=== PATIENT | female | born 1940 | race Caucasian/White ===

== ENCOUNTER 2016-07-04 05:27 | Inpatient (IN) | payer MEDICARE, MEDICAID ==
[2016-07-04] MEDS ORDERED: Sodium Chloride 0.9% 1,000 ML IV ONE (05:50)
[2016-07-04] MEDS ORDERED: Sodium Chloride 0.9% 10 ML Syringe FLUSH PRN ×2 (05:50)
[2016-07-04] MEDS ORDERED: Sodium Chloride 0.9% 2.5 ML Syringe FLUSH PRN ×2 (05:50)
--- NOTE | 2016-07-04 06:03 | EDM.PDOC ---
ED HPI GENERAL MEDICAL PROBLEM - General Chief Complaint: General Stated Complaint: FEVER Time Seen by Provider: 07/04/16 05:49 Source of Information: Reports: Patient, EMS, Other (custodial staff nurse present in the ED) History Limitations: Reports: No limitations - History of Present Illness INITIAL COMMENTS - FREE TEXT/NARRATIVE: HISTORY AND PHYSICAL: History of present illness: 76 ear old female assisted patient who is nonambulatory and bedridden with a history of depression, generalized weakness, dementia, hypertension high cholesterol and hypothyroidism, now brought in by EMS after assisted staff appreciated patient to be febrile with a productive cough that was worsening. Since last night the patient has been developing hypoxia. She does not usually use home O2. She is at her baseline mental status of mild dementia per her nurse from the assisted, but she is alert and verbal communicative and cooperative. Patient denies headache or stiff neck. No chest pain. Review of systems: As per history of present illness and below otherwise all systems reviewed and negative. Past medical history: As per history of present illness and as reviewed below otherwise noncontributory. Surgical history: As per history of present illness and as reviewed below otherwise noncontributory. Social history: No reported history of drug or alcohol abuse. Family history: As per history of present illness and as reviewed below otherwise noncontributory. Physical exam: Elderly chronically weak appearing female in no acute distress mild hypoxia at 88-90% on 2 L nasal cannula. Alert, communicative, and cooperative. She is at her baseline mental status per assisted nurse present in ED HEENT: Atraumatic, normocephalic, pupils reactive, negative for conjunctival pallor or scleral icterus, mucous membranes moist, throat clear, neck supple, nontender, trachea midline. Lungs: Scattered rhonchi, breath sounds equal bilaterally, chest nontender. Heart: S1S2, regular, negative for clicks, rubs, or JVD. Abdomen: Soft, nondistended, nontender. Negative for masses or hepatosplenomegaly. Negative for costovertebral tenderness. Pelvis: Stable nontender. Genitourinary: Deferred. Rectal: Deferred. Extremities: Atraumatic, negative for cords or calf pain. Neurovascular unremarkable. Neuro: Awake, alert, oriented. Cranial nerves II through XII unremarkable. Cerebellum unremarkable. Motor and sensory unremarkable throughout except patient has generalized weakness. Exam nonfocal. Diagnostics: [] Therapeutics: [] Impression: [] Plan: [] Definitive disposition and diagnosis as appropriate pending reevaluation and review of above. no verbalized pain Pain Score (Numeric/FACES): 0 - Related Data Allergies Allergy/AdvReac Type Severity Reaction Status Date / Time No Known Allergies Allergy Verified 07/04/16 05:41 Home Meds: Home Meds Acetaminophen [Tylenol] 650 mg PO Q4H PRN #7 tablet 03/07/16 [Rx] Levothyroxine [Synthroid] 88 mcg PO ACBREAKFAST #7 tablet 03/07/16 [Rx] Metoprolol Tartrate 50 mg PO BID #7 tablet 03/07/16 [Rx] Simvastatin [Zocor] 20 mg PO BEDTIME #7 tablet 03/07/16 [Rx] amLODIPine [Norvasc] 5 mg PO DAILY #7 tablet 03/07/16 [Rx] buPROPion [Wellbutrin XL] 300 mg PO DAILY #30 tab.er 03/07/16 [Rx] traZODone 25 mg PO BEDTIME #30 tablet 03/07/16 [Rx] Acetaminophen [Pain & Fever] 500 mg PO TID 07/04/16 [History] Multivitamin [Multi-Vitamin Daily] 1 tab PO DAILY 07/04/16 [History] Past Medical History HEENT History: Reports: None Cardiovascular History: Reports: High cholesterol, Hypertension. Denies: Afib, Blood clots/VTE/DVT, CT Other Cardiovascular History: takes calcium Endocrine/Metabolic History: Reports: Obesity/BMI 30+. Denies: Diabetes, type II - Infectious Disease History Infectious Disease History: Reports: Chicken pox, Measles, Mumps - Past Surgical History Musculoskeletal Surgical History: Reports: Other (see below) Other Musculoskeletal Surgeries/Procedures:: hip surgery Social & Family History - Family History Family Medical History: Noncontributory - Tobacco Use Smoking Status *Q: Never Smoker Second Hand Smoke Exposure: No - Caffeine Use Caffeine Use: Reports: None - Recreational Drug Use Recreational Drug Use: No ED ROS GENERAL - Review of Systems Review Of Systems: See Below (Per history of present illness) ED EXAM, GENERAL - Physical Exam Exam: See Below (Per history of present illness) Course - Vital Signs Text/Narrative:: Signs and symptoms consistent with clinical diagnosis of pneumonia with hypoxia productive cough and fever 101 rectally. Patient's baseline is not hypoxia and she does not use home O2. She is at her baseline mental status supple neck no headache no evidence of MANAGER FLORAL infection the is nonfocal neurologically with severe generalized weakness however per assisted nurse this is her baseline. EKG normal sinus rhythm at [address] [facility]. Chest x-ray pending given clinical diagnosis of pneumonia blood cultures will be drawn an anabolic initiated for hCAP coverage. Chest x-ray result consistent with right middle lobe infiltrate interpreted by me. Anticipate inpatient admission to a telemetry bed for treatment of pneumonia supplemental oxygen for her hypoxia, fever control and hydration. Case discussed with Dr. Max Alexander hospitalist director of aviation who is aware history and findings and agrees with inpatient admission to a telemetry bed to his service. Dr. Alexander recent Levaquin and vancomycin as ordered and will address further antibiosis himself. Patient stable on reevaluation and appropriate for for a telemetry bed. Last Recorded V/S: Last Vital Signs Temp 38.6 C H 07/04/16 05:41 Pulse 86 07/04/16 06:26 Resp 19 07/04/16 06:26 BP 134/62 07/04/16 06:26 Pulse Ox 90 L 07/04/16 06:26 - Orders/Labs/Meds Orders: Active Orders 24 hr Category Date Time Status Admission Status [Patient Status] [ADT] Stat ADT 07/04/16 06:45 Active EKG Documentation Completion [RC] STAT Care 07/04/16 05:50 Active Peripheral IV Care [RC] . DIRECTED Care 07/04/16 05:50 Active Chest 1V Frontal [CR] Stat Exams 07/04/16 05:50 Taken CULTURE BLOOD [BC] Stat Lab 07/04/16 05:53 Received CULTURE BLOOD [BC] Stat Lab 07/04/16 06:31 Ordered LACTIC ACID,WHOLE BLOOD [BG] Stat Lab 07/04/16 06:31 Ordered Levofloxacin/Dextrose 5%-Water [Levaquin in D5W 500 MG/ Med 07/04/16 06:31 Active 100 ML] 500 mg Premix Bag 1 bag IV ONETIME Sodium Chloride 0.9% [Normal Saline] 1,000 ml Med 07/04/16 05:50 Active IV .Bolus Sodium Chloride 0.9% [Saline Flush] Med 07/04/16 05:50 Active 10 ml FLUSH ASDIRECTED PRN Sodium Chloride 0.9% [Saline Flush] Med 07/04/16 05:50 Active 10 ml FLUSH ASDIRECTED PRN Sodium Chloride 0.9% [Saline Flush] Med 07/04/16 05:50 Active 2.5 ml FLUSH ASDIRECTED PRN Sodium Chloride 0.9% [Saline Flush] Med 07/04/16 05:50 Active 2.5 ml FLUSH ASDIRECTED PRN Vancomycin [Vancocin] 1 gm Med 07/04/16 06:31 Active Sodium Chloride 0.9% [Normal Saline] 250 ml IV ONETIME Blood Culture x2 Reflex Set [OM.PC] Stat Oth 07/04/16 06:31 Ordered Peripheral IV Insertion Adult [OM.PC] Stat Oth 07/04/16 05:50 Ordered Medication Orders Sodium Chloride (Normal Saline) 1,000 mls @ 999 mls/hr IV .Bolus ONE Stop: 07/04/16 06:50 Last Admin: 07/04/16 06:21 Dose: 999 mls/hr Levofloxacin/Dextrose 500 mg/ (Premix) 100 mls @ 100 mls/hr IV ONETIME ONE Stop: 07/04/16 07:30 Vancomycin HCl 1 gm/ Sodium (Chloride) 250 mls @ 250 mls/hr IV ONETIME ONE Stop: 07/04/16 07:30 Last Admin: 07/04/16 06:45 Dose: 250 mls/hr Sodium Chloride (Saline Flush) 10 ml FLUSH ASDIRECTED PRN PRN Reason: Keep Vein Open Last Admin: 07/04/16 06:21 Dose: 10 ml Sodium Chloride (Saline Flush) 2.5 ml FLUSH ASDIRECTED PRN PRN Reason: Keep Vein Open Last Admin: 07/04/16 06:20 Dose: 2.5 ml Sodium Chloride (Saline Flush) 10 ml FLUSH ASDIRECTED PRN PRN Reason: Keep Vein Open Last Admin: 07/04/16 06:22 Dose: 10 ml Sodium Chloride (Saline Flush) 2.5 ml FLUSH ASDIRECTED PRN PRN Reason: Keep Vein Open Last Admin: 07/04/16 06:22 Dose: 2.5 ml Labs: Laboratory Tests 07/04/16 07/04/16 07/04/16 Range/Units 05:53 05:53 05:53 WBC 6.51 (4.0-11.0) K/uL RBC 4.05 L (4.30-5.90) M/uL Hgb 11.9 L (12.0-16.0) g/dL Hct 35.7 L (36.0-46.0) % MCV 88.1 (80.0-98.0) fL MCH 29.4 (27.0-32.0) pg MCHC 33.3 (31.0-37.0) g/dL RDW Std Deviation 51.2 (28.0-62.0) fl RDW Coeff of Cristiane 16 H (11.0-15.0) % Plt Count 157 (150-400) K/uL MPV 9.90 (7.40-12.00) fL Neut % (Auto) 28.3 L (48.0-80.0) % Lymph % (Auto) 64.1 H (16.0-40.0) % [place] % (Auto) 6.3 (0.0-15.0) % Eos % (Auto) 0.8 (0.0-7.0) % Baso % (Auto) 0.5 (0.0-1.5) % Neut # (Auto) 1.9 (1.4-5.7) K/uL Lymph # (Auto) 4.2 H (0.6-2.4) K/uL [place] # (Auto) 0.4 (0.0-0.8) K/uL Eos # (Auto) 0.1 (0.0-0.7) K/uL Baso # (Auto) 0.0 (0.0-0.1) K/uL Nucleated RBC % 0.0 /100WBC Nucleated RBCs # 0 K/uL Sodium 134 L (136-146) mmol/L Potassium 3.7 (3.5-5.1) mmol/L Chloride 100 (98-110) mmol/L Carbon Dioxide 22 (21-31) mmol/L BUN 24 H (6.0-23.0) mg/dL Creatinine 1.3 (0.6-1.5) mg/dL Est Cr Clr Drug Dosing 27.27 mL/min Estimated GFR (MDRD) 40.0 ml/min Glucose 82 (60-110) mg/dL Calcium 9.3 (8.8-10.8) mg/dL Total Bilirubin 0.5 (0.1-1.5) mg/dL AST 86 H (5-40) IU/L ALT 16 (8-54) IU/L Alkaline Phosphatase 334 H (40-150) Troponin I < 0.10 (0.0-0.29) NG/ML Total Protein 7.8 (6.0-8.0) g/dL Albumin 3.4 (3.4-4.8) g/dL Globulin 4.4 H (2.0-3.5) g/dL Albumin/Globulin Ratio 0.8 L (1.3-2.8) Urine Color Urine Appearance Urine pH (5.0-8.0) Ur Specific Roper (1.001-1.035) Urine Protein (NEGATIVE) mg/dL Urine Glucose (UA) (NEGATIVE) mg/dL Urine Ketones (NEGATIVE) mg/dL Urine Occult Blood (NEGATIVE) Urine Nitrite (NEGATIVE) Urine Bilirubin (NEGATIVE) Urine Urobilinogen (<2.0) EU/dL Ur Leukocyte Esterase (NEGATIVE) Urine RBC (0-2/HPF) Urine WBC (0-5/HPF) Ur Epithelial Cells (NONE-FEW) Urine Bacteria (NEGATIVE) Hyaline Casts (0-2/LPF) Fine Granular Casts (NEGATIVE) 07/04/16 Range/Units 06:08 WBC (4.0-11.0) K/uL RBC (4.30-5.90) M/uL Hgb (12.0-16.0) g/dL Hct (36.0-46.0) % MCV (80.0-98.0) fL MCH (27.0-32.0) pg MCHC (31.0-37.0) g/dL RDW Std Deviation (28.0-62.0) fl RDW Coeff of Cristiane (11.0-15.0) % Plt Count (150-400) K/uL MPV (7.40-12.00) fL Neut % (Auto) (48.0-80.0) % Lymph % (Auto) (16.0-40.0) % [place] % (Auto) (0.0-15.0) % Eos % (Auto) (0.0-7.0) % Baso % (Auto) (0.0-1.5) % Neut # (Auto) (1.4-5.7) K/uL Lymph # (Auto) (0.6-2.4) K/uL [place] # (Auto) (0.0-0.8) K/uL Eos # (Auto) (0.0-0.7) K/uL Baso # (Auto) (0.0-0.1) K/uL Nucleated RBC % /100WBC Nucleated RBCs # K/uL Sodium (136-146) mmol/L Potassium (3.5-5.1) mmol/L Chloride (98-110) mmol/L Carbon Dioxide (21-31) mmol/L BUN (6.0-23.0) mg/dL Creatinine (0.6-1.5) mg/dL Est Cr Clr Drug Dosing mL/min Estimated GFR (MDRD) ml/min Glucose (60-110) mg/dL Calcium (8.8-10.8) mg/dL Total Bilirubin (0.1-1.5) mg/dL AST (5-40) IU/L ALT (8-54) IU/L Alkaline Phosphatase (40-150) Troponin I (0.0-0.29) NG/ML Total Protein (6.0-8.0) g/dL Albumin (3.4-4.8) g/dL Globulin (2.0-3.5) g/dL Albumin/Globulin Ratio (1.3-2.8) Urine Color YELLOW Urine Appearance CLOUDY Urine pH 5.5 (5.0-8.0) Ur Specific Roper >= 1.030 (1.001-1.035) Urine Protein 30 (NEGATIVE) mg/dL Urine Glucose (UA) NEGATIVE (NEGATIVE) mg/dL Urine Ketones NEGATIVE (NEGATIVE) mg/dL Urine Occult Blood LARGE H (NEGATIVE) Urine Nitrite NEGATIVE (NEGATIVE) Urine Bilirubin NEGATIVE (NEGATIVE) Urine Urobilinogen 0.2 (<2.0) EU/dL Ur Leukocyte Esterase MODERATE (NEGATIVE) Urine RBC 1-4 (0-2/HPF) Urine WBC 150-200 (0-5/HPF) Ur Epithelial Cells FEW (NONE-FEW) Urine Bacteria FEW (NEGATIVE) Hyaline Casts 0-1 (0-2/LPF) Fine Granular Casts 0-1 (NEGATIVE) Meds: Medications Generic Name Dose Route Start Last Admin Trade Name Freq PRN Reason Stop Dose Admin Sodium Chloride 1,000 mls @ 999 mls/hr 07/04/16 05:50 07/04/16 06:21 Normal Saline IV 07/04/16 06:50 999 mls/hr .Bolus ONE Administration Levofloxacin/Dextrose 500 mg/ 100 mls @ 100 mls/hr 07/04/16 06:31 Premix IV 07/04/16 07:30 ONETIME ONE Vancomycin HCl 1 gm/ Sodium 250 mls @ 250 mls/hr 07/04/16 06:31 07/04/16 06: 45 Chloride IV 07/04/16 07:30 250 mls/hr ONETIME ONE Administration Sodium Chloride 10 ml 07/04/16 05:50 07/04/16 06:21 Saline Flush FLUSH 10 ml ASDIRECTED PRN Administration Keep Vein Open Sodium Chloride 2.5 ml 07/04/16 05:50 07/04/16 06:20 Saline Flush FLUSH 2.5 ml ASDIRECTED PRN Administration Keep Vein Open Sodium Chloride 10 ml 07/04/16 05:50 07/04/16 06:22 Saline Flush FLUSH 10 ml ASDIRECTED PRN Administration Keep Vein Open Sodium Chloride 2.5 ml 07/04/16 05:50 07/04/16 06:22 Saline Flush FLUSH 2.5 ml ASDIRECTED PRN Administration Keep Vein Open Departure - Departure Time of Disposition: 06:07 Disposition: Admitted As Inpatient 68 Condition: good Clinical Impression: Pneumonia, Hypoxia, Fever, SIRS (systemic inflammatory response syndrome), Sepsis Referrals: Emir Muir MD [Primary Care Provider] - - My Orders Last 24 Hours: My Active Orders 07/04/16 05:50 EKG Documentation Completion [RC] STAT Peripheral IV Care [RC] . DIRECTED Chest 1V Frontal [CR] Stat Sodium Chloride 0.9% [Normal Saline] 1,000 ml IV .Bolus Sodium Chloride 0.9% [Saline Flush] 10 ml FLUSH ASDIRECTED PRN Sodium Chloride 0.9% [Saline Flush] 10 ml FLUSH ASDIRECTED PRN Sodium Chloride 0.9% [Saline Flush] 2.5 ml FLUSH ASDIRECTED PRN Sodium Chloride 0.9% [Saline Flush] 2.5 ml FLUSH ASDIRECTED PRN Peripheral IV Insertion Adult [OM.PC] Stat 07/04/16 05:53 CULTURE BLOOD [BC] Stat 07/04/16 06:31 CULTURE BLOOD [BC] Stat LACTIC ACID,WHOLE BLOOD [BG] Stat Levofloxacin/Dextrose 5%-Water [Levaquin in D5W 500 MG/100 ML] 500 mg Premix Bag 1 bag IV ONETIME Vancomycin [Vancocin] 1 gm Sodium Chloride 0.9% [Normal Saline] 250 ml IV ONETIME Blood Culture x2 Reflex Set [OM.PC] Stat 07/04/16 06:45 Admission Status [Patient Status] [ADT] Stat - Assessment/Plan Last 24 Hours: My Active Orders 07/04/16 05:50 EKG Documentation Completion [RC] STAT Peripheral IV Care [RC] . DIRECTED Chest 1V Frontal [CR] Stat Sodium Chloride 0.9% [Normal Saline] 1,000 ml IV .Bolus Sodium Chloride 0.9% [Saline Flush] 10 ml FLUSH ASDIRECTED PRN Sodium Chloride 0.9% [Saline Flush] 10 ml FLUSH ASDIRECTED PRN Sodium Chloride 0.9% [Saline Flush] 2.5 ml FLUSH ASDIRECTED PRN Sodium Chloride 0.9% [Saline Flush] 2.5 ml FLUSH ASDIRECTED PRN Peripheral IV Insertion Adult [OM.PC] Stat 07/04/16 05:53 CULTURE BLOOD [BC] Stat 07/04/16 06:31 CULTURE BLOOD [BC] Stat LACTIC ACID,WHOLE BLOOD [BG] Stat Levofloxacin/Dextrose 5%-Water [Levaquin in D5W 500 MG/100 ML] 500 mg Premix Bag 1 bag IV ONETIME Vancomycin [Vancocin] 1 gm Sodium Chloride 0.9% [Normal Saline] 250 ml IV ONETIME Blood Culture x2 Reflex Set [OM.PC] Stat 07/04/16 06:45 Admission Status [Patient Status] [ADT] Stat
[2016-07-04] MEDS ORDERED: Levofloxacin/Dextrose 5%-Water 500 MG in Premix Bag 1 BAG IV ONE (06:31)
--- NOTE | 2016-07-04 08:04 | PCM.HP ---
H&P History of Present Illness - General Date of Service: 07/04/16 Admit Problem/Dx: Admission Diagnosis/Problem Admission Diagnosis/Problem Pneumonia Source of Information: Family (Daughter, Wood, at bedside), long-term records - History of Present Illness Initial Comments - Free Text/Narative: This 76 year old female [place] resident with pmh of HTN, dyslipidemia, depression, dementia, COPD, and non-ambulatory presented to the ED via EMS last evening due to complaints of fever and productive cough. Her daughter, Wood, reports Thursday and Thursday she started not feeling well with malaise, chills, no appetite, and diarrhea. On Thursday and she continued to get worse and they noticed a cough and fever. She normally is dyspneic, but does not use home oxygen. She is alert and oriented to baseline, conversational. She reports she does not feel well, denies pain, has some body aches. Denies abdominal pain , urinary symptoms, chest pain and palpitations. In the ED WBC 6,510, hgb 11.9 Na 134, BUN 24, Cr 1.3 AST 86, ALK phos 334. UA few bacteria, WBC 15-200, leukocyte esterase moderate and neg nitrite. UC pending. BC obtain and pending as well. Influenza swab negative. CXR revealed multifocal penumonia/pneumonitis. She was treated with IV fluids, Levaquin and Vancomycin in the ED. She was admitted for sepsis and health care associated pneumonia. no verbalized pain Pain Score (Numeric/FACES): 0 - Related Data Allergies/Adverse Reactions: Allergies Allergy/AdvReac Type Severity Reaction Status Date / Time No Known Allergies Allergy Verified 07/04/16 05:41 Home Medications: Home Meds Acetaminophen [Tylenol] 650 mg PO Q4H PRN #7 tablet 03/07/16 [Rx] Levothyroxine [Synthroid] 88 mcg PO ACBREAKFAST #7 tablet 03/07/16 [Rx] Metoprolol Tartrate 50 mg PO BID #7 tablet 03/07/16 [Rx] Simvastatin [Zocor] 20 mg PO BEDTIME #7 tablet 03/07/16 [Rx] amLODIPine [Norvasc] 5 mg PO DAILY #7 tablet 03/07/16 [Rx] buPROPion [Wellbutrin XL] 300 mg PO DAILY #30 tab.er 03/07/16 [Rx] traZODone 25 mg PO BEDTIME #30 tablet 03/07/16 [Rx] Acetaminophen [Pain & Fever] 500 mg PO TID 07/04/16 [History] Multivitamin [Multi-Vitamin Daily] 1 tab PO DAILY 07/04/16 [History] Past Medical History HEENT History: Reports: None Cardiovascular History: Reports: High cholesterol, Hypertension. Denies: Afib, Blood clots/VTE/DVT, Heart Failure, CA Respiratory History: Reports: Asthma, COPD, SOB. Denies: PE Gastrointestinal History: Reports: None. Denies: GERD, GI bleed Genitourinary History: Reports: UTI, recurrent. 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 Denies: Diabetes, type II Hematologic History: Reports: None Oncologic (Cancer) History: Reports: None Dermatologic History: Reports: None - Infectious Disease History Infectious Disease History: Reports: Chicken pox, Measles, Mumps - Past Surgical History Musculoskeletal Surgical History: Reports: Other (see below) Other Musculoskeletal Surgeries/Procedures:: hip surgery Social & Family History - Family History Family Medical History: Noncontributory - Tobacco Use Smoking Status *Q: Never Smoker Second Hand Smoke Exposure: No - Caffeine Use Caffeine Use: Reports: None - Recreational Drug Use Recreational Drug Use: No - Living Situation & Occupation 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 Denies: headaches, sinus congestion, sore throat Pulmonary: Reports: Shortness of Breath, Cough, Sputum Cardiovascular: Reports: edema (has edema to BLE, +1-2 non pitting since hip fracture and non ambulatory). Denies: chest pain, palpitations Gastrointestinal: Reports: Diarrhea, Decreased appetite. Denies: Abdominal pain , Black stool, Bloody stool, Nausea, Stool incontinence Genitourinary: Reports: no symptoms. Denies: dysuria, frequency, burning Musculoskeletal: Reports: no symptoms Skin: Reports: no symptoms Psychiatric: Reports: no symptoms Neurological: Reports: No Symptoms Hematologic/Lymphatic: Reports: no symptoms Immunologic: Reports: no symptoms Exam - Exam Exam: See Below - Vital Signs Vital Signs: Last Vital Signs Temp 98.6 F 07/04/16 06:52 Pulse 83 07/04/16 06:52 Resp 19 07/04/16 06:52 BP 143/65 H 07/04/16 06:52 Pulse Ox 93 L 07/04/16 06:52 Weight: 77 kg - Exam Quality Assessment: supplemental oxygen, DVT prophylaxis General: alert, oriented, cooperative HEENT: Conjunctiva clear, EACs clear, EOMI, Hearing intact, Nares patent, Posterior pharynx clear. No: Mucosa moist & pink (lips and mouth dry with some craking to lips) Neck: supple, trachea midline. No: lymphadenopathy Lungs: Crackles (Coarse lung sound throughout lung van). No: Normal respiratory effort (dyspnea noted, daughter notes this is about at baseline. ) Cardiovascular: regular rate, regular rhythm, normal S1, normal S2. No: systolic murmur Abdomen: normal bowel sounds, soft. No: organomegaly, distention, guarding, rigidity, rebound, tenderness Extremities: normal inspection, normal pulses, edema (+1-2 non pitting edema) Peripheral Pulses: 2+: posterior tibial (L), posterior tibial (R), dorsalis pedis (L), dorsalis pedis (R) Skin: warm, dry, intact Neurological: cranial nerves intact Neuro Extensive - Mental Status: alert, normal mood/affect, disorientation to time Neuro Extensive - Motor, Sensory, Reflexes: No: normal gait (non-ambulatory) Psychiatric: alert, normal affect, normal mood - Patient Data Result Diagrams: 07/04/16 05:53 07/04/16 05:53 EKG INTERPRETATION EKG Date: 07/04/16 Time: 05:54 Rhythm: NSR Rate (beats/min): 83 P-wave: present QRS: normal ST-T: normal QT: normal *Q Meaningful Use (ADM) - VTE *Q VTE Criteria *Q: - VTE Risk Assess *Q Each Risk Factor Represents 1 Point: Swollen Legs, Current, Obesity (BMI greater than 30), Serious Lung Disease Including Pneumonia, Less than 1 Month, Abnormal Pulmonary Function (COPD), Medical Patient Currently on Bedrest Total Score 1 Point Risk Factors: 5 Each Risk Factor Represents 2 Points: Age 60 - 74 Years Total Score 2 Point Risk Factors: 2 Each Risk Factor Represents 3 Points: None Total Score 3 Point Risk Factors: 0 Each Risk Factor Represents 5 Points: None Total Score 5 Point Risk Factors: 0 Venous Thromboembolism Risk Factor Score *Q: 7 - Stroke *Q Stroke Criteria *Q: - AMI *Q AMI Criteria *Q: - Problem List (1) Sepsis SNOMED Code(s): 53868408 ICD Code: A41.9 - SEPSIS, UNSPECIFIED ORGANISM Status: Acute Current Visit: Yes (2) Recurrent UTI SNOMED Code(s): 491660896 ICD Code: N39.0 - URINARY TRACT INFECTION, SITE NOT SPECIFIED Status: Acute Current Visit: Yes (3) COPD (chronic obstructive pulmonary disease) SNOMED Code(s): 75055170 ICD Code: J44.9 - CHRONIC OBSTRUCTIVE PULMONARY DISEASE, UNSPECIFIED Status : Acute Current Visit: Yes (4) Dementia SNOMED Code(s): 63722828 ICD Code: F03.90 - UNSPECIFIED DEMENTIA WITHOUT BEHAVIORAL DISTURBANCE Status: Acute Current Visit: Yes (5) Hypothyroidism SNOMED Code(s): 25014668 ICD Code: E03.9 - HYPOTHYROIDISM, UNSPECIFIED Status: Acute Current Visit : Yes (6) Fever SNOMED Code(s): 810849717 ICD Code: R50.9 - FEVER, UNSPECIFIED Status: Acute Current Visit: Yes (7) Hypoxia SNOMED Code(s): 681211441, 205001374 ICD Code: R09.02 - HYPOXEMIA Status: Acute Current Visit: Yes (8) Pneumonia SNOMED Code(s): 638481716 ICD Code: J18.9 - PNEUMONIA, UNSPECIFIED ORGANISM Status: Acute Current Visit: Yes (9) HTN (hypertension) SNOMED Code(s): 53044847 ICD Code: I10 - ESSENTIAL (PRIMARY) HYPERTENSION Status: Chronic Current Visit: No Qualifiers: Hypertension type: essential hypertension Qualified Code(s): I10 - Essential (primary) hypertension Problem List Initiated/Reviewed/Updated: Yes Orders Last 24hrs: Medication Orders Sodium Chloride (Saline Flush) 10 ml FLUSH ASDIRECTED PRN PRN Reason: Keep Vein Open Last Admin: 07/04/16 06:21 Dose: 10 ml Sodium Chloride (Saline Flush) 2.5 ml FLUSH ASDIRECTED PRN PRN Reason: Keep Vein Open Last Admin: 07/04/16 06:20 Dose: 2.5 ml Sodium Chloride (Saline Flush) 10 ml FLUSH ASDIRECTED PRN PRN Reason: Keep Vein Open Last Admin: 07/04/16 06:22 Dose: 10 ml Sodium Chloride (Saline Flush) 2.5 ml FLUSH ASDIRECTED PRN PRN Reason: Keep Vein Open Last Admin: 07/04/16 06:22 Dose: 2.5 ml Assessment/Plan Comment:: This 76 year old female admitted with sepsis, HCAP and flu like symptoms 1. Sepsis and HCAP: Covering with broad spectrum antibiotics, Zosyn, Levaquin and Vancomycin. No leukocytosis. May consider chest CT per radiology recommendations if no improvement. Provide IVFs for now, monitor. Duonebs and oxygen. Lactate normal. Encourage IS 2. Flu-like symptoms: Tamiflu 30 mg daily due to renal function. 3. UTI: UC pending, treatment as above. 4. HTN: Monitor hold Metoprolol and Norvasc for now due to sepsis. Will re- evaluate in am. 5. Hypothyroidism: Continue Synthroid 6. Depression: Continue Wellbutrin VTE: Heparin Dispo: 2-4 days
[2016-07-04] MEDS: Sodium Chloride 0.9% 1,000 ML IV SCH ×2 (08:16→20:22)
[2016-07-04] MEDS: Piperacillin/Tazobactam 4.5 GM in Sodium Chloride 0.9% 100 ML IV SCH ×3 (08:22→20:04)
[2016-07-04] MEDS ORDERED: Acetaminophen 325 MG Tab PO PRN (10:00)
[2016-07-04] MEDS ORDERED: Enoxaparin 40 MG/0.4 ML Syringe SUBCUT SCH (10:00)
[2016-07-04] MEDS ORDERED: Ondansetron 4 MG/2 ML SDV IVPUSH PRN (10:00)
[2016-07-04] MEDS: Albuterol/Ipratropium 3.0-0.5 MG/3 ML Neb Soln NEB SCH ×4 (10:22→21:05)
[2016-07-04] MEDS ORDERED: Oseltamivir 75 MG Cap PO SCH ×2 (12:30→12:45)
[2016-07-04] MEDS: Oseltamivir Phosphate 30 MG Capsule PO SCH (13:00)
--- NOTE | 2016-07-04 14:43 | CR ---
EXAM DATE: 07/04/16 PATIENT'S AGE: 76 Patient: LLOYD HERNANDEZ Facility: [place], [place] Site . Site : 1940 Study: XRay Chest [id number]/24/2017 6:28:35 AM Ordering Physician: Doctor Sanchez Final Report: INDICATION: Cough. TECHNIQUE: Chest 1 view. COMPARISON: None FINDINGS: Cardiovascular and mediastinum: Heart size and vasculature are normal in caliber and appearance. Mediastinum is within normal limits. Lungs and pleural space: New from comparison subtle patchy and nodular indistinct airspace opacity right upper lobe and medial left upper lobe. Bones and soft tissues: Chronic rotator cuff subluxation and glenohumeral arthropathy on the right. IMPRESSION: Multifocal pneumonia/pneumonitis. Followup to imaging resolution recommended. CT would better characterize if there is clinical concern. Dictated by Rizwan Mann MD @ Jul 04 2016 6:41AM (Electronic Signature) Report Signed by Proxy and Original Signed Document filed in the Medical Record. MTDD
[2016-07-04] MEDS: Albuterol 0.083% 2.5 MG/3 ML Neb Soln NEB PRN (15:07)
[2016-07-04] MEDS: traZODone 50 MG Tab PO SCH (21:15)
[2016-07-04] MEDS: Simvastatin 20 MG Tab PO SCH (21:15)
[2016-07-05] MEDS: Piperacillin/Tazobactam 4.5 GM in Sodium Chloride 0.9% 100 ML IV SCH ×5 (01:46→19:49)
[2016-07-05] MEDS: Albuterol/Ipratropium 3.0-0.5 MG/3 ML Neb Soln NEB SCH ×6 (01:47→23:10)
[2016-07-05] MEDS ORDERED: Levofloxacin/Dextrose 5%-Water 750 MG in Premix Bag 1 BAG IV SCH (06:00)
[2016-07-05] MEDS: Levothyroxine 88 MCG Tab PO SCH (06:29)
[2016-07-05] MEDS: Sodium Chloride 0.9% 1,000 ML IV SCH ×2 (08:50→21:55)
[2016-07-05] MEDS: Multivitamin Tab PO SCH (08:51)
[2016-07-05] MEDS: buPROPion 150 MG Tab.ER PO SCH (08:51)
[2016-07-05] MEDS: Oseltamivir Phosphate 30 MG Capsule PO SCH (08:51)
[2016-07-05] MEDS: Heparin Sodium 5,000 Units/ML Vial SUBCUT SCH ×2 (08:51→20:03)
--- NOTE | 2016-07-05 13:41 | PCM.PN ---
- General Info Date of Service: 07/05/16 - Review of Systems Systems Review Comment:: she ate a little lunch she is feeling improved. She states that her cough is improved. - Patient Data Vitals - most recent: Last Vital Signs Temp 97.6 F 07/05/16 11:46 Pulse 84 07/05/16 11:46 Resp 20 07/05/16 11:46 BP 127/53 L 07/05/16 11:46 Pulse Ox 91 L 07/05/16 11:46 Weight - most recent: 77 kg I&O - last 24 hours: Intake & Output 07/04/16 07/05/16 07/05/16 22:59 06:59 14:59 Intake Total 1821 450 Output Total 442 Balance 1821 8 Lab Results last 24 hrs: Laboratory Results - last 24 hr 07/05/16 07/05/16 Range/Units 06:40 06:40 WBC 5.50 (4.0-11.0) K/uL RBC 3.26 L (4.30-5.90) M/uL Hgb 9.5 L (12.0-16.0) g/dL Hct 29.0 L (36.0-46.0) % MCV 89.0 (80.0-98.0) fL MCH 29.1 (27.0-32.0) pg MCHC 32.8 (31.0-37.0) g/dL RDW Std Deviation 51.8 (28.0-62.0) fl RDW Coeff of Cristiane 16 H (11.0-15.0) % Plt Count 116 L (150-400) K/uL MPV 9.70 (7.40-12.00) fL Neut % (Auto) 28.0 L (48.0-80.0) % Lymph % (Auto) 62.9 H (16.0-40.0) % [place] % (Auto) 8.4 (0.0-15.0) % Eos % (Auto) 0.2 (0.0-7.0) % Baso % (Auto) 0.5 (0.0-1.5) % Neut # (Auto) 1.5 (1.4-5.7) K/uL Lymph # (Auto) 3.5 H (0.6-2.4) K/uL [place] # (Auto) 0.5 (0.0-0.8) K/uL Eos # (Auto) 0.0 (0.0-0.7) K/uL Baso # (Auto) 0.0 (0.0-0.1) K/uL Nucleated RBC % 0.0 /100WBC Nucleated RBCs # 0 K/uL Sodium 136 (136-146) mmol/L Potassium 3.1 L (3.5-5.1) mmol/L Chloride 108 (98-110) mmol/L Carbon Dioxide 19 L (21-31) mmol/L BUN 14 (6.0-23.0) mg/dL Creatinine 1.0 (0.6-1.5) mg/dL Est Cr Clr Drug Dosing 35.45 mL/min Estimated GFR (MDRD) 54.2 ml/min Glucose 85 (60-110) mg/dL Calcium 8.1 L (8.8-10.8) mg/dL Total Bilirubin 0.5 (0.1-1.5) mg/dL AST 73 H (5-40) IU/L ALT 13 (8-54) IU/L Alkaline Phosphatase 245 H (40-150) Total Protein 5.7 L (6.0-8.0) g/dL Albumin 2.6 L (3.4-4.8) g/dL Globulin 3.1 (2.0-3.5) g/dL Albumin/Globulin Ratio 0.8 L (1.3-2.8) Sherwin Results last 24 hrs: Microbiology 07/04/16 12:00 Gram Stain - Preliminary Sputum - Expectorated Sputum Culture - Preliminary Med Orders - Current: Current Medications Acetaminophen (Tylenol) 650 mg PO Q4H PRN PRN Reason: Pain Albuterol (Proventil Neb Soln) 2.5 mg NEB Q2H PRN PRN Reason: Shortness Of Breath/wheezing Last Admin: 07/04/16 15:07 Dose: 2.5 mg Albuterol/Ipratropium (Duoneb 3.0-0.5 Mg/3 Ml) 3 ml NEB Q4HRRT [facility] Last Admin: 07/05/16 09:28 Dose: 3 ml Bupropion HCl (Wellbutrin Xl) 300 mg PO DAILY [facility] Last Admin: 07/05/16 08:51 Dose: 300 mg Heparin Sodium (Porcine) (Heparin Sodium) 5,000 units SUBCUT Q12HR [facility] Last Admin: 07/05/16 08:51 Dose: 5,000 units Piperacillin Sod/Tazobactam (Sod 4.5 gm/ Sodium Chloride) 100 mls @ 100 mls/hr IV Q6H [facility] Last Admin: 07/05/16 08:44 Dose: 100 mls/hr Sodium Chloride (Normal Saline) 1,000 mls @ 100 mls/hr IV ASDIRECTED [facility] Last Admin: 07/05/16 08:50 Dose: 100 mls/hr Vancomycin HCl 1 gm/ Sodium (Chloride) 250 mls @ 166.667 mls/hr IV Q24H [facility] Last Admin: 07/05/16 06:28 Dose: 166.667 mls/hr Levofloxacin/Dextrose 750 mg/ (Premix) 150 mls @ 100 mls/hr IV Q48H [facility] Levothyroxine Sodium (Synthroid) 88 mcg PO ACBREAKFAST [facility] Last Admin: 07/05/16 06:29 Dose: 88 mcg Multivitamins/Minerals/Vitamin C (Tab-A-Marcelino) 1 tab PO DAILY [facility] Last Admin: 07/05/16 08:51 Dose: 1 tab Ondansetron HCl (Zofran) 4 mg IVPUSH Q4H PRN PRN Reason: Nausea Oseltamivir Phosphate (Oseltamivir Phosphate) 30 mg PO DAILY [facility] Last Admin: 07/05/16 08:51 Dose: 30 mg Simvastatin (Zocor) 20 mg PO BEDTIME [facility] Last Admin: 07/04/16 21:15 Dose: 20 mg Sodium Chloride (Saline Flush) 10 ml FLUSH ASDIRECTED PRN PRN Reason: Keep Vein Open Last Admin: 07/04/16 06:21 Dose: 10 ml Sodium Chloride (Saline Flush) 2.5 ml FLUSH ASDIRECTED PRN PRN Reason: Keep Vein Open Last Admin: 07/04/16 06:20 Dose: 2.5 ml Trazodone HCl (Trazodone) 25 mg PO BEDTIME [facility] Last Admin: 07/04/16 21:15 Dose: 25 mg Vancomycin HCl (Pharmacy To Dose - Vancomycin) 1 dose .XX ASDIRECTED [facility] Discontinued Medications Enoxaparin Sodium (Lovenox) 40 mg SUBCUT DAILY [facility] Last Admin: 07/04/16 10:49 Dose: 40 mg Sodium Chloride (Normal Saline) 1,000 mls @ 999 mls/hr IV .Bolus ONE Stop: 07/04/16 06:50 Last Admin: 07/04/16 06:21 Dose: 999 mls/hr Levofloxacin/Dextrose 500 mg/ (Premix) 100 mls @ 100 mls/hr IV ONETIME ONE Stop: 07/04/16 07:30 Last Admin: 07/04/16 06:49 Dose: 100 mls/hr Vancomycin HCl 1 gm/ Sodium (Chloride) 250 mls @ 250 mls/hr IV ONETIME ONE Stop: 07/04/16 07:30 Last Admin: 07/04/16 06:45 Dose: 250 mls/hr Levofloxacin/Dextrose 750 mg/ (Premix) 150 mls @ 100 mls/hr IV Q48H [facility] Oseltamivir Phosphate (Tamiflu) 75 mg PO BID [facility] Last Admin: 07/04/16 12:43 Dose: Not Given Oseltamivir Phosphate (Tamiflu) 30 mg PO DAILY [facility] Last Admin: 07/04/16 13:04 Dose: Not Given Sodium Chloride (Saline Flush) 10 ml FLUSH ASDIRECTED PRN PRN Reason: Keep Vein Open Last Admin: 07/04/16 06:22 Dose: 10 ml Sodium Chloride (Saline Flush) 2.5 ml FLUSH ASDIRECTED PRN PRN Reason: Keep Vein Open Last Admin: 07/04/16 06:22 Dose: 2.5 ml - Exam General: alert, cooperative Neck: trachea midline Lungs: Wheezing (diffuse expiratory wheezing; prolongation of expiration) Abdomen: no tenderness Extremities: no edema Psy/Mental Status: No: agitated - Problem List & Annotations (1) Pneumonia SNOMED Code(s): 611609787 Code(s): J18.9 - PNEUMONIA, UNSPECIFIED ORGANISM Status: Acute Current Visit: Yes (2) Bedridden SNOMED Code(s): 657773770 Code(s): Z74.01 - BED CONFINEMENT STATUS Status: Acute Current Visit: Yes (3) COPD (chronic obstructive pulmonary disease) SNOMED Code(s): 17848687 Code(s): J44.9 - CHRONIC OBSTRUCTIVE PULMONARY DISEASE, UNSPECIFIED Status : Acute Current Visit: Yes (4) Dementia SNOMED Code(s): 10578958 Code(s): F03.90 - UNSPECIFIED DEMENTIA WITHOUT BEHAVIORAL DISTURBANCE Status: Acute Current Visit: Yes (5) UTI, Urinary tract infectious disease SNOMED Code(s): 24201527 Code(s): N39.0 - URINARY TRACT INFECTION, SITE NOT SPECIFIED Status: Resolved Current Visit: No (6) Sepsis SNOMED Code(s): 02533324 Code(s): A41.9 - SEPSIS, UNSPECIFIED ORGANISM Status: Acute Current Visit : Yes - Problem List Review Problem List Initiated/Reviewed/Updated: Yes - Plan Plan:: This 76 year old female admitted with sepsis, HCAP and flu like symptoms 1. Sepsis and HCAP: Covering with broad spectrum antibiotics, Zosyn, Levaquin and Vancomycin. No leukocytosis. May consider chest CT per radiology recommendations if no improvement. Provide IVFs for now, monitor. Duonebs and oxygen. Lactate normal. Encourage IS 2. Flu-like symptoms: Tamiflu 30 mg daily due to renal function. 3. UTI: UC pending, treatment as above. 4. HTN: Monitor hold Metoprolol and Norvasc for now due to sepsis. Will re- evaluate in am. 5. Hypothyroidism: Continue Synthroid 6. Depression: Continue Wellbutrin VTE: Heparin Dispo: 2-4 days 07/05/2016 add steroids duonebs antibiotics supportive care Corky Lehman MD
[2016-07-05] MEDS ORDERED: Potassium Chloride 20 MEQ Tab.ER PO ONE (13:45)
[2016-07-05] MEDS: methylPREDNISolone Sodium Succinate 125 MG/2 ML SDV IVPUSH SCH (17:37)
[2016-07-05] MEDS: Simvastatin 20 MG Tab PO SCH (20:04)
[2016-07-05] MEDS: traZODone 50 MG Tab PO SCH (20:04)
[2016-07-06] MEDS: methylPREDNISolone Sodium Succinate 125 MG/2 ML SDV IVPUSH SCH ×3 (01:54→16:35)
[2016-07-06] MEDS: Albuterol/Ipratropium 3.0-0.5 MG/3 ML Neb Soln NEB SCH ×6 (01:54→21:54)
[2016-07-06] MEDS: Piperacillin/Tazobactam 4.5 GM in Sodium Chloride 0.9% 100 ML IV SCH ×4 (01:54→21:18)
[2016-07-06] MEDS: Levofloxacin/Dextrose 5%-Water 750 MG in Premix Bag 1 BAG IV SCH (05:29)
[2016-07-06 06:18] LABS: CHLORIDE,CL 111 mmol/L (98-110); SODIUM,NA 136 mmol/L (136-146)
[2016-07-06] MEDS: Levothyroxine 88 MCG Tab PO SCH (06:34)
[2016-07-06] MEDS: buPROPion 150 MG Tab.ER PO SCH (08:21)
[2016-07-06] MEDS: Oseltamivir Phosphate 30 MG Capsule PO SCH (08:22)
[2016-07-06] MEDS: Heparin Sodium 5,000 Units/ML Vial SUBCUT SCH (08:23)
[2016-07-06] MEDS: Multivitamin Tab PO SCH (08:27)
[2016-07-06] MEDS ORDERED: Potassium Chloride 20 MEQ Tab.ER PO ONE (13:53)
--- NOTE | 2016-07-06 13:55 | PCM.PN ---
- General Info Date of Service: 07/06/16 Subjective Update: no new complaints. She feels improved. - Patient Data Vitals - most recent: Last Vital Signs Temp 97.2 F 07/06/16 11:39 Pulse 102 H 07/06/16 11:39 Resp 20 07/06/16 11:39 BP 135/64 07/06/16 11:39 Pulse Ox 93 L 07/06/16 11:39 Weight - most recent: 74 kg I&O - last 24 hours: Intake & Output 07/05/16 07/06/16 07/06/16 22:59 06:59 14:59 Intake Total 1934 400 Output Total 500 Balance 1434 400 Lab Results last 24 hrs: Laboratory Results - last 24 hr 07/06/16 07/06/16 Range/Units 05:35 05:35 WBC 2.83 L (4.0-11.0) K/uL RBC 3.49 L (4.30-5.90) M/uL Hgb 10.3 L (12.0-16.0) g/dL Hct 30.7 L (36.0-46.0) % MCV 88.0 (80.0-98.0) fL MCH 29.5 (27.0-32.0) pg MCHC 33.6 (31.0-37.0) g/dL RDW Std Deviation 51.2 (28.0-62.0) fl RDW Coeff of Cristiane 16 H (11.0-15.0) % Plt Count 109 L (150-400) K/uL MPV 9.90 (7.40-12.00) fL Neut % (Auto) 54.4 (48.0-80.0) % Lymph % (Auto) 44.5 H (16.0-40.0) % [place] % (Auto) 0.7 (0.0-15.0) % Eos % (Auto) 0.0 (0.0-7.0) % Baso % (Auto) 0.4 (0.0-1.5) % Neut # (Auto) 1.5 (1.4-5.7) K/uL Lymph # (Auto) 1.3 (0.6-2.4) K/uL [place] # (Auto) 0.0 (0.0-0.8) K/uL Eos # (Auto) 0.0 (0.0-0.7) K/uL Baso # (Auto) 0.0 (0.0-0.1) K/uL Nucleated RBC % 0.0 /100WBC Nucleated RBCs # 0 K/uL Sodium 136 (136-146) mmol/L Potassium 3.3 L (3.5-5.1) mmol/L Chloride 111 H (98-110) mmol/L Carbon Dioxide 15 L (21-31) mmol/L BUN 11 (6.0-23.0) mg/dL Creatinine 0.9 (0.6-1.5) mg/dL Est Cr Clr Drug Dosing 39.39 mL/min Estimated GFR (MDRD) > 60.0 ml/min Glucose 274 H (60-110) mg/dL Calcium 8.1 L (8.8-10.8) mg/dL Total Bilirubin 0.5 (0.1-1.5) mg/dL AST 67 H (5-40) IU/L ALT 16 (8-54) IU/L Alkaline Phosphatase 256 H (40-150) Total Protein 6.3 (6.0-8.0) g/dL Albumin 2.8 L (3.4-4.8) g/dL Globulin 3.5 (2.0-3.5) g/dL Albumin/Globulin Ratio 0.8 L (1.3-2.8) Sherwin Results last 24 hrs: Microbiology 07/04/16 12:00 Gram Stain - Final Sputum - Expectorated Sputum Culture - Final Staphylococcus Aureus Normal Respiratory Rosalba Med Orders - Current: Current Medications Acetaminophen (Tylenol) 650 mg PO Q4H PRN PRN Reason: Pain Albuterol (Proventil Neb Soln) 2.5 mg NEB Q2H PRN PRN Reason: Shortness Of Breath/wheezing Last Admin: 07/04/16 15:07 Dose: 2.5 mg Albuterol/Ipratropium (Duoneb 3.0-0.5 Mg/3 Ml) 3 ml NEB Q4HRRT [facility] Last Admin: 07/06/16 09:42 Dose: 3 ml Bupropion HCl (Wellbutrin Xl) 300 mg PO DAILY [facility] Last Admin: 07/06/16 08:21 Dose: 300 mg Piperacillin Sod/Tazobactam (Sod 4.5 gm/ Sodium Chloride) 100 mls @ 100 mls/hr IV Q6H [facility] Last Admin: 07/06/16 08:23 Dose: 100 mls/hr Sodium Chloride (Normal Saline) 1,000 mls @ 100 mls/hr IV ASDIRECTED [facility] Last Admin: 07/05/16 21:55 Dose: 100 mls/hr Vancomycin HCl 1 gm/ Sodium (Chloride) 250 mls @ 166.667 mls/hr IV Q24H [facility] Last Admin: 07/06/16 07:14 Dose: 166.667 mls/hr Levofloxacin/Dextrose 750 mg/ (Premix) 150 mls @ 100 mls/hr IV Q48H [facility] Last Admin: 07/06/16 05:29 Dose: 100 mls/hr Levothyroxine Sodium (Synthroid) 88 mcg PO ACBREAKFAST [facility] Last Admin: 07/06/16 06:34 Dose: 88 mcg Methylprednisolone Sodium Succinate (Solu-Medrol) 125 mg IVPUSH Q8H [facility] Last Admin: 07/06/16 08:22 Dose: 125 mg Multivitamins/Minerals/Vitamin C (Tab-A-Marcelino) 1 tab PO DAILY [facility] Last Admin: 07/06/16 08:27 Dose: 1 tab Ondansetron HCl (Zofran) 4 mg IVPUSH Q4H PRN PRN Reason: Nausea Oseltamivir Phosphate (Oseltamivir Phosphate) 30 mg PO DAILY [facility] Last Admin: 07/06/16 08:22 Dose: 30 mg Potassium Chloride (Klor-Con M20) 40 meq PO ONETIME ONE Stop: 07/06/16 13:51 Simvastatin (Zocor) 20 mg PO BEDTIME [facility] Last Admin: 07/05/16 20:04 Dose: 20 mg Sodium Chloride (Saline Flush) 10 ml FLUSH ASDIRECTED PRN PRN Reason: Keep Vein Open Last Admin: 07/04/16 06:21 Dose: 10 ml Sodium Chloride (Saline Flush) 2.5 ml FLUSH ASDIRECTED PRN PRN Reason: Keep Vein Open Last Admin: 07/04/16 06:20 Dose: 2.5 ml Trazodone HCl (Trazodone) 25 mg PO BEDTIME [facility] Last Admin: 07/05/16 20:04 Dose: 25 mg Vancomycin HCl (Pharmacy To Dose - Vancomycin) 1 dose .XX ASDIRECTED [facility] Discontinued Medications Enoxaparin Sodium (Lovenox) 40 mg SUBCUT DAILY [facility] Last Admin: 07/04/16 10:49 Dose: 40 mg Heparin Sodium (Porcine) (Heparin Sodium) 5,000 units SUBCUT Q12HR [facility] Last Admin: 07/06/16 08:23 Dose: 5,000 units Sodium Chloride (Normal Saline) 1,000 mls @ 999 mls/hr IV .Bolus ONE Stop: 07/04/16 06:50 Last Admin: 07/04/16 06:21 Dose: 999 mls/hr Levofloxacin/Dextrose 500 mg/ (Premix) 100 mls @ 100 mls/hr IV ONETIME ONE Stop: 07/04/16 07:30 Last Admin: 07/04/16 06:49 Dose: 100 mls/hr Vancomycin HCl 1 gm/ Sodium (Chloride) 250 mls @ 250 mls/hr IV ONETIME ONE Stop: 07/04/16 07:30 Last Admin: 07/04/16 06:45 Dose: 250 mls/hr Levofloxacin/Dextrose 750 mg/ (Premix) 150 mls @ 100 mls/hr IV Q48H [facility] Oseltamivir Phosphate (Tamiflu) 75 mg PO BID [facility] Last Admin: 07/04/16 12:43 Dose: Not Given Oseltamivir Phosphate (Tamiflu) 30 mg PO DAILY [facility] Last Admin: 07/04/16 13:04 Dose: Not Given Potassium Chloride (Klor-Con M20) 40 meq PO ONETIME ONE Stop: 07/05/16 13:46 Last Admin: 07/05/16 13:58 Dose: 40 meq Sodium Chloride (Saline Flush) 10 ml FLUSH ASDIRECTED PRN PRN Reason: Keep Vein Open Last Admin: 07/04/16 06:22 Dose: 10 ml Sodium Chloride (Saline Flush) 2.5 ml FLUSH ASDIRECTED PRN PRN Reason: Keep Vein Open Last Admin: 07/04/16 06:22 Dose: 2.5 ml - Exam General: alert, cooperative Lungs: Clear to auscultation Cardiovascular: Regular Rate, Regular Rhythm Abdomen: no tenderness - Problem List & Annotations (1) Pneumonia SNOMED Code(s): 939660933 Code(s): J18.9 - PNEUMONIA, UNSPECIFIED ORGANISM Status: Acute Current Visit: Yes (2) Bedridden SNOMED Code(s): 530929519 Code(s): Z74.01 - BED CONFINEMENT STATUS Status: Acute Current Visit: Yes (3) COPD (chronic obstructive pulmonary disease) SNOMED Code(s): 61017826 Code(s): J44.9 - CHRONIC OBSTRUCTIVE PULMONARY DISEASE, UNSPECIFIED Status : Acute Current Visit: Yes (4) Dementia SNOMED Code(s): 82514186 Code(s): F03.90 - UNSPECIFIED DEMENTIA WITHOUT BEHAVIORAL DISTURBANCE Status: Acute Current Visit: Yes (5) UTI, Urinary tract infectious disease SNOMED Code(s): 54700926 Code(s): N39.0 - URINARY TRACT INFECTION, SITE NOT SPECIFIED Status: Resolved Current Visit: No (6) Sepsis SNOMED Code(s): 35301971 Code(s): A41.9 - SEPSIS, UNSPECIFIED ORGANISM Status: Acute Current Visit : Yes (7) Thrombocytopenia SNOMED Code(s): 316197304 Code(s): D69.6 - THROMBOCYTOPENIA, UNSPECIFIED Status: Acute Current Visit: Yes (8) Pancytopenia SNOMED Code(s): 826377523 Code(s): D61.818 - OTHER PANCYTOPENIA Status: Acute Current Visit: Yes - Problem List Review Problem List Initiated/Reviewed/Updated: Yes - My Orders Last 24 Hours: My Active Orders 07/05/16 17:00 methylPREDNISolone Sod Succ [Solu-MEDROL] 125 mg IVPUSH Q8H 07/06/16 13:50 Potassium Chloride [Klor-Con M20] 40 meq PO ONETIME ONE - Plan Plan:: This 76 year old female admitted with sepsis, HCAP and flu like symptoms 1. Sepsis and HCAP: Covering with broad spectrum antibiotics, Zosyn, Levaquin and Vancomycin. No leukocytosis. May consider chest CT per radiology recommendations if no improvement. Provide IVFs for now, monitor. Duonebs and oxygen. Lactate normal. Encourage IS 2. Flu-like symptoms: Tamiflu 30 mg daily due to renal function. 3. UTI: UC pending, treatment as above. 4. HTN: Monitor hold Metoprolol and Norvasc for now due to sepsis. Will re- evaluate in am. 5. Hypothyroidism: Continue Synthroid 6. Depression: Continue Wellbutrin VTE: Heparin Dispo: 2-4 days 07/05/2016 add steroids duonebs antibiotics supportive care Corky Lehman MD 07/06/2016 I suspect that the pancytopenia is related to sepsis. jasso stop heparin. anticipate discharge within 24 to 48 hours. Arcadio Lehman MD
[2016-07-06] MEDS: Sodium Chloride 0.9% 1,000 ML IV SCH (13:58)
[2016-07-06] MEDS ORDERED: Sodium Chloride 0.9% 10 ML Syringe FLUSH PRN (15:52)
[2016-07-06] MEDS ORDERED: Sodium Chloride 0.9% 2.5 ML Syringe FLUSH PRN (15:52)
[2016-07-06] MEDS: traZODone 50 MG Tab PO SCH (21:18)
[2016-07-06] MEDS: Simvastatin 20 MG Tab PO SCH (21:19)
[2016-07-07] MEDS: Albuterol/Ipratropium 3.0-0.5 MG/3 ML Neb Soln NEB SCH ×6 (01:04→21:26)
[2016-07-07] MEDS: methylPREDNISolone Sodium Succinate 125 MG/2 ML SDV IVPUSH SCH ×3 (01:04→17:11)
[2016-07-07] MEDS: Piperacillin/Tazobactam 4.5 GM in Sodium Chloride 0.9% 100 ML IV SCH ×4 (01:15→20:37)
[2016-07-07] MEDS: Levothyroxine 88 MCG Tab PO SCH (06:35)
[2016-07-07 07:17] LABS: CHLORIDE,CL 108 mmol/L (98-110); SODIUM,NA 136 mmol/L (136-146)
[2016-07-07] MEDS: Oseltamivir Phosphate 30 MG Capsule PO SCH ×2 (08:36→21:04)
[2016-07-07] MEDS: buPROPion 150 MG Tab.ER PO SCH (08:36)
[2016-07-07] MEDS: Multivitamin Tab PO SCH (08:36)
--- NOTE | 2016-07-07 11:46 | PCM.PN ---
- General Info Date of Service: 07/07/16 Admission Dx/Problem (Free Text): Admission Diagnosis/Problem Admission Diagnosis/Problem Pneumonia Subjective Update: No complaints. Sitting up in recliner this am. Feeling much better. NO chest pain or palpitations. Intermittently SOB. Cough has improved. Functional Status: Reports: pain controlled, tolerating diet, urinating - Review of Systems General: Reports: No Symptoms. Denies: Fever Pulmonary: Reports: shortness of breath (intermittent), cough Cardiovascular: Reports: Edema (at baseline). Denies: Chest Pain, Palpitations Gastrointestinal: Reports: No symptoms. Denies: Abdominal pain, Nausea, Vomiting Genitourinary: Reports: no symptoms. Denies: dysuria, frequency, burning Musculoskeletal: Reports: no symptoms Skin: Reports: no symptoms Neurological: Reports: No Symptoms Psychiatric: Reports: no symptoms - Patient Data Vitals - most recent: Last Vital Signs Temp 99.2 F 07/07/16 08:00 Pulse 113 H 07/07/16 08:00 Resp 16 07/07/16 08:00 BP 138/67 07/07/16 08:00 Pulse Ox 91 L 07/07/16 08:00 Weight - most recent: 78 kg I&O - last 24 hours: Intake & Output 07/06/16 07/07/16 07/07/16 22:59 06:59 14:59 Intake Total 900 350 250 Output Total 800 Balance 100 350 250 Lab Results last 24 hrs: Laboratory Results - last 24 hr 07/07/16 07/07/16 07/07/16 Range/Units 06:28 06:28 06:28 WBC 5.92 (4.0-11.0) K/uL RBC 3.66 L (4.30-5.90) M/uL Hgb 10.5 L (12.0-16.0) g/dL Hct 31.8 L (36.0-46.0) % MCV 86.9 (80.0-98.0) fL MCH 28.7 (27.0-32.0) pg MCHC 33.0 (31.0-37.0) g/dL RDW Std Deviation 50.9 (28.0-62.0) fl RDW Coeff of Cristiane 16 H (11.0-15.0) % Plt Count 134 L (150-400) K/uL MPV 10.10 (7.40-12.00) fL Neut % (Auto) 69.1 (48.0-80.0) % Lymph % (Auto) 27.2 (16.0-40.0) % Emery % (Auto) 3.5 (0.0-15.0) % Eos % (Auto) 0.0 (0.0-7.0) % Baso % (Auto) 0.2 (0.0-1.5) % Neut # (Auto) 4.1 (1.4-5.7) K/uL Lymph # (Auto) 1.6 (0.6-2.4) K/uL Emery # (Auto) 0.2 (0.0-0.8) K/uL Eos # (Auto) 0.0 (0.0-0.7) K/uL Baso # (Auto) 0.0 (0.0-0.1) K/uL Nucleated RBC % 0.0 /100WBC Nucleated RBCs # 0 K/uL Sodium 136 (136-146) mmol/L Potassium 3.8 (3.5-5.1) mmol/L Chloride 108 (98-110) mmol/L Carbon Dioxide 16 L (21-31) mmol/L BUN 15 (6.0-23.0) mg/dL Creatinine 0.9 (0.6-1.5) mg/dL Est Cr Clr Drug Dosing 39.39 mL/min Estimated GFR (MDRD) > 60.0 ml/min Glucose 176 H (60-110) mg/dL Calcium 8.5 L (8.8-10.8) mg/dL Total Bilirubin 0.6 (0.1-1.5) mg/dL AST 61 H (5-40) IU/L ALT 18 (8-54) IU/L Alkaline Phosphatase 275 H (40-150) Total Protein 6.8 (6.0-8.0) g/dL Albumin 2.9 L (3.4-4.8) g/dL Globulin 3.9 H (2.0-3.5) g/dL Albumin/Globulin Ratio 0.7 L (1.3-2.8) Vancomycin Trough 5.7 (5-15) ug/mL Sherwin Results last 24 hrs: Microbiology 07/04/16 12:00 Gram Stain - Final Sputum - Expectorated Sputum Culture - Final Staphylococcus Aureus Normal Respiratory Ke Med Orders - Current: Current Medications Acetaminophen (Tylenol) 650 mg PO Q4H PRN PRN Reason: Pain Albuterol (Proventil Neb Soln) 2.5 mg NEB Q2H PRN PRN Reason: Shortness Of Breath/wheezing Last Admin: 07/04/16 15:07 Dose: 2.5 mg Albuterol/Ipratropium (Duoneb 3.0-0.5 Mg/3 Ml) 3 ml NEB Q4HRRT [facility] Last Admin: 07/07/16 06:19 Dose: 3 ml Bupropion HCl (Wellbutrin Xl) 300 mg PO DAILY [facility] Last Admin: 07/07/16 08:36 Dose: 300 mg Piperacillin Sod/Tazobactam (Sod 4.5 gm/ Sodium Chloride) 100 mls @ 100 mls/hr IV Q6H [facility] Last Admin: 07/07/16 09:25 Dose: 100 mls/hr Levofloxacin/Dextrose 750 mg/ (Premix) 150 mls @ 100 mls/hr IV Q48H [facility] Last Admin: 07/06/16 05:29 Dose: 100 mls/hr Vancomycin HCl 1 gm/ Sodium (Chloride) 250 mls @ 166.667 mls/hr IV Q12H [facility] Levothyroxine Sodium (Synthroid) 88 mcg PO ACBREAKFAST [facility] Last Admin: 07/07/16 06:35 Dose: 88 mcg Methylprednisolone Sodium Succinate (Solu-Medrol) 125 mg IVPUSH Q8H [facility] Last Admin: 07/07/16 08:36 Dose: 125 mg Multivitamins/Minerals/Vitamin C (Tab-A-Marcelino) 1 tab PO DAILY [facility] Last Admin: 07/07/16 08:36 Dose: 1 tab Ondansetron HCl (Zofran) 4 mg IVPUSH Q4H PRN PRN Reason: Nausea Oseltamivir Phosphate (Oseltamivir Phosphate) 30 mg PO BID [facility] Last Admin: 07/07/16 08:36 Dose: 30 mg Simvastatin (Zocor) 20 mg PO BEDTIME [facility] Last Admin: 07/06/16 21:19 Dose: 20 mg Sodium Chloride (Saline Flush) 10 ml FLUSH ASDIRECTED PRN PRN Reason: Keep Vein Open Last Admin: 07/04/16 06:21 Dose: 10 ml Sodium Chloride (Saline Flush) 2.5 ml FLUSH ASDIRECTED PRN PRN Reason: Keep Vein Open Last Admin: 07/04/16 06:20 Dose: 2.5 ml Sodium Chloride (Saline Flush) 10 ml FLUSH ASDIRECTED PRN PRN Reason: Keep Vein Open Sodium Chloride (Saline Flush) 2.5 ml FLUSH ASDIRECTED PRN PRN Reason: Keep Vein Open Trazodone HCl (Trazodone) 25 mg PO BEDTIME [facility] Last Admin: 07/06/16 21:18 Dose: 25 mg Vancomycin HCl (Pharmacy To Dose - Vancomycin) 1 dose .XX ASDIRECTED [facility] Discontinued Medications Enoxaparin Sodium (Lovenox) 40 mg SUBCUT DAILY [facility] Last Admin: 07/04/16 10:49 Dose: 40 mg Heparin Sodium (Porcine) (Heparin Sodium) 5,000 units SUBCUT Q12HR [facility] Last Admin: 07/06/16 08:23 Dose: 5,000 units Sodium Chloride (Normal Saline) 1,000 mls @ 999 mls/hr IV .Bolus ONE Stop: 07/04/16 06:50 Last Admin: 07/04/16 06:21 Dose: 999 mls/hr Levofloxacin/Dextrose 500 mg/ (Premix) 100 mls @ 100 mls/hr IV ONETIME ONE Stop: 07/04/16 07:30 Last Admin: 07/04/16 06:49 Dose: 100 mls/hr Vancomycin HCl 1 gm/ Sodium (Chloride) 250 mls @ 250 mls/hr IV ONETIME ONE Stop: 07/04/16 07:30 Last Admin: 07/04/16 06:45 Dose: 250 mls/hr Levofloxacin/Dextrose 750 mg/ (Premix) 150 mls @ 100 mls/hr IV Q48H [facility] Sodium Chloride (Normal Saline) 1,000 mls @ 100 mls/hr IV ASDIRECTED [facility] Last Admin: 07/06/16 13:58 Dose: 100 mls/hr Vancomycin HCl 1 gm/ Sodium (Chloride) 250 mls @ 166.667 mls/hr IV Q24H [facility] Stop: 07/07/16 10:00 Last Admin: 07/07/16 07:38 Dose: 166.667 mls/hr Oseltamivir Phosphate (Tamiflu) 75 mg PO BID [facility] Last Admin: 07/04/16 12:43 Dose: Not Given Oseltamivir Phosphate (Tamiflu) 30 mg PO DAILY [facility] Last Admin: 07/04/16 13:04 Dose: Not Given Oseltamivir Phosphate (Oseltamivir Phosphate) 30 mg PO DAILY [facility] Last Admin: 07/06/16 08:22 Dose: 30 mg Potassium Chloride (Klor-Con M20) 40 meq PO ONETIME ONE Stop: 07/05/16 13:46 Last Admin: 07/05/16 13:58 Dose: 40 meq Potassium Chloride (Klor-Con M20) 40 meq PO ONETIME ONE Stop: 07/06/16 13:54 Last Admin: 07/06/16 15:32 Dose: 40 meq Sodium Chloride (Saline Flush) 10 ml FLUSH ASDIRECTED PRN PRN Reason: Keep Vein Open Last Admin: 07/04/16 06:22 Dose: 10 ml Sodium Chloride (Saline Flush) 2.5 ml FLUSH ASDIRECTED PRN PRN Reason: Keep Vein Open Last Admin: 07/04/16 06:22 Dose: 2.5 ml - Exam Quality Assessment: supplemental oxygen, DVT prophylaxis General: alert, oriented, cooperative Lungs: Wheezing (throughout) Cardiovascular: Regular Rhythm, Tachycardia. No: Murmurs Abdomen: bowel sounds present, soft, no tenderness, no distension Extremities: no tenderness/swelling, edema (+2 BLE, non pitting, at baseline) Neurological: no new focal deficit Psy/Mental Status: alert, normal affect, normal mood - Problem List & Annotations (1) Sepsis SNOMED Code(s): 63592734 Code(s): A41.9 - SEPSIS, UNSPECIFIED ORGANISM Status: Resolved Current Visit: Yes (2) Recurrent UTI SNOMED Code(s): 477496664 Code(s): N39.0 - URINARY TRACT INFECTION, SITE NOT SPECIFIED Status: Acute Current Visit: Yes (3) COPD (chronic obstructive pulmonary disease) SNOMED Code(s): 87484188 Code(s): J44.9 - CHRONIC OBSTRUCTIVE PULMONARY DISEASE, UNSPECIFIED Status : Acute Current Visit: Yes (4) Dementia SNOMED Code(s): 69801534 Code(s): F03.90 - UNSPECIFIED DEMENTIA WITHOUT BEHAVIORAL DISTURBANCE Status: Acute Current Visit: Yes (5) Hypothyroidism SNOMED Code(s): 24566510 Code(s): E03.9 - HYPOTHYROIDISM, UNSPECIFIED Status: Acute Current Visit : Yes (6) Fever SNOMED Code(s): 112272099 Code(s): R50.9 - FEVER, UNSPECIFIED Status: Acute Current Visit: Yes (7) Hypoxia SNOMED Code(s): 272359944, 667024318 Code(s): R09.02 - HYPOXEMIA Status: Acute Current Visit: Yes (8) Pneumonia SNOMED Code(s): 233284649 Code(s): J18.9 - PNEUMONIA, UNSPECIFIED ORGANISM Status: Acute Current Visit: Yes (9) HTN (hypertension) SNOMED Code(s): 65967118 Code(s): I10 - ESSENTIAL (PRIMARY) HYPERTENSION Status: Chronic Current Visit: No Qualifiers: Hypertension type: essential hypertension Qualified Code(s): I10 - Essential (primary) hypertension - Problem List Review Problem List Initiated/Reviewed/Updated: Yes - My Orders Last 24 Hours: My Active Orders 07/07/16 08:24 EKG 12 Lead [EKG Documentation Completion] [RC] URGENT 07/07/16 08:45 Abdomen Ltd [US] Routine 07/07/16 09:00 Oseltamivir Phosphate 30 mg PO BID 07/07/16 18:00 Vancomycin [Vancocin] 1 gm Sodium Chloride 0.9% [Normal Saline] 250 ml IV Q12H 07/08/16 05:11 CBC WITH AUTO DIFF [HEME] AM COMPREHENSIVE METABOLIC PN,CMP [CHEM] AM 07/09/16 05:11 CBC WITH AUTO DIFF [HEME] AM COMPREHENSIVE METABOLIC PN,CMP [CHEM] AM - Plan Plan:: This 76 year old female admitted with sepsis, HCAP and flu like symptoms 1. Sepsis and HCAP: Covering with broad spectrum antibiotics, Zosyn, Levaquin and Vancomycin. No leukocytosis. May consider chest CT per radiology recommendations if no improvement. Provide IVFs for now, monitor. Duonebs and oxygen. Lactate normal. Encourage IS 2. Flu-like symptoms: Tamiflu 30 mg daily due to renal function. 3. UTI: UC pending, treatment as above. 4. HTN: Monitor hold Metoprolol and Norvasc for now due to sepsis. Will re- evaluate in am. 5. Hypothyroidism: Continue Synthroid 6. Depression: Continue Wellbutrin VTE: Heparin Dispo: 2-4 days 07/05/2016 add steroids duonebs antibiotics supportive care Corky Lehman MD 07/06/2016 I suspect that the pancytopenia is related to sepsis. jasso stop heparin. anticipate discharge within 24 to 48 hours. Arcadio Lehman MD 07.07.2016 This 76 year old female admitted with sepsis, HCAP and flu like symptoms 1. HCAP: Continue Zosyn, Levaquin and Vancomycin. leukocytosis likely from Solu -medrol. Duonebs and oxygen. Encourage IS. Sepsis resolved. 2. Flu-like symptoms: Tamiflu 30 mg daily due to renal function. 3. UTI: Mixed ke. Antibiotics as above. 4. HTN: Restart Metoprolol and Norvasc. Some tachycardia noted. 5. Hypothyroidism: Continue Synthroid 6. Depression: Continue Wellbutrin 7. Elevated LFTs: Obtain abdominal U/S. Monitor VTE: SCDs only. Dispo: 2-3 days Devi Marie NP-Simba
[2016-07-07] MEDS: Metoprolol Tartrate 50 MG Tab PO SCH ×2 (13:26→21:03)
[2016-07-07] MEDS: amLODIPine 5 MG Tab PO SCH (13:26)
--- NOTE | 2016-07-07 17:05 | US ---
EXAMINATION: Right upper quadrant ultrasound HISTORY: Elevated LFTs COMPARISON: None TECHNIQUE: Grayscale and color Doppler images obtained of the right upper quadrant. FINDINGS: The visualized pancreas appears normal. The liver is mildly increased in echotexture with a nodular contour. No focal hepatic mass. Common bile duct measures 4 mm. There is shadowing along t he undersurface of the gallbladder, likely secondary to multiple small stones. No pericholecystic fl uid. Right kidney measures 6.7 cm [id number] without evidence of hydronephrosis. Renal cortical at rophy is demonstrated. Sonographic Bassett sign is negative. IMPRESSION: 1. The liver is mildly coarse and nodular in contour, correlate for hepatocellular disease/cirrhosis . 2. No focal hepatic mass. 3. Cholelithiasis without evidence of cholecystitis.
--- NOTE | 2016-07-07 18:05 | PCM.SN ---
- Free Text/Narrative Note: Abdominal ultrasound revealed: 1. Mildly coarse liver a nodular contour, recommended to correlate for hepatocellular disease/cirrhosis. 2. No focal old hepatic mass. 3. Cholelithiasis without evidence of cholecystitis. May consider hepatitis screening.
[2016-07-07] MEDS: Simvastatin 20 MG Tab PO SCH (21:03)
[2016-07-07] MEDS: traZODone 50 MG Tab PO SCH (21:03)
[2016-07-08] MEDS: methylPREDNISolone Sodium Succinate 125 MG/2 ML SDV IVPUSH SCH ×3 (01:33→17:25)
[2016-07-08] MEDS: Albuterol/Ipratropium 3.0-0.5 MG/3 ML Neb Soln NEB SCH ×6 (01:37→21:15)
[2016-07-08] MEDS: Piperacillin/Tazobactam 4.5 GM in Sodium Chloride 0.9% 100 ML IV SCH ×4 (01:37→19:58)
[2016-07-08] MEDS: Albuterol 0.083% 2.5 MG/3 ML Neb Soln NEB PRN (03:47)
[2016-07-08 05:44] LABS: CHLORIDE,CL 111 mmol/L (98-110); SODIUM,NA 139 mmol/L (136-146)
[2016-07-08] MEDS: Levofloxacin/Dextrose 5%-Water 750 MG in Premix Bag 1 BAG IV SCH (07:03)
[2016-07-08] MEDS: Levothyroxine 88 MCG Tab PO SCH (07:08)
--- NOTE | 2016-07-08 08:19 | PCM.PN ---
- General Info Date of Service: 07/08/16 Admission Dx/Problem (Free Text): Admission Diagnosis/Problem Admission Diagnosis/Problem Pneumonia Subjective Update: No complaints. Continues to feel better. NO chest pain or palpitations. Intermittently SOB. Cough has improved. Daughter notices with eating she is coughing quite a bit, requests ST consult Daughter her self is ST and is wondering if diet should be adjusted. Functional Status: Reports: pain controlled, tolerating diet, urinating - Review of Systems General: Reports: No Symptoms. Denies: Fever HEENT: Reports: no symptoms Pulmonary: Reports: shortness of breath, cough, sputum (yellow sputum) Cardiovascular: Reports: No Symptoms. Denies: Chest Pain, Palpitations, Edema Gastrointestinal: Reports: No symptoms, Flatus. Denies: Abdominal pain, Constipation, Nausea, Vomiting Genitourinary: Reports: no symptoms. Denies: dysuria, frequency, burning Musculoskeletal: Reports: no symptoms Skin: Reports: no symptoms Neurological: Reports: No Symptoms Psychiatric: Reports: no symptoms - Patient Data Vitals - most recent: Last Vital Signs Temp 98.1 F 07/08/16 08:00 Pulse 103 H 07/08/16 08:00 Resp 24 H 07/08/16 08:00 BP 133/62 07/08/16 08:00 Pulse Ox 92 L 07/08/16 08:00 Weight - most recent: 78 kg I&O - last 24 hours: Intake & Output 07/07/16 07/08/16 07/08/16 22:59 06:59 14:59 Intake Total 786 Balance 786 Lab Results last 24 hrs: Laboratory Results - last 24 hr 07/08/16 07/08/16 Range/Units 04:41 04:41 WBC 6.73 (4.0-11.0) K/uL RBC 3.70 L (4.30-5.90) M/uL Hgb 10.8 L (12.0-16.0) g/dL Hct 32.2 L (36.0-46.0) % MCV 87.0 (80.0-98.0) fL MCH 29.2 (27.0-32.0) pg MCHC 33.5 (31.0-37.0) g/dL RDW Std Deviation 52.2 (28.0-62.0) fl RDW Coeff of Cristiane 16 H (11.0-15.0) % Plt Count 161 (150-400) K/uL MPV 10.60 (7.40-12.00) fL Add Manual Diff YES Neutrophils % (Manual) 61 (48.0-80.0) % Band Neutrophils % 1 % Lymphocytes % (Manual) 35 (16.0-40.0) % Monocytes % (Manual) 3 (0.0-15.0) % Nucleated RBC % 0.0 /100WBC Absolute Seg Neuts 4.1 Band Neutrophils # 0.1 Lymphocytes # (Manual) 2.4 Monocytes # (Manual) 0.2 Nucleated RBCs # 0 K/uL Sodium 139 (136-146) mmol/L Potassium 3.8 (3.5-5.1) mmol/L Chloride 111 H (98-110) mmol/L Carbon Dioxide 17 L (21-31) mmol/L BUN 20 (6.0-23.0) mg/dL Creatinine 0.9 (0.6-1.5) mg/dL Est Cr Clr Drug Dosing 39.39 mL/min Estimated GFR (MDRD) > 60.0 ml/min Glucose 141 H (60-110) mg/dL Calcium 8.3 L (8.8-10.8) mg/dL Total Bilirubin 0.7 (0.1-1.5) mg/dL AST 50 H (5-40) IU/L ALT 15 (8-54) IU/L Alkaline Phosphatase 260 H (40-150) Total Protein 6.3 (6.0-8.0) g/dL Albumin 2.8 L (3.4-4.8) g/dL Globulin 3.5 (2.0-3.5) g/dL Albumin/Globulin Ratio 0.8 L (1.3-2.8) Med Orders - Current: Current Medications Acetaminophen (Tylenol) 650 mg PO Q4H PRN PRN Reason: Pain Albuterol (Proventil Neb Soln) 2.5 mg NEB Q2H PRN PRN Reason: Shortness Of Breath/wheezing Last Admin: 07/08/16 03:47 Dose: 2.5 mg Albuterol/Ipratropium (Duoneb 3.0-0.5 Mg/3 Ml) 3 ml NEB Q4HRRT [facility] Last Admin: 07/08/16 06:12 Dose: 3 ml Amlodipine Besylate (Norvasc) 5 mg PO DAILY [facility] Last Admin: 07/07/16 13:26 Dose: 5 mg Bupropion HCl (Wellbutrin Xl) 300 mg PO DAILY [facility] Last Admin: 07/07/16 08:36 Dose: 300 mg Piperacillin Sod/Tazobactam (Sod 4.5 gm/ Sodium Chloride) 100 mls @ 100 mls/hr IV Q6H [facility] Last Admin: 07/08/16 01:37 Dose: 100 mls/hr Levofloxacin/Dextrose 750 mg/ (Premix) 150 mls @ 100 mls/hr IV Q48H [facility] Last Admin: 07/08/16 07:03 Dose: 100 mls/hr Vancomycin HCl 1 gm/ Sodium (Chloride) 250 mls @ 166.667 mls/hr IV Q12H [facility] Last Infusion: 07/08/16 07:02 Dose: Infused Levothyroxine Sodium (Synthroid) 88 mcg PO ACBREAKFAST [facility] Last Admin: 07/08/16 07:08 Dose: 88 mcg Methylprednisolone Sodium Succinate (Solu-Medrol) 125 mg IVPUSH Q8H [facility] Last Admin: 07/08/16 01:33 Dose: 125 mg Metoprolol Tartrate (Lopressor) 50 mg PO BID [facility] Last Admin: 07/07/16 21:03 Dose: 50 mg Multivitamins/Minerals/Vitamin C (Tab-A-Marcelino) 1 tab PO DAILY [facility] Last Admin: 07/07/16 08:36 Dose: 1 tab Ondansetron HCl (Zofran) 4 mg IVPUSH Q4H PRN PRN Reason: Nausea Oseltamivir Phosphate (Oseltamivir Phosphate) 30 mg PO BID [facility] Last Admin: 07/07/16 21:04 Dose: 30 mg Simvastatin (Zocor) 20 mg PO BEDTIME [facility] Last Admin: 07/07/16 21:03 Dose: 20 mg Sodium Chloride (Saline Flush) 10 ml FLUSH ASDIRECTED PRN PRN Reason: Keep Vein Open Last Admin: 07/04/16 06:21 Dose: 10 ml Sodium Chloride (Saline Flush) 2.5 ml FLUSH ASDIRECTED PRN PRN Reason: Keep Vein Open Last Admin: 07/04/16 06:20 Dose: 2.5 ml Sodium Chloride (Saline Flush) 10 ml FLUSH ASDIRECTED PRN PRN Reason: Keep Vein Open Sodium Chloride (Saline Flush) 2.5 ml FLUSH ASDIRECTED PRN PRN Reason: Keep Vein Open Trazodone HCl (Trazodone) 25 mg PO BEDTIME [facility] Last Admin: 07/07/16 21:03 Dose: 25 mg Vancomycin HCl (Pharmacy To Dose - Vancomycin) 1 dose .XX ASDIRECTED [facility] Discontinued Medications Enoxaparin Sodium (Lovenox) 40 mg SUBCUT DAILY [facility] Last Admin: 07/04/16 10:49 Dose: 40 mg Heparin Sodium (Porcine) (Heparin Sodium) 5,000 units SUBCUT Q12HR [facility] Last Admin: 07/06/16 08:23 Dose: 5,000 units Sodium Chloride (Normal Saline) 1,000 mls @ 999 mls/hr IV .Bolus ONE Stop: 07/04/16 06:50 Last Admin: 07/04/16 06:21 Dose: 999 mls/hr Levofloxacin/Dextrose 500 mg/ (Premix) 100 mls @ 100 mls/hr IV ONETIME ONE Stop: 07/04/16 07:30 Last Admin: 07/04/16 06:49 Dose: 100 mls/hr Vancomycin HCl 1 gm/ Sodium (Chloride) 250 mls @ 250 mls/hr IV ONETIME ONE Stop: 07/04/16 07:30 Last Admin: 07/04/16 06:45 Dose: 250 mls/hr Levofloxacin/Dextrose 750 mg/ (Premix) 150 mls @ 100 mls/hr IV Q48H [facility] Sodium Chloride (Normal Saline) 1,000 mls @ 100 mls/hr IV ASDIRECTED [facility] Last Admin: 07/06/16 13:58 Dose: 100 mls/hr Vancomycin HCl 1 gm/ Sodium (Chloride) 250 mls @ 166.667 mls/hr IV Q24H [facility] Stop: 07/07/16 10:00 Last Admin: 07/07/16 07:38 Dose: 166.667 mls/hr Oseltamivir Phosphate (Tamiflu) 75 mg PO BID [facility] Last Admin: 07/04/16 12:43 Dose: Not Given Oseltamivir Phosphate (Tamiflu) 30 mg PO DAILY [facility] Last Admin: 07/04/16 13:04 Dose: Not Given Oseltamivir Phosphate (Oseltamivir Phosphate) 30 mg PO DAILY [facility] Last Admin: 07/06/16 08:22 Dose: 30 mg Potassium Chloride (Klor-Con M20) 40 meq PO ONETIME ONE Stop: 07/05/16 13:46 Last Admin: 07/05/16 13:58 Dose: 40 meq Potassium Chloride (Klor-Con M20) 40 meq PO ONETIME ONE Stop: 07/06/16 13:54 Last Admin: 07/06/16 15:32 Dose: 40 meq Sodium Chloride (Saline Flush) 10 ml FLUSH ASDIRECTED PRN PRN Reason: Keep Vein Open Last Admin: 07/04/16 06:22 Dose: 10 ml Sodium Chloride (Saline Flush) 2.5 ml FLUSH ASDIRECTED PRN PRN Reason: Keep Vein Open Last Admin: 07/04/16 06:22 Dose: 2.5 ml - Exam Quality Assessment: DVT prophylaxis. No: supplemental oxygen General: alert, oriented, cooperative Neck: supple Lungs: Clear to auscultation, Normal respiratory effort, Wheezing (sounds noted to be mainly bronchial sounding, coughs and clears easily. ) Cardiovascular: Regular Rate, Regular Rhythm, No Murmurs Extremities: no calf tenderness, edema (+1-2 non pitting edema) Neurological: no new focal deficit Psy/Mental Status: alert, normal affect, normal mood - Problem List & Annotations (1) Sepsis SNOMED Code(s): 95294037 Code(s): A41.9 - SEPSIS, UNSPECIFIED ORGANISM Status: Resolved Current Visit: Yes (2) Recurrent UTI SNOMED Code(s): 547523027 Code(s): N39.0 - URINARY TRACT INFECTION, SITE NOT SPECIFIED Status: Acute Current Visit: Yes (3) COPD (chronic obstructive pulmonary disease) SNOMED Code(s): 62685189 Code(s): J44.9 - CHRONIC OBSTRUCTIVE PULMONARY DISEASE, UNSPECIFIED Status : Acute Current Visit: Yes (4) Dementia SNOMED Code(s): 72144887 Code(s): F03.90 - UNSPECIFIED DEMENTIA WITHOUT BEHAVIORAL DISTURBANCE Status: Acute Current Visit: Yes (5) Hypothyroidism SNOMED Code(s): 47154051 Code(s): E03.9 - HYPOTHYROIDISM, UNSPECIFIED Status: Acute Current Visit : Yes (6) Fever SNOMED Code(s): 817813538 Code(s): R50.9 - FEVER, UNSPECIFIED Status: Acute Current Visit: Yes (7) Hypoxia SNOMED Code(s): 086197723, 341327314 Code(s): R09.02 - HYPOXEMIA Status: Acute Current Visit: Yes (8) Pneumonia SNOMED Code(s): 622741400 Code(s): J18.9 - PNEUMONIA, UNSPECIFIED ORGANISM Status: Acute Current Visit: Yes (9) HTN (hypertension) SNOMED Code(s): 58699480 Code(s): I10 - ESSENTIAL (PRIMARY) HYPERTENSION Status: Chronic Current Visit: No Qualifiers: Hypertension type: essential hypertension Qualified Code(s): I10 - Essential (primary) hypertension - Problem List Review Problem List Initiated/Reviewed/Updated: Yes - My Orders Last 24 Hours: My Active Orders 07/07/16 08:24 EKG 12 Lead [EKG Documentation Completion] [RC] URGENT 07/07/16 09:00 Oseltamivir Phosphate 30 mg PO BID 07/07/16 12:00 Metoprolol Tartrate [Lopressor] 50 mg PO BID amLODIPine [Norvasc] 5 mg PO DAILY 07/07/16 18:00 Vancomycin [Vancocin] 1 gm Sodium Chloride 0.9% [Normal Saline] 250 ml IV Q12H 07/08/16 08:05 HEPATITIS PANEL, ACUTE [REF] Routine 07/09/16 05:11 CBC WITH AUTO DIFF [HEME] AM COMPREHENSIVE METABOLIC PN,CMP [CHEM] AM - Plan Plan:: This 76 year old female admitted with sepsis, HCAP and flu like symptoms 1. Sepsis and HCAP: Covering with broad spectrum antibiotics, Zosyn, Levaquin and Vancomycin. No leukocytosis. May consider chest CT per radiology recommendations if no improvement. Provide IVFs for now, monitor. Duonebs and oxygen. Lactate normal. Encourage IS 2. Flu-like symptoms: Tamiflu 30 mg daily due to renal function. 3. UTI: UC pending, treatment as above. 4. HTN: Monitor hold Metoprolol and Norvasc for now due to sepsis. Will re- evaluate in am. 5. Hypothyroidism: Continue Synthroid 6. Depression: Continue Wellbutrin VTE: Heparin Dispo: 2-4 days 07/05/2016 add steroids duonebs antibiotics supportive care Corky Lehman MD 07/06/2016 I suspect that the pancytopenia is related to sepsis. jasso stop heparin. anticipate discharge within 24 to 48 hours. Arcadio Lehman MD 3 This 76 year old female admitted with sepsis, HCAP and flu like symptoms 1. HCAP: Continue Zosyn, Levaquin and Vancomycin. leukocytosis likely from Solu -medrol. Duonebs and oxygen. Encourage IS. Sepsis resolved. 2. Flu-like symptoms: Tamiflu 30 mg daily due to renal function. 3. UTI: Mixed ke. Antibiotics as above. 4. HTN: Restart Metoprolol and Norvasc. Some tachycardia noted. 5. Hypothyroidism: Continue Synthroid 6. Depression: Continue Wellbutrin 7. Elevated LFTs: Obtain abdominal U/S. Monitor VTE: SCDs only. Dispo: 2-3 days Devi Frovarp [employer] 07.08.2016 This 76 year old female admitted with sepsis, HCAP and flu like symptoms 1. HCAP: Continue Zosyn, Levaquin and Vancomycin. Duonebs and oxygen. Encourage IS. Will consult ST today to evaluate swallowing 2. Flu-like symptoms: Tamiflu 30 mg daily due to renal function. 3. UTI: Mixed ke. Antibiotics as above. 4. HTN: Continue Metoprolol and Norvasc. Tachycardia improved 5. Hypothyroidism: Continue Synthroid 6. Depression: Continue Wellbutrin 7. Elevated LFTs: Abdominal U/S revealed mildly coarse liver a nodular contour, recommended to correlate for hepatocellular disease/cirrhosis, No focal old hepatic mass, Cholelithiasis without evidence of cholecystitis. No history of alcohol abuse. Will obtain hepatitis panel. Family updated on test results and treatment plan. VTE: SCDs only. Dispo: 1-2 days Devi Frovarp [employer]
[2016-07-08] MEDS: buPROPion 150 MG Tab.ER PO SCH (08:51)
[2016-07-08] MEDS: Multivitamin Tab PO SCH (08:51)
[2016-07-08] MEDS: amLODIPine 5 MG Tab PO SCH (08:51)
[2016-07-08] MEDS: Metoprolol Tartrate 50 MG Tab PO SCH ×2 (08:52→20:00)
[2016-07-08] MEDS: Oseltamivir Phosphate 30 MG Capsule PO SCH ×2 (08:54→20:03)
--- NOTE | 2016-07-08 10:26 | CR ---
EXAMINATION: Portable chest radiograph. HISTORY: Pneumonia. FINDINGS: The trachea is midline. The cardiomediastinal silhouette is within normal limits. Mild bibasilar ate lectasis and/or infiltrate with patchy infiltrate within the lung apices. Aortic calcifications are noted. Chronic interstitial prominence. Degenerative changes noted within the shoulders. Osseous structures appear osteopenic. IMPRESSION: Stable biapical and bibasilar mild atelectasis and/or infiltrate. Chronic interstitial prominence al so noted.
[2016-07-08] MEDS: traZODone 50 MG Tab PO SCH (20:00)
[2016-07-08] MEDS: Simvastatin 20 MG Tab PO SCH (20:00)
[2016-07-09] MEDS: Albuterol/Ipratropium 3.0-0.5 MG/3 ML Neb Soln NEB SCH ×6 (01:32→21:13)
[2016-07-09] MEDS: methylPREDNISolone Sodium Succinate 125 MG/2 ML SDV IVPUSH SCH ×2 (01:34→08:26)
[2016-07-09] MEDS: Piperacillin/Tazobactam 4.5 GM in Sodium Chloride 0.9% 100 ML IV SCH ×2 (01:36→08:29)
[2016-07-09 06:06] LABS: CHLORIDE,CL 111 mmol/L (98-110); SODIUM,NA 138 mmol/L (136-146)
[2016-07-09] MEDS: Levothyroxine 88 MCG Tab PO SCH (06:39)
[2016-07-09] MEDS ORDERED: Potassium Chloride 10 MEQ Tab.ER PO ONE (08:08)
[2016-07-09] MEDS: Oseltamivir Phosphate 30 MG Capsule PO SCH (08:33)
[2016-07-09] MEDS: Multivitamin Tab PO SCH (08:34)
[2016-07-09] MEDS: buPROPion 150 MG Tab.ER PO SCH (08:34)
[2016-07-09] MEDS: amLODIPine 5 MG Tab PO SCH (08:40)
[2016-07-09] MEDS: Metoprolol Tartrate 50 MG Tab PO SCH (08:40)
[2016-07-09] MEDS: cefTRIAXone 1 GM in Premix Bag 1 BAG IV SCH (09:42)
--- NOTE | 2016-07-09 09:56 | PCM.PN ---
- General Info Date of Service: 07/09/16 Admission Dx/Problem (Free Text): Admission Diagnosis/Problem Admission Diagnosis/Problem Pneumonia Subjective Update: No complaints. Continues to feel better. NO chest pain or palpitations. Cough has improved. ST valuating today. Functional Status: Reports: pain controlled, tolerating diet, urinating - Review of Systems General: Reports: No Symptoms. Denies: Fever HEENT: Reports: no symptoms. Denies: sinus congestion, sore throat Pulmonary: Reports: cough. Denies: shortness of breath Cardiovascular: Reports: No Symptoms. Denies: Chest Pain, Palpitations, Edema Gastrointestinal: Reports: No symptoms Genitourinary: Reports: no symptoms Musculoskeletal: Reports: no symptoms Skin: Reports: no symptoms Neurological: Reports: No Symptoms Psychiatric: Reports: no symptoms - Patient Data Vitals - most recent: Last Vital Signs Temp 97.8 F 07/09/16 08:00 Pulse 95 07/09/16 08:40 Resp 16 07/09/16 08:00 BP 119/60 07/09/16 08:40 Pulse Ox 94 L 07/09/16 08:00 Weight - most recent: 97.5 kg I&O - last 24 hours: Intake & Output 07/08/16 07/09/16 07/09/16 22:59 06:59 14:59 Intake Total 650 800 Output Total 500 Balance 650 300 Lab Results last 24 hrs: Laboratory Results - last 24 hr 07/09/16 07/09/16 07/09/16 Range/Units 05:35 05:35 05:35 WBC 4.87 (4.0-11.0) K/uL RBC 3.36 L (4.30-5.90) M/uL Hgb 9.9 L (12.0-16.0) g/dL Hct 29.0 L (36.0-46.0) % MCV 86.3 (80.0-98.0) fL MCH 29.5 (27.0-32.0) pg MCHC 34.1 (31.0-37.0) g/dL RDW Std Deviation 51.1 (28.0-62.0) fl RDW Coeff of Cristiane 16 H (11.0-15.0) % Plt Count 141 L (150-400) K/uL MPV 10.00 (7.40-12.00) fL Neut % (Auto) 69.7 (48.0-80.0) % Lymph % (Auto) 24.4 (16.0-40.0) % [place] % (Auto) 5.7 (0.0-15.0) % Eos % (Auto) 0.0 (0.0-7.0) % Baso % (Auto) 0.2 (0.0-1.5) % Neut # (Auto) 3.4 (1.4-5.7) K/uL Lymph # (Auto) 1.2 (0.6-2.4) K/uL [place] # (Auto) 0.3 (0.0-0.8) K/uL Eos # (Auto) 0.0 (0.0-0.7) K/uL Baso # (Auto) 0.0 (0.0-0.1) K/uL Nucleated RBC % 0.4 /100WBC Nucleated RBCs # 0 K/uL Sodium 138 (136-146) mmol/L Potassium 3.2 L (3.5-5.1) mmol/L Chloride 111 H (98-110) mmol/L Carbon Dioxide 18 L (21-31) mmol/L BUN 20 (6.0-23.0) mg/dL Creatinine 0.9 (0.6-1.5) mg/dL Est Cr Clr Drug Dosing 39.39 mL/min Estimated GFR (MDRD) > 60.0 ml/min Glucose 133 H (60-110) mg/dL Calcium 8.0 L (8.8-10.8) mg/dL Total Bilirubin 0.6 (0.1-1.5) mg/dL AST 40 (5-40) IU/L ALT 15 (8-54) IU/L Alkaline Phosphatase 206 H (40-150) Total Protein 5.7 L (6.0-8.0) g/dL Albumin 2.7 L (3.4-4.8) g/dL Globulin 3.0 (2.0-3.5) g/dL Albumin/Globulin Ratio 0.9 L (1.3-2.8) Vancomycin Trough 25.7 H (5-15) ug/mL Med Orders - Current: Current Medications Acetaminophen (Tylenol) 650 mg PO Q4H PRN PRN Reason: Pain Albuterol (Proventil Neb Soln) 2.5 mg NEB Q2H PRN PRN Reason: Shortness Of Breath/wheezing Last Admin: 07/08/16 03:47 Dose: 2.5 mg Albuterol/Ipratropium (Duoneb 3.0-0.5 Mg/3 Ml) 3 ml NEB Q4HRRT [facility] Last Admin: 07/09/16 06:01 Dose: 3 ml Amlodipine Besylate (Norvasc) 5 mg PO DAILY [facility] Last Admin: 07/09/16 08:40 Dose: 5 mg Bupropion HCl (Wellbutrin Xl) 300 mg PO DAILY [facility] Last Admin: 07/09/16 08:34 Dose: 300 mg Ceftriaxone Sodium/Dextrose 1 (gm/ Premix) 50 mls @ 100 mls/hr IV Q24H [facility] Levothyroxine Sodium (Synthroid) 88 mcg PO ACBREAKFAST [facility] Last Admin: 07/09/16 06:39 Dose: 88 mcg Methylprednisolone Sodium Succinate (Solu-Medrol) 125 mg IVPUSH Q8H [facility] Last Admin: 07/09/16 08:26 Dose: 125 mg Metoprolol Tartrate (Lopressor) 50 mg PO BID [facility] Last Admin: 07/09/16 08:40 Dose: 50 mg Multivitamins/Minerals/Vitamin C (Tab-A-Marcelino) 1 tab PO DAILY [facility] Last Admin: 07/09/16 08:34 Dose: 1 tab Ondansetron HCl (Zofran) 4 mg IVPUSH Q4H PRN PRN Reason: Nausea Oseltamivir Phosphate (Oseltamivir Phosphate) 30 mg PO BID [facility] Last Admin: 07/09/16 08:33 Dose: 30 mg Simvastatin (Zocor) 20 mg PO BEDTIME [facility] Last Admin: 07/08/16 20:00 Dose: 20 mg Sodium Chloride (Saline Flush) 10 ml FLUSH ASDIRECTED PRN PRN Reason: Keep Vein Open Last Admin: 07/04/16 06:21 Dose: 10 ml Sodium Chloride (Saline Flush) 2.5 ml FLUSH ASDIRECTED PRN PRN Reason: Keep Vein Open Last Admin: 07/04/16 06:20 Dose: 2.5 ml Sodium Chloride (Saline Flush) 10 ml FLUSH ASDIRECTED PRN PRN Reason: Keep Vein Open Sodium Chloride (Saline Flush) 2.5 ml FLUSH ASDIRECTED PRN PRN Reason: Keep Vein Open Trazodone HCl (Trazodone) 25 mg PO BEDTIME [facility] Last Admin: 07/08/16 20:00 Dose: 25 mg Discontinued Medications Enoxaparin Sodium (Lovenox) 40 mg SUBCUT DAILY [facility] Last Admin: 07/04/16 10:49 Dose: 40 mg Heparin Sodium (Porcine) (Heparin Sodium) 5,000 units SUBCUT Q12HR [facility] Last Admin: 07/06/16 08:23 Dose: 5,000 units Sodium Chloride (Normal Saline) 1,000 mls @ 999 mls/hr IV .Bolus ONE Stop: 07/04/16 06:50 Last Admin: 07/04/16 06:21 Dose: 999 mls/hr Levofloxacin/Dextrose 500 mg/ (Premix) 100 mls @ 100 mls/hr IV ONETIME ONE Stop: 07/04/16 07:30 Last Admin: 07/04/16 06:49 Dose: 100 mls/hr Vancomycin HCl 1 gm/ Sodium (Chloride) 250 mls @ 250 mls/hr IV ONETIME ONE Stop: 07/04/16 07:30 Last Admin: 07/04/16 06:45 Dose: 250 mls/hr Piperacillin Sod/Tazobactam (Sod 4.5 gm/ Sodium Chloride) 100 mls @ 100 mls/hr IV Q6H [facility] Last Admin: 07/09/16 08:29 Dose: 100 mls/hr Levofloxacin/Dextrose 750 mg/ (Premix) 150 mls @ 100 mls/hr IV Q48H [facility] Sodium Chloride (Normal Saline) 1,000 mls @ 100 mls/hr IV ASDIRECTED [facility] Last Admin: 07/06/16 13:58 Dose: 100 mls/hr Vancomycin HCl 1 gm/ Sodium (Chloride) 250 mls @ 166.667 mls/hr IV Q24H [facility] Stop: 07/07/16 10:00 Last Admin: 07/07/16 07:38 Dose: 166.667 mls/hr Levofloxacin/Dextrose 750 mg/ (Premix) 150 mls @ 100 mls/hr IV Q48H [facility] Last Admin: 07/08/16 07:03 Dose: 100 mls/hr Vancomycin HCl 1 gm/ Sodium (Chloride) 250 mls @ 166.667 mls/hr IV Q12H [facility] Last Admin: 07/09/16 06:33 Dose: Not Given Vancomycin HCl 1,500 mg/ (Sodium Chloride) 500 mls @ 333.333 mls/hr IV Q24H [facility] Oseltamivir Phosphate (Tamiflu) 75 mg PO BID [facility] Last Admin: 07/04/16 12:43 Dose: Not Given Oseltamivir Phosphate (Tamiflu) 30 mg PO DAILY [facility] Last Admin: 07/04/16 13:04 Dose: Not Given Oseltamivir Phosphate (Oseltamivir Phosphate) 30 mg PO DAILY [facility] Last Admin: 07/06/16 08:22 Dose: 30 mg Potassium Chloride (Klor-Con M20) 40 meq PO ONETIME ONE Stop: 07/05/16 13:46 Last Admin: 07/05/16 13:58 Dose: 40 meq Potassium Chloride (Klor-Con M20) 40 meq PO ONETIME ONE Stop: 07/06/16 13:54 Last Admin: 07/06/16 15:32 Dose: 40 meq Potassium Chloride (Klor-Con 10) 40 meq PO ONETIME ONE Stop: 07/09/16 08:09 Last Admin: 07/09/16 08:34 Dose: 40 meq Sodium Chloride (Saline Flush) 10 ml FLUSH ASDIRECTED PRN PRN Reason: Keep Vein Open Last Admin: 07/04/16 06:22 Dose: 10 ml Sodium Chloride (Saline Flush) 2.5 ml FLUSH ASDIRECTED PRN PRN Reason: Keep Vein Open Last Admin: 07/04/16 06:22 Dose: 2.5 ml Vancomycin HCl (Pharmacy To Dose - Vancomycin) 1 dose .XX ASDIRECTED [facility] - Exam Quality Assessment: DVT prophylaxis. No: supplemental oxygen General: alert, oriented, cooperative Neck: supple Lungs: Wheezing (scant expiratory wheeze) Cardiovascular: Regular Rate, Regular Rhythm Abdomen: bowel sounds present, soft, no tenderness, no distension Extremities: normal pulses, no tenderness/swelling, edema (stable chronic edema , +2 BLE) Neurological: no new focal deficit Psy/Mental Status: alert, normal affect, normal mood - Problem List & Annotations (1) Sepsis SNOMED Code(s): 34952281 Code(s): A41.9 - SEPSIS, UNSPECIFIED ORGANISM Status: Resolved Current Visit: Yes (2) Recurrent UTI SNOMED Code(s): 210566734 Code(s): N39.0 - URINARY TRACT INFECTION, SITE NOT SPECIFIED Status: Acute Current Visit: Yes (3) COPD (chronic obstructive pulmonary disease) SNOMED Code(s): 66877304 Code(s): J44.9 - CHRONIC OBSTRUCTIVE PULMONARY DISEASE, UNSPECIFIED Status : Acute Current Visit: Yes (4) Dementia SNOMED Code(s): 85003979 Code(s): F03.90 - UNSPECIFIED DEMENTIA WITHOUT BEHAVIORAL DISTURBANCE Status: Acute Current Visit: Yes (5) Hypothyroidism SNOMED Code(s): 98940682 Code(s): E03.9 - HYPOTHYROIDISM, UNSPECIFIED Status: Acute Current Visit : Yes (6) Fever SNOMED Code(s): 958837120 Code(s): R50.9 - FEVER, UNSPECIFIED Status: Acute Current Visit: Yes (7) Hypoxia SNOMED Code(s): 748196391, 894143240 Code(s): R09.02 - HYPOXEMIA Status: Acute Current Visit: Yes (8) Pneumonia SNOMED Code(s): 959497048 Code(s): J18.9 - PNEUMONIA, UNSPECIFIED ORGANISM Status: Acute Current Visit: Yes (9) HTN (hypertension) SNOMED Code(s): 50118502 Code(s): I10 - ESSENTIAL (PRIMARY) HYPERTENSION Status: Chronic Current Visit: No Qualifiers: Hypertension type: essential hypertension Qualified Code(s): I10 - Essential (primary) hypertension - Problem List Review Problem List Initiated/Reviewed/Updated: Yes - My Orders Last 24 Hours: My Active Orders 07/08/16 16:12 Consult to Speech Language Pathology [FARM ADVISOR Evaluation and Treatment] [CONS] Routine 07/08/16 16:40 Urinary Catheter Assessment [RC] Q4H 07/08/16 16:43 Communication Order [RC] PRN 07/08/16 16:45 Insert Johnson Catheter [Insert Urinary Catheter] [OM.PC] Q24H 07/09/16 09:34 Remove Johnson Catheter [Urinary Catheter Removal] [RC] Per Unit Routine 07/09/16 09:45 cefTRIAXone [Rocephin in Dextrose,Iso-Osm 1 GM/50 ML] 1 gm Premix Bag 1 bag IV Q24H 07/09/16 Lunch Mechanical Soft Diet [DIET] - Plan Plan:: This 76 year old female admitted with sepsis, HCAP and flu like symptoms 1. Sepsis and HCAP: Covering with broad spectrum antibiotics, Zosyn, Levaquin and Vancomycin. No leukocytosis. May consider chest CT per radiology recommendations if no improvement. Provide IVFs for now, monitor. Duonebs and oxygen. Lactate normal. Encourage IS 2. Flu-like symptoms: Tamiflu 30 mg daily due to renal function. 3. UTI: UC pending, treatment as above. 4. HTN: Monitor hold Metoprolol and Norvasc for now due to sepsis. Will re- evaluate in am. 5. Hypothyroidism: Continue Synthroid 6. Depression: Continue Wellbutrin VTE: Heparin Dispo: 2-4 days 07/05/2016 add steroids duonebs antibiotics supportive care Corky Lehman MD 07/06/2016 I suspect that the pancytopenia is related to sepsis. jasso stop heparin. anticipate discharge within 24 to 48 hours. Arcadio Lehman MD 07.07.2016 This 76 year old female admitted with sepsis, HCAP and flu like symptoms 1. HCAP: Continue Zosyn, Levaquin and Vancomycin. leukocytosis likely from Solu -medrol. Duonebs and oxygen. Encourage IS. Sepsis resolved. 2. Flu-like symptoms: Tamiflu 30 mg daily due to renal function. 3. UTI: Mixed ke. Antibiotics as above. 4. HTN: Restart Metoprolol and Norvasc. Some tachycardia noted. 5. Hypothyroidism: Continue Synthroid 6. Depression: Continue Wellbutrin 7. Elevated LFTs: Obtain abdominal U/S. Monitor VTE: SCDs only. Dispo: 2-3 days Devi Marie BAND EDGER-C 07.08.2016 This 76 year old female admitted with sepsis, HCAP and flu like symptoms 1. HCAP: Continue Zosyn, Levaquin and Vancomycin. Duonebs and oxygen. Encourage IS. Will consult ST today to evaluate swallowing 2. Flu-like symptoms: Tamiflu 30 mg daily due to renal function. 3. UTI: Mixed ke. Antibiotics as above. 4. HTN: Continue Metoprolol and Norvasc. Tachycardia improved 5. Hypothyroidism: Continue Synthroid 6. Depression: Continue Wellbutrin 7. Elevated LFTs: Abdominal U/S revealed mildly coarse liver a nodular contour, recommended to correlate for hepatocellular disease/cirrhosis, No focal old hepatic mass, Cholelithiasis without evidence of cholecystitis. No history of alcohol abuse. Will obtain hepatitis panel. Family updated on test results and treatment plan. VTE: SCDs only. Dispo: 1-2 days Devi MCALLISTER 07.09.2016 This 76 year old female admitted with sepsis, HCAP and flu like symptoms 1. HCAP: Sputum culutre reealed staph aureus Resitant to levaquin. Will start Rocephin today and discontinue Zosyn, Vanco and Levaquin. Duonebs. No longer requiring oxygen. Encourage IS. St evaluated today. 2. Flu-like symptoms: Tamiflu 30 mg daily due to renal function. 3. UTI: Mixed ke. Antibiotics as above. 4. HTN: Stable, continue Metoprolol and Norvasc. 5. Hypothyroidism: stable, continue Synthroid 6. Depression: stable, continue Wellbutrin 7. Elevated LFTs: Improved today. Hepatitis panel pending Family updated on test results and treatment plan. VTE: SCDs only. Dispo: Likely discharge back to [facility] in am. Devi MCALLISTER
[2016-07-10] MEDS: traZODone 50 MG Tab PO SCH (00:11)
[2016-07-10] MEDS: methylPREDNISolone Sodium Succinate 125 MG/2 ML SDV IVPUSH SCH ×3 (00:11→08:33)
[2016-07-10] MEDS: Simvastatin 20 MG Tab PO SCH (00:11)
[2016-07-10] MEDS: Metoprolol Tartrate 50 MG Tab PO SCH ×2 (00:12→08:20)
[2016-07-10] MEDS: Oseltamivir Phosphate 30 MG Capsule PO SCH ×2 (00:17→08:21)
[2016-07-10] MEDS: Albuterol/Ipratropium 3.0-0.5 MG/3 ML Neb Soln NEB SCH ×3 (02:01→10:23)
[2016-07-10 05:30] LABS: CHLORIDE,CL 109 mmol/L (98-110); SODIUM,NA 136 mmol/L (136-146)
[2016-07-10] MEDS: Levothyroxine 88 MCG Tab PO SCH (06:47)
[2016-07-10] MEDS: Multivitamin Tab PO SCH (08:20)
[2016-07-10] MEDS: buPROPion 150 MG Tab.ER PO SCH (08:20)
[2016-07-10] MEDS: amLODIPine 5 MG Tab PO SCH (08:20)
[2016-07-10 09:00] VITALS: BP 130/60
[2016-07-10] MEDS: cefTRIAXone 1 GM in Premix Bag 1 BAG IV SCH (09:04)
--- NOTE | 2016-07-10 12:08 | PCM.DCSUM1 ---
Discharge Summary - Hospital Course Brief History: This 76 year old female [place] resident with pmh of HTN, dyslipidemia, depression, dementia, COPD, and non-ambulatory presented to the ED via EMS last evening due to complaints of fever and productive cough. Her daughter, Wood, reports Thursday and Thursday she started not feeling well with malaise, chills, no appetite, and diarrhea. On Thursday and she continued to get worse and they noticed a cough and fever. She normally is dyspneic, but does not use home oxygen. She is alert and oriented to baseline, conversational. She reports she does not feel well, denies pain, has some body aches. Denies abdominal pain, urinary symptoms, chest pain and palpitations. In the ED WBC 6,510, hgb 11.9 Na 134, BUN 24, Cr 1.3 AST 86, ALK phos 334. UA few bacteria, WBC 15-200, leukocyte esterase moderate and neg nitrite. UC/BC obtained. Influenza swab negative. CXR revealed multifocal penumonia/ pneumonitis. She was treated with IV fluids, Levaquin and Vancomycin in the ED. She was admitted for sepsis and health care associated pneumonia. - Discharge Data Discharge Date: 07/10/16 Discharge Disposition: DC/Tfer to [facility] 03 Condition: Good - Discharge Diagnosis/Problem(s) (1) Sepsis SNOMED Code(s): 88606158 ICD Code: A41.9 - SEPSIS, UNSPECIFIED ORGANISM Status: Resolved (2) Recurrent UTI SNOMED Code(s): 086093373 ICD Code: N39.0 - URINARY TRACT INFECTION, SITE NOT SPECIFIED Status: Acute (3) COPD (chronic obstructive pulmonary disease) SNOMED Code(s): 96140297 ICD Code: J44.9 - CHRONIC OBSTRUCTIVE PULMONARY DISEASE, UNSPECIFIED Status : Acute (4) Dementia SNOMED Code(s): 00732228 ICD Code: F03.90 - UNSPECIFIED DEMENTIA WITHOUT BEHAVIORAL DISTURBANCE Status: Chronic (5) Hypothyroidism SNOMED Code(s): 33730558 ICD Code: E03.9 - HYPOTHYROIDISM, UNSPECIFIED Status: Acute (6) Fever SNOMED Code(s): 029075093 ICD Code: R50.9 - FEVER, UNSPECIFIED Status: Resolved (7) Hypoxia SNOMED Code(s): 721252319, 294576801 ICD Code: R09.02 - HYPOXEMIA Status: Resolved (8) Pneumonia SNOMED Code(s): 146130506 ICD Code: J18.9 - PNEUMONIA, UNSPECIFIED ORGANISM Status: Acute (9) HTN (hypertension) SNOMED Code(s): 35819314 ICD Code: I10 - ESSENTIAL (PRIMARY) HYPERTENSION Status: Chronic Qualifiers: Hypertension type: essential hypertension Qualified Code(s): I10 - Essential (primary) hypertension (10) Dysphagia SNOMED Code(s): 69240114, 509709288 ICD Code: R13.10 - DYSPHAGIA, UNSPECIFIED Status: Acute - Patient Summary/Data Consults: Consultations 07/08/16 16:12 Consult to Speech Language Pathology [[employer]PERVISOR Evaluation and Treatment] [CONS] Routine - Patient Instructions Diet: Mechanical Soft (With ground meats and gravy. Low sodium, thin liquids, pills whole in pureed. ) Activity: As Tolerated Showering/Bathing: May Shower Notify Provider of: Fever, Increased Pain, Swelling and Redness, Drainage, Nausea and/or Vomiting - Discharge Plan Prescriptions/Med Rec: Cephalexin [Keflex] 500 mg PO Q6HR #16 cap predniSONE 10 - 40 mg PO .Daily Taper #30 tablet traMADol [Ultram] 50 mg PO Q4H PRN #15 tablet PRN Reason: Pain Home Medications: Home Meds Acetaminophen [Tylenol] 650 mg PO Q4H PRN #7 tablet 03/07/16 [Rx] Acetaminophen [Pain & Fever] 500 mg PO TID 07/04/16 [History] Multivitamin [Multi-Vitamin Daily] 1 tab PO DAILY 07/04/16 [History] Levothyroxine [Synthroid] 88 mcg PO ACBREAKFAST 07/09/16 [History] Metoprolol Tartrate 50 mg PO BID 07/09/16 [History] Simvastatin [Zocor] 20 mg PO BEDTIME 07/09/16 [History] amLODIPine [Norvasc] 5 mg PO DAILY 07/09/16 [History] buPROPion HCl [Wellbutrin Xl] 300 mg PO DAILY 07/09/16 [History] traZODone 25 mg PO BEDTIME 07/09/16 [History] Cephalexin [Keflex] 500 mg PO Q6HR #16 cap 07/10/16 [Rx] predniSONE 10 - 40 mg PO .Daily Taper #30 tablet 07/10/16 [Rx] traMADol [Ultram] 50 mg PO Q4H PRN #15 tablet 07/10/16 [Rx] Referrals: Emir Muir MD [Primary Care Provider] - 07/17/16 (next [place] rounds) - Discharge Summary/Plan Comment DC Time >30 min.: No Discharge Summary/Plan Comment: Discharge diagnoses: Pneumonia UTI Dysphagia COPD HTN Hypothyroid Bedridden Toya was admitted and treated with broad spectrum antibiotics due to fever and suspected pneumonia, sepsis and UTI. She was also treated for suspected Influenza due to fevers with no leukocytosis, with Tamiflu. She slowly improved over the next 4-5 days. Speech therapy was consulted to evaluate dysphagia, she recommended mechanical sot foods with gravies and thin liquids for now. She would like to go a modified barium swallow study but daughter wanted this as outpatient. UC returned mixed ke and BC negative. 1/ bottles returned positive but for coagulase neg staph, likely a contaminant. WBC remained stable during stay. Sputum culture revealed staph aureus resistant to Levaquin. Antibiotics were changed to Rocephin and she continued to improve. Will discharge back to [facility] today with Keflex for 4 more days and Prednisone taper for COPD exacerbation. Hepatitis panel is pending due to cirrohsis noted on U/S and slightly elevated LFTs Dr. Muir was notified of admission and discharge plan. - General Info Date of Service: 07/10/16 Admission Dx/Problem (Free Text: Admission Diagnosis/Problem Admission Diagnosis/Problem Pneumonia Subjective Update: No complaints. Continues to feel better. NO chest pain or palpitations. Cough has improved. Eager for discharge home. Functional Status: Reports: pain controlled, tolerating diet, urinating - Review of Systems General: Reports: No Symptoms. Denies: Fever HEENT: Reports: no symptoms. Denies: sinus congestion, sore throat Pulmonary: Reports: no symptoms. Denies: shortness of breath, cough, sputum Cardiovascular: Reports: No Symptoms. Denies: Chest Pain, Palpitations, Edema Gastrointestinal: Reports: No symptoms. Denies: Abdominal pain, Nausea, Vomiting Genitourinary: Reports: no symptoms. Denies: dysuria, frequency, burning - Patient Data Vitals - Most Recent: Last Vital Signs Temp 97.8 F 07/10/16 08:00 Pulse 80 07/10/16 08:20 Resp 15 07/10/16 08:00 BP 130/61 07/10/16 08:20 Pulse Ox 94 L 07/10/16 08:00 Weight - Most Recent: 80 kg I&O - Last 24 hours: Intake & Output 07/09/16 07/10/16 07/10/16 22:59 06:59 14:59 Intake Total 600 140 400 Output Total 150 600 Balance 450 140 -200 Lab Results - Last 24 hrs: Laboratory Results - last 24 hr 07/10/16 07/10/16 Range/Units 04:45 04:45 WBC 5.16 (4.0-11.0) K/uL RBC 3.32 L (4.30-5.90) M/uL Hgb 9.7 L (12.0-16.0) g/dL Hct 28.7 L (36.0-46.0) % MCV 86.4 (80.0-98.0) fL MCH 29.2 (27.0-32.0) pg MCHC 33.8 (31.0-37.0) g/dL RDW Std Deviation 51.1 (28.0-62.0) fl RDW Coeff of Cristiane 16 H (11.0-15.0) % Plt Count 169 (150-400) K/uL MPV 10.30 (7.40-12.00) fL Neut % (Auto) 75.0 (48.0-80.0) % Lymph % (Auto) 19.0 (16.0-40.0) % [place] % (Auto) 6.0 (0.0-15.0) % Eos % (Auto) 0.0 (0.0-7.0) % Baso % (Auto) 0.0 (0.0-1.5) % Neut # (Auto) 3.9 (1.4-5.7) K/uL Lymph # (Auto) 1.0 (0.6-2.4) K/uL [place] # (Auto) 0.3 (0.0-0.8) K/uL Eos # (Auto) 0.0 (0.0-0.7) K/uL Baso # (Auto) 0.0 (0.0-0.1) K/uL Nucleated RBC % 0.0 /100WBC Nucleated RBCs # 0 K/uL Sodium 136 (136-146) mmol/L Potassium 3.7 (3.5-5.1) mmol/L Chloride 109 (98-110) mmol/L Carbon Dioxide 18 L (21-31) mmol/L BUN 24 H (6.0-23.0) mg/dL Creatinine 0.9 (0.6-1.5) mg/dL Est Cr Clr Drug Dosing 39.39 mL/min Estimated GFR (MDRD) > 60.0 ml/min Glucose 163 H (60-110) mg/dL Calcium 7.8 L (8.8-10.8) mg/dL Total Bilirubin 0.5 (0.1-1.5) mg/dL AST 35 (5-40) IU/L ALT 15 (8-54) IU/L Alkaline Phosphatase 179 H (40-150) Total Protein 5.7 L (6.0-8.0) g/dL Albumin 2.7 L (3.4-4.8) g/dL Globulin 3.0 (2.0-3.5) g/dL Albumin/Globulin Ratio 0.9 L (1.3-2.8) Med Orders - Current: Current Medications Discontinued Medications Acetaminophen (Tylenol) 650 mg PO Q4H PRN PRN Reason: Pain Albuterol (Proventil Neb Soln) 2.5 mg NEB Q2H PRN PRN Reason: Shortness Of Breath/wheezing Last Admin: 07/08/16 03:47 Dose: 2.5 mg Albuterol/Ipratropium (Duoneb 3.0-0.5 Mg/3 Ml) 3 ml NEB Q4HRRT [facility] Last Admin: 07/10/16 10:23 Dose: 3 ml Amlodipine Besylate (Norvasc) 5 mg PO DAILY [facility] Last Admin: 07/10/16 08:20 Dose: 5 mg Bupropion HCl (Wellbutrin Xl) 300 mg PO DAILY [facility] Last Admin: 07/10/16 08:20 Dose: 300 mg Enoxaparin Sodium (Lovenox) 40 mg SUBCUT DAILY [facility] Last Admin: 07/04/16 10:49 Dose: 40 mg Heparin Sodium (Porcine) (Heparin Sodium) 5,000 units SUBCUT Q12HR [facility] Last Admin: 07/06/16 08:23 Dose: 5,000 units Sodium Chloride (Normal Saline) 1,000 mls @ 999 mls/hr IV .Bolus ONE Stop: 07/04/16 06:50 Last Admin: 07/04/16 06:21 Dose: 999 mls/hr Levofloxacin/Dextrose 500 mg/ (Premix) 100 mls @ 100 mls/hr IV ONETIME ONE Stop: 07/04/16 07:30 Last Admin: 07/04/16 06:49 Dose: 100 mls/hr Vancomycin HCl 1 gm/ Sodium (Chloride) 250 mls @ 250 mls/hr IV ONETIME ONE Stop: 07/04/16 07:30 Last Admin: 07/04/16 06:45 Dose: 250 mls/hr Piperacillin Sod/Tazobactam (Sod 4.5 gm/ Sodium Chloride) 100 mls @ 100 mls/hr IV Q6H [facility] Last Admin: 07/09/16 08:29 Dose: 100 mls/hr Levofloxacin/Dextrose 750 mg/ (Premix) 150 mls @ 100 mls/hr IV Q48H [facility] Sodium Chloride (Normal Saline) 1,000 mls @ 100 mls/hr IV ASDIRECTED [facility] Last Admin: 07/06/16 13:58 Dose: 100 mls/hr Vancomycin HCl 1 gm/ Sodium (Chloride) 250 mls @ 166.667 mls/hr IV Q24H [facility] Stop: 07/07/16 10:00 Last Admin: 07/07/16 07:38 Dose: 166.667 mls/hr Levofloxacin/Dextrose 750 mg/ (Premix) 150 mls @ 100 mls/hr IV Q48H [facility] Last Admin: 07/08/16 07:03 Dose: 100 mls/hr Vancomycin HCl 1 gm/ Sodium (Chloride) 250 mls @ 166.667 mls/hr IV Q12H [facility] Last Admin: 07/09/16 06:33 Dose: Not Given Vancomycin HCl 1,500 mg/ (Sodium Chloride) 500 mls @ 333.333 mls/hr IV Q24H [facility] Ceftriaxone Sodium/Dextrose 1 (gm/ Premix) 50 mls @ 100 mls/hr IV Q24H [facility] Last Admin: 07/10/16 09:04 Dose: Not Given Levothyroxine Sodium (Synthroid) 88 mcg PO ACBREAKFAST [facility] Last Admin: 07/10/16 06:47 Dose: 88 mcg Methylprednisolone Sodium Succinate (Solu-Medrol) 125 mg IVPUSH Q8H [facility] Last Admin: 07/09/16 08:26 Dose: 125 mg Methylprednisolone Sodium Succinate (Solu-Medrol) 125 mg IVPUSH Q12H [facility] Last Admin: 07/10/16 08:33 Dose: Not Given Metoprolol Tartrate (Lopressor) 50 mg PO BID [facility] Last Admin: 07/10/16 08:20 Dose: 50 mg Multivitamins/Minerals/Vitamin C (Tab-A-Marcelino) 1 tab PO DAILY [facility] Last Admin: 07/10/16 08:20 Dose: 1 tab Ondansetron HCl (Zofran) 4 mg IVPUSH Q4H PRN PRN Reason: Nausea Oseltamivir Phosphate (Tamiflu) 75 mg PO BID [facility] Last Admin: 07/04/16 12:43 Dose: Not Given Oseltamivir Phosphate (Tamiflu) 30 mg PO DAILY [facility] Last Admin: 07/04/16 13:04 Dose: Not Given Oseltamivir Phosphate (Oseltamivir Phosphate) 30 mg PO DAILY [facility] Last Admin: 07/06/16 08:22 Dose: 30 mg Oseltamivir Phosphate (Oseltamivir Phosphate) 30 mg PO BID [facility] Last Admin: 07/10/16 08:21 Dose: 30 mg Potassium Chloride (Klor-Con M20) 40 meq PO ONETIME ONE Stop: 07/05/16 13:46 Last Admin: 07/05/16 13:58 Dose: 40 meq Potassium Chloride (Klor-Con M20) 40 meq PO ONETIME ONE Stop: 07/06/16 13:54 Last Admin: 07/06/16 15:32 Dose: 40 meq Potassium Chloride (Klor-Con 10) 40 meq PO ONETIME ONE Stop: 07/09/16 08:09 Last Admin: 07/09/16 08:34 Dose: 40 meq Simvastatin (Zocor) 20 mg PO BEDTIME [facility] Last Admin: 07/10/16 00:11 Dose: 20 mg Sodium Chloride (Saline Flush) 10 ml FLUSH ASDIRECTED PRN PRN Reason: Keep Vein Open Last Admin: 07/04/16 06:21 Dose: 10 ml Sodium Chloride (Saline Flush) 2.5 ml FLUSH ASDIRECTED PRN PRN Reason: Keep Vein Open Last Admin: 07/04/16 06:20 Dose: 2.5 ml Sodium Chloride (Saline Flush) 10 ml FLUSH ASDIRECTED PRN PRN Reason: Keep Vein Open Last Admin: 07/04/16 06:22 Dose: 10 ml Sodium Chloride (Saline Flush) 2.5 ml FLUSH ASDIRECTED PRN PRN Reason: Keep Vein Open Last Admin: 07/04/16 06:22 Dose: 2.5 ml Sodium Chloride (Saline Flush) 10 ml FLUSH ASDIRECTED PRN PRN Reason: Keep Vein Open Sodium Chloride (Saline Flush) 2.5 ml FLUSH ASDIRECTED PRN PRN Reason: Keep Vein Open Trazodone HCl (Trazodone) 25 mg PO BEDTIME [facility] Last Admin: 07/10/16 00:11 Dose: 25 mg Vancomycin HCl (Pharmacy To Dose - Vancomycin) 1 dose .XX ASDIRECTED [facility] - Exam Quality Assessment: Reports: DVT prophylaxis. Denies: supplemental oxygen General: Reports: alert, oriented, cooperative Lungs: Reports: Clear to auscultation, Normal respiratory effort Cardiovascular: Reports: Regular Rate, Regular Rhythm, No Murmurs Abdomen: Reports: bowel sounds present, soft, no tenderness, no distension Extremities: Reports: edema (chronic +2 non pitting BLE) Neurological: Reports: no new focal deficit Psy/Mental Status: Reports: alert, normal affect, normal mood *Q Meaningful Use (DIS) - VTE *Q VTE Criteria *Q: - Stroke *Q Stroke Criteria *Q: - AMI *Q AMI Criteria *Q:
== END 2016-07-10 11:46 | DRG 871 ==
LOC: MW.ED 05:27 → MW.MS 06:45
PROVIDERS: ADMIT Internal Medicine; ATTEND Internal Medicine
DX: A41.9 Sepsis, unspecified organism (principal); J18.9 Pneumonia, unspecified organism; N39.0 Urinary tract infection, site not specified; B95.61 Methicillin susceptible Staphylococcus aureus infection as the cause of diseases classified elsewhere; J11.1 Influenza due to unidentified influenza virus with other respiratory manifestations; R50.9 Fever, unspecified; E78.00 Pure hypercholesterolemia, unspecified; R09.02 Hypoxemia; R13.10 Dysphagia, unspecified; R93.5 Abnormal findings on diagnostic imaging of other abdominal regions, including retroperitoneum; J44.9 Chronic obstructive pulmonary disease, unspecified; J45.909 Unspecified asthma, uncomplicated; F03.90 Unspecified dementia, unspecified severity, without behavioral disturbance, psychotic disturbance, mood disturbance, and anxiety; E03.9 Hypothyroidism, unspecified; I10 Essential (primary) hypertension; E78.5 Hyperlipidemia, unspecified; F32.9 Major depressive disorder, single episode, unspecified; Z79.899 Other long term (current) drug therapy; Z74.01 Bed confinement status
CPT/HCPCS: 36415; 71010; 80053; 81001; 83605; 84484; 85025; 87040 ×2; 87086; 87804 ×2; 99285; J7040; 51703; 76705; 76705-26; 80074; 80202; 87070; 87077; 87186; 87205; 92610-GN; 93005; 94640; 94664; 96365; 96368; 97802; A9270-GY; J0696; J1644; J1650; J1956; J2543; J2930; J3370; J7030; J7050

== ENCOUNTER → 2016-07-23 | Outpatient (CLI) | payer MEDICARE, MEDICAID ==
--- NOTE | 2016-07-23 13:27 | CR ---
EXAMINATION: Oropharyngeal video swallow study. HISTORY: Pneumonia COMPARISON: None TECHNIQUE: Lateral images obtained, speech pathologist present, various barium consistencies provide d. FINDINGS: Overall there is good bolus formation and transfer. Epiglottic inversion and tracheal elev ation was noted. Silent aspiration was noted within liquids. [place] consistency was better tolerated . Applesauce was also well tolerated. IMPRESSION: Silent aspiration of thin liquids. Please see speech pathology report for full details.
== END ==
LOC: MW.DI 10:47
PROVIDERS: ATTEND Nurse Practitioner Family
DX: R13.10 Dysphagia, unspecified (principal); J18.9 Pneumonia, unspecified organism
CPT/HCPCS: 74230; 74230-26

== ENCOUNTER 2017-05-01 14:16 | Emergency (ER) | payer MEDICARE, MEDICAID ==
[2017-05-01] MEDS ORDERED: Sodium Chloride 0.9% 10 ML Syringe FLUSH PRN (14:38)
[2017-05-01] MEDS ORDERED: Sodium Chloride 0.9% 2.5 ML Syringe FLUSH PRN (14:38)
--- NOTE | 2017-05-01 14:46 | EDM.PDOC ---
ED HPI GENERAL MEDICAL PROBLEM - General Chief Complaint: Fever Stated Complaint: FLU-LIKE SYMPTOMS Time Seen by Provider: 05/01/17 14:41 Source of Information: Reports: Patient History Limitations: Reports: No Limitations - History of Present Illness INITIAL COMMENTS - FREE TEXT/NARRATIVE: HISTORY AND PHYSICAL: []37-year-old female sent from [facility] due to elevated fever History of Present Illness: [] Patient was given Tylenol previously on arrival Review of Systems: As per history of present illness and below otherwise all systems reviewed and negative. Past medical history: As per history of present illness and as reviewed below otherwise noncontributory. Surgical history: As per history of present illness and as reviewed below otherwise noncontributory. Social history: No reported history of drug or alcohol abuse. Family history: As per history of present illness and as reviewed below otherwise noncontributory. Physical exam: Alert elderly female. Cooperative with examination no shortness of breath no coughing HEENT: Atraumatic, normocehpalic, pupils reactive, negative for conjunctival pallor or scleral icterus, mucous membranes moist, throat clear, neck supple, nontender, trachea midline. Panic membranes without erythema no bulging. Throat is clear. Skin warm and dry Lungs: Clear to auscultation, breath sounds equal bilaterally, chest non tender. Heart: S1S2, regular, negative for clicks, rubs, or JVD. Abdomen: Soft, nondistended, nontender. Negative for masses or hepatossplenmegaly. Negative for costovertebral tenderness. Pelvis: Stable nontender. Genitourinary: Straight catheter to obtain a clean urine. Rectal: Deferred Extremities: Atraumatic, negative for cords or calf pain. Neurovascular unremarkable. Neuro: Awake, alert, oriented. Cranial nerves II through XII unremarkable. Cerebellum unremarkable. Motor and sensory unremarkable throughout. Exam nonfocal. Diagnostics: [CBC CMP UA with microscopic influenza all negative] Therapeutics: [] Impression: [Viral infection] Plan: []Discharge home Follow up as needed in the ER see her provider in 2 days Definitive disposition and diagnosis as appropriate pending reevaluation and review of above. Onset: Today Duration: Hour(s): Location: Reports: Chest Severity: Mild Improves with: Reports: None Worsens with: Reports: None Associated Symptoms: Reports: No Other Symptoms - Related Data Allergies Allergy/AdvReac Type Severity Reaction Status Date / Time No Known Allergies Allergy Verified 05/01/17 14:32 Home Meds: Home Meds Acetaminophen [Tylenol] 650 mg PO Q4H PRN #7 tablet 03/07/16 [Rx] Acetaminophen [Pain & Fever] 500 mg PO TID 07/04/16 [History] Multivitamin [Multi-Vitamin Daily] 1 tab PO DAILY 07/04/16 [History] Levothyroxine [Synthroid] 88 mcg PO ACBREAKFAST 07/09/16 [History] Metoprolol Tartrate 50 mg PO BID 07/09/16 [History] Simvastatin [Zocor] 20 mg PO BEDTIME 07/09/16 [History] amLODIPine [Norvasc] 5 mg PO DAILY 07/09/16 [History] buPROPion HCl [Wellbutrin Xl] 300 mg PO DAILY 07/09/16 [History] traZODone 25 mg PO BEDTIME 07/09/16 [History] Cephalexin [Keflex] 500 mg PO Q6HR #16 cap 07/10/16 [Rx] predniSONE 10 - 40 mg PO .Daily Taper #30 tablet 07/10/16 [Rx] traMADol [Ultram] 50 mg PO Q4H PRN #15 tablet 07/10/16 [Rx] Past Medical History HEENT History: Reports: None Cardiovascular History: Reports: High Cholesterol, Hypertension Other Cardiovascular History: takes calcium Respiratory History: Reports: Asthma, COPD, SOB Gastrointestinal History: Reports: None Genitourinary History: Reports: UTI, Recurrent [employer] History: Reports: Musculoskeletal History: Reports: Arthritis, Other (See Below) Other Musculoskeletal History: generalized weakness, non ambulatory Psychiatric History: Reports: Anxiety, Dementia, Depression Endocrine/Metabolic History: Reports: Hypothyroidism, Obesity/BMI 30+ Hematologic History: Reports: None Oncologic (Cancer) History: Reports: None Dermatologic History: Reports: None - Infectious Disease History Infectious Disease History: Reports: Chicken Pox, Measles, Mumps - Past Surgical History Musculoskeletal Surgical History: Reports: Other (See Below) Social & Family History - Family History Family Medical History: Noncontributory - Tobacco Use Smoking Status *Q: Never Smoker Second Hand Smoke Exposure: No - Caffeine Use Caffeine Use: Reports: None - Recreational Drug Use Recreational Drug Use: No - Living Situation & Occupation Occupation: Retired ED ROS GENERAL - Review of Systems Review Of Systems: ROS reveals no pertinent complaints other than HPI. ED EXAM, GENERAL - Physical Exam Exam: See Below (see dictation) Course - Vital Signs Last Recorded V/S: Last Vital Signs Temp 37.6 C 05/01/17 14:28 Pulse 87 05/01/17 14:28 Resp 18 05/01/17 14:28 BP Pulse Ox 93 L 05/01/17 14:28 - Orders/Labs/Meds Orders: Active Orders 24 hr Category Date Time Status CULTURE BLOOD [BC] Stat Lab 05/01/17 14:45 Received CULTURE BLOOD [BC] Stat Lab 05/01/17 15:19 Received Sodium Chloride 0.9% [Saline Flush] Med 05/01/17 14:38 Active 10 ml FLUSH ASDIRECTED PRN Sodium Chloride 0.9% [Saline Flush] Med 05/01/17 14:38 Active 2.5 ml FLUSH ASDIRECTED PRN Blood Culture x2 Reflex Set [OM.PC] Stat Oth 05/01/17 14:39 Ordered Saline Lock Insert [OM.PC] Stat Oth 05/01/17 14:38 Ordered Medication Orders Sodium Chloride (Saline Flush) 10 ml FLUSH ASDIRECTED PRN PRN Reason: Keep Vein Open Sodium Chloride (Saline Flush) 2.5 ml FLUSH ASDIRECTED PRN PRN Reason: Keep Vein Open Labs: Laboratory Tests 05/01/17 05/01/17 05/01/17 Range/Units 15:19 15:19 15:19 WBC 7.08 (4.0-11.0) K/uL RBC 4.12 L (4.30-5.90) M/uL Hgb 12.8 (12.0-16.0) g/dL Hct 37.9 (36.0-46.0) % MCV 92.0 (80.0-98.0) fL MCH 31.1 (27.0-32.0) pg MCHC 33.8 (31.0-37.0) g/dL RDW Std Deviation 51.5 (28.0-62.0) fl RDW Coeff of Cristiane 15 (11.0-15.0) % Plt Count 142 L (150-400) K/uL MPV 9.40 (7.40-12.00) fL Neut % (Auto) 45.4 L (48.0-80.0) % Lymph % (Auto) 42.5 H (16.0-40.0) % [place] % (Auto) 11.3 (0.0-15.0) % Eos % (Auto) 0.4 (0.0-7.0) % Baso % (Auto) 0.4 (0.0-1.5) % Neut # (Auto) 3.2 (1.4-5.7) K/uL Lymph # (Auto) 3.0 H (0.6-2.4) K/uL [place] # (Auto) 0.8 (0.0-0.8) K/uL Eos # (Auto) 0.0 (0.0-0.7) K/uL Baso # (Auto) 0.0 (0.0-0.1) K/uL Nucleated RBC % 0.0 /100WBC Nucleated RBCs # 0 K/uL Sodium 134 L (136-146) mmol/L Potassium 4.1 (3.5-5.1) mmol/L Chloride 100 (98-110) mmol/L Carbon Dioxide 23 (21-31) mmol/L BUN 20 (6.0-23.0) mg/dL Creatinine 0.9 (0.6-1.5) mg/dL Est Cr Clr Drug Dosing 44.68 mL/min Estimated GFR (MDRD) > 60.0 ml/min Glucose 94 (60-110) mg/dL Calcium 9.2 (8.8-10.8) mg/dL Total Bilirubin 0.5 (0.1-1.5) mg/dL AST 30 (5-40) IU/L ALT 13 (8-54) IU/L Alkaline Phosphatase 104 (40-150) Ammonia 34 (14-68) UG/DL Total Protein 7.1 (6.0-8.0) g/dL Albumin 3.6 (3.4-4.8) g/dL Globulin 3.5 (2.0-3.5) g/dL Albumin/Globulin Ratio 1.0 L (1.3-2.8) Urine Color Urine Appearance Urine pH (5.0-8.0) Ur Specific [place] (1.001-1.035) Urine Protein (NEGATIVE) mg/dL Urine Glucose (UA) (NEGATIVE) mg/dL Urine Ketones (NEGATIVE) mg/dL Urine Occult Blood (NEGATIVE) Urine Nitrite (NEGATIVE) Urine Bilirubin (NEGATIVE) Urine Urobilinogen (<2.0) EU/dL Ur Leukocyte Esterase (NEGATIVE) Urine RBC (0-2/HPF) Urine WBC (0-5/HPF) Ur Epithelial Cells (NONE-FEW) Urine Bacteria (NEGATIVE) 05/01/17 Range/Units 16:51 WBC (4.0-11.0) K/uL RBC (4.30-5.90) M/uL Hgb (12.0-16.0) g/dL Hct (36.0-46.0) % MCV (80.0-98.0) fL MCH (27.0-32.0) pg MCHC (31.0-37.0) g/dL RDW Std Deviation (28.0-62.0) fl RDW Coeff of Cristiane (11.0-15.0) % Plt Count (150-400) K/uL MPV (7.40-12.00) fL Neut % (Auto) (48.0-80.0) % Lymph % (Auto) (16.0-40.0) % [place] % (Auto) (0.0-15.0) % Eos % (Auto) (0.0-7.0) % Baso % (Auto) (0.0-1.5) % Neut # (Auto) (1.4-5.7) K/uL Lymph # (Auto) (0.6-2.4) K/uL [place] # (Auto) (0.0-0.8) K/uL Eos # (Auto) (0.0-0.7) K/uL Baso # (Auto) (0.0-0.1) K/uL Nucleated RBC % /100WBC Nucleated RBCs # K/uL Sodium (136-146) mmol/L Potassium (3.5-5.1) mmol/L Chloride (98-110) mmol/L Carbon Dioxide (21-31) mmol/L BUN (6.0-23.0) mg/dL Creatinine (0.6-1.5) mg/dL Est Cr Clr Drug Dosing mL/min Estimated GFR (MDRD) ml/min Glucose (60-110) mg/dL Calcium (8.8-10.8) mg/dL Total Bilirubin (0.1-1.5) mg/dL AST (5-40) IU/L ALT (8-54) IU/L Alkaline Phosphatase (40-150) Ammonia (14-68) UG/DL Total Protein (6.0-8.0) g/dL Albumin (3.4-4.8) g/dL Globulin (2.0-3.5) g/dL Albumin/Globulin Ratio (1.3-2.8) Urine Color YELLOW Urine Appearance CLEAR Urine pH 6.0 (5.0-8.0) Ur Specific [place] >= 1.030 (1.001-1.035) Urine Protein NEGATIVE (NEGATIVE) mg/dL Urine Glucose (UA) NEGATIVE (NEGATIVE) mg/dL Urine Ketones NEGATIVE (NEGATIVE) mg/dL Urine Occult Blood NEGATIVE (NEGATIVE) Urine Nitrite NEGATIVE (NEGATIVE) Urine Bilirubin NEGATIVE (NEGATIVE) Urine Urobilinogen 0.2 (<2.0) EU/dL Ur Leukocyte Esterase NEGATIVE (NEGATIVE) Urine RBC 0-1 (0-2/HPF) Urine WBC 0-1 (0-5/HPF) Ur Epithelial Cells RARE (NONE-FEW) Urine Bacteria RARE (NEGATIVE) Meds: Medications Generic Name Dose Route Start Last Admin Trade Name Freq PRN Reason Stop Dose Admin Sodium Chloride 10 ml 05/01/17 14:38 Saline Flush FLUSH ASDIRECTED PRN Keep Vein Open Sodium Chloride 2.5 ml 05/01/17 14:38 Saline Flush FLUSH ASDIRECTED PRN Keep Vein Open Departure - Departure Time of Disposition: 17:53 Disposition: DC/Tfer to [facility] Condition: Good Clinical Impression: Viral illness - Discharge Information Instructions: Fever, Adult, [id number] Referrals: Emir Muir MD [Primary Care Provider] - Forms: ED Department Discharge Additional Instructions: The following information is given to patients seen in the emergency department who are being discharged to home. This information is to outline your options for follow-up care. We provide all patients seen in our emergency department with a follow-up referral. The need for follow-up, as well as the timing and circumstances, are variable depending upon the specifics of your emergency department visit. If you don't have a primary care physician on staff, we will provide you with a referral. We always advise you to contact your personal physician following an emergency department visit to inform them of the circumstance of the visit and for follow-up with them and/or the need for any referrals to a consulting specialist. The emergency department will also refer you to a specialist when appropriate. This referral assures that you have the opportunity for followup care with a specialist. All of these measure are taken in an effort to provide you with optimal care, which includes your followup. Under all circumstances we always encourage you to contact your private physician who remains a resource for coordinating your care. When calling for followup care, please make the office aware that this follow-up is from your recent emergency room visit. If for any reason you are refused follow-up, please contact the [facility] emergency department at and asked to speak to the emergency department charge nurse. Follow-up with your primary care provider in 2-3 days Continue with Tylenol every 4 hours as needed for fever Negative for Influenza or pneumonia - My Orders Last 24 Hours: My Active Orders 05/01/17 14:38 Sodium Chloride 0.9% [Saline Flush] 10 ml FLUSH ASDIRECTED PRN Sodium Chloride 0.9% [Saline Flush] 2.5 ml FLUSH ASDIRECTED PRN Saline Lock Insert [OM.PC] Stat 05/01/17 14:39 Blood Culture x2 Reflex Set [OM.PC] Stat 05/01/17 14:45 CULTURE BLOOD [BC] Stat 05/01/17 15:19 CULTURE BLOOD [BC] Stat - Assessment/Plan Last 24 Hours: My Active Orders 05/01/17 14:38 Sodium Chloride 0.9% [Saline Flush] 10 ml FLUSH ASDIRECTED PRN Sodium Chloride 0.9% [Saline Flush] 2.5 ml FLUSH ASDIRECTED PRN Saline Lock Insert [OM.PC] Stat 05/01/17 14:39 Blood Culture x2 Reflex Set [OM.PC] Stat 05/01/17 14:45 CULTURE BLOOD [BC] Stat 05/01/17 15:19 CULTURE BLOOD [BC] Stat
[2017-05-01 15:50] LABS: CHLORIDE,CL 100 mmol/L (98-110); SODIUM,NA 134 mmol/L (136-146)
--- NOTE | 2017-05-01 16:58 | CR ---
EXAM DATE: 05/01/17 PATIENT'S AGE: 77 Patient: LLOYD HERNANDEZ Facility: [place], [place] Site . Site : [id number] Study: XRay Chest [id number]/19/2018 3:59:10 PM Ordering Physician: Doctor Sanchez Final Report: INDICATIONS: Pain. Shortness of breath. TECHNIQUE: Chest 1 portable view. COMPARISON: Chest radiograph July 08, 2016. FINDINGS: No pneumothorax or pleural effusion. Mild biapical and bibasilar scarring and atelectasis is unchanged. Lungs are otherwise clear. Cardiac and mediastinal contours are within normal limits. Upper abdomen and osseous structures show no acute abnormality. IMPRESSION: No evidence of acute cardiopulmonary disease. Dictated by Jones Melo MD @ 05/01/2017 4:10:56 PM Dictated by: Jones Melo MD @ 05/01/2017 16:11:01 (Electronic Signature) Report Signed by Proxy. LAMBERTO
== END 2017-05-01 18:15 ==
LOC: MW.ED 14:16
DX: B34.9 Viral infection, unspecified (principal); I10 Essential (primary) hypertension; E78.00 Pure hypercholesterolemia, unspecified; J44.9 Chronic obstructive pulmonary disease, unspecified; F32.9 Major depressive disorder, single episode, unspecified; E03.9 Hypothyroidism, unspecified; F03.90 Unspecified dementia, unspecified severity, without behavioral disturbance, psychotic disturbance, mood disturbance, and anxiety; Z79.899 Other long term (current) drug therapy
CPT/HCPCS: 36415; 71045; 71045-26; 80053; 81001; 82140; 85025; 87040; 87804; 99283; 99284

== ENCOUNTER 2017-09-27 08:11 | Observation (INO) | payer MEDICARE, MEDICAID ==
[2017-09-27] MEDS ORDERED: Aspirin 81 MG Tab.Chew PO ONE (08:14)
[2017-09-27] MEDS ORDERED: Sodium Chloride 0.9% 10 ML Syringe FLUSH PRN (08:14)
[2017-09-27] MEDS ORDERED: Sodium Chloride 0.9% 2.5 ML Syringe FLUSH PRN (08:14)
--- NOTE | 2017-09-27 08:21 | EDM.PDOC ---
ED HPI GENERAL MEDICAL PROBLEM - General Chief Complaint: Neuro Symptoms/Deficits Stated Complaint: UNRESPONSIVE Time Seen by Provider: 09/27/17 08:15 Source of Information: Reports: Patient, Senior Living Records, RN History Limitations: Reports: Altered Mental Status - History of Present Illness INITIAL COMMENTS - FREE TEXT/NARRATIVE: HISTORY AND PHYSICAL: History of present illness: 77-year-old female presenting to emergency department by [facility] secondary to unresponsiveness starting at 07 30 this morning. As per [place] nursing patient was initially sat down to have breakfast it around 7:30. They did check on her around 07 45 and found her to be unresponsive. She had unremarkable vital signs but would not respond to normal verbal stimuli. Thus brought her in for further evaluation. Denied any significant focal neurologic deficits such as facial drooping or slurred speech. As per [place] nursing she normally is verbally responsive. On initial exam patient is slow to respond to normal verbal commands however does somewhat follow. I do not appreciate significant weakness disparity between right and left sides. I did appreciate no facial drooping. As per [facility] the denied any recent illness, chest pain, nausea, vomiting, diarrhea, shortness of breath, syncopal episodes, or focal neurologic deficits. NIH score: 15 most secondary to Altered mental status Starting with family her daughter states that she has been more like this in the past 2 weeks. They've noticed increasing dementia as well as confusion and inability to move extremities. This is not an acute scenario and daughter feels this is her baseline. Daughter does report that for the past 2 days she is seem like she has developed a cold with symptoms of runny nose. No real cough however. She does have a history of multiple pneumonias as well as urinary tract infections. Daughter does reiterate that this is progressively getting worse over a long period of time. She also states that she has had decreased appetite. Daughter confirms that she is DNR/DNI. 0833- CT Head negative for CVA or other acute abnormalities. CXR unremarkable. 1000- CBC unremarkable, CMP positive for increase creatinine associated with acute kidney injury, urinalysis positive for UTI. Patient started on ciprofloxacin IV 400 mg twice a day. Review of systems: As per history of present illness and below otherwise all systems reviewed and negative. Past medical history: As per history of present illness and as reviewed below otherwise noncontributory. Surgical history: As per history of present illness and as reviewed below otherwise noncontributory. Social history: No reported history of drug or alcohol abuse. Family history: As per history of present illness and as reviewed below otherwise noncontributory. Physical exam: HEENT: Atraumatic, normocephalic, pupils reactive, negative for conjunctival pallor or scleral icterus, mucous membranes moist, throat clear, neck supple, nontender, trachea midline. Lungs: Clear to auscultation, breath sounds equal bilaterally, chest nontender. Heart: S1S2, regular, negative for clicks, rubs, or JVD. Abdomen: Soft, nondistended, nontender. Negative for masses or hepatosplenomegaly. Negative for costovertebral tenderness. Pelvis: Stable nontender. Genitourinary: Deferred. Rectal: Deferred. Extremities: Atraumatic, negative for cords or calf pain. Neurovascular unremarkable. Neuro: Awake, alert. Cranial nerves minimally assessed secondary to patient not appropriately following commands however no significant deficits noted in right and left. Cerebellum unremarkable. Motor and sensory unremarkable throughout. Exam nonfocal. Diagnostics: CBC, CMP, EKG, chest x-ray, CT head, INR Therapeutics: Aspirin 81 mg by mouth 1, Cipro 4 mg IV 1 Impression: Altered mental status Acute kidney injury Acute cystitis Plan: [] - Related Data Allergies Allergy/AdvReac Type Severity Reaction Status Date / Time No Known Allergies Allergy Verified 09/27/17 08:29 Home Meds: Home Meds Acetaminophen [Tylenol] 650 mg PO Q4H PRN #7 tablet 03/07/16 [Rx] Multivitamin [Multi-Vitamin Daily] 1 tab PO DAILY 07/04/16 [History] Metoprolol Tartrate 50 mg PO BID 07/09/16 [History] Simvastatin [Zocor] 20 mg PO BEDTIME 07/09/16 [History] buPROPion HCl [Wellbutrin Xl] 300 mg PO DAILY 07/09/16 [History] traZODone 25 mg PO BEDTIME 07/09/16 [History] traMADol [Ultram] 50 mg PO Q4H PRN #15 tablet 07/10/16 [Rx] Bisacodyl 10 mg RC Q24H PRN 09/27/17 [History] Calcium Citrate/Vitamin D3 [Calcium Citrate - Vit D Caplet] 2 each PO DAILY [History] Furosemide 40 mg PO DAILY 09/27/17 [History] Levothyroxine 125 mcg PO ACBREAKFAST 09/27/17 [History] Magnesium Hydroxide [Milk of Magnesia] 30 ml PO DAILY PRN 09/27/17 [History] Memantine HCl 10 mg PO BID 09/27/17 [History] QUEtiapine Fumarate [Seroquel] 50 mg PO BID 09/27/17 [History] Past Medical History HEENT History: Reports: None Cardiovascular History: Reports: High Cholesterol, Hypertension Other Cardiovascular History: takes calcium Respiratory History: Reports: Asthma, COPD, SOB Gastrointestinal History: Reports: None Genitourinary History: Reports: UTI, Recurrent LINER MAN History: Reports: Musculoskeletal History: Reports: Arthritis, Other (See Below) Other Musculoskeletal History: generalized weakness, non ambulatory Psychiatric History: Reports: Anxiety, Dementia, Depression Endocrine/Metabolic History: Reports: Hypothyroidism, Obesity/BMI 30+ Hematologic History: Reports: None Oncologic (Cancer) History: Reports: None Dermatologic History: Reports: None - Infectious Disease History Infectious Disease History: Reports: Chicken Pox, Measles, Mumps - Past Surgical History Musculoskeletal Surgical History: Reports: Other (See Below) Social & Family History - Family History Family Medical History: Noncontributory - Caffeine Use Caffeine Use: Reports: None - Living Situation & Occupation Occupation: Retired ED ROS GENERAL - Review of Systems Review Of Systems: ROS reveals no pertinent complaints other than HPI. ED EXAM, GENERAL - Physical Exam Exam: See Below Course - Vital Signs Last Recorded V/S: Last Vital Signs Temp 97.7 F 09/28/17 04:00 Pulse 70 09/28/17 04:00 Resp 19 09/28/17 04:00 BP 130/66 09/28/17 04:00 Pulse Ox 95 09/28/17 04:00 - Orders/Labs/Meds Orders: Active Orders 24 hr Category Date Time Status Bedrest [RC] ASDIRECTED Care 09/27/17 08:14 Active Cardiac Monitoring [RC] . DIRECTED Care 09/27/17 08:14 Active Head of Bed Elevation [RC] ASDIRECTED Care 09/27/17 08:15 Active NIH Stroke Scale [RC] ASDIRECTED Care 09/27/17 08:14 Active Nursing Bedside Swallow Screen [RC] ASDIRECTED Care 09/27/17 08:14 Active Stroke Education, General [RC] Click to Edit Care 09/27/17 08:14 Active Chest 1V Frontal [CR] Stat Exams 09/27/17 08:16 Taken Head wo Cont [CT] Stat Exams 09/27/17 08:14 Taken UA W/MICROSCOPIC [URIN] Stat Lab 09/27/17 09:10 Ordered Ciprofloxacin in D5W [Cipro in D5W 400 MG/200 ML] 400 Med 09/27/17 10:30 Active mg Premix Bag 1 bag IV Q12H Sodium Chloride 0.9% [Saline Flush] Med 09/27/17 08:14 Active 10 ml FLUSH ASDIRECTED PRN Sodium Chloride 0.9% [Saline Flush] Med 09/27/17 08:14 Active 2.5 ml FLUSH ASDIRECTED PRN Peripheral IV Insertion Adult [OM.PC] Stat Oth 09/27/17 08:14 Ordered Peripheral IV Insertion Adult [OM.PC] Stat Oth 09/27/17 08:14 Ordered Resuscitation Status Stat Resus Stat 09/27/17 08:14 Ordered Medication Orders Acetaminophen (Tylenol) 650 mg PO Q4H PRN PRN Reason: Pain (Mild 1-3)/fever Last Admin: 09/27/17 16:40 Dose: 650 mg Bisacodyl (Dulcolax) 10 mg .XX Q24H PRN PRN Reason: Constipation Bupropion HCl (Wellbutrin Xl) 300 mg PO DAILY [facility] Calcium Carbonate (Caltrate 600+D 1500 Mg-400 Units) 1 tab PO DAILY [facility] Heparin Sodium (Porcine) (Heparin Sodium) 5,000 units SUBCUT Q8H [facility] Last Admin: 09/28/17 06:34 Dose: 5,000 units Admin: 09/27/17 22:54 Dose: 5,000 units Admin: 09/27/17 16:21 Dose: 5,000 units Ciprofloxacin/Dextrose 400 mg/ (Premix) 200 mls @ 200 mls/hr IV Q12H [facility] Last Admin: 09/27/17 22:53 Dose: 200 mls/hr Infusion: 09/27/17 11:37 Dose: 200 mls/hr Admin: 09/27/17 10:37 Dose: 200 mls/hr Sodium Chloride (Normal Saline) 500 mls @ 999 mls/hr IV .BOLUS [facility] Last Admin: 09/27/17 16:25 Dose: 999 mls/hr Sodium Chloride (Normal Saline) 1,000 mls @ 75 mls/hr IV ASDIRECTED [facility] Last Admin: 09/27/17 21:45 Dose: 75 mls/hr Levothyroxine Sodium (Levothyroxine) 125 mcg PO ACBREAKFAST [facility] Last Admin: 09/28/17 06:35 Dose: 125 mcg Magnesium Hydroxide (Milk Of Magnesia) 30 ml PO DAILY PRN PRN Reason: Constipation Memantine (Namenda) 10 mg PO BID [facility] Last Admin: 09/27/17 21:41 Dose: 10 mg Metoprolol Tartrate (Lopressor) 50 mg PO BID [facility] Last Admin: 09/27/17 21:40 Dose: 50 mg Multivitamins/Minerals/Vitamin C (Tab-A-Marcelino) 1 tab PO DAILY [facility] Ondansetron HCl (Zofran) 4 mg IVPUSH Q4H PRN PRN Reason: Nausea Quetiapine Fumarate (Seroquel) 50 mg PO BID [facility] Last Admin: 09/27/17 21:41 Dose: 50 mg Simvastatin (Zocor) 20 mg PO BEDTIME [facility] Last Admin: 09/27/17 21:40 Dose: 20 mg Sodium Chloride (Saline Flush) 10 ml FLUSH ASDIRECTED PRN PRN Reason: Keep Vein Open Sodium Chloride (Saline Flush) 2.5 ml FLUSH ASDIRECTED PRN PRN Reason: Keep Vein Open Trazodone HCl (Trazodone) 25 mg PO BEDTIME [facility] Last Admin: 09/27/17 21:46 Dose: 25 mg Labs: Laboratory Tests 09/27/17 09/27/17 09/27/17 Range/Units 08:30 08:30 08:30 WBC 6.08 (4.0-11.0) K/uL RBC 3.76 L (4.30-5.90) M/uL Hgb 11.6 L (12.0-16.0) g/dL Hct 35.0 L (36.0-46.0) % MCV 93.1 (80.0-98.0) fL MCH 30.9 (27.0-32.0) pg MCHC 33.1 (31.0-37.0) g/dL RDW Std Deviation 50.0 (28.0-62.0) fl RDW Coeff of Cristiane 15 (11.0-15.0) % Plt Count 134 L (150-400) K/uL MPV 10.50 (7.40-12.00) fL Neut % (Auto) 21.4 L (48.0-80.0) % Lymph % (Auto) 64.1 H (16.0-40.0) % [place]s % (Auto) 9.5 (0.0-15.0) % Eos % (Auto) 4.3 (0.0-7.0) % Baso % (Auto) 0.7 (0.0-1.5) % Neut # (Auto) 1.3 L (1.4-5.7) K/uL Lymph # (Auto) 3.9 H (0.6-2.4) K/uL [place] # (Auto) 0.6 (0.0-0.8) K/uL Eos # (Auto) 0.3 (0.0-0.7) K/uL Baso # (Auto) 0.0 (0.0-0.1) K/uL Nucleated RBC % 0.0 /100WBC Nucleated RBCs # 0 K/uL INR 1.12 APTT 26.5 (18.6-31.3) SEC Sodium 140 (136-145) mmol/L Potassium 3.6 (3.5-5.1) mmol/L Chloride 103 (98-107) mmol/L Carbon Dioxide 31.1 (21.0-32.0) mmol/L BUN 28 H (7.0-18.0) mg/dL Creatinine 1.8 H (0.6-1.0) mg/dL Est Cr Clr Drug Dosing TNP Estimated GFR (MDRD) 27.4 ml/min Glucose 103 (74-106) mg/dL Calcium 9.5 (8.5-10.1) mg/dL Total Bilirubin 0.3 (0.2-1.0) mg/dL AST 29 (15-37) IU/L ALT 13 L (14-63) IU/L Alkaline Phosphatase 92 (46-116) U/L Troponin I < 0.050 (0.000-0.056) ng/mL Total Protein 6.9 (6.4-8.2) g/dL Albumin 3.1 L (3.4-5.0) g/dL Globulin 3.8 H (2.0-3.5) g/dL Albumin/Globulin Ratio 0.8 L (1.3-2.8) TSH 3rd Generation 3.27 (0.36-3.74) uIU/mL Urine Color Urine Appearance Urine pH (5.0-8.0) Ur Specific [place] (1.001-1.035) Urine Protein (NEGATIVE) mg/dL Urine Glucose (UA) (NEGATIVE) mg/dL Urine Ketones (NEGATIVE) mg/dL Urine Occult Blood (NEGATIVE) Urine Nitrite (NEGATIVE) Urine Bilirubin (NEGATIVE) Urine Urobilinogen (<2.0) EU/dL Ur Leukocyte Esterase (NEGATIVE) Urine RBC (0-2/HPF) Urine WBC (0-5/HPF) Ur Epithelial Cells (NONE-FEW) Amorphous Sediment (NEGATIVE) Urine Bacteria (NEGATIVE) 09/27/17 Range/Units 09:10 WBC (4.0-11.0) K/uL RBC (4.30-5.90) M/uL Hgb (12.0-16.0) g/dL Hct (36.0-46.0) % MCV (80.0-98.0) fL MCH (27.0-32.0) pg MCHC (31.0-37.0) g/dL RDW Std Deviation (28.0-62.0) fl RDW Coeff of Cristiane (11.0-15.0) % Plt Count (150-400) K/uL MPV (7.40-12.00) fL Neut % (Auto) (48.0-80.0) % Lymph % (Auto) (16.0-40.0) % Ste[place]s % (Auto) (0.0-15.0) % Eos % (Auto) (0.0-7.0) % Baso % (Auto) (0.0-1.5) % Neut # (Auto) (1.4-5.7) K/uL Lymph # (Auto) (0.6-2.4) K/uL [place] # (Auto) (0.0-0.8) K/uL Eos # (Auto) (0.0-0.7) K/uL Baso # (Auto) (0.0-0.1) K/uL Nucleated RBC % /100WBC Nucleated RBCs # K/uL INR APTT (18.6-31.3) SEC Sodium (136-145) mmol/L Potassium (3.5-5.1) mmol/L Chloride (98-107) mmol/L Carbon Dioxide (21.0-32.0) mmol/L BUN (7.0-18.0) mg/dL Creatinine (0.6-1.0) mg/dL Est Cr Clr Drug Dosing Estimated GFR (MDRD) ml/min Glucose (74-106) mg/dL Calcium (8.5-10.1) mg/dL Total Bilirubin (0.2-1.0) mg/dL AST (15-37) IU/L ALT (14-63) IU/L Alkaline Phosphatase (46-116) U/L Troponin I (0.000-0.056) ng/mL Total Protein (6.4-8.2) g/dL Albumin (3.4-5.0) g/dL Globulin (2.0-3.5) g/dL Albumin/Globulin Ratio (1.3-2.8) TSH 3rd Generation (0.36-3.74) uIU/mL Urine Color YELLOW Urine Appearance CLOUDY Urine pH 7.0 (5.0-8.0) Ur Specific [place] 1.015 (1.001-1.035) Urine Protein NEGATIVE (NEGATIVE) mg/dL Urine Glucose (UA) NEGATIVE (NEGATIVE) mg/dL Urine Ketones NEGATIVE (NEGATIVE) mg/dL Urine Occult Blood SMALL H (NEGATIVE) Urine Nitrite POSITIVE H (NEGATIVE) Urine Bilirubin NEGATIVE (NEGATIVE) Urine Urobilinogen 0.2 (<2.0) EU/dL Ur Leukocyte Esterase LARGE (NEGATIVE) Urine RBC 5-8 (0-2/HPF) Urine WBC TO NUMEROUS TO COUNT H (0-5/HPF) Ur Epithelial Cells FEW (NONE-FEW) Amorphous Sediment LIGHT (NEGATIVE) Urine Bacteria 4+ H (NEGATIVE) Meds: Medications Generic Name Dose Route Start Last Admin Trade Name Freq PRN Reason Stop Dose Admin Acetaminophen 650 mg 09/27/17 15:29 09/27/17 16:40 Tylenol PO 650 mg Q4H PRN Administration Pain (Mild 1-3)/fever Bisacodyl 10 mg 09/27/17 15:34 Dulcolax .XX Q24H PRN Constipation Bupropion HCl 300 mg 09/28/17 09:00 Wellbutrin Xl PO DAILY [facility] Calcium Carbonate 1 tab 09/28/17 09:00 Caltrate 600+D 1500 Mg-400 Units PO DAILY [facility] Heparin Sodium (Porcine) 5,000 units 09/27/17 15:30 09/28/17 06:34 Heparin Sodium SUBCUT 5,000 units Q8H [facility] Administration Ciprofloxacin/Dextrose 400 mg/ 200 mls @ 200 mls/hr 09/27/17 10:30 09/27/17 22:53 Premix IV 200 mls/hr Q12H [facility] Administration Sodium Chloride 500 mls @ 999 mls/hr 09/27/17 15:30 09/27/17 16:25 Normal Saline IV 999 mls/hr .BOLUS [facility] Administration Sodium Chloride 1,000 mls @ 75 mls/hr 09/27/17 19:45 09/27/17 21:45 Normal Saline IV 75 mls/hr ASDIRECTED [facility] Administration Levothyroxine Sodium 125 mcg 09/28/17 07:30 09/28/17 06:35 Levothyroxine PO 125 mcg ACBREAKFAST [facility] Administration Magnesium Hydroxide 30 ml 09/27/17 15:34 Milk Of Magnesia PO DAILY PRN Constipation Memantine 10 mg 09/27/17 21:00 09/27/17 21:41 Namenda PO 10 mg BID [facility] Administration Metoprolol Tartrate 50 mg 09/27/17 21:00 09/27/17 21:40 Lopressor PO 50 mg BID [facility] Administration Multivitamins/Minerals/Vitamin C 1 tab 09/28/17 09:00 Tab-A-Marcelino PO DAILY [facility] Ondansetron HCl 4 mg 09/27/17 15:29 Zofran IVPUSH Q4H PRN Nausea Quetiapine Fumarate 50 mg 09/27/17 21:00 09/27/17 21:41 Seroquel PO 50 mg BID [facility] Administration Simvastatin 20 mg 09/27/17 21:00 09/27/17 21:40 Zocor PO 20 mg BEDTIME [facility] Administration Sodium Chloride 10 ml 09/27/17 08:14 Saline Flush FLUSH ASDIRECTED PRN Keep Vein Open Sodium Chloride 2.5 ml 09/27/17 08:14 Saline Flush FLUSH ASDIRECTED PRN Keep Vein Open Trazodone HCl 25 mg 09/27/17 21:00 09/27/17 21:46 Trazodone PO 25 mg BEDTIME [facility] Administration Discontinued Medications Generic Name Dose Route Start Last Admin Trade Name Pete PRN Reason Stop Dose Admin Aspirin 81 mg 09/27/17 08:14 09/27/17 13:55 Aspirin PO 09/27/17 08:15 Not Given ONETIME ONE Sodium Chloride 1,000 mls @ 100 mls/hr 09/27/17 08:14 09/27/17 17:50 Normal Saline IV 09/27/17 18:13 100 mls/hr NOW STA Administration Departure - Departure Time of Disposition: 07:20 (admitted 09/27) Disposition: Refer to Observation Condition: Fair Clinical Impression: Acute cystitis Qualifiers: Hematuria presence: without hematuria Qualified Code(s): N30.00 - Acute cystitis without hematuria Altered mental state Qualifiers: Altered mental status type: somnolence Qualified Code(s): R40.0 - Somnolence - Discharge Information - My Orders Last 24 Hours: My Active Orders 09/27/17 08:14 Bedrest [RC] ASDIRECTED Cardiac Monitoring [RC] . DIRECTED NIH Stroke Scale [RC] ASDIRECTED Nursing Bedside Swallow Screen [RC] ASDIRECTED Stroke Education, General [RC] Click to Edit Head wo Cont [CT] Stat Sodium Chloride 0.9% [Saline Flush] 10 ml FLUSH ASDIRECTED PRN Sodium Chloride 0.9% [Saline Flush] 2.5 ml FLUSH ASDIRECTED PRN Peripheral IV Insertion Adult [OM.PC] Stat Peripheral IV Insertion Adult [OM.PC] Stat Resuscitation Status Stat 09/27/17 08:15 Head of Bed Elevation [RC] ASDIRECTED 09/27/17 08:16 Chest 1V Frontal [CR] Stat 09/27/17 09:10 UA W/MICROSCOPIC [URIN] Stat 09/27/17 10:30 Ciprofloxacin in D5W [Cipro in D5W 400 MG/200 ML] 400 mg Premix Bag 1 bag IV Q12H - Assessment/Plan Last 24 Hours: My Active Orders 09/27/17 08:14 Bedrest [RC] ASDIRECTED Cardiac Monitoring [RC] . DIRECTED NIH Stroke Scale [RC] ASDIRECTED Nursing Bedside Swallow Screen [RC] ASDIRECTED Stroke Education, General [RC] Click to Edit Head wo Cont [CT] Stat Sodium Chloride 0.9% [Saline Flush] 10 ml FLUSH ASDIRECTED PRN Sodium Chloride 0.9% [Saline Flush] 2.5 ml FLUSH ASDIRECTED PRN Peripheral IV Insertion Adult [OM.PC] Stat Peripheral IV Insertion Adult [OM.PC] Stat Resuscitation Status Stat 09/27/17 08:15 Head of Bed Elevation [RC] ASDIRECTED 09/27/17 08:16 Chest 1V Frontal [CR] Stat 09/27/17 09:10 UA W/MICROSCOPIC [URIN] Stat 09/27/17 10:30 Ciprofloxacin in D5W [Cipro in D5W 400 MG/200 ML] 400 mg Premix Bag 1 bag IV Q12H
[2017-09-27] MEDS: Sodium Chloride 0.9% 1,000 ML IV STA ×2 (08:53→17:50)
[2017-09-27 09:14] LABS: CHLORIDE,CL 103 mmol/L (98-107); SODIUM,NA 140 mmol/L (136-145)
[2017-09-27] MEDS: Ciprofloxacin in D5W 400 MG in Premix Bag 1 BAG IV SCH ×4 (10:37→22:53)
--- NOTE | 2017-09-27 15:25 | PCM.HP ---
H&P History of Present Illness - General Date of Service: 09/27/17 Admit Problem/Dx: Admission Diagnosis/Problem Admission Diagnosis/Problem Acute cystitis Source of Information: Family History Limitations: Reports: Other (history of dementia) - History of Present Illness Initial Comments - Free Text/Narative: 77F [facility] resident with a history of dementia, hypothyroidism, hyperlipidemia, frequent UTI's that presented to the ER earlier this morning secondary to altered mental status. As per the patients daughterToya was unresponsive to caretakers trying to get her attention, so she was brought in for an evaluation. Vital signs were stable throughout. Daughter states that UTI' s have become more frequent since staying at [facility] over the past year. Also, she thinks her cognitive decline has occurred significantly more over the last few weeks. She states that she has been very difficult to understand and not possible to have a conversation with her. Her normal baseline is ambulating via wheelchair, and is completely dependent. 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 Daughter thinks that her mental status has improved a lot since going to the ER and receiving IV fluids/ antibiotics. ER Course: CBC unremarkable CMP - AMINAH Cr 1.8 UA - indicative of a UTI - Related Data Allergies/Adverse Reactions: Allergies Allergy/AdvReac Type Severity Reaction Status Date / Time No Known Allergies Allergy Verified 09/27/17 08:29 Home Medications: Home Meds Acetaminophen [Tylenol] 650 mg PO Q4H PRN #7 tablet 03/07/16 [Rx] Multivitamin [Multi-Vitamin Daily] 1 tab PO DAILY 07/04/16 [History] Metoprolol Tartrate 50 mg PO BID 07/09/16 [History] Simvastatin [Zocor] 20 mg PO BEDTIME 07/09/16 [History] buPROPion HCl [Wellbutrin Xl] 300 mg PO DAILY 07/09/16 [History] traZODone 25 mg PO BEDTIME 07/09/16 [History] traMADol [Ultram] 50 mg PO Q4H PRN #15 tablet 07/10/16 [Rx] Bisacodyl 10 mg RC Q24H PRN 09/27/17 [History] Calcium Citrate/Vitamin D3 [Calcium Citrate - Vit D Caplet] 2 each PO DAILY [History] Furosemide 40 mg PO DAILY 09/27/17 [History] Levothyroxine 125 mcg PO ACBREAKFAST 09/27/17 [History] Magnesium Hydroxide [Milk of Magnesia] 30 ml PO DAILY PRN 09/27/17 [History] Memantine HCl 10 mg PO BID 09/27/17 [History] QUEtiapine Fumarate [Seroquel] 50 mg PO BID 09/27/17 [History] Past Medical History HEENT History: Reports: None, Hard of Hearing Cardiovascular History: Reports: High Cholesterol, Hypertension Other Cardiovascular History: takes calcium Respiratory History: Reports: Asthma, COPD, SOB Gastrointestinal History: Reports: None Other Gastrointestinal History: diarrhea Genitourinary History: Reports: UTI, Recurrent 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: Musculoskeletal History: Reports: Arthritis, Other (See Below) Other Musculoskeletal History: generalized weakness, non ambulatory Neurological History: Reports: Other (See Below) Other Neuro History: dementia Psychiatric History: Reports: Anxiety, Dementia, Depression Endocrine/Metabolic History: Reports: Hypothyroidism, Obesity/BMI 30+ Hematologic History: Reports: None Oncologic (Cancer) History: Reports: None Dermatologic History: Reports: None - Infectious Disease History Infectious Disease History: Reports: Chicken Pox, Measles, Mumps - Past Surgical History Neurological Surgical History: Reports: None Musculoskeletal Surgical History: Reports: Other (See Below) Other Musculoskeletal Surgeries/Procedures:: rotator cuff problems Social & Family History - Family History Family Medical History: Noncontributory - Tobacco Use Smoking Status *Q: Unknown Ever Smoked - Caffeine Use Caffeine Use: Reports: None - Recreational Drug Use Recreational Drug Use: No - Living Situation & Occupation Occupation: Retired H&P Review of Systems - Review of Systems: Review Of Systems: Unable To Obtain (altered mental status, hx of dementia) Exam - Exam Exam: See Below - Vital Signs Vital Signs: Last Vital Signs Temp 36.0 C 09/27/17 14:15 Pulse 67 09/27/17 14:15 Resp 12 09/27/17 14:15 BP 149/68 H 09/27/17 14:15 Pulse Ox 92 L 09/27/17 14:15 Weight: 84.55 kg - Exam General: Alert, Cooperative, Other (oriented to person, but not place or time) HEENT: EOMI, Other (oral mucosa is dry) Neck: Supple, Trachea Midline Lungs: Clear to Auscultation, Normal Respiratory Effort Cardiovascular: Regular Rate, Regular Rhythm GI/Abdominal Exam: Normal Bowel Sounds, Soft Back Exam: Normal Inspection, Full Range of Motion. No: CVA Tenderness (L), CVA Tenderness (R) Extremities: Pedal Edema (trace) Peripheral Pulses: 1+: Dorsalis Pedis (L), Dorsalis Pedis (R) Skin: Warm Neurological: Strength Equal Bilateral Neuro Extensive - Mental Status: Alert Neuro Extensive - Motor, Sensory, Reflexes: Other (poor cooperation for cranial nerves exam secondary to baseline functional status) Psychiatric: Alert - Patient Data Lab Results Last 24 hrs: Laboratory Results - last 24 hr 09/27/17 09/27/17 09/27/17 Range/Units 08:30 08:30 08:30 WBC 6.08 (4.0-11.0) K/uL RBC 3.76 L (4.30-5.90) M/uL Hgb 11.6 L (12.0-16.0) g/dL Hct 35.0 L (36.0-46.0) % MCV 93.1 (80.0-98.0) fL MCH 30.9 (27.0-32.0) pg MCHC 33.1 (31.0-37.0) g/dL RDW Std Deviation 50.0 (28.0-62.0) fl RDW Coeff of Cristiane 15 (11.0-15.0) % Plt Count 134 L (150-400) K/uL MPV 10.50 (7.40-12.00) fL Neut % (Auto) 21.4 L (48.0-80.0) % Lymph % (Auto) 64.1 H (16.0-40.0) % Reynolds % (Auto) 9.5 (0.0-15.0) % Eos % (Auto) 4.3 (0.0-7.0) % Baso % (Auto) 0.7 (0.0-1.5) % Neut # (Auto) 1.3 L (1.4-5.7) K/uL Lymph # (Auto) 3.9 H (0.6-2.4) K/uL Reynolds # (Auto) 0.6 (0.0-0.8) K/uL Eos # (Auto) 0.3 (0.0-0.7) K/uL Baso # (Auto) 0.0 (0.0-0.1) K/uL Nucleated RBC % 0.0 /100WBC Nucleated RBCs # 0 K/uL INR 1.12 APTT 26.5 (18.6-31.3) SEC Sodium 140 (136-145) mmol/L Potassium 3.6 (3.5-5.1) mmol/L Chloride 103 (98-107) mmol/L Carbon Dioxide 31.1 (21.0-32.0) mmol/L BUN 28 H (7.0-18.0) mg/dL Creatinine 1.8 H (0.6-1.0) mg/dL Est Cr Clr Drug Dosing TNP Estimated GFR (MDRD) 27.4 ml/min Glucose 103 (74-106) mg/dL Calcium 9.5 (8.5-10.1) mg/dL Total Bilirubin 0.3 (0.2-1.0) mg/dL AST 29 (15-37) IU/L ALT 13 L (14-63) IU/L Alkaline Phosphatase 92 (46-116) U/L Troponin I < 0.050 (0.000-0.056) ng/mL Total Protein 6.9 (6.4-8.2) g/dL Albumin 3.1 L (3.4-5.0) g/dL Globulin 3.8 H (2.0-3.5) g/dL Albumin/Globulin Ratio 0.8 L (1.3-2.8) TSH 3rd Generation 3.27 (0.36-3.74) uIU/mL Urine Color Urine Appearance Urine pH (5.0-8.0) Ur Specific [place] (1.001-1.035) Urine Protein (NEGATIVE) mg/dL Urine Glucose (UA) (NEGATIVE) mg/dL Urine Ketones (NEGATIVE) mg/dL Urine Occult Blood (NEGATIVE) Urine Nitrite (NEGATIVE) Urine Bilirubin (NEGATIVE) Urine Urobilinogen (<2.0) EU/dL Ur Leukocyte Esterase (NEGATIVE) Urine RBC (0-2/HPF) Urine WBC (0-5/HPF) Ur Epithelial Cells (NONE-FEW) Amorphous Sediment (NEGATIVE) Urine Bacteria (NEGATIVE) 09/27/17 Range/Units 09:10 WBC (4.0-11.0) K/uL RBC (4.30-5.90) M/uL Hgb (12.0-16.0) g/dL Hct (36.0-46.0) % MCV (80.0-98.0) fL MCH (27.0-32.0) pg MCHC (31.0-37.0) g/dL RDW Std Deviation (28.0-62.0) fl RDW Coeff of Cristiane (11.0-15.0) % Plt Count (150-400) K/uL MPV (7.40-12.00) fL Neut % (Auto) (48.0-80.0) % Lymph % (Auto) (16.0-40.0) % Reynolds % (Auto) (0.0-15.0) % Eos % (Auto) (0.0-7.0) % Baso % (Auto) (0.0-1.5) % Neut # (Auto) (1.4-5.7) K/uL Lymph # (Auto) (0.6-2.4) K/uL Reynolds # (Auto) (0.0-0.8) K/uL Eos # (Auto) (0.0-0.7) K/uL Baso # (Auto) (0.0-0.1) K/uL Nucleated RBC % /100WBC Nucleated RBCs # K/uL INR APTT (18.6-31.3) SEC Sodium (136-145) mmol/L Potassium (3.5-5.1) mmol/L Chloride (98-107) mmol/L Carbon Dioxide (21.0-32.0) mmol/L BUN (7.0-18.0) mg/dL Creatinine (0.6-1.0) mg/dL Est Cr Clr Drug Dosing Estimated GFR (MDRD) ml/min Glucose (74-106) mg/dL Calcium (8.5-10.1) mg/dL Total Bilirubin (0.2-1.0) mg/dL AST (15-37) IU/L ALT (14-63) IU/L Alkaline Phosphatase (46-116) U/L Troponin I (0.000-0.056) ng/mL Total Protein (6.4-8.2) g/dL Albumin (3.4-5.0) g/dL Globulin (2.0-3.5) g/dL Albumin/Globulin Ratio (1.3-2.8) TSH 3rd Generation (0.36-3.74) uIU/mL Urine Color YELLOW Urine Appearance CLOUDY Urine pH 7.0 (5.0-8.0) Ur Specific [place] 1.015 (1.001-1.035) Urine Protein NEGATIVE (NEGATIVE) mg/dL Urine Glucose (UA) NEGATIVE (NEGATIVE) mg/dL Urine Ketones NEGATIVE (NEGATIVE) mg/dL Urine Occult Blood SMALL H (NEGATIVE) Urine Nitrite POSITIVE H (NEGATIVE) Urine Bilirubin NEGATIVE (NEGATIVE) Urine Urobilinogen 0.2 (<2.0) EU/dL Ur Leukocyte Esterase LARGE (NEGATIVE) Urine RBC 5-8 (0-2/HPF) Urine WBC TO NUMEROUS TO COUNT H (0-5/HPF) Ur Epithelial Cells FEW (NONE-FEW) Amorphous Sediment LIGHT (NEGATIVE) Urine Bacteria 4+ H (NEGATIVE) Result Diagrams: 09/27/17 08:30 09/27/17 08:30 Problem List Initiated/Reviewed/Updated: Yes Orders Last 24hrs: Active Orders 24 hr Category Date Time Status Admission Status [Patient Status] [ADT] Stat ADT 09/27/17 13:25 Active Assess Neurological Status [RC] ASDIRECTED Care 09/27/17 08:14 Active Bedrest [RC] ASDIRECTED Care 09/27/17 08:14 Active Blood Glucose Check, Bedside [RC] STAT Care 09/27/17 08:14 Active Cardiac Monitoring [RC] . DIRECTED Care 09/27/17 08:14 Active Head of Bed Elevation [RC] ASDIRECTED Care 09/27/17 08:15 Active NIH Stroke Scale [RC] ASDIRECTED Care 09/27/17 08:14 Active Nursing Bedside Swallow Screen [RC] ASDIRECTED Care 09/27/17 08:14 Active Stroke Education, General [RC] Click to Edit Care 09/27/17 08:14 Active Up With Assistance [RC] ASDIRECTED Care 09/27/17 08:15 Active Vital Signs [RC] Q4H Care 09/27/17 08:14 Active Chest 1V Frontal [CR] Stat Exams 09/27/17 08:16 Taken Head wo Cont [CT] Stat Exams 09/27/17 08:14 Taken UA W/MICROSCOPIC [URIN] Stat Lab 09/27/17 09:10 Ordered Ciprofloxacin in D5W [Cipro in D5W 400 MG/200 ML] 400 Med 09/27/17 10:30 Active mg Premix Bag 1 bag IV Q12H Sodium Chloride 0.9% [Normal Saline] 1,000 ml Med 09/27/17 08:14 Active IV NOW Sodium Chloride 0.9% [Saline Flush] Med 09/27/17 08:14 Active 10 ml FLUSH ASDIRECTED PRN Sodium Chloride 0.9% [Saline Flush] Med 09/27/17 08:14 Active 2.5 ml FLUSH ASDIRECTED PRN Peripheral IV Insertion Adult [OM.PC] Stat Oth 09/27/17 08:14 Ordered Peripheral IV Insertion Adult [OM.PC] Stat Oth 09/27/17 08:14 Ordered Resuscitation Status Stat Resus Stat 09/27/17 08:14 Ordered Medication Orders Sodium Chloride (Normal Saline) 1,000 mls @ 125 mls/hr IV NOW STA Stop: 09/27/17 16:13 Last Admin: 09/27/17 08:53 Dose: 125 mls/hr Ciprofloxacin/Dextrose 400 mg/ (Premix) 200 mls @ 200 mls/hr IV Q12H [id number] Last Admin: 09/27/17 10:37 Dose: 200 mls/hr Sodium Chloride (Saline Flush) 10 ml FLUSH ASDIRECTED PRN PRN Reason: Keep Vein Open Sodium Chloride (Saline Flush) 2.5 ml FLUSH ASDIRECTED PRN PRN Reason: Keep Vein Open Assessment/Plan Comment:: Assessment: #1. UTI #2. Altered mental status #3. AMINAH - likely prerenal #4. History of dementia, HLD, hypothyroidism Plan: #1. Admit to floor for observation. DNR/DNI. Vital signs per floor routine. Regular diet. #2. Altered mental status likely secondary to UTI, and as per record she has shown great improvement quickly with IVF, so will continue to monitor. #3. IV Ciprofloxacin #4. IV NS 500mL Bolus x1, then IVNS 100mL/h #5. Heparin SC for DVT prophylaxis #6. F/u urine culture #7. Dispo 1-2 days back to [facility] #8. BMP tomorrow AM
[2017-09-27] MEDS ORDERED: Ondansetron 4 MG/2 ML SDV IVPUSH PRN (15:29)
[2017-09-27] MEDS ORDERED: Acetaminophen 325 MG Tab PO PRN (15:29)
[2017-09-27] MEDS ORDERED: Sodium Chloride 0.9% 500 ML IV SCH (15:30)
[2017-09-27] MEDS ORDERED: Bisacodyl 10 MG Supp PRN (15:34)
[2017-09-27] MEDS ORDERED: Magnesium Hydroxide 400 MG/5 ML Susp 30 ML Cup PO PRN (15:34)
[2017-09-27] MEDS: Heparin Sodium 5,000 Units/ML Vial SUBCUT SCH ×2 (16:21→22:54)
[2017-09-27] MEDS ORDERED: Sodium Chloride 0.9% 1,000 ML IV SCH (19:45)
[2017-09-27] MEDS ORDERED: traZODone 50 MG Tab PO SCH (21:00)
[2017-09-27] MEDS ORDERED: Simvastatin 20 MG Tab PO SCH (21:00)
[2017-09-27] MEDS: Metoprolol Tartrate 50 MG Tab PO SCH (21:40)
[2017-09-27] MEDS: Memantine 10 MG Tab PO SCH (21:41)
[2017-09-28 06:33] LABS: CHLORIDE,CL 106 mmol/L (98-107); SODIUM,NA 142 mmol/L (136-145)
[2017-09-28] MEDS: Heparin Sodium 5,000 Units/ML Vial SUBCUT SCH (06:34)
[2017-09-28] MEDS ORDERED: Levothyroxine 125 MCG Tab PO SCH (07:30)
[2017-09-28] MEDS ORDERED: Potassium Chloride 20 MEQ Tab.ER PO ONE (08:01)
[2017-09-28] MEDS: Memantine 10 MG Tab PO SCH (08:13)
[2017-09-28] MEDS: Metoprolol Tartrate 50 MG Tab PO SCH (08:14)
[2017-09-28] MEDS ORDERED: Multivitamin Tab PO SCH (09:00)
[2017-09-28] MEDS ORDERED: buPROPion 150 MG Tab.ER PO SCH (09:00)
[2017-09-28] MEDS ORDERED: Calcium Carbonate/Vitamin D3 1500 MG-400 Units Tab PO SCH (09:00)
[2017-09-28] MEDS: Ciprofloxacin in D5W 400 MG in Premix Bag 1 BAG IV SCH ×2 (10:36)
[2017-09-28 11:57] VITALS: BP 97/52
--- NOTE | 2017-09-28 12:17 | PCM.DCSUM1 ---
<Froylan Aguilar - Last Filed: 09/28/17 12:10> Discharge Summary - Hospital Course Free Text/Narrative:: Admission date: 09/27/2017 Discharge date: 09/28/2017 Admission diagnosis: #1. UTI #2. Altered mental status #3. AMINAH #4.History of demetnia, hypothyroidism, hyperlipidemia Discharge diagnosis: #1. UTI #2. Altered mental sttus - improved #3. AMINAH - improving #4. History of dementia, hypothyroidism, hyperlipidemia Hospital course: 77[facility] with the above mentioned history presented to the ER secondary to being unresponsive to verbal stimuli at the halfway. She was brought in for concerns of a potential stroke, but responded very well to IV fluids. Her UA was consistent with a significant UTI. Her culture is pending at this time. I put her on IV ciprofloxacin, and sent her home today given clinical improvement. Her labs indicate a slightly increased Cr which I think is from dehydration. I have held her lasix home dosage until this thursday where we can recheck her BMP, and the PCP can decide whether she needs to continue lasix after that. She was sent on a script for PO ciprofloxacin for 6 more days. - Discharge Data Discharge Date: 09/28/17 Discharge Disposition: DC/Tfer to [facility] 03 Condition: Fair - Patient Instructions Diet: Usual Diet as Tolerated Activity: As Tolerated Notify Provider of: Fever, Increased Pain, Swelling and Redness, Drainage, Nausea and/or Vomiting - Discharge Plan Prescriptions/Med Rec: Ciprofloxacin [Ciprofloxacin HCl] 500 mg PO Q12H 6 Days #24 tablet Home Medications: Home Meds Acetaminophen [Tylenol] 650 mg PO Q4H PRN #7 tablet 03/07/16 [Rx] Multivitamin [Multi-Vitamin Daily] 1 tab PO DAILY 07/04/16 [History] Metoprolol Tartrate 50 mg PO BID 07/09/16 [History] Simvastatin [Zocor] 20 mg PO BEDTIME 07/09/16 [History] buPROPion HCl [Wellbutrin Xl] 300 mg PO DAILY 07/09/16 [History] traZODone 25 mg PO BEDTIME 07/09/16 [History] traMADol [Ultram] 50 mg PO Q4H PRN #15 tablet 07/10/16 [Rx] Bisacodyl 10 mg RC Q24H PRN 09/27/17 [History] Calcium Citrate/Vitamin D3 [Calcium Citrate - Vit D Caplet] 2 each PO DAILY [History] Levothyroxine 125 mcg PO ACBREAKFAST 09/27/17 [History] Magnesium Hydroxide [Milk of Magnesia] 30 ml PO DAILY PRN 09/27/17 [History] Memantine HCl 10 mg PO BID 09/27/17 [History] QUEtiapine Fumarate [Seroquel] 50 mg PO BID 09/27/17 [History] Ciprofloxacin [Ciprofloxacin HCl] 500 mg PO Q12H 6 Days #24 tablet 09/28/17 [Rx] Patient Handouts: Urinary Tract Infection, Adult, [id number], Ciprofloxacin tablets Referrals: Emir Muir MD [Primary Care Provider] - (On his next [place] rounds.) - Patient Data Vitals - Most Recent: Last Vital Signs Temp 36.4 C 09/28/17 11:56 Pulse 78 09/28/17 11:56 Resp 18 09/28/17 11:56 BP 97/52 L 09/28/17 11:56 Pulse Ox 95 09/28/17 11:56 Weight - Most Recent: 84.55 kg I&O - Last 24 hours: Intake & Output 09/27/17 09/28/17 09/28/17 22:59 06:59 14:59 Intake Total 60 1720 200 Output Total 0 Balance 60 1720 200 Lab Results - Last 24 hrs: Laboratory Results - last 24 hr 09/28/17 Range/Units 05:39 Sodium 142 (136-145) mmol/L Potassium 3.3 L (3.5-5.1) mmol/L Chloride 106 (98-107) mmol/L Carbon Dioxide 27.4 (21.0-32.0) mmol/L BUN 22 H (7.0-18.0) mg/dL Creatinine 1.6 H (0.6-1.0) mg/dL Est Cr Clr Drug Dosing TNP Estimated GFR (MDRD) 31.4 ml/min Glucose 88 (74-106) mg/dL Calcium 9.0 (8.5-10.1) mg/dL Med Orders - Current: Current Medications Acetaminophen (Tylenol) 650 mg PO Q4H PRN PRN Reason: Pain (Mild 1-3)/fever Last Admin: 09/27/17 16:40 Dose: 650 mg Bisacodyl (Dulcolax) 10 mg .XX Q24H PRN PRN Reason: Constipation Bupropion HCl (Wellbutrin Xl) 300 mg PO DAILY [facility] Last Admin: 09/28/17 08:13 Dose: 300 mg Calcium Carbonate (Caltrate 600+D 1500 Mg-400 Units) 1 tab PO DAILY [facility] Last Admin: 09/28/17 08:13 Dose: 1 tab Heparin Sodium (Porcine) (Heparin Sodium) 5,000 units SUBCUT Q8H [facility] Last Admin: 09/28/17 06:34 Dose: 5,000 units Ciprofloxacin/Dextrose 400 mg/ (Premix) 200 mls @ 200 mls/hr IV Q12H [facility] Last Admin: 09/28/17 10:36 Dose: 200 mls/hr Sodium Chloride (Normal Saline) 500 mls @ 999 mls/hr IV .BOLUS [facility] Last Admin: 09/27/17 16:25 Dose: 999 mls/hr Sodium Chloride (Normal Saline) 1,000 mls @ 75 mls/hr IV ASDIRECTED [facility] Last Admin: 09/27/17 21:45 Dose: 75 mls/hr Levothyroxine Sodium (Levothyroxine) 125 mcg PO ACBREAKFAST [facility] Last Admin: 09/28/17 06:35 Dose: 125 mcg Magnesium Hydroxide (Milk Of Magnesia) 30 ml PO DAILY PRN PRN Reason: Constipation Memantine (Namenda) 10 mg PO BID [facility] Last Admin: 09/28/17 08:13 Dose: 10 mg Metoprolol Tartrate (Lopressor) 50 mg PO BID [facility] Last Admin: 09/28/17 08:14 Dose: 50 mg Multivitamins/Minerals/Vitamin C (Tab-A-Marcelino) 1 tab PO DAILY [facility] Last Admin: 09/28/17 08:13 Dose: 1 tab Ondansetron HCl (Zofran) 4 mg IVPUSH Q4H PRN PRN Reason: Nausea Quetiapine Fumarate (Seroquel) 50 mg PO BID [facility] Last Admin: 09/28/17 08:13 Dose: 50 mg Simvastatin (Zocor) 20 mg PO BEDTIME [facility] Last Admin: 09/27/17 21:40 Dose: 20 mg Sodium Chloride (Saline Flush) 10 ml FLUSH ASDIRECTED PRN PRN Reason: Keep Vein Open Sodium Chloride (Saline Flush) 2.5 ml FLUSH ASDIRECTED PRN PRN Reason: Keep Vein Open Trazodone HCl (Trazodone) 25 mg PO BEDTIME [facility] Last Admin: 09/27/17 21:46 Dose: 25 mg Discontinued Medications Aspirin (Aspirin) 81 mg PO ONETIME ONE Stop: 09/27/17 08:15 Last Admin: 09/27/17 13:55 Dose: Not Given Sodium Chloride (Normal Saline) 1,000 mls @ 100 mls/hr IV NOW STA Stop: 09/27/17 18:13 Last Admin: 09/27/17 17:50 Dose: 100 mls/hr Potassium Chloride (Klor-Con M20) 40 meq PO ONETIME ONE Stop: 09/28/17 08:02 Last Admin: 09/28/17 08:13 Dose: 40 meq <Max Alexander - Last Filed: 09/30/17 18:20> - Patient Data Vitals - Most Recent: Last Vital Signs Temp 36.4 C 09/28/17 11:56 Pulse 78 09/28/17 11:56 Resp 18 09/28/17 11:56 BP 97/52 L 09/28/17 11:56 Pulse Ox 95 09/28/17 11:56 Med Orders - Current: Current Medications Discontinued Medications Acetaminophen (Tylenol) 650 mg PO Q4H PRN PRN Reason: Pain (Mild 1-3)/fever Last Admin: 09/27/17 16:40 Dose: 650 mg Aspirin (Aspirin) 81 mg PO ONETIME ONE Stop: 09/27/17 08:15 Last Admin: 09/27/17 13:55 Dose: Not Given Bisacodyl (Dulcolax) 10 mg .XX Q24H PRN PRN Reason: Constipation Bupropion HCl (Wellbutrin Xl) 300 mg PO DAILY [facility] Last Admin: 09/28/17 08:13 Dose: 300 mg Calcium Carbonate (Caltrate 600+D 1500 Mg-400 Units) 1 tab PO DAILY [facility] Last Admin: 09/28/17 08:13 Dose: 1 tab Heparin Sodium (Porcine) (Heparin Sodium) 5,000 units SUBCUT Q8H [facility] Last Admin: 09/28/17 06:34 Dose: 5,000 units Sodium Chloride (Normal Saline) 1,000 mls @ 100 mls/hr IV NOW STA Stop: 09/27/17 18:13 Last Admin: 09/27/17 17:50 Dose: 100 mls/hr Ciprofloxacin/Dextrose 400 mg/ (Premix) 200 mls @ 200 mls/hr IV Q12H [facility] Last Admin: 09/28/17 10:36 Dose: 200 mls/hr Sodium Chloride (Normal Saline) 500 mls @ 999 mls/hr IV .BOLUS [facility] Last Admin: 09/27/17 16:25 Dose: 999 mls/hr Sodium Chloride (Normal Saline) 1,000 mls @ 75 mls/hr IV ASDIRECTED [facility] Last Admin: 09/27/17 21:45 Dose: 75 mls/hr Levothyroxine Sodium (Levothyroxine) 125 mcg PO ACBREAKFAST [facility] Last Admin: 09/28/17 06:35 Dose: 125 mcg Magnesium Hydroxide (Milk Of Magnesia) 30 ml PO DAILY PRN PRN Reason: Constipation Memantine (Namenda) 10 mg PO BID [facility] Last Admin: 09/28/17 08:13 Dose: 10 mg Metoprolol Tartrate (Lopressor) 50 mg PO BID [facility] Last Admin: 09/28/17 08:14 Dose: 50 mg Multivitamins/Minerals/Vitamin C (Tab-A-Marcelino) 1 tab PO DAILY [facility] Last Admin: 09/28/17 08:13 Dose: 1 tab Ondansetron HCl (Zofran) 4 mg IVPUSH Q4H PRN PRN Reason: Nausea Potassium Chloride (Klor-Con M20) 40 meq PO ONETIME ONE Stop: 09/28/17 08:02 Last Admin: 09/28/17 08:13 Dose: 40 meq Quetiapine Fumarate (Seroquel) 50 mg PO BID [facility] Last Admin: 09/28/17 08:13 Dose: 50 mg Simvastatin (Zocor) 20 mg PO BEDTIME [facility] Last Admin: 09/27/17 21:40 Dose: 20 mg Sodium Chloride (Saline Flush) 10 ml FLUSH ASDIRECTED PRN PRN Reason: Keep Vein Open Sodium Chloride (Saline Flush) 2.5 ml FLUSH ASDIRECTED PRN PRN Reason: Keep Vein Open Trazodone HCl (Trazodone) 25 mg PO BEDTIME [facility] Last Admin: 09/27/17 21:46 Dose: 25 mg - Free Text/Narrative Note: I have examined the patient. I have discussed treatment plan with the resident. I agree with the assessment and plan outlined in the following resident's note.
--- NOTE | 2017-09-28 15:38 | CT ---
EXAM DATE: 09/27/17 PATIENT'S AGE: 77 Patient: LLOYD HERNANDEZ Facility: [place], [place] Site . Site : 1940 Study: CT Head STROKE PROTOCOL [id number]/17/2018 8:27:47 AM Ordering Physician: MARGIE Final Report: INDICATION: TECHNIQUE: Head CT without contrast. COMPARISON: None FINDINGS: CSF spaces: Within normal limits for age. Brain parenchyma: There are nonspecific low attenuation white matter changes consistent with chronic microvascular disease. No sign of mass, hemorrhage, or midline shift. Skull base and calvarium: The visualized paranasal sinuses and mastoid air cells demonstrate no acute or significant findings. The visualized orbits are grossly unremarkable. No skull fractures. There is intracranial atherosclerosis. IMPRESSION: No sign of CVA or other acute abnormality. Moderately severe deep white matter changes are nonspecific but typical of chronic microvascular disease. Please note that all CT scans at this facility use dose modulation, iterative reconstruction, and/or weight-based dosing when appropriate to reduce radiation dose to as low as reasonably achievable. Dictated by Chicho Christiansen MD @ Sep 27 2017 8:33AM (Electronic Signature) Report Signed by Proxy. [facility] CENTERArpit
--- NOTE | 2017-09-28 15:39 | CR ---
EXAM DATE: 09/27/17 PATIENT'S AGE: 77 Patient: LLOYD HERNANDEZ Facility: [place], [place] Site . Site : 1940 Study: XRay Chest [id number]/17/2018 8:44:20 AM Ordering Physician: Doctor Sanchez Final Report: INDICATION: Stroke code. TECHNIQUE: AP portable semi-upright chest. COMPARISON: None. FINDINGS: Shallow inspiration. This accentuates the cardiac silhouette. Some degree of cardiac enlargement cannot be excluded. There is no evidence for pneumothorax, congestive heart failure, or active pneumonia. Degenerative arthritis of the right shoulder. IMPRESSION: Shallow inspiration. No acute cardiopulmonary process identified. Dictated by Joseph Billy MD @ Sep 27 2017 8:59AM (Electronic Signature) Report Signed by Proxy. LAMBERTO
== END 2017-09-28 13:10 ==
LOC: MW.ED 08:11 → MW.MS 13:25 → MW.ED 14:07
PROVIDERS: ADMIT Internal Medicine; ATTEND Internal Medicine
DX: R41.82 Altered mental status, unspecified (principal); N17.9 Acute kidney failure, unspecified; F03.90 Unspecified dementia, unspecified severity, without behavioral disturbance, psychotic disturbance, mood disturbance, and anxiety; E03.9 Hypothyroidism, unspecified; E78.5 Hyperlipidemia, unspecified; N30.00 Acute cystitis without hematuria; J44.9 Chronic obstructive pulmonary disease, unspecified; M19.90 Unspecified osteoarthritis, unspecified site; F41.9 Anxiety disorder, unspecified; F32.9 Major depressive disorder, single episode, unspecified; E66.9 Obesity, unspecified; Z87.440 Personal history of urinary (tract) infections; Z79.899 Other long term (current) drug therapy; Z66 Do not resuscitate
CPT/HCPCS: 36415; 70450; 71045; 80048; 80053; 81001; 84443; 84484; 85025; 85610; 85730; 87086; 87088; 87186; 93005; 96361; 96365; 96366; 96372; 99285; A9270; G0378; J0744; J1644; J7040

== ENCOUNTER 2019-06-14 13:50 | Inpatient (IN) | payer MEDICARE, MEDICAID ==
[2019-06-14] MEDS ORDERED: Sodium Chloride 0.9% 1,000 ML IV ONE (14:19)
--- NOTE | 2019-06-14 14:46 | EDM.PDOC ---
ED HPI GENERAL MEDICAL PROBLEM - General Chief Complaint: Skin Complaint Stated Complaint: REDNESS ON RIGHT SIDE OF FACE,HIP Time Seen by Provider: 06/14/19 14:12 Source of Information: Reports: Patient History Limitations: Reports: No Limitations - History of Present Illness INITIAL COMMENTS - FREE TEXT/NARRATIVE: HISTORY AND PHYSICAL: History of present illness: Patient is a 79-year-old female who presents to the emergency room with her daughter with concerns of a rash to the left side of her body, increased confusion and complaining of some back pain between her shoulder blades. The daughter states that she had visited her yesterday and she appeared fine. Today she seems confused and not answering questions appropriately. She is a resident at [facility] and is wheelchair-bound. The daughter states that she used to be able to assist with her transfers to and from her wheelchair but due to weakness has not been able to do this over the past week. No recent falls have been reported. prison staff brought to the daughter 's attention that she developed a rash to the left chest wall and arm down to her groin area. She has not had any new exposures and has not started any new medications. Patient is not very verbal and when asked why she is here in the emergency room she complains that she has pain in her upper back between her shoulder blades. The daughter believes that she chronically has this upper back pain due to her kyphosis. Daughter's main concern today is her altered mental status. Patient has a past medical history of asthma, COPD, hypertension, hypothyroidism , dementia and recurrent UTIs. Review of systems: As per history of present illness and below otherwise all systems reviewed and negative. Past medical history: As per history of present illness and as reviewed below otherwise noncontributory. Surgical history: As per history of present illness and as reviewed below otherwise noncontributory. Social history: See social history for further information Family history: As per history of present illness and as reviewed below otherwise noncontributory. Physical exam: General: Chronically ill appearing 79-year-old female. She is alert with difficulty to assess orientation. Nontoxic-appearing and in no acute distress. HEENT: Atraumatic, normocephalic, pupils equal and reactive bilaterally, negative for conjunctival pallor or scleral icterus, mucous membranes dry/tacky (thick sputum noted sitting in mouth), nontender, trachea midline. No drooling or trismus noted. No meningeal signs. No hot potato voice noted. Lungs: Clear to auscultation, breath sounds equal bilaterally, chest nontender. Heart: S1S2, regular rate and rhythm without overt murmur Abdomen: Soft, nondistended, obese, nontender. Negative for masses or costovertebral tenderness. Pelvis: Stable nontender. Genitourinary: Diffuse erythema across the low abdomen along and below the pant line (extending from hip to hip), severity of erythema is worse towards the right hip. She does have a nonspecific redness to the medial left upper arm/ axilla area. Extremities: Atraumatic, chronic kyphosis, limited movement all extremities with upper extremity contractures, patient is wheelchair bound. Neurovascular unremarkable. Neuro: Awake, alert - difficult to assess orientation (does have dementia baseline). Exam nonfocal. Notes: Patient is unable to sit up straight or lay on her back. Unable to get a good chest x-ray due to her body posturing. She does have some thick sputum which was suctioned with a [place]. Chest x-ray shows cardiomegaly without any acute findings. Does have a leukocytosis. Last time we have record of her TSH being checked was in 2018 which was in normal limits today it is 20.4. Dr. Alexander was consulted on this case and he is agreeable to keeping her for observation for IV antibiotics. Daughter was made aware and she is happy with admission. Diagnostics: CBC, CMP, UA, Troponin, EKG, CXR, Blood Culture x 2, Lactic Therapeutics: IV fluids 500ml bolus then 150mls/hr Impression: Altered mental status UTI R/o cellulitis Hypothyroidism Dehydration Plan: Observation admission Definitive disposition and diagnosis as appropriate pending reevaluation and review of above. - Related Data Allergies Allergy/AdvReac Type Severity Reaction Status Date / Time No Known Allergies Allergy Verified 06/14/19 14:05 Home Meds: Home Meds Acetaminophen [Tylenol] 650 mg PO Q4H PRN #7 tablet 03/07/16 [Rx] Multivitamin [Multi-Vitamin Daily] 1 tab PO DAILY 07/04/16 [History] Metoprolol Tartrate 50 mg PO BID 07/09/16 [History] Simvastatin [Zocor] 20 mg PO BEDTIME 07/09/16 [History] buPROPion HCl [Wellbutrin Xl] 300 mg PO DAILY 07/09/16 [History] traZODone 25 mg PO BEDTIME 07/09/16 [History] traMADol [Ultram] 50 mg PO Q4H PRN #15 tablet 07/10/16 [Rx] Bisacodyl 10 mg RC Q24H PRN 09/27/17 [History] Calcium Citrate/Vitamin D3 [Calcium Citrate - Vit D Caplet] 2 each PO DAILY [History] Levothyroxine 125 mcg PO ACBREAKFAST 09/27/17 [History] Magnesium Hydroxide [Milk of Magnesia] 30 ml PO DAILY PRN 09/27/17 [History] Memantine HCl 10 mg PO BID 09/27/17 [History] Furosemide [Lasix] 40 mg PO DAILY 06/14/19 [History] Methyl Salicylate/Menthol [Icy Hot] ml TOP ASDIRECTED PRN 06/14/19 [History] guaiFENesin/Dextromethorphan [Tussin Dm Liquid] 5 ml PO ASDIRECTED PRN 06/14/19 [History] polyethylene glycoL 3350 [MiraLAX] 17 gm PO BID 06/14/19 [History] Past Medical History HEENT History: Reports: None Cardiovascular History: Reports: High Cholesterol, Hypertension Other Cardiovascular History: takes calcium Respiratory History: Reports: Asthma, COPD, SOB Gastrointestinal History: Reports: None Other Gastrointestinal History: diarrhea Genitourinary History: Reports: UTI, Recurrent [address] [place] History: Reports: Musculoskeletal History: Reports: Arthritis, Other (See Below) Other Musculoskeletal History: generalized weakness, non ambulatory Neurological History: Reports: Other (See Below) Other Neuro History: dementia Psychiatric History: Reports: Anxiety, Dementia, Depression Endocrine/Metabolic History: Reports: Hypothyroidism, Obesity/BMI 30+ Hematologic History: Reports: None Oncologic (Cancer) History: Reports: None Dermatologic History: Reports: None - Infectious Disease History Infectious Disease History: Reports: Chicken Pox, Measles, Mumps - Past Surgical History Neurological Surgical History: Reports: None Musculoskeletal Surgical History: Reports: Other (See Below) Social & Family History - Family History Family Medical History: Noncontributory - Tobacco Use Smoking Status *Q: Never Smoker - Caffeine Use Caffeine Use: Reports: None - Recreational Drug Use Recreational Drug Use: No - Living Situation & Occupation Occupation: Retired [employer] - Review of Systems Review Of Systems: Comprehensive ROS is negative, except as noted in HPI. ED EXAM, SKIN/RASH Exam: See Below (See dictation) Course - Vital Signs Last Recorded V/S: Last Vital Signs Temp 100.7 F H 06/14/19 15:29 Pulse 99 06/14/19 15:29 Resp 28 H 06/14/19 15:29 BP 141/87 H 06/14/19 15:45 Pulse Ox 95 06/14/19 15:29 - Orders/Labs/Meds Orders: Active Orders 24 hr Category Date Time Status Admission Status [Patient Status] [ADT] Stat ADT 06/14/19 15:41 Active EKG Documentation Completion [RC] STAT Care 06/14/19 14:19 Active Insert Johnson Catheter [Insert Urinary Catheter] [OM.PC] Care 06/14/19 15:30 Ordered Q24H Urinary Catheter Assessment [RC] ASDIRECTED Care 06/14/19 15:28 Active CULTURE BLOOD [BC] Stat Lab 06/14/19 15:09 Results CULTURE BLOOD [BC] Stat Lab 06/14/19 15:32 Results CULTURE URINE [RM] Stat Lab 06/14/19 15:14 Received Sodium Chloride 0.9% [Normal Saline] 1,000 ml Med 06/14/19 14:19 Active IV STAT cefTRIAXone [Rocephin in Dextrose,Iso-Osm 1 GM/50 ML] 1 Med 06/14/19 15:40 Active gm Premix Bag 1 bag IV ONETIME Blood Culture x2 Reflex Set [OM.PC] Stat Oth 06/14/19 14:19 Ordered Medication Orders Sodium Chloride (Normal Saline) 1,000 mls @ 125 mls/hr IV STAT ONE Stop: 06/14/19 22:18 Last Admin: 06/14/19 15:27 Dose: 125 mls/hr Ceftriaxone Sodium/Dextrose 1 (gm/ Premix) 50 mls @ 100 mls/hr IV ONETIME ONE Stop: 06/14/19 16:09 Labs: Laboratory Tests 06/14/19 06/14/19 06/14/19 Range/Units 15:09 15:09 15:09 WBC 15.54 H (4.0-11.0) K/uL RBC 4.38 (4.30-5.90) M/uL Hgb 13.4 (12.0-16.0) g/dL Hct 41.1 (36.0-46.0) % MCV 93.8 (80.0-98.0) fL MCH 30.6 (27.0-32.0) pg MCHC 32.6 (31.0-37.0) g/dL RDW Std Deviation 54.5 (28.0-62.0) fl RDW Coeff of Cristiane 16 H (11.0-15.0) % Plt Count 178 (150-400) K/uL MPV 10.30 (7.40-12.00) fL Neut % (Auto) 68.4 (48.0-80.0) % Lymph % (Auto) 27.2 (16.0-40.0) % [place] % (Auto) 4.0 (0.0-15.0) % Eos % (Auto) 0.2 (0.0-7.0) % Baso % (Auto) 0.2 (0.0-1.5) % Neut # (Auto) 10.6 H (1.4-5.7) K/uL Lymph # (Auto) 4.2 H (0.6-2.4) K/uL [place] # (Auto) 0.6 (0.0-0.8) K/uL Eos # (Auto) 0.0 (0.0-0.7) K/uL Baso # (Auto) 0.0 (0.0-0.1) K/uL Nucleated RBC % 0.0 /100WBC Nucleated RBCs # 0 K/uL Lactate 2.0 (0.20-2.00) mmol/L Sodium 136 (136-145) mmol/L Potassium 4.5 (3.5-5.1) mmol/L Chloride 102 (98-107) mmol/L Carbon Dioxide 22.7 (21.0-32.0) mmol/L BUN 26 H (7.0-18.0) mg/dL Creatinine 1.7 H (0.6-1.0) mg/dL Est Cr Clr Drug Dosing 19.91 mL/min Estimated GFR (MDRD) 29.1 ml/min Glucose 149 H (74-106) mg/dL Calcium 10.2 H (8.5-10.1) mg/dL Total Bilirubin 0.8 (0.2-1.0) mg/dL AST 67 H (15-37) IU/L ALT 20 (14-63) IU/L Alkaline Phosphatase 268 H (46-116) U/L Troponin I < 0.050 (0.000-0.056) ng/mL Total Protein 9.0 H (6.4-8.2) g/dL Albumin 3.2 L (3.4-5.0) g/dL Globulin 5.8 H (2.6-4.0) g/dL Albumin/Globulin Ratio 0.6 L (0.9-1.6) TSH 3rd Generation 20.47 H (0.36-3.74) uIU/mL Urine Color Urine Appearance Urine pH (5.0-8.0) Ur Specific [place] (1.001-1.035) Urine Protein (NEGATIVE) mg/dL Urine Glucose (UA) (NEGATIVE) mg/dL Urine Ketones (NEGATIVE) mg/dL Urine Occult Blood (NEGATIVE) Urine Nitrite (NEGATIVE) Urine Bilirubin (NEGATIVE) Urine Urobilinogen (<2.0) EU/dL Ur Leukocyte Esterase (NEGATIVE) Urine RBC (0-2/HPF) Urine WBC (0-5/HPF) Ur Epithelial Cells (NONE-FEW) Urine Bacteria (NEGATIVE) 06/14/19 Range/Units 15:14 WBC (4.0-11.0) K/uL RBC (4.30-5.90) M/uL Hgb (12.0-16.0) g/dL Hct (36.0-46.0) % MCV (80.0-98.0) fL MCH (27.0-32.0) pg MCHC (31.0-37.0) g/dL RDW Std Deviation (28.0-62.0) fl RDW Coeff of Cristiane (11.0-15.0) % Plt Count (150-400) K/uL MPV (7.40-12.00) fL Neut % (Auto) (48.0-80.0) % Lymph % (Auto) (16.0-40.0) % [place] % (Auto) (0.0-15.0) % Eos % (Auto) (0.0-7.0) % Baso % (Auto) (0.0-1.5) % Neut # (Auto) (1.4-5.7) K/uL Lymph # (Auto) (0.6-2.4) K/uL [place] # (Auto) (0.0-0.8) K/uL Eos # (Auto) (0.0-0.7) K/uL Baso # (Auto) (0.0-0.1) K/uL Nucleated RBC % /100WBC Nucleated RBCs # K/uL Lactate (0.20-2.00) mmol/L Sodium (136-145) mmol/L Potassium (3.5-5.1) mmol/L Chloride (98-107) mmol/L Carbon Dioxide (21.0-32.0) mmol/L BUN (7.0-18.0) mg/dL Creatinine (0.6-1.0) mg/dL Est Cr Clr Drug Dosing mL/min Estimated GFR (MDRD) ml/min Glucose (74-106) mg/dL Calcium (8.5-10.1) mg/dL Total Bilirubin (0.2-1.0) mg/dL AST (15-37) IU/L ALT (14-63) IU/L Alkaline Phosphatase (46-116) U/L Troponin I (0.000-0.056) ng/mL Total Protein (6.4-8.2) g/dL Albumin (3.4-5.0) g/dL Globulin (2.6-4.0) g/dL Albumin/Globulin Ratio (0.9-1.6) TSH 3rd Generation (0.36-3.74) uIU/mL Urine Color YELLOW Urine Appearance CLEAR Urine pH 7.0 (5.0-8.0) Ur Specific [place] 1.020 (1.001-1.035) Urine Protein NEGATIVE (NEGATIVE) mg/dL Urine Glucose (UA) NEGATIVE (NEGATIVE) mg/dL Urine Ketones NEGATIVE (NEGATIVE) mg/dL Urine Occult Blood SMALL H (NEGATIVE) Urine Nitrite NEGATIVE (NEGATIVE) Urine Bilirubin NEGATIVE (NEGATIVE) Urine Urobilinogen 0.2 (<2.0) EU/dL Ur Leukocyte Esterase TRACE H (NEGATIVE) Urine RBC 1-5 (0-2/HPF) Urine WBC 0-4 (0-5/HPF) Ur Epithelial Cells FEW (NONE-FEW) Urine Bacteria 1+ H (NEGATIVE) Meds: Medications Generic Name Dose Route Start Last Admin Trade Name Joriq PRN Reason Stop Dose Admin Sodium Chloride 1,000 mls @ 125 mls/hr 06/14/19 14:19 06/14/19 15:27 Normal Saline IV 06/14/19 22:18 125 mls/hr STAT ONE Administration Ceftriaxone Sodium/Dextrose 1 50 mls @ 100 mls/hr 06/14/19 15:40 gm/ Premix IV 06/14/19 16:09 ONETIME ONE Departure - Departure Time of Disposition: 16:01 Disposition: Refer to Observation Clinical Impression: UTI, Urinary tract infectious disease, Dehydration Altered mental state Qualifiers: Altered mental status type: unspecified Qualified Code(s): R41.82 - Altered mental status, unspecified Hypothyroidism Qualifiers: Hypothyroidism type: unspecified Qualified Code(s): E03.9 - Hypothyroidism, unspecified Cellulitis Qualifiers: Site of cellulitis: trunk Site of cellulitis of trunk: abdominal wall Qualified Code(s): L03.311 - Cellulitis of abdominal wall - Discharge Information Referrals: Emir Muir MD [Primary Care Provider] - Forms: ED Department Discharge Sepsis Event Note - Evaluation Sepsis Screening Result: No Definite Risk - Focused Exam Vital Signs: Vital Signs Temp Pulse Resp BP Pulse Ox 06/14/19 15:45 141/87 H 06/14/19 15:29 100.7 F H 99 28 H 95 06/14/19 14:14 169/128 H 06/14/19 14:05 98.1 F 20 Date Exam was Performed: 06/14/19 Time Exam was Performed: 16:00 - My Orders Last 24 Hours: My Active Orders 06/14/19 14:19 EKG Documentation Completion [RC] STAT Sodium Chloride 0.9% [Normal Saline] 1,000 ml IV STAT Blood Culture x2 Reflex Set [OM.PC] Stat 06/14/19 15:09 CULTURE BLOOD [BC] Stat 06/14/19 15:14 CULTURE URINE [RM] Stat 06/14/19 15:28 Urinary Catheter Assessment [RC] ASDIRECTED 06/14/19 15:30 Insert Johnson Catheter [Insert Urinary Catheter] [OM.PC] Q24H 06/14/19 15:32 CULTURE BLOOD [BC] Stat 06/14/19 15:40 cefTRIAXone [Rocephin in Dextrose,Iso-Osm 1 GM/50 ML] 1 gm Premix Bag 1 bag IV ONETIME 06/14/19 15:41 Admission Status [Patient Status] [ADT] Stat - Assessment/Plan Last 24 Hours: My Active Orders 06/14/19 14:19 EKG Documentation Completion [RC] STAT Sodium Chloride 0.9% [Normal Saline] 1,000 ml IV STAT Blood Culture x2 Reflex Set [OM.PC] Stat 06/14/19 15:09 CULTURE BLOOD [BC] Stat 06/14/19 15:14 CULTURE URINE [RM] Stat 06/14/19 15:28 Urinary Catheter Assessment [RC] ASDIRECTED 06/14/19 15:30 Insert Johnson Catheter [Insert Urinary Catheter] [OM.PC] Q24H 06/14/19 15:32 CULTURE BLOOD [BC] Stat 06/14/19 15:40 cefTRIAXone [Rocephin in Dextrose,Iso-Osm 1 GM/50 ML] 1 gm Premix Bag 1 bag IV ONETIME 06/14/19 15:41 Admission Status [Patient Status] [ADT] Stat
--- NOTE | 2019-06-14 15:05 | CR ---
Chest: Portable view of the chest was obtained. Comparison: Prior chest x-ray of 09/27/17. Heart is slightly enlarged. Lungs are grossly clear. Bony structures are grossly intact. Impression: 1. Cardiomegaly. 2. Nothing acute is appreciated on frontal chest x-ray. Diagnostic code #2 Study was dictated in [place] Standard Time
[2019-06-14] MEDS ORDERED: cefTRIAXone 1 GM in Premix Bag 1 BAG IV ONE (15:40)
[2019-06-14 15:49] LABS: BLOOD UREA NITROGEN,BUN 26 mg/dL (7.0-18.0); CARBON DIOXIDE,CO2 22.7 mmol/L (21.0-32.0); CHLORIDE,CL 102 mmol/L (98-107); GLUCOSE RANDOM 149 mg/dL (74-106); POTASSIUM,K 4.5 mmol/L (3.5-5.1); SODIUM,NA 136 mmol/L (136-145)
[2019-06-14] MEDS ORDERED: Ondansetron 4 MG/2 ML SDV IVPUSH PRN (16:32)
[2019-06-14] MEDS ORDERED: Acetaminophen 325 MG Tab PO PRN (16:32)
--- NOTE | 2019-06-14 16:45 | PCM.HP.2 ---
H&P History of Present Illness - General Date of Service: 06/14/19 Admit Problem/Dx: Admission Diagnosis/Problem Admission Diagnosis/Problem Cellulitis Source of Information: Family, Old Records History Limitations: Reports: Altered Mental Status - History of Present Illness Initial Comments - Free Text/Narative: This 79 year old female with pmh of hypothyroidism, dementia,recurrent UTIs and chronic pain presented to the ED from [facility]. SNF staff noted AMS and a rash that started on her abdomen and R flank. The daughter came to see her at the skilled nursing and agrees, she was alert and her self yesterday, today she is altered not as alert and more confused. Toya is unable to verbally communicate now. She winces from pain stimulation and movement of limbs. In the ED leukocytosis noted at 15,540, Lactic acid 2.0 BUN 26 Cr 1.7, Ca 102, corrected for albumin 10.8. AST 67, Alk phos 268. Troponin negativae. TSH 20.47 CXR negative, mild cardiomegaly. UA revealed +1 bacteria, trace LE negative for nitrite and pyuria. She wsa given NS 1 L and Rocephin in the ED. Admission for inpatient for abdominal fold cellulitis and AMS. PCP, Dr Muir - Related Data Allergies/Adverse Reactions: Allergies Allergy/AdvReac Type Severity Reaction Status Date / Time No Known Allergies Allergy Verified 06/14/19 14:05 Home Medications: Home Meds Acetaminophen [Tylenol] 650 mg PO Q4H PRN #7 tablet 03/07/16 [Rx] Multivitamin [Multi-Vitamin Daily] 1 tab PO DAILY 07/04/16 [History] Metoprolol Tartrate 50 mg PO BID 07/09/16 [History] Simvastatin [Zocor] 20 mg PO BEDTIME 07/09/16 [History] buPROPion HCl [Wellbutrin Xl] 300 mg PO DAILY 07/09/16 [History] traZODone 25 mg PO BEDTIME 07/09/16 [History] traMADol [Ultram] 50 mg PO Q4H PRN #15 tablet 07/10/16 [Rx] Bisacodyl 10 mg RC Q24H PRN 09/27/17 [History] Calcium Citrate/Vitamin D3 [Calcium Citrate - Vit D Caplet] 2 each PO DAILY [History] Levothyroxine 125 mcg PO ACBREAKFAST 09/27/17 [History] Magnesium Hydroxide [Milk of Magnesia] 30 ml PO DAILY PRN 09/27/17 [History] Memantine HCl 10 mg PO BID 09/27/17 [History] Furosemide [Lasix] 40 mg PO DAILY 06/14/19 [History] Methyl Salicylate/Menthol [Icy Hot] ml TOP ASDIRECTED PRN 06/14/19 [History] guaiFENesin/Dextromethorphan [Tussin Dm Liquid] 5 ml PO ASDIRECTED PRN 06/14/19 [History] polyethylene glycoL 3350 [MiraLAX] 17 gm PO BID 06/14/19 [History] Past Medical History HEENT History: Reports: None Cardiovascular History: Reports: High Cholesterol, Hypertension. 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 Denies: CVA, TIA Other Neuro History: dementia Psychiatric History: Reports: Anxiety, Dementia, Depression Endocrine/Metabolic History: Reports: Hypothyroidism, Obesity/BMI 30+ Hematologic History: Reports: None Oncologic (Cancer) History: Reports: None Dermatologic History: Reports: None - Infectious Disease History Infectious Disease History: Reports: Chicken Pox, Measles, Mumps - Past Surgical History Neurological Surgical History: Reports: None Musculoskeletal Surgical History: Reports: Other (See Below) Social & Family History - Family History Family Medical History: Noncontributory - Tobacco Use Smoking Status *Q: Never Smoker - Caffeine Use Caffeine Use: Reports: None - Recreational Drug Use Recreational Drug Use: No - Living Situation & Occupation Living situation: Reports: Extended Care Facility Occupation: Retired H&P Review of Systems - Review of Systems: Review Of Systems: Unable To Obtain Reason Not Obtained: patient non verbal Exam - Exam Exam: See Below - Vital Signs Vital Signs: Last Vital Signs Temp 100.7 F H 06/14/19 15:29 Pulse 99 06/14/19 15:29 Resp 28 H 06/14/19 15:29 BP 141/87 H 06/14/19 15:45 Pulse Ox 95 06/14/19 15:29 Weight: 78.925 kg - Exam Quality Assessment: Urinary Catheter, DVT Prophylaxis General: Lethargic HEENT: No: Mucosa Moist & [place] (dry flaky lips and dry oral mucosa) Lungs: Normal Respiratory Effort, Decreased Breath Sounds Cardiovascular: Regular Rate, Regular Rhythm, Normal S1, Normal S2. No: Systolic Murmur GI/Abdominal Exam: Normal Bowel Sounds, Soft, Non-Tender Extremities: Normal Inspection, Normal Range of Motion, Non-Tender, No Pedal Edema Skin: Other (erythema and heat noted to abdominal fold, extending from left anterior to R flank, excluding underneath fold) Neuro Extensive - Mental Status: Withdraws to Pain - Patient Data Lab Results Last 24 hrs: Laboratory Results - last 24 hr 06/14/19 06/14/19 06/14/19 Range/Units 15:09 15:09 15:09 WBC 15.54 H (4.0-11.0) K/uL RBC 4.38 (4.30-5.90) M/uL Hgb 13.4 (12.0-16.0) g/dL Hct 41.1 (36.0-46.0) % MCV 93.8 (80.0-98.0) fL MCH 30.6 (27.0-32.0) pg MCHC 32.6 (31.0-37.0) g/dL RDW Std Deviation 54.5 (28.0-62.0) fl RDW Coeff of Cristiane 16 H (11.0-15.0) % Plt Count 178 (150-400) K/uL MPV 10.30 (7.40-12.00) fL Neut % (Auto) 68.4 (48.0-80.0) % Lymph % (Auto) 27.2 (16.0-40.0) % [place] % (Auto) 4.0 (0.0-15.0) % Eos % (Auto) 0.2 (0.0-7.0) % Baso % (Auto) 0.2 (0.0-1.5) % Neut # (Auto) 10.6 H (1.4-5.7) K/uL Lymph # (Auto) 4.2 H (0.6-2.4) K/uL [place] # (Auto) 0.6 (0.0-0.8) K/uL Eos # (Auto) 0.0 (0.0-0.7) K/uL Baso # (Auto) 0.0 (0.0-0.1) K/uL Nucleated RBC % 0.0 /100WBC Nucleated RBCs # 0 K/uL Lactate 2.0 (0.20-2.00) mmol/L Sodium 136 (136-145) mmol/L Potassium 4.5 (3.5-5.1) mmol/L Chloride 102 (98-107) mmol/L Carbon Dioxide 22.7 (21.0-32.0) mmol/L BUN 26 H (7.0-18.0) mg/dL Creatinine 1.7 H (0.6-1.0) mg/dL Est Cr Clr Drug Dosing 19.91 mL/min Estimated GFR (MDRD) 29.1 ml/min Glucose 149 H (74-106) mg/dL Calcium 10.2 H (8.5-10.1) mg/dL Total Bilirubin 0.8 (0.2-1.0) mg/dL AST 67 H (15-37) IU/L ALT 20 (14-63) IU/L Alkaline Phosphatase 268 H (46-116) U/L Troponin I < 0.050 (0.000-0.056) ng/mL Total Protein 9.0 H (6.4-8.2) g/dL Albumin 3.2 L (3.4-5.0) g/dL Globulin 5.8 H (2.6-4.0) g/dL Albumin/Globulin Ratio 0.6 L (0.9-1.6) TSH 3rd Generation 20.47 H (0.36-3.74) uIU/mL Urine Color Urine Appearance Urine pH (5.0-8.0) Ur Specific [place] (1.001-1.035) Urine Protein (NEGATIVE) mg/dL Urine Glucose (UA) (NEGATIVE) mg/dL Urine Ketones (NEGATIVE) mg/dL Urine Occult Blood (NEGATIVE) Urine Nitrite (NEGATIVE) Urine Bilirubin (NEGATIVE) Urine Urobilinogen (<2.0) EU/dL Ur Leukocyte Esterase (NEGATIVE) Urine RBC (0-2/HPF) Urine WBC (0-5/HPF) Ur Epithelial Cells (NONE-FEW) Urine Bacteria (NEGATIVE) 06/14/19 Range/Units 15:14 WBC (4.0-11.0) K/uL RBC (4.30-5.90) M/uL Hgb (12.0-16.0) g/dL Hct (36.0-46.0) % MCV (80.0-98.0) fL MCH (27.0-32.0) pg MCHC (31.0-37.0) g/dL RDW Std Deviation (28.0-62.0) fl RDW Coeff of Cristiane (11.0-15.0) % Plt Count (150-400) K/uL MPV (7.40-12.00) fL Neut % (Auto) (48.0-80.0) % Lymph % (Auto) (16.0-40.0) % [place] % (Auto) (0.0-15.0) % Eos % (Auto) (0.0-7.0) % Baso % (Auto) (0.0-1.5) % Neut # (Auto) (1.4-5.7) K/uL Lymph # (Auto) (0.6-2.4) K/uL [place] # (Auto) (0.0-0.8) K/uL Eos # (Auto) (0.0-0.7) K/uL Baso # (Auto) (0.0-0.1) K/uL Nucleated RBC % /100WBC Nucleated RBCs # K/uL Lactate (0.20-2.00) mmol/L Sodium (136-145) mmol/L Potassium (3.5-5.1) mmol/L Chloride (98-107) mmol/L Carbon Dioxide (21.0-32.0) mmol/L BUN (7.0-18.0) mg/dL Creatinine (0.6-1.0) mg/dL Est Cr Clr Drug Dosing mL/min Estimated GFR (MDRD) ml/min Glucose (74-106) mg/dL Calcium (8.5-10.1) mg/dL Total Bilirubin (0.2-1.0) mg/dL AST (15-37) IU/L ALT (14-63) IU/L Alkaline Phosphatase (46-116) U/L Troponin I (0.000-0.056) ng/mL Total Protein (6.4-8.2) g/dL Albumin (3.4-5.0) g/dL Globulin (2.6-4.0) g/dL Albumin/Globulin Ratio (0.9-1.6) TSH 3rd Generation (0.36-3.74) uIU/mL Urine Color YELLOW Urine Appearance CLEAR Urine pH 7.0 (5.0-8.0) Ur Specific [place] 1.020 (1.001-1.035) Urine Protein NEGATIVE (NEGATIVE) mg/dL Urine Glucose (UA) NEGATIVE (NEGATIVE) mg/dL Urine Ketones NEGATIVE (NEGATIVE) mg/dL Urine Occult Blood SMALL H (NEGATIVE) Urine Nitrite NEGATIVE (NEGATIVE) Urine Bilirubin NEGATIVE (NEGATIVE) Urine Urobilinogen 0.2 (<2.0) EU/dL Ur Leukocyte Esterase TRACE H (NEGATIVE) Urine RBC 1-5 (0-2/HPF) Urine WBC 0-4 (0-5/HPF) Ur Epithelial Cells FEW (NONE-FEW) Urine Bacteria 1+ H (NEGATIVE) Result Diagrams: 06/14/19 15:09 06/14/19 15:09 Sherwin Results Last 24 hrs: Microbiology 06/14/19 15:32 Anaerobic Blood Culture - Final Blood - Venous - Lab Draw 06/14/19 15:09 Anaerobic Blood Culture - Final Blood - Venous Sepsis Event Note - Evaluation Sepsis Screening Result: No Definite Risk - Focused Exam Vital Signs: Vital Signs Temp Pulse Resp BP Pulse Ox 06/14/19 15:45 141/87 H 06/14/19 15:29 100.7 F H 99 28 H 95 06/14/19 14:14 169/128 H 06/14/19 14:05 98.1 F 20 Date Exam was Performed: 06/14/19 Time Exam was Performed: 16:39 - Problem List (1) Altered mental state SNOMED Code(s): 349245424 ICD Code: R41.82 - ALTERED MENTAL STATUS, UNSPECIFIED Status: Acute Current Visit: Yes Qualifiers: Altered mental status type: unspecified Qualified Code(s): R41.82 - Altered mental status, unspecified (2) Cellulitis SNOMED Code(s): 102469940 ICD Code: L03.90 - CELLULITIS, UNSPECIFIED Status: Acute Current Visit: Yes Qualifiers: Site of cellulitis: trunk Site of cellulitis of trunk: abdominal wall Qualified Code(s): L03.311 - Cellulitis of abdominal wall (3) Dehydration SNOMED Code(s): 39998463 ICD Code: E86.0 - DEHYDRATION Status: Acute Current Visit: Yes (4) Hypothyroidism SNOMED Code(s): 58943832 ICD Code: E03.9 - HYPOTHYROIDISM, UNSPECIFIED Status: Acute Current Visit : Yes Qualifiers: Hypothyroidism type: unspecified Qualified Code(s): E03.9 - Hypothyroidism , unspecified (5) UTI, Urinary tract infectious disease SNOMED Code(s): 30552909 ICD Code: N39.0 - URINARY TRACT INFECTION, SITE NOT SPECIFIED Status: Acute Current Visit: Yes (6) Bedridden SNOMED Code(s): 415216024 ICD Code: Z74.01 - BED CONFINEMENT STATUS Status: Acute Current Visit: No (7) COPD (chronic obstructive pulmonary disease) SNOMED Code(s): 06156888 ICD Code: J44.9 - CHRONIC OBSTRUCTIVE PULMONARY DISEASE, UNSPECIFIED Status : Acute Current Visit: No (8) Dementia SNOMED Code(s): 84178597 ICD Code: F03.90 - UNSPECIFIED DEMENTIA WITHOUT BEHAVIORAL DISTURBANCE Status: Chronic Current Visit: No (9) HTN (hypertension) SNOMED Code(s): 86094266 ICD Code: I10 - ESSENTIAL (PRIMARY) HYPERTENSION Status: Chronic Current Visit: No Qualifiers: Hypertension type: essential hypertension Qualified Code(s): I10 - Essential (primary) hypertension Problem List Initiated/Reviewed/Updated: Yes Orders Last 24hrs: Active Orders 24 hr Category Date Time Status Patient Status [ADT] Stat ADT 06/14/19 16:31 Active EKG Documentation Completion [RC] STAT Care 06/14/19 14:19 Active Height and Weight [RC] DAILY Care 06/14/19 16:32 Ordered Insert Johnson Catheter [Insert Urinary Catheter] [OM.PC] Care 06/14/19 15:30 Ordered Q24H Intake and Output [RC] QSHIFT Care 06/14/19 16:36 Ordered Oxygen Therapy [RC] PRN Care 06/14/19 16:32 Ordered Urinary Catheter Assessment [RC] ASDIRECTED Care 06/14/19 15:28 Active VTE/DVT Education [RC] PER UNIT ROUTINE Care 06/14/19 16:32 Ordered Vital Signs [RC] Q4H Care 06/14/19 16:32 Ordered Pureed Diet [DIET] Diet 06/14/19 Dinner Ordered CBC WITH AUTO DIFF [HEME] AM Lab 06/15/19 05:11 Ordered COMPREHENSIVE METABOLIC PN,CMP [CHEM] AM Lab 06/15/19 05:11 Ordered CULTURE BLOOD [BC] Stat Lab 06/14/19 15:09 Results CULTURE BLOOD [BC] Stat Lab 06/14/19 15:32 Results CULTURE URINE [RM] Stat Lab 06/14/19 15:14 Received MAGNESIUM [CHEM] AM Lab 06/15/19 05:11 Ordered Acetaminophen [Tylenol] Med 06/14/19 16:32 Ordered 650 mg PO Q4H PRN Heparin Sodium Med 06/14/19 16:45 Ordered 5,000 units SUBCUT Q8H Ondansetron [Zofran] Med 06/14/19 16:32 Ordered 4 mg IVPUSH Q4H PRN Pharmacy to Dose - Vancomycin Med 06/14/19 16:45 Ordered 1 dose .XX ASDIRECTED Sodium Chloride 0.9% [Normal Saline] 1,000 ml Med 06/14/19 14:19 Active IV STAT cefTRIAXone [Rocephin in Dextrose,Iso-Osm 1 GM/50 ML] 1 Med 06/15/19 15:00 Ordered gm Premix Bag 1 bag IV Q24H Blood Culture x2 Reflex Set [OM.PC] Stat Oth 06/14/19 14:19 Ordered Resuscitation Status Routine Resus Stat 06/14/19 16:32 Ordered Medication Orders Acetaminophen (Tylenol) 650 mg PO Q4H PRN PRN Reason: Pain (Mild 1-3)/fever Heparin Sodium (Porcine) (Heparin Sodium) 5,000 units SUBCUT Q8H KHUSHBU Sodium Chloride (Normal Saline) 1,000 mls @ 125 mls/hr IV STAT ONE Stop: 06/14/19 22:18 Last Admin: 06/14/19 15:27 Dose: 125 mls/hr Ceftriaxone Sodium/Dextrose 1 (gm/ Premix) 50 mls @ 100 mls/hr IV Q24H KHUSHBU Ondansetron HCl (Zofran) 4 mg IVPUSH Q4H PRN PRN Reason: Nausea Vancomycin HCl (Pharmacy To Dose - Vancomycin) 1 dose .XX ASDIRECTED [facility] Assessment/Plan Comment:: This 79 year old female admitted with cellulitis to abdominal fold, AMS and UTI 1. Cellulitis: - Add Vancomycin. - BC pending - Tylenol for pain PO or Rectal - Monitor labwork in am 2. AMS: - Likely secondary to acute illness, monitor 3. Dehydration: - Gentle IVF overnight monitor volume status closely. 4. UTI: - Unable to assess for symptoms - Continue Rocephin for now, UC pending. 5. Hypothyroidism: - Check T4 - Increase Levothyroxine to 150 mcg daily - Recommended recheck in 6 weeks. 6. HTN/HLD: - Stable - COntinue Metoprolol VTE prophylaxis: Heparin Code Status: Full code, per daughter Disposition: Will make inpatient due to cellulitis, will likely need greater than 2 midnights care.
[2019-06-14] MEDS ORDERED: Acetaminophen 650 MG Supp RECTAL PRN (16:48)
[2019-06-14] MEDS ORDERED: Sodium Chloride 0.9% 1,000 ML IV SCH (17:00)
[2019-06-14] MEDS: Heparin Sodium 5,000 Units/ML Vial SUBCUT SCH (17:46)
[2019-06-14] MEDS: Metoprolol Tartrate 50 MG Tab PO SCH (20:46)
[2019-06-15] MEDS: Heparin Sodium 5,000 Units/ML Vial SUBCUT SCH ×3 (00:14→16:28)
[2019-06-15] MEDS: Sodium Chloride 0.9% 1,000 ML IV SCH (01:30)
[2019-06-15 06:28] LABS: CARBON DIOXIDE,CO2 26.4 mmol/L (21.0-32.0); POTASSIUM,K 3.8 mmol/L (3.5-5.1)
[2019-06-15] MEDS: Levothyroxine 150 MCG Tab PO SCH (06:29)
--- NOTE | 2019-06-15 08:07 | PCM.PN ---
- General Info Date of Service: 06/15/19 Admission Dx/Problem (Free Text): Admission Diagnosis/Problem Admission Diagnosis/Problem Cellulitis Subjective Update: Much more alert today. She is talking and alert. Reports feeling well today. No complaints of pain. No chest pain or SOB. Waiting on her breakfast Functional Status: Reports: Pain Controlled, Tolerating Diet. Denies: Ambulating - Review of Systems General: Reports: No Symptoms. Denies: Weakness, Fatigue, Malaise Pulmonary: Reports: No Symptoms. Denies: Shortness of Breath Cardiovascular: Reports: No Symptoms. Denies: Chest Pain Gastrointestinal: Reports: No Symptoms. Denies: Abdominal Pain, Nausea, Vomiting Musculoskeletal: Reports: No Symptoms Skin: Reports: No Symptoms Neurological: Reports: No Symptoms Psychiatric: Reports: No Symptoms - Patient Data Vitals - Most Recent: Last Vital Signs Temp 98.3 F 06/15/19 04:00 Pulse 80 06/15/19 04:00 Resp 17 06/15/19 04:00 BP 134/60 06/15/19 04:00 Pulse Ox 94 L 06/15/19 04:00 Weight - Most Recent: 74.5 kg I&O - Last 24 Hours: Intake & Output 06/14/19 06/15/19 06/15/19 22:59 06:59 14:59 Intake Total 742 Output Total 350 Balance 392 Lab Results Last 24 Hours: Laboratory Results - last 24 hr 06/14/19 06/14/19 06/14/19 Range/Units 15:09 15:09 15:09 WBC 15.54 H (4.0-11.0) K/uL RBC 4.38 (4.30-5.90) M/uL Hgb 13.4 (12.0-16.0) g/dL Hct 41.1 (36.0-46.0) % MCV 93.8 (80.0-98.0) fL MCH 30.6 (27.0-32.0) pg MCHC 32.6 (31.0-37.0) g/dL RDW Std Deviation 54.5 (28.0-62.0) fl RDW Coeff of Cristiane 16 H (11.0-15.0) % Plt Count 178 (150-400) K/uL MPV 10.30 (7.40-12.00) fL Neut % (Auto) 68.4 (48.0-80.0) % Lymph % (Auto) 27.2 (16.0-40.0) % Pershing % (Auto) 4.0 (0.0-15.0) % Eos % (Auto) 0.2 (0.0-7.0) % Baso % (Auto) 0.2 (0.0-1.5) % Neut # (Auto) 10.6 H (1.4-5.7) K/uL Lymph # (Auto) 4.2 H (0.6-2.4) K/uL Pershing # (Auto) 0.6 (0.0-0.8) K/uL Eos # (Auto) 0.0 (0.0-0.7) K/uL Baso # (Auto) 0.0 (0.0-0.1) K/uL Nucleated RBC % 0.0 /100WBC Nucleated RBCs # 0 K/uL Lactate 2.0 (0.20-2.00) mmol/L Sodium 136 (136-145) mmol/L Potassium 4.5 (3.5-5.1) mmol/L Chloride 102 (98-107) mmol/L Carbon Dioxide 22.7 (21.0-32.0) mmol/L BUN 26 H (7.0-18.0) mg/dL Creatinine 1.7 H (0.6-1.0) mg/dL Est Cr Clr Drug Dosing 19.91 mL/min Estimated GFR (MDRD) 29.1 ml/min Glucose 149 H (74-106) mg/dL Calcium 10.2 H (8.5-10.1) mg/dL Magnesium (1.8-2.4) mg/dL Total Bilirubin 0.8 (0.2-1.0) mg/dL AST 67 H (15-37) IU/L ALT 20 (14-63) IU/L Alkaline Phosphatase 268 H (46-116) U/L Troponin I < 0.050 (0.000-0.056) ng/mL Total Protein 9.0 H (6.4-8.2) g/dL Albumin 3.2 L (3.4-5.0) g/dL Globulin 5.8 H (2.6-4.0) g/dL Albumin/Globulin Ratio 0.6 L (0.9-1.6) Free T4 (0.76-1.46) ng/dL Free T3 (2.18-3.98) pg/mL TSH 3rd Generation 20.47 H (0.36-3.74) uIU/mL Urine Color Urine Appearance Urine pH (5.0-8.0) Ur Specific Reading (1.001-1.035) Urine Protein (NEGATIVE) mg/dL Urine Glucose (UA) (NEGATIVE) mg/dL Urine Ketones (NEGATIVE) mg/dL Urine Occult Blood (NEGATIVE) Urine Nitrite (NEGATIVE) Urine Bilirubin (NEGATIVE) Urine Urobilinogen (<2.0) EU/dL Ur Leukocyte Esterase (NEGATIVE) Urine RBC (0-2/HPF) Urine WBC (0-5/HPF) Ur Epithelial Cells (NONE-FEW) Urine Bacteria (NEGATIVE) 06/14/19 06/14/19 06/14/19 Range/Units 15:09 15:09 15:14 WBC (4.0-11.0) K/uL RBC (4.30-5.90) M/uL Hgb (12.0-16.0) g/dL Hct (36.0-46.0) % MCV (80.0-98.0) fL MCH (27.0-32.0) pg MCHC (31.0-37.0) g/dL RDW Std Deviation (28.0-62.0) fl RDW Coeff of Cristiane (11.0-15.0) % Plt Count (150-400) K/uL MPV (7.40-12.00) fL Neut % (Auto) (48.0-80.0) % Lymph % (Auto) (16.0-40.0) % Pershing % (Auto) (0.0-15.0) % Eos % (Auto) (0.0-7.0) % Baso % (Auto) (0.0-1.5) % Neut # (Auto) (1.4-5.7) K/uL Lymph # (Auto) (0.6-2.4) K/uL Pershing # (Auto) (0.0-0.8) K/uL Eos # (Auto) (0.0-0.7) K/uL Baso # (Auto) (0.0-0.1) K/uL Nucleated RBC % /100WBC Nucleated RBCs # K/uL Lactate (0.20-2.00) mmol/L Sodium (136-145) mmol/L Potassium (3.5-5.1) mmol/L Chloride (98-107) mmol/L Carbon Dioxide (21.0-32.0) mmol/L BUN (7.0-18.0) mg/dL Creatinine (0.6-1.0) mg/dL Est Cr Clr Drug Dosing mL/min Estimated GFR (MDRD) ml/min Glucose (74-106) mg/dL Calcium (8.5-10.1) mg/dL Magnesium (1.8-2.4) mg/dL Total Bilirubin (0.2-1.0) mg/dL AST (15-37) IU/L ALT (14-63) IU/L Alkaline Phosphatase (46-116) U/L Troponin I (0.000-0.056) ng/mL Total Protein (6.4-8.2) g/dL Albumin (3.4-5.0) g/dL Globulin (2.6-4.0) g/dL Albumin/Globulin Ratio (0.9-1.6) Free T4 1.40 (0.76-1.46) ng/dL Free T3 1.96 L (2.18-3.98) pg/mL TSH 3rd Generation (0.36-3.74) uIU/mL Urine Color YELLOW Urine Appearance CLEAR Urine pH 7.0 (5.0-8.0) Ur Specific Reading 1.020 (1.001-1.035) Urine Protein NEGATIVE (NEGATIVE) mg/dL Urine Glucose (UA) NEGATIVE (NEGATIVE) mg/dL Urine Ketones NEGATIVE (NEGATIVE) mg/dL Urine Occult Blood SMALL H (NEGATIVE) Urine Nitrite NEGATIVE (NEGATIVE) Urine Bilirubin NEGATIVE (NEGATIVE) Urine Urobilinogen 0.2 (<2.0) EU/dL Ur Leukocyte Esterase TRACE H (NEGATIVE) Urine RBC 1-5 (0-2/HPF) Urine WBC 0-4 (0-5/HPF) Ur Epithelial Cells FEW (NONE-FEW) Urine Bacteria 1+ H (NEGATIVE) 06/15/19 06/15/19 Range/Units 05:49 05:49 WBC 15.29 H (4.0-11.0) K/uL RBC 3.73 L (4.30-5.90) M/uL Hgb 11.2 L (12.0-16.0) g/dL Hct 35.4 L (36.0-46.0) % MCV 94.9 (80.0-98.0) fL MCH 30.0 (27.0-32.0) pg MCHC 31.6 (31.0-37.0) g/dL RDW Std Deviation 55.7 (28.0-62.0) fl RDW Coeff of Cristiane 16 H (11.0-15.0) % Plt Count 132 L (150-400) K/uL MPV 10.40 (7.40-12.00) fL Neut % (Auto) 62.0 (48.0-80.0) % Lymph % (Auto) 30.7 (16.0-40.0) % Pershing % (Auto) 7.1 (0.0-15.0) % Eos % (Auto) 0.0 (0.0-7.0) % Baso % (Auto) 0.2 (0.0-1.5) % Neut # (Auto) 9.5 H (1.4-5.7) K/uL Lymph # (Auto) 4.7 H (0.6-2.4) K/uL Pershing # (Auto) 1.1 H (0.0-0.8) K/uL Eos # (Auto) 0.0 (0.0-0.7) K/uL Baso # (Auto) 0.0 (0.0-0.1) K/uL Nucleated RBC % 0.0 /100WBC Nucleated RBCs # 0 K/uL Lactate (0.20-2.00) mmol/L Sodium 141 (136-145) mmol/L Potassium 3.8 (3.5-5.1) mmol/L Chloride 105 (98-107) mmol/L Carbon Dioxide 26.4 (21.0-32.0) mmol/L BUN 29 H (7.0-18.0) mg/dL Creatinine 2.0 H (0.6-1.0) mg/dL Est Cr Clr Drug Dosing 16.92 mL/min Estimated GFR (MDRD) 24.2 ml/min Glucose 107 H (74-106) mg/dL Calcium 9.2 (8.5-10.1) mg/dL Magnesium 1.9 (1.8-2.4) mg/dL Total Bilirubin 0.6 (0.2-1.0) mg/dL AST 43 H (15-37) IU/L ALT 17 (14-63) IU/L Alkaline Phosphatase 194 H (46-116) U/L Troponin I (0.000-0.056) ng/mL Total Protein 7.2 (6.4-8.2) g/dL Albumin 2.5 L (3.4-5.0) g/dL Globulin 4.7 H (2.6-4.0) g/dL Albumin/Globulin Ratio 0.5 L (0.9-1.6) Free T4 (0.76-1.46) ng/dL Free T3 (2.18-3.98) pg/mL TSH 3rd Generation (0.36-3.74) uIU/mL Urine Color Urine Appearance Urine pH (5.0-8.0) Ur Specific Reading (1.001-1.035) Urine Protein (NEGATIVE) mg/dL Urine Glucose (UA) (NEGATIVE) mg/dL Urine Ketones (NEGATIVE) mg/dL Urine Occult Blood (NEGATIVE) Urine Nitrite (NEGATIVE) Urine Bilirubin (NEGATIVE) Urine Urobilinogen (<2.0) EU/dL Ur Leukocyte Esterase (NEGATIVE) Urine RBC (0-2/HPF) Urine WBC (0-5/HPF) Ur Epithelial Cells (NONE-FEW) Urine Bacteria (NEGATIVE) Sherwin Results Last 24 Hours: Microbiology 06/14/19 17:55 Influenza Type A Antigen Screen - Final Nasopharyngeal Swab NEGATIVE INFLUENZA A VIRUS AG REFERENCE RANGE: NEGATIVE Influenza Type B Antigen Screen - Final NEGATIVE INFLUENZA B VIRUS AG REFERENCE RANGE: NEGATIVE 06/14/19 15:32 Anaerobic Blood Culture - Final Blood - Venous - Lab Draw 06/14/19 15:09 Anaerobic Blood Culture - Final Blood - Venous Med Orders - Current: Current Medications Acetaminophen (Tylenol) 650 mg PO Q4H PRN PRN Reason: Pain (Mild 1-3)/fever Acetaminophen (Tylenol) 650 mg RECTAL Q4H PRN PRN Reason: Pain/Fever Last Admin: 06/14/19 19:55 Dose: 650 mg Heparin Sodium (Porcine) (Heparin Sodium) 5,000 units SUBCUT Q8H [facility] Last Admin: 06/15/19 00:14 Dose: 5,000 units Ceftriaxone Sodium/Dextrose 1 (gm/ Premix) 50 mls @ 100 mls/hr IV Q24H [facility] Vancomycin HCl 1.25 gm/ Sodium (Chloride) 250 mls @ 166.667 mls/hr IV Q24H [facility] Last Admin: 06/14/19 17:46 Dose: 166.667 mls/hr Sodium Chloride (Normal Saline) 1,000 mls @ 50 mls/hr IV ASDIRECTED [facility] Last Admin: 06/15/19 01:30 Dose: 50 mls/hr Levothyroxine Sodium (Levothyroxine) 150 mcg PO ACBREAKFAST [facility] Last Admin: 06/15/19 06:29 Dose: 150 mcg Metoprolol Tartrate (Lopressor) 50 mg PO BID [facility] Last Admin: 06/14/19 20:46 Dose: 50 mg Ondansetron HCl (Zofran) 4 mg IVPUSH Q4H PRN PRN Reason: Nausea Discontinued Medications Sodium Chloride (Normal Saline) 1,000 mls @ 125 mls/hr IV STAT ONE Stop: 06/14/19 22:18 Last Infusion: 06/14/19 17:13 Dose: 50 mls/hr Ceftriaxone Sodium/Dextrose 1 (gm/ Premix) 50 mls @ 100 mls/hr IV ONETIME ONE Stop: 06/14/19 16:09 Last Admin: 06/14/19 16:05 Dose: 100 mls/hr Sodium Chloride (Normal Saline) 1,000 mls @ 50 mls/hr IV Q20H [facility] Stop: 06/15/19 01:22 Last Admin: 06/14/19 17:29 Dose: Not Given Vancomycin HCl (Pharmacy To Dose - Vancomycin) 1 dose .XX ASDIRECTED [facility] Stop: 06/14/19 16:44 Last Admin: 06/14/19 18:58 Dose: Not Given - Exam General: Alert, Cooperative, No Acute Distress. No: Oriented (baseline) Lungs: Clear to Auscultation, Normal Respiratory Effort Cardiovascular: Regular Rate, Regular Rhythm, No Murmurs GI/Abdominal Exam: Normal Bowel Sounds, Soft, Non-Tender Extremities: Normal Inspection, Normal Range of Motion, Non-Tender Skin: Ecchymosis (bruising to arms and legs. ) Wound/Incisions: Erythema Improving (to abdominal fold and R flank much improved. Less erythematous. denies pain) Neurological: No New Focal Deficit Psy/Mental Status: Alert, Normal Affect, Normal Mood Sepsis Event Note - Evaluation Sepsis Screening Result: Severe Sepsis Risk - Focused Exam Vital Signs: Vital Signs Temp Temp Pulse Pulse Resp BP BP 06/15/19 04:00 98.3 F 80 17 134/60 06/15/19 00:00 98.9 F 83 16 115/56 L 06/14/19 20:46 97 97 127/69 127/69 06/14/19 20:25 214.0 F H Pulse Ox 06/15/19 04:00 94 L 06/15/19 00:00 94 L 06/14/19 20:46 06/14/19 20:25 Date Exam was Performed: 06/15/19 Time Exam was Performed: 10:03 - Problem List & Annotations (1) Altered mental state SNOMED Code(s): 133169104 Code(s): R41.82 - ALTERED MENTAL STATUS, UNSPECIFIED Status: Acute Current Visit: Yes Qualifiers: Altered mental status type: unspecified Qualified Code(s): R41.82 - Altered mental status, unspecified (2) Cellulitis SNOMED Code(s): 978632267 Code(s): L03.90 - CELLULITIS, UNSPECIFIED Status: Acute Current Visit: Yes Qualifiers: Site of cellulitis: trunk Site of cellulitis of trunk: abdominal wall Qualified Code(s): L03.311 - Cellulitis of abdominal wall (3) Dehydration SNOMED Code(s): 31521637 Code(s): E86.0 - DEHYDRATION Status: Acute Current Visit: Yes (4) Hypothyroidism SNOMED Code(s): 89820840 Code(s): E03.9 - HYPOTHYROIDISM, UNSPECIFIED Status: Acute Current Visit : Yes Qualifiers: Hypothyroidism type: unspecified Qualified Code(s): E03.9 - Hypothyroidism , unspecified (5) UTI, Urinary tract infectious disease SNOMED Code(s): 30217713 Code(s): N39.0 - URINARY TRACT INFECTION, SITE NOT SPECIFIED Status: Acute Current Visit: Yes (6) Bedridden SNOMED Code(s): 640238373 Code(s): Z74.01 - BED CONFINEMENT STATUS Status: Acute Current Visit: No (7) COPD (chronic obstructive pulmonary disease) SNOMED Code(s): 86038565 Code(s): J44.9 - CHRONIC OBSTRUCTIVE PULMONARY DISEASE, UNSPECIFIED Status : Acute Current Visit: No (8) Dementia SNOMED Code(s): 49558253 Code(s): F03.90 - UNSPECIFIED DEMENTIA WITHOUT BEHAVIORAL DISTURBANCE Status: Chronic Current Visit: No (9) HTN (hypertension) SNOMED Code(s): 53754035 Code(s): I10 - ESSENTIAL (PRIMARY) HYPERTENSION Status: Chronic Current Visit: No Qualifiers: Hypertension type: essential hypertension Qualified Code(s): I10 - Essential (primary) hypertension - Problem List Review Problem List Initiated/Reviewed/Updated: Yes - My Orders Last 24 Hours: My Active Orders 06/14/19 16:31 Patient Status [ADT] Stat 06/14/19 16:32 Height and Weight [RC] DAILY Oxygen Therapy [RC] PRN VTE/DVT Education [RC] PER UNIT ROUTINE Vital Signs [RC] Q4H Acetaminophen [Tylenol] 650 mg PO Q4H PRN Ondansetron [Zofran] 4 mg IVPUSH Q4H PRN Resuscitation Status Routine 06/14/19 16:36 Intake and Output [RC] QSHIFT 06/14/19 16:45 Heparin Sodium 5,000 units SUBCUT Q8H 06/14/19 16:48 Acetaminophen [Tylenol] 650 mg RECTAL Q4H PRN 06/14/19 17:00 Vancomycin 1.25 gm Sodium Chloride 0.9% [Normal Saline (AdvBag)] 250 ml IV Q24H 06/14/19 21:00 Metoprolol Tartrate [Lopressor] 50 mg PO BID 06/14/19 Dinner Pureed Diet [DIET] 06/15/19 07:30 Levothyroxine 150 mcg PO ACBREAKFAST 06/15/19 15:00 cefTRIAXone [Rocephin in Dextrose,Iso-Osm 1 GM/50 ML] 1 gm Premix Bag 1 bag IV Q24H - Plan Plan:: This 79 year old female admitted with cellulitis to abdominal fold, AMS and UTI 1. Cellulitis: - Continue Vancomycin and Rocephin - BC pending - Tylenol for pain PO or Rectal - Leukocytosis stable, continue to monitor in am. 2. AMS: - Resolved. Likely secondary to acute illness 3. Dehydration: - Give 500 ml bolus this morning, continue IVF. - Hold Lasix 4. UTI: - Continue Rocephin for now, UC pending. - Remove gramajo 5. Hypothyroidism: - T4 1.40 and T3 1.96 - Increased Levothyroxine to 150 mcg daily - Recommended recheck in 6 weeks. 6. HTN/HLD: - Stable - Continue Metoprolol 7. Dementia: - Continue home medications VTE prophylaxis: Heparin Code Status: Full code, per daughter Disposition: 2-3 days pending improvement.
[2019-06-15] MEDS: Metoprolol Tartrate 50 MG Tab PO SCH ×3 (08:15→22:26)
[2019-06-15] MEDS ORDERED: Bisacodyl 10 MG Supp RECTAL PRN (09:00)
[2019-06-15] MEDS ORDERED: traMADol 50 MG Tab PO PRN (09:00)
[2019-06-15] MEDS: Memantine 10 MG Tab PO SCH ×3 (09:45→22:27)
[2019-06-15] MEDS: Multivitamin Tab PO SCH (09:45)
[2019-06-15] MEDS: buPROPion 150 MG Tab.ER PO SCH (09:45)
[2019-06-15] MEDS: Calcium Carbonate/Vitamin D3 1500 MG-400 Units Tab PO SCH (09:46)
[2019-06-15] MEDS ORDERED: Sodium Chloride 0.9% 500 ML IV SCH (10:00)
[2019-06-15] MEDS: cefTRIAXone 1 GM in Premix Bag 1 BAG IV SCH (14:27)
[2019-06-15] MEDS: Simvastatin 20 MG Tab PO SCH ×2 (22:00→22:28)
[2019-06-15] MEDS: traZODone 50 MG Tab PO SCH ×2 (22:00→22:26)
[2019-06-16] MEDS: Heparin Sodium 5,000 Units/ML Vial SUBCUT SCH ×3 (01:01→16:29)
[2019-06-16] MEDS: Sodium Chloride 0.9% 1,000 ML IV SCH ×2 (01:14→23:51)
[2019-06-16] MEDS: Levothyroxine 150 MCG Tab PO SCH (06:45)
--- NOTE | 2019-06-16 08:04 | PCM.PN ---
- General Info Date of Service: 06/16/19 Subjective Update: patient declined labs overnight. Feeling better this morning. - Patient Data Vitals - Most Recent: Last Vital Signs Temp 37.1 C 06/16/19 07:21 Pulse 81 06/16/19 07:21 Resp 20 06/16/19 07:21 BP 139/67 06/16/19 07:21 Pulse Ox 93 L 06/16/19 07:21 Weight - Most Recent: 77 kg I&O - Last 24 Hours: Intake & Output 06/15/19 06/16/19 06/16/19 22:59 06:59 14:59 Intake Total 1500 711 Output Total 360 0 Balance 1140 711 Sherwin Results Last 24 Hours: Microbiology 06/14/19 15:14 Urine Culture - Final Urine, Clean Catch Positive For Group B Strep Normal Urogenital Rosalba 06/14/19 15:32 Aerobic Blood Culture - Preliminary Blood - Venous - Lab Draw NO GROWTH AFTER 1 DAY Anaerobic Blood Culture - Final 06/14/19 15:09 Aerobic Blood Culture - Preliminary Blood - Venous NO GROWTH AFTER 1 DAY Anaerobic Blood Culture - Final Med Orders - Current: Current Medications Acetaminophen (Tylenol) 650 mg PO Q4H PRN PRN Reason: Pain (Mild 1-3)/fever Acetaminophen (Tylenol) 650 mg RECTAL Q4H PRN PRN Reason: Pain/Fever Last Admin: 06/14/19 19:55 Dose: 650 mg Bisacodyl (Dulcolax) 10 mg RECTAL Q24H PRN PRN Reason: Constipation Bupropion HCl (Wellbutrin Xl) 150 mg PO DAILY [facility] Last Admin: 06/15/19 09:45 Dose: 150 mg Calcium Carbonate (Caltrate 600+D 1500 Mg-400 Units) 2 tab PO DAILY [facility] Last Admin: 06/15/19 09:46 Dose: 2 tab Heparin Sodium (Porcine) (Heparin Sodium) 5,000 units SUBCUT Q8H [facility] Last Admin: 06/16/19 01:01 Dose: 5,000 units Ceftriaxone Sodium/Dextrose 1 (gm/ Premix) 50 mls @ 100 mls/hr IV Q24H [facility] Last Admin: 06/15/19 14:27 Dose: 100 mls/hr Vancomycin HCl 1.25 gm/ Sodium (Chloride) 250 mls @ 166.667 mls/hr IV Q24H [facility] Last Admin: 06/15/19 16:39 Dose: 166.667 mls/hr Sodium Chloride (Normal Saline) 1,000 mls @ 50 mls/hr IV ASDIRECTED [facility] Last Admin: 06/16/19 01:14 Dose: 50 mls/hr Levothyroxine Sodium (Levothyroxine) 150 mcg PO ACBREAKFAST [facility] Last Admin: 06/16/19 06:45 Dose: 150 mcg Memantine (Namenda) 10 mg PO BID [facility] Last Admin: 06/15/19 22:27 Dose: Not Given Metoprolol Tartrate (Lopressor) 50 mg PO BID [facility] Last Admin: 06/15/19 22:26 Dose: Not Given Multivitamins/Minerals/Vitamin C (Tab-A-Marcelino) 1 tab PO DAILY [facility] Last Admin: 06/15/19 09:45 Dose: 1 tab Ondansetron HCl (Zofran) 4 mg IVPUSH Q4H PRN PRN Reason: Nausea Simvastatin (Zocor) 20 mg PO BEDTIME [facility] Last Admin: 06/15/19 22:28 Dose: Not Given Tramadol HCl (Ultram) 50 mg PO Q4H PRN PRN Reason: Pain Trazodone HCl (Trazodone) 25 mg PO BEDTIME [facility] Last Admin: 06/15/19 22:26 Dose: Not Given Discontinued Medications Sodium Chloride (Normal Saline) 1,000 mls @ 125 mls/hr IV STAT ONE Stop: 06/14/19 22:18 Last Infusion: 06/14/19 17:13 Dose: 50 mls/hr Ceftriaxone Sodium/Dextrose 1 (gm/ Premix) 50 mls @ 100 mls/hr IV ONETIME ONE Stop: 06/14/19 16:09 Last Admin: 06/14/19 16:05 Dose: 100 mls/hr Sodium Chloride (Normal Saline) 1,000 mls @ 50 mls/hr IV Q20H [facility] Stop: 06/15/19 01:22 Last Admin: 06/14/19 17:29 Dose: Not Given Sodium Chloride (Normal Saline) 500 mls @ 250 mls/hr IV .BOLUS [facility] Last Admin: 06/15/19 10:11 Dose: 250 mls/hr Vancomycin HCl (Pharmacy To Dose - Vancomycin) 1 dose .XX ASDIRECTED [facility] Stop: 03/03/20 16:44 Last Admin: 06/14/19 18:58 Dose: Not Given - Exam General: Alert, Oriented, Cooperative, No Acute Distress Cardiovascular: Regular Rate, Regular Rhythm GI/Abdominal Exam: Normal Bowel Sounds, Soft, Non-Tender, Other (erythema on her pannus is much better. non tender.) Extremities: Normal Inspection, No Pedal Edema Skin: Warm, Dry Sepsis Event Note - Evaluation Sepsis Screening Result: No Definite Risk - Focused Exam Vital Signs: Vital Signs Temp Temp Pulse Resp BP Pulse Ox 06/16/19 07:21 37.1 C 81 20 139/67 93 L 06/16/19 04:08 36.2 C 79 20 115/55 L 95 06/15/19 23:15 73 18 94 L 06/15/19 23:04 36.6 C 81 20 114/56 L 90 L Date Exam was Performed: 06/16/19 Time Exam was Performed: 08:40 - Problem List Review Problem List Initiated/Reviewed/Updated: Yes - Plan Plan:: A: 1. Cellulitis 2. UTI 3. Acute on chronic kidney disease 4. Hypothyroidism P: Improving. Will continue vancomycin and ceftriaxone for cellulitis and UTI. Continue with fluids at 50 ml/hr NS. Monitor renal function. dispo; likely dc tomorrow
[2019-06-16 08:26] LABS: CARBON DIOXIDE,CO2 23.5 mmol/L (21.0-32.0); POTASSIUM,K 3.7 mmol/L (3.5-5.1)
[2019-06-16] MEDS: Memantine 10 MG Tab PO SCH ×2 (08:40→20:24)
[2019-06-16] MEDS: buPROPion 150 MG Tab.ER PO SCH (08:48)
[2019-06-16] MEDS: Metoprolol Tartrate 50 MG Tab PO SCH ×2 (08:50→20:23)
[2019-06-16] MEDS: Calcium Carbonate/Vitamin D3 1500 MG-400 Units Tab PO SCH (08:54)
[2019-06-16] MEDS: Multivitamin Tab PO SCH (08:57)
[2019-06-16] MEDS: cefTRIAXone 1 GM in Premix Bag 1 BAG IV SCH (15:20)
[2019-06-16] MEDS: Simvastatin 20 MG Tab PO SCH (20:23)
[2019-06-16] MEDS: traZODone 50 MG Tab PO SCH (20:25)
[2019-06-17] MEDS: Heparin Sodium 5,000 Units/ML Vial SUBCUT SCH ×2 (00:29→09:04)
[2019-06-17] MEDS: Levothyroxine 150 MCG Tab PO SCH (06:32)
[2019-06-17 06:42] LABS: CARBON DIOXIDE,CO2 23.5 mmol/L (21.0-32.0)
[2019-06-17] MEDS: Calcium Carbonate/Vitamin D3 1500 MG-400 Units Tab PO SCH (08:48)
[2019-06-17] MEDS: buPROPion 150 MG Tab.ER PO SCH (08:49)
[2019-06-17] MEDS: Metoprolol Tartrate 50 MG Tab PO SCH (08:49)
[2019-06-17] MEDS: Multivitamin Tab PO SCH (08:52)
[2019-06-17] MEDS: Memantine 10 MG Tab PO SCH (08:52)
--- NOTE | 2019-06-17 08:57 | PCM.DCSUM1 ---
Discharge Summary - Hospital Course Free Text/Narrative:: 79 y/o female who is wheelchair bound presented to the ER with altered mental status from [facility]. Admitted for abdominal cellulitis and UTI. Started on ceftriaxone and vancomycin. In addition, hydrated with normal saline. She did fairly well during her hospitalization. Cellulitis had resolved and she was back to baseline. At time of discharge, she was prescribed Bactrim DS BID for 5 days. - Discharge Data Discharge Date: 06/17/19 Discharge Disposition: DC/Tfer to SNF 03 Condition: Fair - Referral to Home Health Primary Care Physician: Emir Muir MD - Patient Instructions Diet: Mechanical Soft Activity: As Tolerated Notify Provider of: Fever, Increased Pain, Swelling and Redness, Drainage, Nausea and/or Vomiting - Discharge Plan Prescriptions/Med Rec: Sulfamethoxazole/Trimethoprim [Bactrim Ds Tablet] 1 each PO BID 5 Days #10 tablet Home Medications: Home Meds Acetaminophen [Tylenol] 650 mg PO Q4H PRN #7 tablet 03/07/16 [Rx] Multivitamin [Multi-Vitamin Daily] 1 tab PO DAILY 07/04/16 [History] Metoprolol Tartrate 50 mg PO BID 07/09/16 [History] Simvastatin [Zocor] 20 mg PO BEDTIME 07/09/16 [History] buPROPion HCl [Wellbutrin Xl] 150 mg PO DAILY 07/09/16 [History] traZODone 25 mg PO BEDTIME 07/09/16 [History] traMADol [Ultram] 50 mg PO Q4H PRN #15 tablet 07/10/16 [Rx] Bisacodyl 10 mg RC Q24H PRN 09/27/17 [History] Calcium Citrate/Vitamin D3 [Calcium Citrate - Vit D Caplet] 2 each PO DAILY [History] Levothyroxine 125 mcg PO ACBREAKFAST 09/27/17 [History] Magnesium Hydroxide [Milk of Magnesia] 30 ml PO DAILY PRN 09/27/17 [History] Memantine HCl 10 mg PO BID 09/27/17 [History] Furosemide [Lasix] 40 mg PO DAILY 06/14/19 [History] Methyl Salicylate/Menthol [Icy Hot] ml TOP ASDIRECTED PRN 06/14/19 [History] guaiFENesin/Dextromethorphan [Tussin Dm Liquid] 5 ml PO ASDIRECTED PRN 06/14/19 [History] polyethylene glycoL 3350 [MiraLAX] 17 gm PO BID 06/14/19 [History] Sulfamethoxazole/Trimethoprim [Bactrim Ds Tablet] 1 each PO BID 5 Days #10 tablet 06/17/19 [Rx] Patient Handouts: Sulfamethoxazole; Trimethoprim, SMX-[id number] tablets Referrals: Emir Muir MD [Primary Care Provider] - 06/30/19 (Will be seen on [place] rounds ) - Discharge Summary/Plan Comment DC Time >30 min.: No - Patient Data Vitals - Most Recent: Last Vital Signs Temp 36.7 C 06/17/19 07:30 Pulse 72 06/17/19 07:30 Resp 16 06/17/19 07:30 BP 176/76 H 06/17/19 07:30 Pulse Ox 98 06/17/19 07:30 Weight - Most Recent: 81.4 kg I&O - Last 24 hours: Intake & Output 06/16/19 06/17/19 06/17/19 22:59 06:59 14:59 Intake Total 1051 400 120 Output Total 680 469 Balance 371 -69 120 Lab Results - Last 24 hrs: Laboratory Results - last 24 hr 06/17/19 06/17/19 Range/Units 06:14 06:14 WBC 4.89 (4.0-11.0) K/uL RBC 3.28 L (4.30-5.90) M/uL Hgb 10.0 L (12.0-16.0) g/dL Hct 31.5 L (36.0-46.0) % MCV 96.0 (80.0-98.0) fL MCH 30.5 (27.0-32.0) pg MCHC 31.7 (31.0-37.0) g/dL RDW Std Deviation 52.2 (28.0-62.0) fl RDW Coeff of Cristiane 16 H (11.0-15.0) % Plt Count 118 L (150-400) K/uL MPV 10.10 (7.40-12.00) fL Neut % (Auto) 26.8 L (48.0-80.0) % Lymph % (Auto) 56.4 H (16.0-40.0) % [place] % (Auto) 8.8 (0.0-15.0) % Eos % (Auto) 7.4 H (0.0-7.0) % Baso % (Auto) 0.6 (0.0-1.5) % Neut # (Auto) 1.3 L (1.4-5.7) K/uL Lymph # (Auto) 2.8 H (0.6-2.4) K/uL [place] # (Auto) 0.4 (0.0-0.8) K/uL Eos # (Auto) 0.4 (0.0-0.7) K/uL Baso # (Auto) 0.0 (0.0-0.1) K/uL Sodium 144 (136-145) mmol/L Potassium 4.0 (3.5-5.1) mmol/L Chloride 110 H (98-107) mmol/L Carbon Dioxide 23.5 (21.0-32.0) mmol/L BUN 29 H (7.0-18.0) mg/dL Creatinine 1.5 H (0.6-1.0) mg/dL Est Cr Clr Drug Dosing 22.56 mL/min Estimated GFR (MDRD) 33.7 ml/min Glucose 69 L (74-106) mg/dL Calcium 8.9 (8.5-10.1) mg/dL Total Bilirubin 0.3 (0.2-1.0) mg/dL AST 39 H (15-37) IU/L ALT 14 (14-63) IU/L Alkaline Phosphatase 183 H (46-116) U/L Total Protein 6.3 L (6.4-8.2) g/dL Albumin 2.1 L (3.4-5.0) g/dL Globulin 4.2 H (2.6-4.0) g/dL Albumin/Globulin Ratio 0.5 L (0.9-1.6) KATIE Results - Last 24 hrs: Microbiology 06/14/19 15:32 Aerobic Blood Culture - Preliminary Blood - Venous - Lab Draw NO GROWTH AFTER 2 DAYS Anaerobic Blood Culture - Final 06/14/19 15:09 Aerobic Blood Culture - Preliminary Blood - Venous NO GROWTH AFTER 2 DAYS Anaerobic Blood Culture - Final 06/14/19 15:14 Urine Culture - Final Urine, Clean Catch Positive For Group B Strep Normal Urogenital Rosalba Med Orders - Current: Current Medications Acetaminophen (Tylenol) 650 mg PO Q4H PRN PRN Reason: Pain (Mild 1-3)/fever Acetaminophen (Tylenol) 650 mg RECTAL Q4H PRN PRN Reason: Pain/Fever Last Admin: 06/14/19 19:55 Dose: 650 mg Bisacodyl (Dulcolax) 10 mg RECTAL Q24H PRN PRN Reason: Constipation Bupropion HCl (Wellbutrin Xl) 150 mg PO DAILY [facility] Last Admin: 06/16/19 08:48 Dose: 150 mg Calcium Carbonate (Caltrate 600+D 1500 Mg-400 Units) 2 tab PO DAILY [facility] Last Admin: 06/16/19 08:54 Dose: 2 tab Heparin Sodium (Porcine) (Heparin Sodium) 5,000 units SUBCUT Q8H [facility] Last Admin: 06/17/19 00:29 Dose: 5,000 units Ceftriaxone Sodium/Dextrose 1 (gm/ Premix) 50 mls @ 100 mls/hr IV Q24H [facility] Last Admin: 06/16/19 15:20 Dose: 100 mls/hr Vancomycin HCl 1.25 gm/ Sodium (Chloride) 250 mls @ 166.667 mls/hr IV Q24H [facility] Last Admin: 06/16/19 17:28 Dose: 166.667 mls/hr Levothyroxine Sodium (Levothyroxine) 150 mcg PO ACBREAKFAST [facility] Last Admin: 06/17/19 06:32 Dose: 150 mcg Memantine (Namenda) 10 mg PO BID [facility] Last Admin: 06/16/19 20:24 Dose: 10 mg Metoprolol Tartrate (Lopressor) 50 mg PO BID [facility] Last Admin: 06/16/19 20:23 Dose: 50 mg Multivitamins/Minerals/Vitamin C (Tab-A-Marcelino) 1 tab PO DAILY [facility] Last Admin: 06/16/19 08:57 Dose: 1 tab Ondansetron HCl (Zofran) 4 mg IVPUSH Q4H PRN PRN Reason: Nausea Simvastatin (Zocor) 20 mg PO BEDTIME [facility] Last Admin: 06/16/19 20:23 Dose: 20 mg Tramadol HCl (Ultram) 50 mg PO Q4H PRN PRN Reason: Pain Trazodone HCl (Trazodone) 25 mg PO BEDTIME [facility] Last Admin: 06/16/19 20:25 Dose: 25 mg Discontinued Medications Sodium Chloride (Normal Saline) 1,000 mls @ 125 mls/hr IV STAT ONE Stop: 06/14/19 22:18 Last Infusion: 06/14/19 17:13 Dose: 50 mls/hr Ceftriaxone Sodium/Dextrose 1 (gm/ Premix) 50 mls @ 100 mls/hr IV ONETIME ONE Stop: 06/14/19 16:09 Last Admin: 06/14/19 16:05 Dose: 100 mls/hr Sodium Chloride (Normal Saline) 1,000 mls @ 50 mls/hr IV Q20H KHUSHBU Stop: 06/15/19 01:22 Last Admin: 06/14/19 17:29 Dose: Not Given Sodium Chloride (Normal Saline) 1,000 mls @ 50 mls/hr IV ASDIRECTED KHUSHBU Last Admin: 06/16/19 23:51 Dose: 50 mls/hr Sodium Chloride (Normal Saline) 500 mls @ 250 mls/hr IV .BOLUS KHUSHBU Last Admin: 06/15/19 10:11 Dose: 250 mls/hr Vancomycin HCl (Pharmacy To Dose - Vancomycin) 1 dose .XX ASDIRECTED STA Stop: 06/14/19 16:44 Last Admin: 06/14/19 18:58 Dose: Not Given
[2019-06-17 11:53] VITALS: BP 157/68; PULSE 65
== END 2019-06-17 14:10 | DRG 603 ==
LOC: MW.ED 13:50 → MW.MS 15:41 → OBSVTOIN 16:31 → MW.MS 16:32
PROVIDERS: ADMIT Internal Medicine; ATTEND Internal Medicine
DX: L03.311 Cellulitis of abdominal wall (principal); E86.0 Dehydration; N17.9 Acute kidney failure, unspecified; E03.9 Hypothyroidism, unspecified; G89.29 Other chronic pain; N39.0 Urinary tract infection, site not specified; E78.00 Pure hypercholesterolemia, unspecified; Z74.01 Bed confinement status; J44.9 Chronic obstructive pulmonary disease, unspecified; F03.90 Unspecified dementia, unspecified severity, without behavioral disturbance, psychotic disturbance, mood disturbance, and anxiety; R41.82 Altered mental status, unspecified; E78.5 Hyperlipidemia, unspecified; I12.9 Hypertensive chronic kidney disease with stage 1 through stage 4 chronic kidney disease, or unspecified chronic kidney disease; N18.9 Chronic kidney disease, unspecified; M19.90 Unspecified osteoarthritis, unspecified site; M40.209 Unspecified kyphosis, site unspecified; F32.9 Major depressive disorder, single episode, unspecified; F41.9 Anxiety disorder, unspecified; E66.9 Obesity, unspecified; Z68.35 Body mass index [BMI] 35.0-35.9, adult; Z79.890 Hormone replacement therapy; Z79.899 Other long term (current) drug therapy
CPT/HCPCS: 36415; 51702; 71045; 80053; 81001; 83605; 84439; 84443; 84481; 84484; 85025; 87040 ×2; 87086; 93005; 96361; 96365; 99285; J0696; J7030; 83735; 87804; 99284; A9270-GY; J1644; J3370; J7040; J7050

== ENCOUNTER 2020-03-23 16:21 | Inpatient (IN) | payer MEDICARE, MEDICAID ==
[2020-03-23] MEDS ORDERED: Sodium Chloride 0.9% 2.5 ML Syringe FLUSH PRN (16:25)
[2020-03-23] MEDS ORDERED: Sodium Chloride 0.9% 1,000 ML IV ONE ×3 (16:25→19:50)
[2020-03-23] MEDS ORDERED: Sodium Chloride 0.9% 10 ML Syringe FLUSH PRN (16:25)
--- NOTE | 2020-03-23 16:58 | EDM.PDOC ---
<Jaun Garcia - Last Filed: 03/23/20 17:10> ED HPI GENERAL MEDICAL PROBLEM - General Chief Complaint: Respiratory Problem Stated Complaint: EMS ARRIVAL Time Seen by Provider: 03/23/20 16:25 Source of Information: Reports: Patient, EMS History Limitations: Reports: No Limitations - History of Present Illness INITIAL COMMENTS - FREE TEXT/NARRATIVE: 80-year-old female presents from care home for shortness of breath. Patient with past medical history of dementia (poor historian), hypothyroidism, depression, UTIs, COPD, hypertension, hyperlipidemia, mostly bedbound, COVID-19 infection in the past (resolved). Per EMS patient was noted to be more confused than baseline, oxygen level was checked by care home and noted to be in the 80s, supplemental oxygen was applied 5 L nasal cannula with improvement in oxygen saturations to high 90s. Patient denies any complaints. Daughter is now at bedside and additional history daughter states that her mother seemed "lethargic" a couple of days ago when she went to visit. She states that her mother actually seems much better now and is at mental baseline. - Related Data Allergies Allergy/AdvReac Type Severity Reaction Status Date / Time No Known Allergies Allergy Verified 03/23/20 16:31 Home Meds: Home Meds Acetaminophen [Tylenol] 650 mg PO Q4H PRN #7 tablet 03/07/16 [Rx] Multivitamin [Multi-Vitamin Daily] 1 tab PO DAILY 07/04/16 [History] Metoprolol Tartrate 50 mg PO BID 07/09/16 [History] Simvastatin [Zocor] 20 mg PO BEDTIME 07/09/16 [History] buPROPion HCL [Wellbutrin Xl] 150 mg PO DAILY 07/09/16 [History] traZODone 25 mg PO BEDTIME 07/09/16 [History] traMADol [Ultram] 50 mg PO Q4H PRN #15 tablet 07/10/16 [Rx] Bisacodyl 10 mg RC Q24H PRN 09/27/17 [History] Calcium Citrate/Vitamin D3 [Calcium Citrate - Vit D Caplet] 2 each PO DAILY 09/27/17 [History] Levothyroxine 125 mcg PO ACBREAKFAST 09/27/17 [History] Magnesium Hydroxide [Milk of Magnesia] 30 ml PO DAILY PRN 06/17/18 [History] Memantine HCl 10 mg PO BID 09/27/17 [History] Furosemide [Lasix] 40 mg PO DAILY 06/14/19 [History] Methyl Salicylate/Menthol [Icy Hot] ml TOP ASDIRECTED PRN 06/14/19 [History] guaiFENesin/Dextromethorphan [Tussin Dm Liquid] 5 ml PO ASDIRECTED PRN 06/14/19 [History] polyethylene glycoL 3350 [MiraLAX] 17 gm PO BID 06/14/19 [History] Sulfamethoxazole/Trimethoprim [Bactrim Ds Tablet] 1 each PO BID 5 Days #10 tablet 06/17/19 [Rx] Past Medical History HEENT History: Reports: None Cardiovascular History: Reports: High Cholesterol, Hypertension Other Cardiovascular History: takes calcium Respiratory History: Reports: Asthma, COPD, SOB Gastrointestinal History: Reports: None Other Gastrointestinal History: diarrhea Genitourinary History: Reports: Chronic Renal Insuffiency, UTI, 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[employer] DINING History: Reports: Musculoskeletal History: Reports: Arthritis, Other (See Below) Other Musculoskeletal History: generalized weakness, non ambulatory Neurological History: Reports: Other (See Below) Other Neuro History: dementia Psychiatric History: Reports: Anxiety, Dementia, Depression Endocrine/Metabolic History: Reports: Hypothyroidism, Obesity/BMI 30+ Hematologic History: Reports: None Oncologic (Cancer) History: Reports: None Dermatologic History: Reports: None - Infectious Disease History Infectious Disease History: Reports: Chicken Pox, Measles, Mumps - Past Surgical History HEENT Surgical History: Reports: None Female Surgical History: Reports: Hysterectomy, Oophorectomy Neurological Surgical History: Reports: None Musculoskeletal Surgical History: Reports: Other (See Below) Other Musculoskeletal Surgeries/Procedures:: hip surgery Social & Family History - Family History Family Medical History: No Pertinent Family History - Tobacco Use Tobacco Use Status *Q: Never Tobacco User - Caffeine Use Caffeine Use: Reports: Coffee - Recreational Drug Use Recreational Drug Use: No - Living Situation & Occupation Living situation: Reports: Extended Care Facility Occupation: Retired ED ROS GENERAL - Review of Systems Review Of Systems: Comprehensive ROS is negative, except as noted in HPI. ED EXAM, GENERAL - Physical Exam Exam: See Below Exam Limited By: No Limitations General Appearance: Alert, WD/WN, No Apparent Distress Ears: Normal External Exam Nose: Normal Inspection Throat/Mouth: Normal Voice, No Airway Compromise Head: Atraumatic, Normocephalic Neck: Normal Inspection Respiratory/Chest: No Respiratory Distress, Lungs Clear, Normal Breath Sounds, No Accessory Muscle Use Cardiovascular: Normal Peripheral Pulses, Regular Rate, Rhythm, No Edema GI/Abdominal: Soft, Non-Tender Extremities: Normal Inspection Neurological: Alert Psychiatric: Normal Affect, Normal Mood Skin Exam: Warm, Dry, Intact, Normal Color #1 Interpretation EKG Date: 03/23/20 Time: 16:39 Rhythm: NSR Rate (Beats/Min): 83 [place]: Normal P-Wave: Present QRS: Normal ST-T: Normal QT: Normal VA/PQ Interval: 163 EKG Interpretation Comments: normal EKG Course - Re-Assessments/Exams Free Text/Narrative Re-Assessment/Exam: 03/23/20 17:13 We will start broad work-up, will reassess for disposition. Departure - Departure Disposition: Admitted As Inpatient 68 Clinical Impression: Hyperglycemia, Acute renal failure, Hypoxia, Oxygen dependent, COPD (chronic obstructive pulmonary disease), Sepsis, Pleural effusion, right, Diabetes mellitus, new onset - Discharge Information Referrals: Emir Muir MD [Primary Care Provider] - Forms: ED Department Discharge Sepsis Event Note (ED) - Evaluation Sepsis Screening Result: No Definite Risk <Deandre Milner - Last Filed: 03/23/20 21:34> Course - Vital Signs Last Recorded V/S: Last Vital Signs Temp 99.1 F 03/23/20 16:26 Pulse 92 03/23/20 21:06 Resp 18 03/23/20 21:06 BP 145/83 H 03/23/20 21:06 Pulse Ox 97 03/23/20 21:06 - Orders/Labs/Meds Orders: Active Orders 24 hr Category Date Time Status Cardiac Monitoring [RC] . DIRECTED Care 03/23/20 16:25 Active EKG Documentation Completion [RC] STAT Care 03/23/20 16:25 Active Pulse Oximetry [RC] ASDIRECTED Care 03/23/20 16:25 Active CULTURE BLOOD [BC] Stat Lab 03/23/20 16:25 Received CULTURE BLOOD [BC] Stat Lab 03/23/20 17:20 Received LACTIC ACID,WHOLE BLOOD [BG] Routine Lab 03/23/20 21:23 Ordered Sodium Chloride 0.9% [Normal Saline] 1,000 ml Med 03/23/20 19:50 Active IV ONETIME Sodium Chloride 0.9% [Saline Flush] Med 03/23/20 16:25 Active 10 ml FLUSH ASDIRECTED PRN Sodium Chloride 0.9% [Saline Flush] Med 03/23/20 16:25 Active 2.5 ml FLUSH ASDIRECTED PRN Blood Culture x2 Reflex Set [OM.PC] Stat Oth 03/23/20 16:26 Ordered Saline Lock Insert [OM.PC] Stat Oth 03/23/20 16:25 Ordered Medication Orders Sodium Chloride (Normal Saline) 1,000 mls @ 250 mls/hr IV ONETIME ONE Stop: 03/23/20 23:49 Sodium Chloride (Saline Flush) 10 ml FLUSH ASDIRECTED PRN PRN Reason: Keep Vein Open Last Admin: 03/23/20 16:38 Dose: 10 ml Documented by: UMAIR Sodium Chloride (Saline Flush) 2.5 ml FLUSH ASDIRECTED PRN PRN Reason: Keep Vein Open Last Admin: 03/23/20 16:38 Dose: 2.5 ml Documented by: UMAIR Labs: Laboratory Tests 03/23/20 03/23/20 03/23/20 Range/Units 16:25 16:25 16:25 WBC 14.95 H (4.0-11.0) K/uL RBC 4.41 (4.30-5.90) M/uL Hgb 13.6 (12.0-16.0) g/dL Hct 41.8 (36.0-46.0) % MCV 94.8 (80.0-98.0) fL MCH 30.8 (27.0-32.0) pg MCHC 32.5 (31.0-37.0) g/dL RDW Std Deviation 51.5 (28.0-62.0) fl RDW Coeff of Cristiane 15 (11.0-15.0) % Plt Count 192 (150-400) K/uL MPV 11.40 (7.40-12.00) fL Neut % (Auto) 71.7 (48.0-80.0) % Lymph % (Auto) 23.0 (16.0-40.0) % [place] % (Auto) 3.4 (0.0-15.0) % Eos % (Auto) 1.8 (0.0-7.0) % Baso % (Auto) 0.1 (0.0-1.5) % Neut # (Auto) 10.7 H (1.4-5.7) K/uL Lymph # (Auto) 3.4 H (0.6-2.4) K/uL [place] # (Auto) 0.5 (0.0-0.8) K/uL Eos # (Auto) 0.3 (0.0-0.7) K/uL Baso # (Auto) 0.0 (0.0-0.1) K/uL Nucleated RBC % 0.0 /100WBC Nucleated RBCs # 0 K/uL INR 1.14 APTT 26.3 (18.6-31.3) SEC D-Dimer, Quantitative 3.45 H (0.0-0.50) mg/L FEU ABG pH (7.35-7.45) ABG pCO2 (35-45) mmHG ABG pO2 (75-100) mmHG ABG HCO3 (22-26) mEq/L ABG Total CO2 ABG Base Excess (-2.0-2.0) Lactate (0.20-2.00) mmol/L Sodium (136-145) mmol/L Potassium (3.5-5.1) mmol/L Chloride (98-107) mmol/L Carbon Dioxide (21.0-32.0) mmol/L BUN (7.0-18.0) mg/dL Creatinine (0.6-1.0) mg/dL Est Cr Clr Drug Dosing mL/min Estimated GFR (MDRD) ml/min Glucose (74-106) mg/dL Hemoglobin A1c (4.5 - 6.2) % Calcium (8.5-10.1) mg/dL Magnesium (1.8-2.4) mg/dL Total Bilirubin (0.2-1.0) mg/dL AST (15-37) IU/L ALT (14-63) IU/L Alkaline Phosphatase (46-116) U/L Troponin I (0.000-0.056) ng/mL C-Reactive Protein (0.00-0.90) mg/dL B-Natriuretic Peptide 60 (<100) PG/ML Total Protein (6.4-8.2) g/dL Albumin (3.4-5.0) g/dL Globulin (2.6-4.0) g/dL Albumin/Globulin Ratio (0.9-1.6) Urine Color Urine Appearance Urine pH (5.0-8.0) Ur Specific [place] (1.001-1.035) Urine Protein (NEGATIVE) mg/dL Urine Glucose (UA) (NEGATIVE) mg/dL Urine Ketones (NEGATIVE) mg/dL Urine Occult Blood (NEGATIVE) Urine Nitrite (NEGATIVE) Urine Bilirubin (NEGATIVE) Urine Urobilinogen (<2.0) EU/dL Ur Leukocyte Esterase (NEGATIVE) SARS-CoV-2 RNA (JAYASHREE) (NEGATIVE) 03/23/20 03/23/20 03/23/20 Range/Units 16:34 16:45 16:55 WBC (4.0-11.0) K/uL RBC (4.30-5.90) M/uL Hgb (12.0-16.0) g/dL Hct (36.0-46.0) % MCV (80.0-98.0) fL MCH (27.0-32.0) pg MCHC (31.0-37.0) g/dL RDW Std Deviation (28.0-62.0) fl RDW Coeff of Cristiane (11.0-15.0) % Plt Count (150-400) K/uL MPV (7.40-12.00) fL Neut % (Auto) (48.0-80.0) % Lymph % (Auto) (16.0-40.0) % [place] % (Auto) (0.0-15.0) % Eos % (Auto) (0.0-7.0) % Baso % (Auto) (0.0-1.5) % Neut # (Auto) (1.4-5.7) K/uL Lymph # (Auto) (0.6-2.4) K/uL [place] # (Auto) (0.0-0.8) K/uL Eos # (Auto) (0.0-0.7) K/uL Baso # (Auto) (0.0-0.1) K/uL Nucleated RBC % /100WBC Nucleated RBCs # K/uL INR APTT (18.6-31.3) SEC D-Dimer, Quantitative (0.0-0.50) mg/L FEU ABG pH 7.498 H (7.35-7.45) ABG pCO2 24 L (35-45) mmHG ABG pO2 99 (75-100) mmHG ABG HCO3 19 L (22-26) mEq/L ABG Total CO2 16.5 ABG Base Excess -2.6 L (-2.0-2.0) Lactate (0.20-2.00) mmol/L Sodium (136-145) mmol/L Potassium (3.5-5.1) mmol/L Chloride (98-107) mmol/L Carbon Dioxide (21.0-32.0) mmol/L BUN (7.0-18.0) mg/dL Creatinine (0.6-1.0) mg/dL Est Cr Clr Drug Dosing mL/min Estimated GFR (MDRD) ml/min Glucose (74-106) mg/dL Hemoglobin A1c (4.5 - 6.2) % Calcium (8.5-10.1) mg/dL Magnesium (1.8-2.4) mg/dL Total Bilirubin (0.2-1.0) mg/dL AST (15-37) IU/L ALT (14-63) IU/L Alkaline Phosphatase (46-116) U/L Troponin I (0.000-0.056) ng/mL C-Reactive Protein (0.00-0.90) mg/dL B-Natriuretic Peptide (<100) PG/ML Total Protein (6.4-8.2) g/dL Albumin (3.4-5.0) g/dL Globulin (2.6-4.0) g/dL Albumin/Globulin Ratio (0.9-1.6) Urine Color YELLOW Urine Appearance CLEAR Urine pH 5.5 (5.0-8.0) Ur Specific [place] 1.020 (1.001-1.035) Urine Protein NEGATIVE (NEGATIVE) mg/dL Urine Glucose (UA) >=1000 (NEGATIVE) mg/dL Urine Ketones NEGATIVE (NEGATIVE) mg/dL Urine Occult Blood NEGATIVE (NEGATIVE) Urine Nitrite NEGATIVE (NEGATIVE) Urine Bilirubin NEGATIVE (NEGATIVE) Urine Urobilinogen 0.2 (<2.0) EU/dL Ur Leukocyte Esterase NEGATIVE (NEGATIVE) SARS-CoV-2 RNA (JAYASHREE) NEGATIVE (NEGATIVE) 03/23/20 03/23/20 03/23/20 Range/Units 17:20 17:20 17:30 WBC (4.0-11.0) K/uL RBC (4.30-5.90) M/uL Hgb (12.0-16.0) g/dL Hct (36.0-46.0) % MCV (80.0-98.0) fL MCH (27.0-32.0) pg MCHC (31.0-37.0) g/dL RDW Std Deviation (28.0-62.0) fl RDW Coeff of Cristiane (11.0-15.0) % Plt Count (150-400) K/uL MPV (7.40-12.00) fL Neut % (Auto) (48.0-80.0) % Lymph % (Auto) (16.0-40.0) % [place] % (Auto) (0.0-15.0) % Eos % (Auto) (0.0-7.0) % Baso % (Auto) (0.0-1.5) % Neut # (Auto) (1.4-5.7) K/uL Lymph # (Auto) (0.6-2.4) K/uL [place] # (Auto) (0.0-0.8) K/uL Eos # (Auto) (0.0-0.7) K/uL Baso # (Auto) (0.0-0.1) K/uL Nucleated RBC % /100WBC Nucleated RBCs # K/uL INR APTT (18.6-31.3) SEC D-Dimer, Quantitative (0.0-0.50) mg/L FEU ABG pH (7.35-7.45) ABG pCO2 (35-45) mmHG ABG pO2 (75-100) mmHG ABG HCO3 (22-26) mEq/L ABG Total CO2 ABG Base Excess (-2.0-2.0) Lactate 2.2 H* (0.20-2.00) mmol/L Sodium 132 L (136-145) mmol/L Potassium 4.9 (3.5-5.1) mmol/L Chloride 100 (98-107) mmol/L Carbon Dioxide 22.0 (21.0-32.0) mmol/L BUN 62 H (7.0-18.0) mg/dL Creatinine 2.1 H (0.6-1.0) mg/dL Est Cr Clr Drug Dosing 16.66 mL/min Estimated GFR (MDRD) 22.8 ml/min Glucose 430 H (74-106) mg/dL Hemoglobin A1c 9.2 H (4.5 - 6.2) % Calcium 9.1 (8.5-10.1) mg/dL Magnesium 2.2 (1.8-2.4) mg/dL Total Bilirubin 0.4 (0.2-1.0) mg/dL AST 41 H (15-37) IU/L ALT 31 (14-63) IU/L Alkaline Phosphatase 265 H (46-116) U/L Troponin I < 0.050 (0.000-0.056) ng/mL C-Reactive Protein 21.70 H (0.00-0.90) mg/dL B-Natriuretic Peptide (<100) PG/ML Total Protein 8.0 (6.4-8.2) g/dL Albumin 2.0 L (3.4-5.0) g/dL Globulin 6.0 H (2.6-4.0) g/dL Albumin/Globulin Ratio 0.3 L (0.9-1.6) Urine Color Urine Appearance Urine pH (5.0-8.0) Ur Specific [place] (1.001-1.035) Urine Protein (NEGATIVE) mg/dL Urine Glucose (UA) (NEGATIVE) mg/dL Urine Ketones (NEGATIVE) mg/dL Urine Occult Blood (NEGATIVE) Urine Nitrite (NEGATIVE) Urine Bilirubin (NEGATIVE) Urine Urobilinogen (<2.0) EU/dL Ur Leukocyte Esterase (NEGATIVE) SARS-CoV-2 RNA (JAYASHREE) (NEGATIVE) Meds: Medications Generic Name Dose Route Start Last Admin Trade Name Freq PRN Reason Stop Dose Admin Sodium Chloride 1,000 mls @ 250 mls/hr 03/23/20 19:50 Normal Saline IV 03/23/20 23:49 ONETIME ONE Sodium Chloride 10 ml 03/23/20 16:25 03/23/20 16:38 Saline Flush FLUSH 10 ml ASDIRECTED PRN Administration Keep Vein Open Sodium Chloride 2.5 ml 03/23/20 16:25 03/23/20 16:38 Saline Flush FLUSH 2.5 ml ASDIRECTED PRN Administration Keep Vein Open Discontinued Medications Generic Name Dose Route Start Last Admin Trade Name Pete PRN Reason Stop Dose Admin Sodium Chloride 1,000 mls @ 250 mls/hr 03/23/20 16:25 03/23/20 16:37 Normal Saline IV 03/23/20 20:24 250 mls/hr .Bolus ONE Administration Cefepime HCl 2 gm/ Premix 50 mls @ 100 mls/hr 03/23/20 18:23 03/23/20 20:43 IV 03/23/20 18:52 100 mls/hr ONETIME ONE Administration Sodium Chloride 1,000 mls @ 999 mls/hr 03/23/20 18:31 Normal Saline IV 03/23/20 19:31 .Bolus ONE Vancomycin HCl 1 gm/ Sodium 250 mls @ 166 mls/hr 03/23/20 19:40 03/23/20 20:43 Chloride IV 03/23/20 21:10 166 mls/hr ONETIME ONE Administration Insulin Human Regular 10 unit 03/23/20 18:31 03/23/20 19:52 Novolin R IVPUSH 03/23/20 18:32 10 units ONETIME ONE Administration Protocol Methylprednisolone Sodium Succinate 125 mg 03/23/20 19:46 03/23/20 20:43 Solu-Medrol IVPUSH 03/23/20 19:47 125 mg ONETIME ONE Administration - Re-Assessments/Exams Free Text/Narrative Re-Assessment/Exam: 03/23/20 19:00 This patient was signed out to me from Dr. Garcia at this time. I performed a detailed physical examination, my examination was performed after ED treatments were initiated by him. She was previously placed on oxygen at 5L (and she normally is not O2 dependent). She was given 2L IV fluids, IV cefepime, and placed on supplemental oxygen for hypoxia. CT chest is pending. She is sating 95% on 5L currently, given history of COPD, will add Solu-Medrol 125 mg IV. We will add vancomycin 15mg/kg for double anti-pseudomonal coverage given SIRS criteria of leukocytosis and hypoxia and elevated CRP and complaints of shortness of breath. Her UA was negative for UTI. 03/23/20 21:33 CT chest demonstrated right-sided pleural effusion. Patient is getting HCAP coverage. I do not suspect emergent need for thoracentesis. Case discussed with Dr. Max Alexander, who agrees to admit patient. The hospitalist's documentation supersedes all other documentation on this patient with regard to any conflicts or discrepancies from this point forward. Any emergency conditions have been treated to the ability of the ED prior to admission. Departure - Departure Time of Disposition: 21:34 Condition: Good - Discharge Information *PRESCRIPTION DRUG MONITORING PROGRAM REVIEWED*: Not Applicable *COPY OF PRESCRIPTION DRUG MONITORING REPORT IN PATIENT MARIA FERNANDA: Not Applicable Sepsis Event Note (ED) - Focused Exam Vital Signs: Vital Signs Temp Pulse Resp BP Pulse Ox 03/23/20 21:06 92 18 145/83 H 97 03/23/20 20:05 80 20 132/63 98 03/23/20 19:05 91 18 137/94 H 97 03/23/20 18:35 95 18 131/60 95 03/23/20 18:05 96 18 129/58 L 96 03/23/20 17:35 86 18 132/77 97 03/23/20 16:26 99.1 F 82 18 138/78 96
--- NOTE | 2020-03-23 17:14 | CR ---
Indication: Shortness of breath Comparison: Single view chest June 14, 2019 Technique: Single AP view chest Findings: There is hyperinflation and chronic interstitial change. There is basilar atelectasis versus scar. Secondary to positioning of the head the lung apices are limited in evaluation. Stable cardiac silhouette. The bony thorax is grossly intact. Impression: Hyperinflation and chronic interstitial changes with basilar atelectasis versus scar. Mildly limited exam due to patient positioning. Dictated by Stevenson Her MD @ Mar 23 2020 5:12PM Signed by Dr. Stevenson Her @ Mar 23 2020 5:13PM
[2020-03-23 17:55] LABS: BLOOD UREA NITROGEN,BUN 62 mg/dL (7.0-18.0); CHLORIDE,CL 100 mmol/L (98-107); GLUCOSE RANDOM 430 mg/dL (74-106); POTASSIUM,K 4.9 mmol/L (3.5-5.1); SODIUM,NA 132 mmol/L (136-145)
[2020-03-23] MEDS ORDERED: Cefepime 2 GM in Premix Bag 1 BAG IV ONE (18:23)
[2020-03-23] MEDS ORDERED: Insulin Regular, Human 100 Units/ML 10 ML Vial IVPUSH ONE (18:31)
[2020-03-23] MEDS ORDERED: methylPREDNISolone Sodium Succinate 125 MG/2 ML SDV IVPUSH ONE (19:46)
[2020-03-23 20:16] LABS: HEMOGLOBIN A1C 9.2 %
--- NOTE | 2020-03-23 20:57 | CT ---
Indication: Shortness of breath. Abnormal labs. Elevated white blood cell count. Technique: Multiple contiguous axial images were obtained from the lung bases through the symphysis pubis without intravenous contrast enhancement. Please note that all CT scans at this facility use dose modulation, iterative reconstruction, and/or weight-based dosing when appropriate to reduce radiation dose to as low as reasonably achievable. Comparison: None Findings: A small right pleural effusion is identified. The heart is mildly enlarged. Vascular calcifications are identified. No pericardial effusions identified. A moderate-sized hiatal hernia is identified. The liver has a slightly nodular appearance. No intrahepatic biliary ductal dilatation is identified. Gallstones are identified. The unenhanced spleen, pancreas, adrenals, and left kidney are grossly normal. The right kidney is atrophic. A nonobstructing right renal calculus is identified. No hydronephrosis is identified. Streak artifact from the patient`s right hip arthroplasty degrades multiple images. Calcifications are identified within the uterus. The urinary bladder is grossly normal. The small and large bowel are normal in caliber. No free air or free fluid is identified within the abdomen or pelvis. Aorta is normal in caliber. Mild vascular calcifications are identified. Degenerative changes of the spine are identified. No lytic or blastic lesions are identified. Impression: Small right pleural effusion. Moderate-sized hiatal hernia. Please note that all CT scans at this facility use dose modulation, iterative reconstruction, and/or weight-based dosing when appropriate to reduce radiation dose to as low as reasonably achievable. Dictated by Flor Kitchen MD @ Mar 23 2020 8:38PM Signed by Dr. Flor Kitchen @ Mar 23 2020 8:55PM
--- NOTE | 2020-03-23 21:05 | CT ---
INDICATION: Shortness of breath, elevated white blood cell count COMPARISON: AP chest radiograph 03/23/2020 TECHNIQUE: Nonenhanced axial CT imaging through the chest. Sagittal and coronal reconstructions are provided. FINDINGS: There is a moderate-sized right pleural effusion with fluid tracking into the major fissure. Focal consolidation with volume loss in the posterior aspect of the right middle lobe most likely represents atelectasis There is mild scattered linear atelectasis in the left lung. There is no left pleural effusion. The heart is mildly enlarged. Coronary artery disease is present. There is normal caliber of the main pulmonary and thoracic aorta. There is a moderate-sized hiatal hernia. A small pocket of fluid is noted within the hiatal hernia sac. No lymphadenopathy is appreciated in the mediastinum and pulmonary chastity. The thoracic osseous structures are unremarkable. IMPRESSION: 1. Moderate-size right pleural effusion, with fluid tracking into the major fissure. Focal consolidation with volume loss in the posterior right middle lobe most likely represents atelectasis. 2. Moderate size hiatal hernia. Small pocket of fluid within the hernia sac, of unclear significance. 3. Mild cardiomegaly. Coronary artery disease. Please note that all CT scans at this facility use dose modulation, iterative reconstruction, and/or weight-based dosing when appropriate to reduce radiation dose to as low as reasonably achievable. Dictated by Trinidad Mclain MD @ Mar 23 2020 8:56PM Signed by Dr. Trinidad Mclain @ Mar 23 2020 9:04PM
[2020-03-23] MEDS ORDERED: Acetaminophen 325 MG Tab PO PRN (22:44)
[2020-03-23] MEDS ORDERED: Bisacodyl 10 MG Supp RECTAL PRN (22:44)
[2020-03-23] MEDS ORDERED: traMADol 50 MG Tab PO PRN (22:44)
[2020-03-23] MEDS ORDERED: traZODone 50 MG Tab PO PRN (22:44)
[2020-03-23] MEDS ORDERED: Sodium Chloride 0.9% 500 ML IV SCH (22:45)
[2020-03-23] MEDS ORDERED: Ondansetron 4 MG/2 ML SDV IVPUSH PRN (22:46)
[2020-03-23] MEDS ORDERED: Albuterol/Ipratropium 3.0-0.5 MG/3 ML Neb Soln NEB PRN (22:46)
--- NOTE | 2020-03-23 22:51 | PCM.HP.2 ---
H&P History of Present Illness - General Date of Service: 03/23/20 Admit Problem/Dx: Admission Diagnosis/Problem Admission Diagnosis/Problem Sepsis - History of Present Illness Initial Comments - Free Text/Narative: 80 yo [place] resident with pmh of dementia , hypothyroidism, depression, UTIs, COPD, hypertension, hyperlipidemia and s/p COVID infection on Mar 02 reported to me by ED. She was brought to the ED due to complaints of lethargy. Patient has no complaints. CT chest shows right pleural effusion with focal consolidation. - Related Data Allergies/Adverse Reactions: Allergies Allergy/AdvReac Type Severity Reaction Status Date / Time No Known Allergies Allergy Verified 03/23/20 16:31 Home Medications: Home Meds Acetaminophen [Tylenol] 650 mg PO Q4H PRN #7 tablet 03/07/16 [Rx] Multivitamin [Multi-Vitamin Daily] 1 tab PO DAILY 07/04/16 [History] Metoprolol Tartrate 50 mg PO BID 07/09/16 [History] Simvastatin [Zocor] 20 mg PO BEDTIME 07/09/16 [History] buPROPion HCL [Wellbutrin Xl] 150 mg PO DAILY 07/09/16 [History] traZODone 25 mg PO BEDTIME 07/09/16 [History] traMADol [Ultram] 50 mg PO Q4H PRN #15 tablet 07/10/16 [Rx] Bisacodyl 10 mg RC Q24H PRN 09/27/17 [History] Calcium Citrate/Vitamin D3 [Calcium Citrate - Vit D Caplet] 2 each PO DAILY 09/27/17 [History] Levothyroxine 125 mcg PO ACBREAKFAST 09/27/17 [History] Magnesium Hydroxide [Milk of Magnesia] 30 ml PO DAILY PRN 09/27/17 [History] Memantine HCl 10 mg PO BID 09/27/17 [History] Furosemide [Lasix] 40 mg PO DAILY 06/14/19 [History] Methyl Salicylate/Menthol [Icy Hot] ml TOP ASDIRECTED PRN 06/14/19 [History] guaiFENesin/Dextromethorphan [Tussin Dm Liquid] 5 ml PO ASDIRECTED PRN 06/14/19 [History] polyethylene glycoL 3350 [MiraLAX] 17 gm PO BID 06/14/19 [History] Sulfamethoxazole/Trimethoprim [Bactrim Ds Tablet] 1 each PO BID 5 Days #10 tablet 06/17/19 [Rx] Past Medical History HEENT History: Reports: None Cardiovascular History: Reports: High Cholesterol, Hypertension Other Cardiovascular History: takes calcium Respiratory History: Reports: Asthma, COPD, SOB Gastrointestinal History: Reports: None Other Gastrointestinal History: diarrhea Genitourinary History: Reports: Chronic Renal Insuffiency, UTI, Recurrent X [employer] History: Reports: Musculoskeletal History: Reports: Arthritis, Other (See Below) Other Musculoskeletal History: generalized weakness, non ambulatory Neurological History: Reports: Other (See Below) Other Neuro History: dementia Psychiatric History: Reports: Anxiety, Dementia, Depression Endocrine/Metabolic History: Reports: Hypothyroidism, Obesity/BMI 30+ Hematologic History: Reports: None Oncologic (Cancer) History: Reports: None Dermatologic History: Reports: None - Infectious Disease History Infectious Disease History: Reports: Chicken Pox, Measles, Mumps - Past Surgical History HEENT Surgical History: Reports: None Female Surgical History: Reports: Hysterectomy, Oophorectomy Neurological Surgical History: Reports: None Musculoskeletal Surgical History: Reports: Other (See Below) Other Musculoskeletal Surgeries/Procedures:: hip surgery Social & Family History - Family History Family Medical History: No Pertinent Family History - Tobacco Use Tobacco Use Status *Q: Never Tobacco User - Caffeine Use Caffeine Use: Reports: Coffee - Recreational Drug Use Recreational Drug Use: No - Living Situation & Occupation Living situation: Reports: Extended Care Facility Occupation: Retired H&P Review of Systems - Review of Systems: Review Of Systems: Comprehensive ROS is negative, except as noted in HPI. Exam - Exam Exam: See Below - Vital Signs Vital Signs: Last Vital Signs Temp 37.3 C 03/23/20 16:26 Pulse 89 03/23/20 22:35 Resp 17 03/23/20 22:35 BP 126/72 03/23/20 22:35 Pulse Ox 95 03/23/20 22:35 Weight: 68.039 kg - Exam General: Alert, Oriented HEENT: Mucosa Moist & [place] Neck: Supple Lungs: Clear to Auscultation, Normal Respiratory Effort Cardiovascular: Regular Rate, Regular Rhythm GI/Abdominal Exam: Normal Bowel Sounds, Soft, Non-Tender Extremities: Non-Tender, No Pedal Edema Skin: Warm, Dry, Intact - Patient Data Lab Results Last 24 hrs: Laboratory Results - last 24 hr 12/03/0203/23/20 03/23/20 Range/Units 16:25 16:25 16:25 WBC 14.95 H (4.0-11.0) K/uL RBC 4.41 (4.30-5.90) M/uL Hgb 13.6 (12.0-16.0) g/dL Hct 41.8 (36.0-46.0) % MCV 94.8 (80.0-98.0) fL MCH 30.8 (27.0-32.0) pg MCHC 32.5 (31.0-37.0) g/dL RDW Std Deviation 51.5 (28.0-62.0) fl RDW Coeff of Cristiane 15 (11.0-15.0) % Plt Count 192 (150-400) K/uL MPV 11.40 (7.40-12.00) fL Neut % (Auto) 71.7 (48.0-80.0) % Lymph % (Auto) 23.0 (16.0-40.0) % Davis % (Auto) 3.4 (0.0-15.0) % Eos % (Auto) 1.8 (0.0-7.0) % Baso % (Auto) 0.1 (0.0-1.5) % Neut # (Auto) 10.7 H (1.4-5.7) K/uL Lymph # (Auto) 3.4 H (0.6-2.4) K/uL Davis # (Auto) 0.5 (0.0-0.8) K/uL Eos # (Auto) 0.3 (0.0-0.7) K/uL Baso # (Auto) 0.0 (0.0-0.1) K/uL Nucleated RBC % 0.0 /100WBC Nucleated RBCs # 0 K/uL INR 1.14 APTT 26.3 (18.6-31.3) SEC D-Dimer, Quantitative 3.45 H (0.0-0.50) mg/L FEU ABG pH (7.35-7.45) ABG pCO2 (35-45) mmHG ABG pO2 (75-100) mmHG ABG HCO3 (22-26) mEq/L ABG Total CO2 ABG Base Excess (-2.0-2.0) Lactate (0.20-2.00) mmol/L Sodium (136-145) mmol/L Potassium (3.5-5.1) mmol/L Chloride (98-107) mmol/L Carbon Dioxide (21.0-32.0) mmol/L BUN (7.0-18.0) mg/dL Creatinine (0.6-1.0) mg/dL Est Cr Clr Drug Dosing mL/min Estimated GFR (MDRD) ml/min Glucose (74-106) mg/dL Hemoglobin A1c (4.5 - 6.2) % Calcium (8.5-10.1) mg/dL Magnesium (1.8-2.4) mg/dL Total Bilirubin (0.2-1.0) mg/dL AST (15-37) IU/L ALT (14-63) IU/L Alkaline Phosphatase (46-116) U/L Troponin I (0.000-0.056) ng/mL C-Reactive Protein (0.00-0.90) mg/dL B-Natriuretic Peptide 60 (<100) PG/ML Total Protein (6.4-8.2) g/dL Albumin (3.4-5.0) g/dL Globulin (2.6-4.0) g/dL Albumin/Globulin Ratio (0.9-1.6) Urine Color Urine Appearance Urine pH (5.0-8.0) Ur Specific Leon (1.001-1.035) Urine Protein (NEGATIVE) mg/dL Urine Glucose (UA) (NEGATIVE) mg/dL Urine Ketones (NEGATIVE) mg/dL Urine Occult Blood (NEGATIVE) Urine Nitrite (NEGATIVE) Urine Bilirubin (NEGATIVE) Urine Urobilinogen (<2.0) EU/dL Ur Leukocyte Esterase (NEGATIVE) SARS-CoV-2 RNA (JAYASHREE) (NEGATIVE) 03/23/20 03/23/20 03/23/20 Range/Units 16:34 16:45 16:55 WBC (4.0-11.0) K/uL RBC (4.30-5.90) M/uL Hgb (12.0-16.0) g/dL Hct (36.0-46.0) % MCV (80.0-98.0) fL MCH (27.0-32.0) pg MCHC (31.0-37.0) g/dL RDW Std Deviation (28.0-62.0) fl RDW Coeff of Cristiane (11.0-15.0) % Plt Count (150-400) K/uL MPV (7.40-12.00) fL Neut % (Auto) (48.0-80.0) % Lymph % (Auto) (16.0-40.0) % Davis % (Auto) (0.0-15.0) % Eos % (Auto) (0.0-7.0) % Baso % (Auto) (0.0-1.5) % Neut # (Auto) (1.4-5.7) K/uL Lymph # (Auto) (0.6-2.4) K/uL Davis # (Auto) (0.0-0.8) K/uL Eos # (Auto) (0.0-0.7) K/uL Baso # (Auto) (0.0-0.1) K/uL Nucleated RBC % /100WBC Nucleated RBCs # K/uL INR APTT (18.6-31.3) SEC D-Dimer, Quantitative (0.0-0.50) mg/L FEU ABG pH 7.498 H (7.35-7.45) ABG pCO2 24 L (35-45) mmHG ABG pO2 99 (75-100) mmHG ABG HCO3 19 L (22-26) mEq/L ABG Total CO2 16.5 ABG Base Excess -2.6 L (-2.0-2.0) Lactate (0.20-2.00) mmol/L Sodium (136-145) mmol/L Potassium (3.5-5.1) mmol/L Chloride (98-107) mmol/L Carbon Dioxide (21.0-32.0) mmol/L BUN (7.0-18.0) mg/dL Creatinine (0.6-1.0) mg/dL Est Cr Clr Drug Dosing mL/min Estimated GFR (MDRD) ml/min Glucose (74-106) mg/dL Hemoglobin A1c (4.5 - 6.2) % Calcium (8.5-10.1) mg/dL Magnesium (1.8-2.4) mg/dL Total Bilirubin (0.2-1.0) mg/dL AST (15-37) IU/L ALT (14-63) IU/L Alkaline Phosphatase (46-116) U/L Troponin I (0.000-0.056) ng/mL C-Reactive Protein (0.00-0.90) mg/dL B-Natriuretic Peptide (<100) PG/ML Total Protein (6.4-8.2) g/dL Albumin (3.4-5.0) g/dL Globulin (2.6-4.0) g/dL Albumin/Globulin Ratio (0.9-1.6) Urine Color YELLOW Urine Appearance CLEAR Urine pH 5.5 (5.0-8.0) Ur Specific Leon 1.020 (1.001-1.035) Urine Protein NEGATIVE (NEGATIVE) mg/dL Urine Glucose (UA) >=1000 (NEGATIVE) mg/dL Urine Ketones NEGATIVE (NEGATIVE) mg/dL Urine Occult Blood NEGATIVE (NEGATIVE) Urine Nitrite NEGATIVE (NEGATIVE) Urine Bilirubin NEGATIVE (NEGATIVE) Urine Urobilinogen 0.2 (<2.0) EU/dL Ur Leukocyte Esterase NEGATIVE (NEGATIVE) SARS-CoV-2 RNA (JAYASHREE) NEGATIVE (NEGATIVE) 03/23/20 03/23/20 03/23/20 Range/Units 17:20 17:20 17:30 WBC (4.0-11.0) K/uL RBC (4.30-5.90) M/uL Hgb (12.0-16.0) g/dL Hct (36.0-46.0) % MCV (80.0-98.0) fL MCH (27.0-32.0) pg MCHC (31.0-37.0) g/dL RDW Std Deviation (28.0-62.0) fl RDW Coeff of Cristiane (11.0-15.0) % Plt Count (150-400) K/uL MPV (7.40-12.00) fL Neut % (Auto) (48.0-80.0) % Lymph % (Auto) (16.0-40.0) % Davis % (Auto) (0.0-15.0) % Eos % (Auto) (0.0-7.0) % Baso % (Auto) (0.0-1.5) % Neut # (Auto) (1.4-5.7) K/uL Lymph # (Auto) (0.6-2.4) K/uL Davis # (Auto) (0.0-0.8) K/uL Eos # (Auto) (0.0-0.7) K/uL Baso # (Auto) (0.0-0.1) K/uL Nucleated RBC % /100WBC Nucleated RBCs # K/uL INR APTT (18.6-31.3) SEC D-Dimer, Quantitative (0.0-0.50) mg/L FEU ABG pH (7.35-7.45) ABG pCO2 (35-45) mmHG ABG pO2 (75-100) mmHG ABG HCO3 (22-26) mEq/L ABG Total CO2 ABG Base Excess (-2.0-2.0) Lactate 2.2 H* (0.20-2.00) mmol/L Sodium 132 L (136-145) mmol/L Potassium 4.9 (3.5-5.1) mmol/L Chloride 100 (98-107) mmol/L Carbon Dioxide 22.0 (21.0-32.0) mmol/L BUN 62 H (7.0-18.0) mg/dL Creatinine 2.1 H (0.6-1.0) mg/dL Est Cr Clr Drug Dosing 16.66 mL/min Estimated GFR (MDRD) 22.8 ml/min Glucose 430 H (74-106) mg/dL Hemoglobin A1c 9.2 H (4.5 - 6.2) % Calcium 9.1 (8.5-10.1) mg/dL Magnesium 2.2 (1.8-2.4) mg/dL Total Bilirubin 0.4 (0.2-1.0) mg/dL AST 41 H (15-37) IU/L ALT 31 (14-63) IU/L Alkaline Phosphatase 265 H (46-116) U/L Troponin I < 0.050 (0.000-0.056) ng/mL C-Reactive Protein 21.70 H (0.00-0.90) mg/dL B-Natriuretic Peptide (<100) PG/ML Total Protein 8.0 (6.4-8.2) g/dL Albumin 2.0 L (3.4-5.0) g/dL Globulin 6.0 H (2.6-4.0) g/dL Albumin/Globulin Ratio 0.3 L (0.9-1.6) Urine Color Urine Appearance Urine pH (5.0-8.0) Ur Specific Leon (1.001-1.035) Urine Protein (NEGATIVE) mg/dL Urine Glucose (UA) (NEGATIVE) mg/dL Urine Ketones (NEGATIVE) mg/dL Urine Occult Blood (NEGATIVE) Urine Nitrite (NEGATIVE) Urine Bilirubin (NEGATIVE) Urine Urobilinogen (<2.0) EU/dL Ur Leukocyte Esterase (NEGATIVE) SARS-CoV-2 RNA (JAYASHREE) (NEGATIVE) 03/23/20 Range/Units 21:40 WBC (4.0-11.0) K/uL RBC (4.30-5.90) M/uL Hgb (12.0-16.0) g/dL Hct (36.0-46.0) % MCV (80.0-98.0) fL MCH (27.0-32.0) pg MCHC (31.0-37.0) g/dL RDW Std Deviation (28.0-62.0) fl RDW Coeff of Cristiane (11.0-15.0) % Plt Count (150-400) K/uL MPV (7.40-12.00) fL Neut % (Auto) (48.0-80.0) % Lymph % (Auto) (16.0-40.0) % Davis % (Auto) (0.0-15.0) % Eos % (Auto) (0.0-7.0) % Baso % (Auto) (0.0-1.5) % Neut # (Auto) (1.4-5.7) K/uL Lymph # (Auto) (0.6-2.4) K/uL Davis # (Auto) (0.0-0.8) K/uL Eos # (Auto) (0.0-0.7) K/uL Baso # (Auto) (0.0-0.1) K/uL Nucleated RBC % /100WBC Nucleated RBCs # K/uL INR APTT (18.6-31.3) SEC D-Dimer, Quantitative (0.0-0.50) mg/L FEU ABG pH (7.35-7.45) ABG pCO2 (35-45) mmHG ABG pO2 (75-100) mmHG ABG HCO3 (22-26) mEq/L ABG Total CO2 ABG Base Excess (-2.0-2.0) Lactate 2.9 H* (0.20-2.00) mmol/L Sodium (136-145) mmol/L Potassium (3.5-5.1) mmol/L Chloride (98-107) mmol/L Carbon Dioxide (21.0-32.0) mmol/L BUN (7.0-18.0) mg/dL Creatinine (0.6-1.0) mg/dL Est Cr Clr Drug Dosing mL/min Estimated GFR (MDRD) ml/min Glucose (74-106) mg/dL Hemoglobin A1c (4.5 - 6.2) % Calcium (8.5-10.1) mg/dL Magnesium (1.8-2.4) mg/dL Total Bilirubin (0.2-1.0) mg/dL AST (15-37) IU/L ALT (14-63) IU/L Alkaline Phosphatase (46-116) U/L Troponin I (0.000-0.056) ng/mL C-Reactive Protein (0.00-0.90) mg/dL B-Natriuretic Peptide (<100) PG/ML Total Protein (6.4-8.2) g/dL Albumin (3.4-5.0) g/dL Globulin (2.6-4.0) g/dL Albumin/Globulin Ratio (0.9-1.6) Urine Color Urine Appearance Urine pH (5.0-8.0) Ur Specific Leon (1.001-1.035) Urine Protein (NEGATIVE) mg/dL Urine Glucose (UA) (NEGATIVE) mg/dL Urine Ketones (NEGATIVE) mg/dL Urine Occult Blood (NEGATIVE) Urine Nitrite (NEGATIVE) Urine Bilirubin (NEGATIVE) Urine Urobilinogen (<2.0) EU/dL Ur Leukocyte Esterase (NEGATIVE) SARS-CoV-2 RNA (JAYASHREE) (NEGATIVE) Result Diagrams: 03/23/20 16:25 03/23/20 17:20 Sepsis Event Note - Evaluation Sepsis Screening Result: No Definite Risk - Focused Exam Vital Signs: Vital Signs Temp Pulse Resp BP Pulse Ox 03/23/20 22:35 89 17 126/72 95 03/23/20 22:05 91 18 131/66 98 03/23/20 21:35 88 18 115/62 97 03/23/20 21:06 92 18 145/83 H 97 03/23/20 20:05 80 20 132/63 98 03/23/20 19:05 91 18 137/94 H 97 03/23/20 18:35 95 18 131/60 95 03/23/20 18:05 96 18 129/58 L 96 03/23/20 17:35 86 18 132/77 97 03/23/20 16:26 37.3 C 82 18 138/78 96 - Problem List (1) Respiratory failure with hypoxia SNOMED Code(s): 63366782816839409 ICD Code: J96.91 - RESPIRATORY FAILURE, UNSPECIFIED WITH HYPOXIA Status: Acute Current Visit: Yes (2) Acute renal failure SNOMED Code(s): 59881489 ICD Code: N17.9 - ACUTE KIDNEY FAILURE, UNSPECIFIED Status: Acute Current Visit: Yes (3) COPD (chronic obstructive pulmonary disease) SNOMED Code(s): 08952312 ICD Code: J44.9 - CHRONIC OBSTRUCTIVE PULMONARY DISEASE, UNSPECIFIED Status: Acute Current Visit: Yes (4) Diabetes mellitus, new onset SNOMED Code(s): 706093327, 670453016 ICD Code: E11.9 - TYPE 2 DIABETES MELLITUS WITHOUT COMPLICATIONS Status: Acute Current Visit: Yes (5) Hyperglycemia SNOMED Code(s): 93773670 ICD Code: R73.9 - HYPERGLYCEMIA, UNSPECIFIED Status: Acute Current Visit: Yes (6) Hypoxia SNOMED Code(s): 789448417 ICD Code: R09.02 - HYPOXEMIA Status: Acute Current Visit: Yes (7) Oxygen dependent SNOMED Code(s): 812831836652 ICD Code: Z99.81 - DEPENDENCE ON SUPPLEMENTAL OXYGEN Status: Acute Current Visit: Yes (8) Pleural effusion, right SNOMED Code(s): 66902164 ICD Code: J90 - PLEURAL EFFUSION, NOT ELSEWHERE CLASSIFIED Status: Acute Current Visit: Yes (9) Sepsis SNOMED Code(s): 76682604 ICD Code: A41.9 - SEPSIS, UNSPECIFIED ORGANISM Status: Acute Current Visit: Yes Qualifiers: Sepsis type: sepsis due to unspecified organism Severe sepsis acute organ dysfunction type: acute renal failure Acute renal failure type: unspecified Severe sepsis shock status: without septic shock (10) Altered mental state SNOMED Code(s): 417006346 ICD Code: R41.82 - ALTERED MENTAL STATUS, UNSPECIFIED Status: Acute Current Visit: Yes Qualifiers: Altered mental status type: unspecified Qualified Code(s): R41.82 - Altered mental status, unspecified (11) Hypothyroidism SNOMED Code(s): 73446912 ICD Code: E03.9 - HYPOTHYROIDISM, UNSPECIFIED Status: Chronic Current Visit: Yes Qualifiers: Hypothyroidism type: unspecified Qualified Code(s): E03.9 - Hypothyroidism, unspecified (12) SIRS (systemic inflammatory response syndrome) SNOMED Code(s): 889607231 ICD Code: R65.10 - SIRS OF NON-INFECTIOUS ORIGIN W/O ACUTE ORGAN DYSFUNCTION Status: Acute Current Visit: Yes (13) Dementia SNOMED Code(s): 32378588 ICD Code: F03.90 - UNSPECIFIED DEMENTIA WITHOUT BEHAVIORAL DISTURBANCE Status: Chronic Current Visit: No (14) Pneumonia SNOMED Code(s): 726175977 ICD Code: J18.9 - PNEUMONIA, UNSPECIFIED ORGANISM Status: Acute Current Visit: Yes Problem List Initiated/Reviewed/Updated: Yes Orders Last 24hrs: Active Orders 24 hr Category Date Time Status Patient Status [ADT] Routine ADT 03/23/20 21:31 Active Antiembolic Devices [RC] PER UNIT ROUTINE Care 03/23/20 22:47 Ordered Cardiac Monitoring [RC] . DIRECTED Care 03/23/20 16:25 Active EKG Documentation Completion [RC] STAT Care 03/23/20 16:25 Active Oxygen Therapy [RC] PRN Care 03/23/20 22:46 Ordered Pulse Oximetry [RC] ASDIRECTED Care 03/23/20 16:25 Active RT Aerosol Therapy [RC] ASDIRECTED Care 03/23/20 22:47 Ordered Up ad Nallely [RC] ASDIRECTED Care 03/23/20 22:46 Ordered VTE/DVT Education [RC] PER UNIT ROUTINE Care 03/23/20 22:46 Ordered Vital Signs [RC] Q4H Care 03/23/20 22:46 Ordered [employer] Diet [DIET] Diet 03/23/20 Breakfast Ordered CBC WITH AUTO DIFF [HEME] AM Lab 03/24/20 05:11 Ordered COMPREHENSIVE METABOLIC PN,CMP [CHEM] AM Lab 03/24/20 05:11 Ordered CULTURE BLOOD [BC] Stat Lab 03/23/20 16:25 Received CULTURE BLOOD [BC] Stat Lab 03/23/20 17:20 Received LACTATE WITH REFLEX [BG] 0300 Lab 03/25/20 03:00 Ordered Acetaminophen [TylenoL] Med 03/23/20 22:44 Ordered 650 mg PO Q4H PRN Albuterol/Ipratropium [DuoNeb 3.0-0.5 MG/3 ML] Med 03/23/20 22:46 Ordered 3 ml NEB Q4HRRT PRN Cefepime [Maxipime in D5W 2 GM/50 ML] 2 gm Med 03/24/20 02:00 Ordered Premix Bag 1 bag IV Q8H Heparin Sodium Med 03/23/20 23:00 Ordered 5,000 units SUBCUT Q12H Levofloxacin/Dextrose 5%-Water [Levaquin in D5W 750 MG/ Med 03/23/20 22:45 Ordered 150 ML] 750 mg Premix Bag 1 bag IV Q24H Levothyroxine Med 03/24/20 07:30 Ordered 125 mcg PO ACBREAKFAST Memantine [Namenda] Med 03/24/20 09:00 Ordered 10 mg PO BID Metoprolol Tartrate [Lopressor] Med 03/24/20 09:00 Ordered 50 mg PO BID Ondansetron [Zofran] Med 03/23/20 22:46 Ordered 4 mg IVPUSH Q4H PRN Simvastatin [Zocor] Med 03/24/20 21:00 Ordered 20 mg PO BEDTIME Sodium Chloride 0.9% [Normal Saline] 1,000 ml Med 03/23/20 19:50 Active IV ONETIME Sodium Chloride 0.9% [Normal Saline] 500 ml Med 03/23/20 22:45 Ordered IV .BOLUS Sodium Chloride 0.9% [Saline Flush] Med 03/23/20 16:25 Active 10 ml FLUSH ASDIRECTED PRN Sodium Chloride 0.9% [Saline Flush] Med 03/23/20 16:25 Active 2.5 ml FLUSH ASDIRECTED PRN bisacodyL [Dulcolax] Med 03/23/20 22:44 Ordered 10 mg RECTAL Q24H PRN buPROPion HCL [Wellbutrin Xl] Med 03/24/20 09:00 Ordered 150 mg PO DAILY polyethylene glycoL 3350 [MiraLAX] Med 03/24/20 09:00 Ordered 17 gm PO BID traMADol [Ultram] Med 03/23/20 22:44 Ordered 50 mg PO Q4H PRN traZODone Med 03/23/20 22:44 Ordered 25 mg PO BEDTIME PRN Blood Culture x2 Reflex Set [OM.PC] Stat Oth 03/23/20 16:26 Ordered Saline Lock Insert [OM.PC] Stat Oth 03/23/20 16:25 Ordered Sequential Compression Device [OM.PC] Per Unit Routine Oth 03/23/20 22:46 Ordered Resuscitation Status Routine Resus Stat 03/23/20 22:46 Ordered Medication Orders Acetaminophen (Tylenol) 650 mg PO Q4H PRN PRN Reason: Pain Albuterol/Ipratropium (Duoneb 3.0-0.5 Mg/3 Ml) 3 ml NEB Q4HRRT PRN PRN Reason: Shortness Of Breath/wheezing Bisacodyl (Dulcolax) 10 mg RECTAL Q24H PRN PRN Reason: Constipation Heparin Sodium (Porcine) (Heparin Sodium) 5,000 units SUBCUT Q12H KHUSHBU Sodium Chloride (Normal Saline) 1,000 mls @ 250 mls/hr IV ONETIME ONE Stop: 03/23/20 23:49 Last Admin: 03/23/20 21:55 Dose: Not Given Documented by: CECELIA Cefepime HCl 2 gm/ Premix 50 mls @ 100 mls/hr IV Q8H KHUSHBU Levofloxacin/Dextrose 750 mg/ (Premix) 150 mls @ 100 mls/hr IV Q24H KHUSHBU Sodium Chloride (Normal Saline) 500 mls @ 1,000 mls/hr IV .BOLUS KHUSHBU Levothyroxine Sodium (Levothyroxine) 125 mcg [facility] Memantine (Namenda) 10 mg PO BID KHUSHBU Metoprolol Tartrate (Lopressor) 50 mg PO BID KHUSHBU Non-Formulary Medication (Bupropion Hcl [Wellbutrin Xl]) 150 mg PO DAILY KHUSHBU Ondansetron HCl (Zofran) 4 mg IVPUSH Q4H PRN PRN Reason: Nausea Polyethylene Glycol (Miralax) 17 gm PO BID KHUSHBU Simvastatin (Zocor) 20 mg PO BEDTIME KHUSHBU Sodium Chloride (Saline Flush) 10 ml FLUSH ASDIRECTED PRN PRN Reason: Keep Vein Open Last Admin: 03/23/20 16:38 Dose: 10 ml Documented by: UMAIR Sodium Chloride (Saline Flush) 2.5 ml FLUSH ASDIRECTED PRN PRN Reason: Keep Vein Open Last Admin: 03/23/20 16:38 Dose: 2.5 ml Documented by: UMAIR Tramadol HCl (Ultram) 50 mg PO Q4H PRN PRN Reason: Pain Trazodone HCl (Trazodone) 25 mg PO BEDTIME PRN PRN Reason: Insomnia Assessment/Plan Comment:: 80 yo female admitted for possible gram negative jamie respiratory infection,sepsis sepsis: rscucitating with IV fluids trend lactate Pneumonia: Will treat with broad spectrum antibiotics, cultures pending AMINAH: resuscitating with IV fluids, trend creatinine New onset DM: treating with sc insulin, diabetic diet COPD: received solumedrol in ER, will start PO prednisone tomorrow,
[2020-03-23] MEDS ORDERED: Glucagon,Human Recombinant 1 MG Vial IM PRN (22:54)
[2020-03-23] MEDS ORDERED: 50% Dextrose in Water 50 ML Syringe IV PRN (22:54)
[2020-03-23] MEDS ORDERED: Levofloxacin/Dextrose 5%-Water 750 MG in Premix Bag 1 BAG IV SCH (23:00)
[2020-03-24] MEDS: Heparin Sodium 5,000 Units/ML Vial SUBCUT SCH ×3 (00:09→23:01)
[2020-03-24] MEDS: Insulin Aspart 100 Units/ML 3 ML Pen SUBCUT SCH ×5 (00:33→17:51)
[2020-03-24] MEDS ORDERED: Cefepime 2 GM in Premix Bag 1 BAG IV SCH (02:00)
[2020-03-24] MEDS ORDERED: Glucagon,Human Recombinant 1 MG Vial IM PRN ×3 (04:33→13:33)
[2020-03-24] MEDS ORDERED: Insulin Aspart 100 Units/ML 3 ML Pen SUBCUT STA ×2 (04:33→06:09)
[2020-03-24] MEDS ORDERED: 50% Dextrose in Water 50 ML Syringe IV PRN ×3 (04:33→13:33)
[2020-03-24 04:46] LABS: CARBON DIOXIDE,CO2 20.2 mmol/L (21.0-32.0); POTASSIUM,K 5.9 mmol/L (3.5-5.1)
[2020-03-24] MEDS: Sodium Chloride 0.9% 1,000 ML IV SCH (05:00)
[2020-03-24] MEDS: Levothyroxine 125 MCG Tab PO SCH (07:24)
[2020-03-24] MEDS: Metoprolol Tartrate 50 MG Tab PO SCH ×2 (08:48→22:00)
[2020-03-24] MEDS: buPROPion 150 MG Tab.ER PO SCH (08:48)
[2020-03-24] MEDS: Polyethylene Glycol 3350 Powder 17 GM Packet PO SCH ×2 (08:48→22:59)
[2020-03-24] MEDS: Memantine 10 MG Tab PO SCH ×2 (08:51→22:00)
[2020-03-24] MEDS: predniSONE 20 MG Tab PO SCH (08:51)
--- NOTE | 2020-03-24 13:39 | PCM.PN ---
- General Info Date of Service: 03/24/20 - Review of Systems Systems Review Comment:: no complaints, asking when she can go home - Patient Data Vitals - Most Recent: Last Vital Signs Temp 36.2 C 03/24/20 11:33 Pulse 70 03/24/20 11:33 Resp 18 03/24/20 11:33 BP 116/74 03/24/20 11:33 Pulse Ox 98 03/24/20 11:33 Weight - Most Recent: 68.039 kg I&O - Last 24 Hours: Intake & Output 03/23/20 03/24/20 03/24/20 22:59 06:59 14:59 Intake Total 200 Balance 200 Lab Results Last 24 Hours: Laboratory Results - last 24 hr 03/23/20 03/23/20 03/23/20 Range/Units 16:25 16:25 16:25 WBC 14.95 H (4.0-11.0) K/uL RBC 4.41 (4.30-5.90) M/uL Hgb 13.6 (12.0-16.0) g/dL Hct 41.8 (36.0-46.0) % MCV 94.8 (80.0-98.0) fL MCH 30.8 (27.0-32.0) pg MCHC 32.5 (31.0-37.0) g/dL RDW Std Deviation 51.5 (28.0-62.0) fl RDW Coeff of Cristiane 15 (11.0-15.0) % Plt Count 192 (150-400) K/uL MPV 11.40 (7.40-12.00) fL Neut % (Auto) 71.7 (48.0-80.0) % Lymph % (Auto) 23.0 (16.0-40.0) % Clinch % (Auto) 3.4 (0.0-15.0) % Eos % (Auto) 1.8 (0.0-7.0) % Baso % (Auto) 0.1 (0.0-1.5) % Neut # (Auto) 10.7 H (1.4-5.7) K/uL Lymph # (Auto) 3.4 H (0.6-2.4) K/uL Clinch # (Auto) 0.5 (0.0-0.8) K/uL Eos # (Auto) 0.3 (0.0-0.7) K/uL Baso # (Auto) 0.0 (0.0-0.1) K/uL Nucleated RBC % 0.0 /100WBC Nucleated RBCs # 0 K/uL INR 1.14 APTT 26.3 (18.6-31.3) SEC D-Dimer, Quantitative 3.45 H (0.0-0.50) mg/L FEU ABG pH (7.35-7.45) ABG pCO2 (35-45) mmHG ABG pO2 (75-100) mmHG ABG HCO3 (22-26) mEq/L ABG Total CO2 ABG Base Excess (-2.0-2.0) Lactate (0.20-2.00) mmol/L Sodium (136-145) mmol/L Potassium (3.5-5.1) mmol/L Chloride (98-107) mmol/L Carbon Dioxide (21.0-32.0) mmol/L BUN (7.0-18.0) mg/dL Creatinine (0.6-1.0) mg/dL Est Cr Clr Drug Dosing mL/min Estimated GFR (MDRD) ml/min Glucose (74-106) mg/dL POC Glucose (60-110) mg/dL Hemoglobin A1c (4.5 - 6.2) % Calcium (8.5-10.1) mg/dL Magnesium (1.8-2.4) mg/dL Total Bilirubin (0.2-1.0) mg/dL AST (15-37) IU/L ALT (14-63) IU/L Alkaline Phosphatase (46-116) U/L Troponin I (0.000-0.056) ng/mL C-Reactive Protein (0.00-0.90) mg/dL B-Natriuretic Peptide 60 (<100) PG/ML Total Protein (6.4-8.2) g/dL Albumin (3.4-5.0) g/dL Globulin (2.6-4.0) g/dL Albumin/Globulin Ratio (0.9-1.6) Urine Color Urine Appearance Urine pH (5.0-8.0) Ur Specific [place] (1.001-1.035) Urine Protein (NEGATIVE) mg/dL Urine Glucose (UA) (NEGATIVE) mg/dL Urine Ketones (NEGATIVE) mg/dL Urine Occult Blood (NEGATIVE) Urine Nitrite (NEGATIVE) Urine Bilirubin (NEGATIVE) Urine Urobilinogen (<2.0) EU/dL Ur Leukocyte Esterase (NEGATIVE) SARS-CoV-2 RNA (JAYASHREE) (NEGATIVE) 03/23/20 03/23/20 03/23/20 Range/Units 16:34 16:45 16:55 WBC (4.0-11.0) K/uL RBC (4.30-5.90) M/uL Hgb (12.0-16.0) g/dL Hct (36.0-46.0) % MCV (80.0-98.0) fL MCH (27.0-32.0) pg MCHC (31.0-37.0) g/dL RDW Std Deviation (28.0-62.0) fl RDW Coeff of Cristiane (11.0-15.0) % Plt Count (150-400) K/uL MPV (7.40-12.00) fL Neut % (Auto) (48.0-80.0) % Lymph % (Auto) (16.0-40.0) % Clinch % (Auto) (0.0-15.0) % Eos % (Auto) (0.0-7.0) % Baso % (Auto) (0.0-1.5) % Neut # (Auto) (1.4-5.7) K/uL Lymph # (Auto) (0.6-2.4) K/uL Clinch # (Auto) (0.0-0.8) K/uL Eos # (Auto) (0.0-0.7) K/uL Baso # (Auto) (0.0-0.1) K/uL Nucleated RBC % /100WBC Nucleated RBCs # K/uL INR APTT (18.6-31.3) SEC D-Dimer, Quantitative (0.0-0.50) mg/L FEU ABG pH 7.498 H (7.35-7.45) ABG pCO2 24 L (35-45) mmHG ABG pO2 99 (75-100) mmHG ABG HCO3 19 L (22-26) mEq/L ABG Total CO2 16.5 ABG Base Excess -2.6 L (-2.0-2.0) Lactate (0.20-2.00) mmol/L Sodium (136-145) mmol/L Potassium (3.5-5.1) mmol/L Chloride (98-107) mmol/L Carbon Dioxide (21.0-32.0) mmol/L BUN (7.0-18.0) mg/dL Creatinine (0.6-1.0) mg/dL Est Cr Clr Drug Dosing mL/min Estimated GFR (MDRD) ml/min Glucose (74-106) mg/dL POC Glucose (60-110) mg/dL Hemoglobin A1c (4.5 - 6.2) % Calcium (8.5-10.1) mg/dL Magnesium (1.8-2.4) mg/dL Total Bilirubin (0.2-1.0) mg/dL AST (15-37) IU/L ALT (14-63) IU/L Alkaline Phosphatase (46-116) U/L Troponin I (0.000-0.056) ng/mL C-Reactive Protein (0.00-0.90) mg/dL B-Natriuretic Peptide (<100) PG/ML Total Protein (6.4-8.2) g/dL Albumin (3.4-5.0) g/dL Globulin (2.6-4.0) g/dL Albumin/Globulin Ratio (0.9-1.6) Urine Color YELLOW Urine Appearance CLEAR Urine pH 5.5 (5.0-8.0) Ur Specific [place] 1.020 (1.001-1.035) Urine Protein NEGATIVE (NEGATIVE) mg/dL Urine Glucose (UA) >=1000 (NEGATIVE) mg/dL Urine Ketones NEGATIVE (NEGATIVE) mg/dL Urine Occult Blood NEGATIVE (NEGATIVE) Urine Nitrite NEGATIVE (NEGATIVE) Urine Bilirubin NEGATIVE (NEGATIVE) Urine Urobilinogen 0.2 (<2.0) EU/dL Ur Leukocyte Esterase NEGATIVE (NEGATIVE) SARS-CoV-2 RNA (JAYASHREE) NEGATIVE (NEGATIVE) 03/23/20 03/23/20 03/23/20 Range/Units 17:20 17:20 17:30 WBC (4.0-11.0) K/uL RBC (4.30-5.90) M/uL Hgb (12.0-16.0) g/dL Hct (36.0-46.0) % MCV (80.0-98.0) fL MCH (27.0-32.0) pg MCHC (31.0-37.0) g/dL RDW Std Deviation (28.0-62.0) fl RDW Coeff of Cristiane (11.0-15.0) % Plt Count (150-400) K/uL MPV (7.40-12.00) fL Neut % (Auto) (48.0-80.0) % Lymph % (Auto) (16.0-40.0) % Clinch % (Auto) (0.0-15.0) % Eos % (Auto) (0.0-7.0) % Baso % (Auto) (0.0-1.5) % Neut # (Auto) (1.4-5.7) K/uL Lymph # (Auto) (0.6-2.4) K/uL Clinch # (Auto) (0.0-0.8) K/uL Eos # (Auto) (0.0-0.7) K/uL Baso # (Auto) (0.0-0.1) K/uL Nucleated RBC % /100WBC Nucleated RBCs # K/uL INR APTT (18.6-31.3) SEC D-Dimer, Quantitative (0.0-0.50) mg/L FEU ABG pH (7.35-7.45) ABG pCO2 (35-45) mmHG ABG pO2 (75-100) mmHG ABG HCO3 (22-26) mEq/L ABG Total CO2 ABG Base Excess (-2.0-2.0) Lactate 2.2 H* (0.20-2.00) mmol/L Sodium 132 L (136-145) mmol/L Potassium 4.9 (3.5-5.1) mmol/L Chloride 100 (98-107) mmol/L Carbon Dioxide 22.0 (21.0-32.0) mmol/L BUN 62 H (7.0-18.0) mg/dL Creatinine 2.1 H (0.6-1.0) mg/dL Est Cr Clr Drug Dosing 16.66 mL/min Estimated GFR (MDRD) 22.8 ml/min Glucose 430 H (74-106) mg/dL POC Glucose (60-110) mg/dL Hemoglobin A1c 9.2 H (4.5 - 6.2) % Calcium 9.1 (8.5-10.1) mg/dL Magnesium 2.2 (1.8-2.4) mg/dL Total Bilirubin 0.4 (0.2-1.0) mg/dL AST 41 H (15-37) IU/L ALT 31 (14-63) IU/L Alkaline Phosphatase 265 H (46-116) U/L Troponin I < 0.050 (0.000-0.056) ng/mL C-Reactive Protein 21.70 H (0.00-0.90) mg/dL B-Natriuretic Peptide (<100) PG/ML Total Protein 8.0 (6.4-8.2) g/dL Albumin 2.0 L (3.4-5.0) g/dL Globulin 6.0 H (2.6-4.0) g/dL Albumin/Globulin Ratio 0.3 L (0.9-1.6) Urine Color Urine Appearance Urine pH (5.0-8.0) Ur Specific [place] (1.001-1.035) Urine Protein (NEGATIVE) mg/dL Urine Glucose (UA) (NEGATIVE) mg/dL Urine Ketones (NEGATIVE) mg/dL Urine Occult Blood (NEGATIVE) Urine Nitrite (NEGATIVE) Urine Bilirubin (NEGATIVE) Urine Urobilinogen (<2.0) EU/dL Ur Leukocyte Esterase (NEGATIVE) SARS-CoV-2 RNA (JAYASHREE) (NEGATIVE) 03/23/20 03/23/20 03/24/20 Range/Units 21:40 23:01 00:31 WBC (4.0-11.0) K/uL RBC (4.30-5.90) M/uL Hgb (12.0-16.0) g/dL Hct (36.0-46.0) % MCV (80.0-98.0) fL MCH (27.0-32.0) pg MCHC (31.0-37.0) g/dL RDW Std Deviation (28.0-62.0) fl RDW Coeff of Cristiane (11.0-15.0) % Plt Count (150-400) K/uL MPV (7.40-12.00) fL Neut % (Auto) (48.0-80.0) % Lymph % (Auto) (16.0-40.0) % Clinch % (Auto) (0.0-15.0) % Eos % (Auto) (0.0-7.0) % Baso % (Auto) (0.0-1.5) % Neut # (Auto) (1.4-5.7) K/uL Lymph # (Auto) (0.6-2.4) K/uL Clinch # (Auto) (0.0-0.8) K/uL Eos # (Auto) (0.0-0.7) K/uL Baso # (Auto) (0.0-0.1) K/uL Nucleated RBC % /100WBC Nucleated RBCs # K/uL INR APTT (18.6-31.3) SEC D-Dimer, Quantitative (0.0-0.50) mg/L FEU ABG pH (7.35-7.45) ABG pCO2 (35-45) mmHG ABG pO2 (75-100) mmHG ABG HCO3 (22-26) mEq/L ABG Total CO2 ABG Base Excess (-2.0-2.0) Lactate 2.9 H* (0.20-2.00) mmol/L Sodium (136-145) mmol/L Potassium (3.5-5.1) mmol/L Chloride (98-107) mmol/L Carbon Dioxide (21.0-32.0) mmol/L BUN (7.0-18.0) mg/dL Creatinine (0.6-1.0) mg/dL Est Cr Clr Drug Dosing mL/min Estimated GFR (MDRD) ml/min Glucose (74-106) mg/dL POC Glucose 359 H 395 H (60-110) mg/dL Hemoglobin A1c (4.5 - 6.2) % Calcium (8.5-10.1) mg/dL Magnesium (1.8-2.4) mg/dL Total Bilirubin (0.2-1.0) mg/dL AST (15-37) IU/L ALT (14-63) IU/L Alkaline Phosphatase (46-116) U/L Troponin I (0.000-0.056) ng/mL C-Reactive Protein (0.00-0.90) mg/dL B-Natriuretic Peptide (<100) PG/ML Total Protein (6.4-8.2) g/dL Albumin (3.4-5.0) g/dL Globulin (2.6-4.0) g/dL Albumin/Globulin Ratio (0.9-1.6) Urine Color Urine Appearance Urine pH (5.0-8.0) Ur Specific [place] (1.001-1.035) Urine Protein (NEGATIVE) mg/dL Urine Glucose (UA) (NEGATIVE) mg/dL Urine Ketones (NEGATIVE) mg/dL Urine Occult Blood (NEGATIVE) Urine Nitrite (NEGATIVE) Urine Bilirubin (NEGATIVE) Urine Urobilinogen (<2.0) EU/dL Ur Leukocyte Esterase (NEGATIVE) SARS-CoV-2 RNA (JAYASHREE) (NEGATIVE) 03/24/20 03/24/20 03/24/20 Range/Units 04:13 04:17 04:17 WBC 11.42 H (4.0-11.0) K/uL RBC 3.54 L (4.30-5.90) M/uL Hgb 10.9 L (12.0-16.0) g/dL Hct 34.0 L (36.0-46.0) % MCV 96.0 (80.0-98.0) fL MCH 30.8 (27.0-32.0) pg MCHC 32.1 (31.0-37.0) g/dL RDW Std Deviation 52.4 (28.0-62.0) fl RDW Coeff of Cristiane 15 (11.0-15.0) % Plt Count 126 L (150-400) K/uL MPV 11.00 (7.40-12.00) fL Neut % (Auto) 80.9 H (48.0-80.0) % Lymph % (Auto) 17.0 (16.0-40.0) % Clinch % (Auto) 1.9 (0.0-15.0) % Eos % (Auto) 0.1 (0.0-7.0) % Baso % (Auto) 0.1 (0.0-1.5) % Neut # (Auto) 9.2 H (1.4-5.7) K/uL Lymph # (Auto) 1.9 (0.6-2.4) K/uL Clinch # (Auto) 0.2 (0.0-0.8) K/uL Eos # (Auto) 0.0 (0.0-0.7) K/uL Baso # (Auto) 0.0 (0.0-0.1) K/uL Nucleated RBC % 0.0 /100WBC Nucleated RBCs # 0 K/uL INR APTT (18.6-31.3) SEC D-Dimer, Quantitative (0.0-0.50) mg/L FEU ABG pH (7.35-7.45) ABG pCO2 (35-45) mmHG ABG pO2 (75-100) mmHG ABG HCO3 (22-26) mEq/L ABG Total CO2 ABG Base Excess (-2.0-2.0) Lactate (0.20-2.00) mmol/L Sodium 134 L (136-145) mmol/L Potassium 5.9 H (3.5-5.1) mmol/L Chloride 105 (98-107) mmol/L Carbon Dioxide 20.2 L (21.0-32.0) mmol/L BUN 58 H (7.0-18.0) mg/dL Creatinine 2.1 H (0.6-1.0) mg/dL Est Cr Clr Drug Dosing 16.66 mL/min Estimated GFR (MDRD) 22.8 ml/min Glucose 467 H (74-106) mg/dL POC Glucose > 500 H (60-110) mg/dL Hemoglobin A1c (4.5 - 6.2) % Calcium 8.3 L (8.5-10.1) mg/dL Magnesium (1.8-2.4) mg/dL Total Bilirubin 0.3 (0.2-1.0) mg/dL AST 30 (15-37) IU/L ALT 22 (14-63) IU/L Alkaline Phosphatase 200 H (46-116) U/L Troponin I (0.000-0.056) ng/mL C-Reactive Protein (0.00-0.90) mg/dL B-Natriuretic Peptide (<100) PG/ML Total Protein 6.1 L (6.4-8.2) g/dL Albumin 1.5 L (3.4-5.0) g/dL Globulin 4.6 H (2.6-4.0) g/dL Albumin/Globulin Ratio 0.3 L (0.9-1.6) Urine Color Urine Appearance Urine pH (5.0-8.0) Ur Specific [place] (1.001-1.035) Urine Protein (NEGATIVE) mg/dL Urine Glucose (UA) (NEGATIVE) mg/dL Urine Ketones (NEGATIVE) mg/dL Urine Occult Blood (NEGATIVE) Urine Nitrite (NEGATIVE) Urine Bilirubin (NEGATIVE) Urine Urobilinogen (<2.0) EU/dL Ur Leukocyte Esterase (NEGATIVE) SARS-CoV-2 RNA (JAYASHREE) (NEGATIVE) 03/24/20 03/24/20 03/24/20 Range/Units 04:17 05:38 07:57 WBC (4.0-11.0) K/uL RBC (4.30-5.90) M/uL Hgb (12.0-16.0) g/dL Hct (36.0-46.0) % MCV (80.0-98.0) fL MCH (27.0-32.0) pg MCHC (31.0-37.0) g/dL RDW Std Deviation (28.0-62.0) fl RDW Coeff of Cristiane (11.0-15.0) % Plt Count (150-400) K/uL MPV (7.40-12.00) fL Neut % (Auto) (48.0-80.0) % Lymph % (Auto) (16.0-40.0) % [place] % (Auto) (0.0-15.0) % Eos % (Auto) (0.0-7.0) % Baso % (Auto) (0.0-1.5) % Neut # (Auto) (1.4-5.7) K/uL Lymph # (Auto) (0.6-2.4) K/uL [place] # (Auto) (0.0-0.8) K/uL Eos # (Auto) (0.0-0.7) K/uL Baso # (Auto) (0.0-0.1) K/uL Nucleated RBC % /100WBC Nucleated RBCs # K/uL INR APTT (18.6-31.3) SEC D-Dimer, Quantitative (0.0-0.50) mg/L FEU ABG pH (7.35-7.45) ABG pCO2 (35-45) mmHG ABG pO2 (75-100) mmHG ABG HCO3 (22-26) mEq/L ABG Total CO2 ABG Base Excess (-2.0-2.0) Lactate 2.5 H* (0.20-2.00) mmol/L Sodium (136-145) mmol/L Potassium (3.5-5.1) mmol/L Chloride (98-107) mmol/L Carbon Dioxide (21.0-32.0) mmol/L BUN (7.0-18.0) mg/dL Creatinine (0.6-1.0) mg/dL Est Cr Clr Drug Dosing mL/min Estimated GFR (MDRD) ml/min Glucose (74-106) mg/dL POC Glucose 458 H 362 H (60-110) mg/dL Hemoglobin A1c (4.5 - 6.2) % Calcium (8.5-10.1) mg/dL Magnesium (1.8-2.4) mg/dL Total Bilirubin (0.2-1.0) mg/dL AST (15-37) IU/L ALT (14-63) IU/L Alkaline Phosphatase (46-116) U/L Troponin I (0.000-0.056) ng/mL C-Reactive Protein (0.00-0.90) mg/dL B-Natriuretic Peptide (<100) PG/ML Total Protein (6.4-8.2) g/dL Albumin (3.4-5.0) g/dL Globulin (2.6-4.0) g/dL Albumin/Globulin Ratio (0.9-1.6) Urine Color Urine Appearance Urine pH (5.0-8.0) Ur Specific [place] (1.001-1.035) Urine Protein (NEGATIVE) mg/dL Urine Glucose (UA) (NEGATIVE) mg/dL Urine Ketones (NEGATIVE) mg/dL Urine Occult Blood (NEGATIVE) Urine Nitrite (NEGATIVE) Urine Bilirubin (NEGATIVE) Urine Urobilinogen (<2.0) EU/dL Ur Leukocyte Esterase (NEGATIVE) SARS-CoV-2 RNA (JAYASHREE) (NEGATIVE) 03/24/20 03/24/20 Range/Units 08:40 11:13 WBC (4.0-11.0) K/uL RBC (4.30-5.90) M/uL Hgb (12.0-16.0) g/dL Hct (36.0-46.0) % MCV (80.0-98.0) fL MCH (27.0-32.0) pg MCHC (31.0-37.0) g/dL RDW Std Deviation (28.0-62.0) fl RDW Coeff of Cristiane (11.0-15.0) % Plt Count (150-400) K/uL MPV (7.40-12.00) fL Neut % (Auto) (48.0-80.0) % Lymph % (Auto) (16.0-40.0) % [place] % (Auto) (0.0-15.0) % Eos % (Auto) (0.0-7.0) % Baso % (Auto) (0.0-1.5) % Neut # (Auto) (1.4-5.7) K/uL Lymph # (Auto) (0.6-2.4) K/uL [place] # (Auto) (0.0-0.8) K/uL Eos # (Auto) (0.0-0.7) K/uL Baso # (Auto) (0.0-0.1) K/uL Nucleated RBC % /100WBC Nucleated RBCs # K/uL INR APTT (18.6-31.3) SEC D-Dimer, Quantitative (0.0-0.50) mg/L FEU ABG pH (7.35-7.45) ABG pCO2 (35-45) mmHG ABG pO2 (75-100) mmHG ABG HCO3 (22-26) mEq/L ABG Total CO2 ABG Base Excess (-2.0-2.0) Lactate 2.5 H* (0.20-2.00) mmol/L Sodium (136-145) mmol/L Potassium (3.5-5.1) mmol/L Chloride (98-107) mmol/L Carbon Dioxide (21.0-32.0) mmol/L BUN (7.0-18.0) mg/dL Creatinine (0.6-1.0) mg/dL Est Cr Clr Drug Dosing mL/min Estimated GFR (MDRD) ml/min Glucose (74-106) mg/dL POC Glucose 282 H (60-110) mg/dL Hemoglobin A1c (4.5 - 6.2) % Calcium (8.5-10.1) mg/dL Magnesium (1.8-2.4) mg/dL Total Bilirubin (0.2-1.0) mg/dL AST (15-37) IU/L ALT (14-63) IU/L Alkaline Phosphatase (46-116) U/L Troponin I (0.000-0.056) ng/mL C-Reactive Protein (0.00-0.90) mg/dL B-Natriuretic Peptide (<100) PG/ML Total Protein (6.4-8.2) g/dL Albumin (3.4-5.0) g/dL Globulin (2.6-4.0) g/dL Albumin/Globulin Ratio (0.9-1.6) Urine Color Urine Appearance Urine pH (5.0-8.0) Ur Specific [place] (1.001-1.035) Urine Protein (NEGATIVE) mg/dL Urine Glucose (UA) (NEGATIVE) mg/dL Urine Ketones (NEGATIVE) mg/dL Urine Occult Blood (NEGATIVE) Urine Nitrite (NEGATIVE) Urine Bilirubin (NEGATIVE) Urine Urobilinogen (<2.0) EU/dL Ur Leukocyte Esterase (NEGATIVE) SARS-CoV-2 RNA (JAYASHREE) (NEGATIVE) Med Orders - Current: Current Medications Acetaminophen (Tylenol) 650 mg PO Q4H PRN PRN Reason: Pain Albuterol/Ipratropium (Duoneb 3.0-0.5 Mg/3 Ml) 3 ml NEB Q4HRRT PRN PRN Reason: Shortness Of Breath/wheezing Bisacodyl (Dulcolax) 10 mg RECTAL Q24H PRN PRN Reason: Constipation Bupropion HCl (Wellbutrin Xl) 150 mg PO DAILY [facility] Last Admin: 03/24/20 08:48 Dose: 150 mg Documented by: Dextrose/Water (Dextrose 50% In Water) 50 ml IV ASDIRECTED PRN PRN Reason: Hypoglycemia Dextrose/Water (Dextrose 50% In Water) 50 ml IV ASDIRECTED PRN PRN Reason: Hypoglycemia Glucagon (Glucagen) 1 mg IM ASDIRECTED PRN PRN Reason: Hypoglycemia Glucagon (Glucagen) 1 mg IM ASDIRECTED PRN PRN Reason: Hypoglycemia Heparin Sodium (Porcine) (Heparin Sodium) 5,000 units SUBCUT Q12H [facility] Last Admin: 03/24/20 11:33 Dose: 5,000 units Documented by: Sodium Chloride (Normal Saline) 500 mls @ 1,000 mls/hr IV .BOLUS [facility] Last Admin: 03/23/20 23:15 Dose: 1,000 mls/hr Documented by: Levofloxacin/Dextrose 500 mg/ (Premix) 100 mls @ 100 mls/hr IV Q48H [facility] Sodium Chloride (Normal Saline) 1,000 mls @ 100 mls/hr IV ASDIRECTED [facility] Last Admin: 03/24/20 05:00 Dose: 100 mls/hr Documented by: Cefepime HCl 2 gm/ Premix 50 mls @ 100 mls/hr IV Q24H [facility] Insulin Aspart (Novolog) 0 unit SUBCUT TIDAC [facility]; Protocol Insulin Glargine (Lantus Solostar) 10 units SUBCUT BEDTIME [facility] Levothyroxine Sodium (Levothyroxine) 125 mcg PO ACBREAKFAST [facility] Last Admin: 03/24/20 07:24 Dose: 125 mcg Documented by: Memantine (Namenda) 10 mg PO BID [facility] Last Admin: 03/24/20 08:51 Dose: 10 mg Documented by: Metoprolol Tartrate (Lopressor) 50 mg PO BID [facility] Last Admin: 03/24/20 08:48 Dose: 50 mg Documented by: Ondansetron HCl (Zofran) 4 mg IVPUSH Q4H PRN PRN Reason: Nausea Polyethylene Glycol (Miralax) 17 gm PO BID [facility] Last Admin: 03/24/20 08:48 Dose: 17 gm Documented by: Prednisone (Prednisone) 40 mg PO WITHBREAKFAST [facility] Last Admin: 03/24/20 08:51 Dose: 40 mg Documented by: Simvastatin (Zocor) 20 mg PO BEDTIME [facility] Sodium Chloride (Saline Flush) 10 ml FLUSH ASDIRECTED PRN PRN Reason: Keep Vein Open Last Admin: 03/23/20 16:38 Dose: 10 ml Documented by: Sodium Chloride (Saline Flush) 2.5 ml FLUSH ASDIRECTED PRN PRN Reason: Keep Vein Open Last Admin: 03/23/20 16:38 Dose: 2.5 ml Documented by: Tramadol HCl (Ultram) 50 mg PO Q4H PRN PRN Reason: Pain Vancomycin HCl (Pharmacy To Dose - Vancomycin) 1 dose .XX ASDIRECTED [facility] Discontinued Medications Sodium Chloride (Normal Saline) 1,000 mls @ 250 mls/hr IV .Bolus ONE Stop: 03/23/20 20:24 Last Admin: 03/23/20 16:37 Dose: 250 mls/hr Documented by: Cefepime HCl 2 gm/ Premix 50 mls @ 100 mls/hr IV ONETIME ONE Stop: 03/23/20 18:52 Last Admin: 03/23/20 20:43 Dose: 100 mls/hr Documented by: Sodium Chloride (Normal Saline) 1,000 mls @ 999 mls/hr IV .Bolus ONE Stop: 03/23/20 19:31 Last Admin: 03/23/20 21:55 Dose: Not Given Documented by: Sodium Chloride (Normal Saline) 1,000 mls @ 250 mls/hr IV ONETIME ONE Stop: 03/23/20 23:49 Last Admin: 03/23/20 21:55 Dose: Not Given Documented by: Vancomycin HCl 1 gm/ Sodium (Chloride) 250 mls @ 166 mls/hr IV ONETIME ONE Stop: 03/23/20 21:10 Last Admin: 03/23/20 20:43 Dose: 166 mls/hr Documented by: Cefepime HCl 2 gm/ Premix 50 mls @ 100 mls/hr IV Q8H [facility] Last Admin: 03/24/20 02:56 Dose: 100 mls/hr Documented by: Levofloxacin/Dextrose 750 mg/ (Premix) 150 mls @ 100 mls/hr IV Q24H [facility] Stop: 03/24/20 00:29 Last Admin: 03/24/20 00:13 Dose: 100 mls/hr Documented by: Insulin Aspart (Novolog) 0 unit SUBCUT Q4H [facility]; Protocol Last Admin: 03/24/20 11:34 Dose: 3 units Documented by: Insulin Aspart (Novolog) 5 unit SUBCUT NOW STA Stop: 03/24/20 04:34 Last Admin: 03/24/20 04:55 Dose: 5 units Documented by: Insulin Aspart (Novolog) 7 unit SUBCUT NOW STA Stop: 03/24/20 06:10 Last Admin: 03/24/20 06:25 Dose: 7 units Documented by: Insulin Human Regular (Novolin R) 10 unit IVPUSH ONETIME ONE; Protocol Stop: 03/23/20 18:32 Last Admin: 03/23/20 19:52 Dose: 10 units Documented by: Methylprednisolone Sodium Succinate (Solu-Medrol) 125 mg IVPUSH ONETIME ONE Stop: 03/23/20 19:47 Last Admin: 03/23/20 20:43 Dose: 125 mg Documented by: - Exam General: Cooperative Lungs: Clear to Auscultation, Normal Respiratory Effort Cardiovascular: Regular Rate, Regular Rhythm GI/Abdominal Exam: Soft, Non-Tender, No Distention Extremities: Non-Tender, No Pedal Edema Skin: Warm, Dry, Intact Neurological: No New Focal Deficit Sepsis Event Note - Evaluation Sepsis Screening Result: No Definite Risk - Focused Exam Vital Signs: Vital Signs Temp Pulse Pulse Resp BP BP Pulse Ox 03/24/20 11:33 36.2 C 70 18 116/74 98 03/24/20 08:48 82 110/68 03/24/20 08:00 35.9 C L 80 17 124/69 97 03/24/20 04:00 36.1 C 87 18 141/90 H 97 - Problem List & Annotations (1) Respiratory failure with hypoxia SNOMED Code(s): 14468096076468053 Code(s): J96.91 - RESPIRATORY FAILURE, UNSPECIFIED WITH HYPOXIA Status: Acute Current Visit: Yes (2) Acute renal failure SNOMED Code(s): 43489740 Code(s): N17.9 - ACUTE KIDNEY FAILURE, UNSPECIFIED Status: Acute Current Visit: Yes (3) COPD (chronic obstructive pulmonary disease) SNOMED Code(s): 41136076 Code(s): J44.9 - CHRONIC OBSTRUCTIVE PULMONARY DISEASE, UNSPECIFIED Status: Acute Current Visit: Yes (4) Diabetes mellitus, new onset SNOMED Code(s): 887038322, 463787359 Code(s): E11.9 - TYPE 2 DIABETES MELLITUS WITHOUT COMPLICATIONS Status: Acute Current Visit: Yes (5) Hyperglycemia SNOMED Code(s): 04875154 Code(s): R73.9 - HYPERGLYCEMIA, UNSPECIFIED Status: Acute Current Visit: Yes (6) Hypoxia SNOMED Code(s): 883486780 Code(s): R09.02 - HYPOXEMIA Status: Acute Current Visit: Yes (7) Oxygen dependent SNOMED Code(s): 368799465995 Code(s): Z99.81 - DEPENDENCE ON SUPPLEMENTAL OXYGEN Status: Acute Current Visit: Yes (8) Pleural effusion, right SNOMED Code(s): 89766885 Code(s): J90 - PLEURAL EFFUSION, NOT ELSEWHERE CLASSIFIED Status: Acute Current Visit: Yes (9) Sepsis SNOMED Code(s): 84081339 Code(s): A41.9 - SEPSIS, UNSPECIFIED ORGANISM Status: Acute Current Visit: Yes Qualifiers: Sepsis type: sepsis due to unspecified organism Severe sepsis acute organ dysfunction type: acute renal failure Acute renal failure type: unspecified Severe sepsis shock status: without septic shock (10) Altered mental state SNOMED Code(s): 127063188 Code(s): R41.82 - ALTERED MENTAL STATUS, UNSPECIFIED Status: Acute Current Visit: Yes Qualifiers: Altered mental status type: unspecified Qualified Code(s): R41.82 - Altered mental status, unspecified (11) Hypothyroidism SNOMED Code(s): 28875297 Code(s): E03.9 - HYPOTHYROIDISM, UNSPECIFIED Status: Chronic Current Visit: Yes Qualifiers: Hypothyroidism type: unspecified Qualified Code(s): E03.9 - Hypothyroidism, unspecified (12) SIRS (systemic inflammatory response syndrome) SNOMED Code(s): 970797871 Code(s): R65.10 - SIRS OF NON-INFECTIOUS ORIGIN W/O ACUTE ORGAN DYSFUNCTION Status: Acute Current Visit: Yes (13) Dementia SNOMED Code(s): 38912475 Code(s): F03.90 - UNSPECIFIED DEMENTIA WITHOUT BEHAVIORAL DISTURBANCE Status: Chronic Current Visit: No (14) Pneumonia SNOMED Code(s): 605719964 Code(s): J18.9 - PNEUMONIA, UNSPECIFIED ORGANISM Status: Acute Current Visit: Yes - Problem List Review Problem List Initiated/Reviewed/Updated: Yes - My Orders Last 24 Hours: My Active Orders 03/23/20 22:18 Telemetry Monitoring [Cardiac Monitoring] [RC] Q8H 03/23/20 22:44 Acetaminophen [TylenoL] 650 mg PO Q4H PRN bisacodyL [Dulcolax] 10 mg RECTAL Q24H PRN traMADol [Ultram] 50 mg PO Q4H PRN 03/23/20 22:45 Sodium Chloride 0.9% [Normal Saline] 500 ml IV .BOLUS 03/23/20 22:46 Oxygen Therapy [RC] PRN Up ad Nallely [RC] ASDIRECTED VTE/DVT Education [RC] PER UNIT ROUTINE Vital Signs [RC] Q4H Albuterol/Ipratropium [DuoNeb 3.0-0.5 MG/3 ML] 3 ml NEB Q4HRRT PRN Ondansetron [Zofran] 4 mg IVPUSH Q4H PRN Sequential Compression Device [OM.PC] Per Unit Routine Resuscitation Status Routine 03/23/20 22:47 Antiembolic Devices [RC] PER UNIT ROUTINE RT Aerosol Therapy [RC] ASDIRECTED 03/23/20 22:54 Blood Glucose Check, Bedside [RC] Q4HR 03/23/20 23:00 Heparin Sodium 5,000 units SUBCUT Q12H 03/24/20 04:45 Pharmacy to Dose - Vancomycin 1 dose .XX ASDIRECTED Sodium Chloride 0.9% [Normal Saline] 1,000 ml IV ASDIRECTED 03/24/20 06:09 Dextrose 50% in Water 50 ml IV ASDIRECTED PRN Glucagon,Human Recombinant [GlucaGen] 1 mg IM ASDIRECTED PRN 03/24/20 07:30 Levothyroxine 125 mcg PO ACBREAKFAST 03/24/20 08:00 predniSONE 40 mg PO WITHBREAKFAST 03/24/20 09:00 Memantine [Namenda] 10 mg PO BID Metoprolol Tartrate [Lopressor] 50 mg PO BID buPROPion [Wellbutrin XL] 150 mg PO DAILY polyethylene glycoL 3350 [MiraLAX] 17 gm PO BID 03/24/20 13:33 Dextrose 50% in Water 50 ml IV ASDIRECTED PRN Glucagon,Human Recombinant [GlucaGen] 1 mg IM ASDIRECTED PRN 03/24/20 17:00 Insulin Aspart [NovoLOG] See Protocol SUBCUT TIDAC 03/24/20 21:00 Insulin Glarg,Human.Rec.Analog [LantUS Solostar] 10 units SUBCUT BEDTIME Simvastatin [Zocor] 20 mg PO BEDTIME 03/25/20 03:00 LACTATE WITH REFLEX [BG] 0300 03/25/20 04:00 Cefepime [Maxipime in D5W 2 GM/50 ML] 2 gm Premix Bag 1 bag IV Q24H 03/25/20 05:11 CBC WITH AUTO DIFF [HEME] AM COMPREHENSIVE METABOLIC PN,CMP [CHEM] AM 03/25/20 21:00 Levofloxacin/Dextrose 5%-Water [Levaquin in D5W 500 MG/100 ML] 500 mg Premix Bag 1 bag IV Q48H - Plan Plan:: 80 yo female admitted for possible gram negative jamie respiratory infection,sepsis sepsis: rescucitating with IV fluids trend lactate white count is improving Pneumonia: Will continue broad spectrum antibiotics, cultures pending AMINAH: resuscitating with IV fluids, trend creatinine New onset DM: treating with sc insulin, will start lantus tonight, diabetic diet COPD: received solumedrol in ER, will start PO prednisone tomorrow,
[2020-03-24 17:48] LABS: CARBON DIOXIDE,CO2 21.3 mmol/L (21.0-32.0); POTASSIUM,K 5.3 mmol/L (3.5-5.1)
[2020-03-24] MEDS ORDERED: Insulin Glargine,Human Rec. Analog 100 Units/ML 3 ML Pen SUBCUT SCH (21:00)
[2020-03-24] MEDS: Simvastatin 20 MG Tab PO SCH (22:00)
[2020-03-25] MEDS: Sodium Chloride 0.9% 1,000 ML IV SCH ×2 (02:23→12:49)
[2020-03-25] MEDS: Cefepime 2 GM in Premix Bag 1 BAG IV SCH (03:33)
[2020-03-25 06:16] LABS: CARBON DIOXIDE,CO2 19.7 mmol/L (21.0-32.0); POTASSIUM,K 4.7 mmol/L (3.5-5.1)
[2020-03-25] MEDS: Levothyroxine 125 MCG Tab PO SCH (06:29)
[2020-03-25] MEDS: Metoprolol Tartrate 50 MG Tab PO SCH ×2 (09:02→21:15)
[2020-03-25] MEDS: buPROPion 150 MG Tab.ER PO SCH (09:02)
[2020-03-25] MEDS: Memantine 10 MG Tab PO SCH ×2 (09:02→21:14)
[2020-03-25] MEDS: predniSONE 20 MG Tab PO SCH (09:03)
[2020-03-25] MEDS: Insulin Aspart 100 Units/ML 3 ML Pen SUBCUT SCH ×3 (09:03→17:20)
[2020-03-25] MEDS: Polyethylene Glycol 3350 Powder 17 GM Packet PO SCH ×2 (10:04→21:16)
[2020-03-25] MEDS: Heparin Sodium 5,000 Units/ML Vial SUBCUT SCH ×2 (11:56→22:08)
--- NOTE | 2020-03-25 12:14 | PCM.PN ---
- General Info Date of Service: 03/25/20 - Review of Systems Systems Review Comment:: no complaints - Patient Data Vitals - Most Recent: Last Vital Signs Temp 35.9 C L 03/25/20 03:28 Pulse 72 03/25/20 09:02 Resp 16 03/25/20 08:57 BP 128/62 03/25/20 09:02 Pulse Ox 94 L 03/25/20 08:57 Weight - Most Recent: 68.039 kg I&O - Last 24 Hours: Intake & Output 03/24/20 03/25/20 03/25/20 22:59 06:59 14:59 Intake Total 150 1500 Output Total 500 Balance 150 1000 Lab Results Last 24 Hours: Laboratory Results - last 24 hr 03/24/20 03/24/20 03/24/20 Range/Units 16:54 17:15 20:35 WBC (4.0-11.0) K/uL RBC (4.30-5.90) M/uL Hgb (12.0-16.0) g/dL Hct (36.0-46.0) % MCV (80.0-98.0) fL MCH (27.0-32.0) pg MCHC (31.0-37.0) g/dL RDW Std Deviation (28.0-62.0) fl RDW Coeff of Cristiane (11.0-15.0) % Plt Count (150-400) K/uL MPV (7.40-12.00) fL Neut % (Auto) (48.0-80.0) % Lymph % (Auto) (16.0-40.0) % Kemper % (Auto) (0.0-15.0) % Eos % (Auto) (0.0-7.0) % Baso % (Auto) (0.0-1.5) % Neut # (Auto) (1.4-5.7) K/uL Lymph # (Auto) (0.6-2.4) K/uL Kemper # (Auto) (0.0-0.8) K/uL Eos # (Auto) (0.0-0.7) K/uL Baso # (Auto) (0.0-0.1) K/uL Nucleated RBC % /100WBC Nucleated RBCs # K/uL Sodium 136 (136-145) mmol/L Potassium 5.3 H (3.5-5.1) mmol/L Chloride 107 (98-107) mmol/L Carbon Dioxide 21.3 (21.0-32.0) mmol/L BUN 55 H (7.0-18.0) mg/dL Creatinine 1.8 H (0.6-1.0) mg/dL Est Cr Clr Drug Dosing 19.44 mL/min Estimated GFR (MDRD) 27.2 ml/min Glucose 338 H (74-106) mg/dL POC Glucose 397 H 372 H (60-110) mg/dL Calcium 8.5 (8.5-10.1) mg/dL Total Bilirubin (0.2-1.0) mg/dL AST (15-37) IU/L ALT (14-63) IU/L Alkaline Phosphatase (46-116) U/L Total Protein (6.4-8.2) g/dL Albumin (3.4-5.0) g/dL Globulin (2.6-4.0) g/dL Albumin/Globulin Ratio (0.9-1.6) Random Vancomycin ug/mL 03/24/20 03/25/20 03/25/20 Range/Units 22:35 05:47 05:47 WBC 12.10 H (4.0-11.0) K/uL RBC 3.33 L (4.30-5.90) M/uL Hgb 10.2 L (12.0-16.0) g/dL Hct 31.8 L (36.0-46.0) % MCV 95.5 (80.0-98.0) fL MCH 30.6 (27.0-32.0) pg MCHC 32.1 (31.0-37.0) g/dL RDW Std Deviation 51.6 (28.0-62.0) fl RDW Coeff of Cristiane 15 (11.0-15.0) % Plt Count 116 L (150-400) K/uL MPV 10.70 (7.40-12.00) fL Neut % (Auto) 77.6 (48.0-80.0) % Lymph % (Auto) 18.6 (16.0-40.0) % Kemper % (Auto) 3.6 (0.0-15.0) % Eos % (Auto) 0.1 (0.0-7.0) % Baso % (Auto) 0.1 (0.0-1.5) % Neut # (Auto) 9.4 H (1.4-5.7) K/uL Lymph # (Auto) 2.3 (0.6-2.4) K/uL Kemper # (Auto) 0.4 (0.0-0.8) K/uL Eos # (Auto) 0.0 (0.0-0.7) K/uL Baso # (Auto) 0.0 (0.0-0.1) K/uL Nucleated RBC % 0.0 /100WBC Nucleated RBCs # 0 K/uL Sodium 137 (136-145) mmol/L Potassium 4.7 (3.5-5.1) mmol/L Chloride 109 H (98-107) mmol/L Carbon Dioxide 19.7 L (21.0-32.0) mmol/L BUN 52 H (7.0-18.0) mg/dL Creatinine 1.6 H (0.6-1.0) mg/dL Est Cr Clr Drug Dosing 21.87 mL/min Estimated GFR (MDRD) 31.2 ml/min Glucose 319 H (74-106) mg/dL POC Glucose (60-110) mg/dL Calcium 8.2 L (8.5-10.1) mg/dL Total Bilirubin 0.3 (0.2-1.0) mg/dL AST 32 (15-37) IU/L ALT 21 (14-63) IU/L Alkaline Phosphatase 183 H (46-116) U/L Total Protein 5.9 L (6.4-8.2) g/dL Albumin 1.4 L (3.4-5.0) g/dL Globulin 4.5 H (2.6-4.0) g/dL Albumin/Globulin Ratio 0.3 L (0.9-1.6) Random Vancomycin 10.2 ug/mL 03/25/20 03/25/20 Range/Units 06:26 11:58 WBC (4.0-11.0) K/uL RBC (4.30-5.90) M/uL Hgb (12.0-16.0) g/dL Hct (36.0-46.0) % MCV (80.0-98.0) fL MCH (27.0-32.0) pg MCHC (31.0-37.0) g/dL RDW Std Deviation (28.0-62.0) fl RDW Coeff of Cristiane (11.0-15.0) % Plt Count (150-400) K/uL MPV (7.40-12.00) fL Neut % (Auto) (48.0-80.0) % Lymph % (Auto) (16.0-40.0) % Kemper % (Auto) (0.0-15.0) % Eos % (Auto) (0.0-7.0) % Baso % (Auto) (0.0-1.5) % Neut # (Auto) (1.4-5.7) K/uL Lymph # (Auto) (0.6-2.4) K/uL Kemper # (Auto) (0.0-0.8) K/uL Eos # (Auto) (0.0-0.7) K/uL Baso # (Auto) (0.0-0.1) K/uL Nucleated RBC % /100WBC Nucleated RBCs # K/uL Sodium (136-145) mmol/L Potassium (3.5-5.1) mmol/L Chloride (98-107) mmol/L Carbon Dioxide (21.0-32.0) mmol/L BUN (7.0-18.0) mg/dL Creatinine (0.6-1.0) mg/dL Est Cr Clr Drug Dosing mL/min Estimated GFR (MDRD) ml/min Glucose (74-106) mg/dL POC Glucose 298 H 282 H (60-110) mg/dL Calcium (8.5-10.1) mg/dL Total Bilirubin (0.2-1.0) mg/dL AST (15-37) IU/L ALT (14-63) IU/L Alkaline Phosphatase (46-116) U/L Total Protein (6.4-8.2) g/dL Albumin (3.4-5.0) g/dL Globulin (2.6-4.0) g/dL Albumin/Globulin Ratio (0.9-1.6) Random Vancomycin ug/mL Sherwin Results Last 24 Hours: Microbiology 03/23/20 17:20 Aerobic Blood Culture - Preliminary Blood - Venous - Lab Draw NO GROWTH AFTER 1 DAY Anaerobic Blood Culture - Preliminary NO GROWTH AFTER 1 DAY 03/23/20 16:25 Aerobic Blood Culture - Preliminary Blood - Venous NO GROWTH AFTER 1 DAY Anaerobic Blood Culture - Preliminary NO GROWTH AFTER 1 DAY Med Orders - Current: Current Medications Acetaminophen (Tylenol) 650 mg PO Q4H PRN PRN Reason: Pain Albuterol/Ipratropium (Duoneb 3.0-0.5 Mg/3 Ml) 3 ml NEB Q4HRRT PRN PRN Reason: Shortness Of Breath/wheezing Bisacodyl (Dulcolax) 10 mg RECTAL Q24H PRN PRN Reason: Constipation Bupropion HCl (Wellbutrin Xl) 150 mg PO DAILY [facility] Last Admin: 03/25/20 09:02 Dose: 150 mg Documented by: Dextrose/Water (Dextrose 50% In Water) 50 ml IV ASDIRECTED PRN PRN Reason: Hypoglycemia Glucagon (Glucagen) 1 mg IM ASDIRECTED PRN PRN Reason: Hypoglycemia Heparin Sodium (Porcine) (Heparin Sodium) 5,000 units SUBCUT Q12H [facility] Last Admin: 03/25/20 11:56 Dose: 5,000 units Documented by: Sodium Chloride (Normal Saline) 500 mls @ 1,000 mls/hr IV .BOLUS [facility] Last Admin: 03/23/20 23:15 Dose: 1,000 mls/hr Documented by: Levofloxacin/Dextrose 500 mg/ (Premix) 100 mls @ 100 mls/hr IV Q48H [facility] Sodium Chloride (Normal Saline) 1,000 mls @ 100 mls/hr IV ASDIRECTED [facility] Last Admin: 03/25/20 02:23 Dose: 100 mls/hr Documented by: Cefepime HCl 2 gm/ Premix 50 mls @ 100 mls/hr IV Q24H [facility] Last Admin: 03/25/20 03:33 Dose: 100 mls/hr Documented by: Vancomycin HCl 1 gm/ Sodium (Chloride) 250 mls @ 166 mls/hr IV Q24H [facility] Last Admin: 03/24/20 23:37 Dose: 166 mls/hr Documented by: Insulin Aspart (Novolog) 0 unit SUBCUT TIDAC [facility]; Protocol Last Admin: 03/25/20 12:00 Dose: 3 unit Documented by: Insulin Glargine (Lantus Solostar) 15 units SUBCUT BEDTIME [facility] Levothyroxine Sodium (Levothyroxine) 125 mcg PO ACBREAKFAST [facility] Last Admin: 03/25/20 06:29 Dose: 125 mcg Documented by: Memantine (Namenda) 10 mg PO BID [facility] Last Admin: 03/25/20 09:02 Dose: 10 mg Documented by: Metoprolol Tartrate (Lopressor) 50 mg PO BID [facility] Last Admin: 03/25/20 09:02 Dose: 50 mg Documented by: Ondansetron HCl (Zofran) 4 mg IVPUSH Q4H PRN PRN Reason: Nausea Polyethylene Glycol (Miralax) 17 gm PO BID [facility] Last Admin: 03/25/20 10:04 Dose: Not Given Documented by: Prednisone (Prednisone) 40 mg PO WITHBREAKFAST [facility] Last Admin: 03/25/20 09:03 Dose: 40 mg Documented by: Simvastatin (Zocor) 20 mg PO BEDTIME [facility] Last Admin: 03/24/20 22:00 Dose: 20 mg Documented by: Sodium Chloride (Saline Flush) 10 ml FLUSH ASDIRECTED PRN PRN Reason: Keep Vein Open Last Admin: 03/23/20 16:38 Dose: 10 ml Documented by: Sodium Chloride (Saline Flush) 2.5 ml FLUSH ASDIRECTED PRN PRN Reason: Keep Vein Open Last Admin: 03/23/20 16:38 Dose: 2.5 ml Documented by: Tramadol HCl (Ultram) 50 mg PO Q4H PRN PRN Reason: Pain Vancomycin HCl (Pharmacy To Dose - Vancomycin) 1 dose .XX ASDIRECTED [facility] Discontinued Medications Sodium Chloride (Normal Saline) 1,000 mls @ 250 mls/hr IV .Bolus ONE Stop: 03/23/20 20:24 Last Admin: 03/23/20 16:37 Dose: 250 mls/hr Documented by: Cefepime HCl 2 gm/ Premix 50 mls @ 100 mls/hr IV ONETIME ONE Stop: 03/23/20 18:52 Last Admin: 03/23/20 20:43 Dose: 100 mls/hr Documented by: Sodium Chloride (Normal Saline) 1,000 mls @ 999 mls/hr IV .Bolus ONE Stop: 03/23/20 19:31 Last Admin: 03/23/20 21:55 Dose: Not Given Documented by: Sodium Chloride (Normal Saline) 1,000 mls @ 250 mls/hr IV ONETIME ONE Stop: 03/23/20 23:49 Last Admin: 03/23/20 21:55 Dose: Not Given Documented by: Vancomycin HCl 1 gm/ Sodium (Chloride) 250 mls @ 166 mls/hr IV ONETIME ONE Stop: 03/23/20 21:10 Last Admin: 03/23/20 20:43 Dose: 166 mls/hr Documented by: Cefepime HCl 2 gm/ Premix 50 mls @ 100 mls/hr IV Q8H [facility] Last Admin: 03/24/20 02:56 Dose: 100 mls/hr Documented by: Levofloxacin/Dextrose 750 mg/ (Premix) 150 mls @ 100 mls/hr IV Q24H [facility] Stop: 03/24/20 00:29 Last Admin: 03/24/20 00:13 Dose: 100 mls/hr Documented by: Insulin Aspart (Novolog) 0 unit SUBCUT Q4H [facility]; Protocol Last Admin: 03/24/20 11:34 Dose: 3 units Documented by: Insulin Aspart (Novolog) 5 unit SUBCUT NOW STA Stop: 03/24/20 04:34 Last Admin: 03/24/20 04:55 Dose: 5 units Documented by: Insulin Aspart (Novolog) 7 unit SUBCUT NOW STA Stop: 03/24/20 06:10 Last Admin: 03/24/20 06:25 Dose: 7 units Documented by: Insulin Glargine (Lantus Solostar) 10 units SUBCUT BEDTIME [facility] Last Admin: 03/24/20 22:00 Dose: 10 units Documented by: Insulin Human Regular (Novolin R) 10 unit IVPUSH ONETIME ONE; Protocol Stop: 03/23/20 18:32 Last Admin: 03/23/20 19:52 Dose: 10 units Documented by: Methylprednisolone Sodium Succinate (Solu-Medrol) 125 mg IVPUSH ONETIME ONE Stop: 03/23/20 19:47 Last Admin: 03/23/20 20:43 Dose: 125 mg Documented by: - Exam General: Alert, Cooperative Lungs: Clear to Auscultation, Normal Respiratory Effort Cardiovascular: Regular Rate, Regular Rhythm GI/Abdominal Exam: Soft, Non-Tender, No Distention Extremities: Non-Tender, No Pedal Edema Skin: Warm, Dry, Intact Neurological: No New Focal Deficit Sepsis Event Note - Evaluation Sepsis Screening Result: No Definite Risk - Focused Exam Vital Signs: Vital Signs Temp Pulse Pulse Resp BP BP Pulse Ox 03/25/20 09:02 72 128/62 03/25/20 08:57 72 16 128/62 94 L 03/25/20 03:28 35.9 C L 70 16 125/57 L 97 03/25/20 01:00 Pulse Ox 03/25/20 09:02 03/25/20 08:57 03/25/20 03:28 03/25/20 01:00 94 L - Problem List & Annotations (1) Respiratory failure with hypoxia SNOMED Code(s): 14329432456895529 Code(s): J96.91 - RESPIRATORY FAILURE, UNSPECIFIED WITH HYPOXIA Status: Acute Current Visit: Yes (2) Acute renal failure SNOMED Code(s): 85764664 Code(s): N17.9 - ACUTE KIDNEY FAILURE, UNSPECIFIED Status: Acute Current Visit: Yes (3) COPD (chronic obstructive pulmonary disease) SNOMED Code(s): 34025994 Code(s): J44.9 - CHRONIC OBSTRUCTIVE PULMONARY DISEASE, UNSPECIFIED Status: Acute Current Visit: Yes (4) Diabetes mellitus, new onset SNOMED Code(s): 306320981, 240120638 Code(s): E11.9 - TYPE 2 DIABETES MELLITUS WITHOUT COMPLICATIONS Status: Acute Current Visit: Yes (5) Hyperglycemia SNOMED Code(s): 14412000 Code(s): R73.9 - HYPERGLYCEMIA, UNSPECIFIED Status: Acute Current Visit: Yes (6) Hypoxia SNOMED Code(s): 654186110 Code(s): R09.02 - HYPOXEMIA Status: Acute Current Visit: Yes (7) Oxygen dependent SNOMED Code(s): 882422522618 Code(s): Z99.81 - DEPENDENCE ON SUPPLEMENTAL OXYGEN Status: Acute Current Visit: Yes (8) Pleural effusion, right SNOMED Code(s): 07462203 Code(s): J90 - PLEURAL EFFUSION, NOT ELSEWHERE CLASSIFIED Status: Acute Current Visit: Yes (9) Sepsis SNOMED Code(s): 92969824 Code(s): A41.9 - SEPSIS, UNSPECIFIED ORGANISM Status: Acute Current Visit: Yes Qualifiers: Sepsis type: sepsis due to unspecified organism Severe sepsis acute organ dysfunction type: acute renal failure Acute renal failure type: unspecified Severe sepsis shock status: without septic shock (10) Altered mental state SNOMED Code(s): 955655249 Code(s): R41.82 - ALTERED MENTAL STATUS, UNSPECIFIED Status: Acute Current Visit: Yes Qualifiers: Altered mental status type: unspecified Qualified Code(s): R41.82 - Altered mental status, unspecified (11) Hypothyroidism SNOMED Code(s): 29302721 Code(s): E03.9 - HYPOTHYROIDISM, UNSPECIFIED Status: Chronic Current Visit: Yes Qualifiers: Hypothyroidism type: unspecified Qualified Code(s): E03.9 - Hypothyroidism, unspecified (12) SIRS (systemic inflammatory response syndrome) SNOMED Code(s): 922696848 Code(s): R65.10 - SIRS OF NON-INFECTIOUS ORIGIN W/O ACUTE ORGAN DYSFUNCTION Status: Acute Current Visit: Yes (13) Dementia SNOMED Code(s): 06563648 Code(s): F03.90 - UNSPECIFIED DEMENTIA WITHOUT BEHAVIORAL DISTURBANCE Status: Chronic Current Visit: No (14) Pneumonia SNOMED Code(s): 206005082 Code(s): J18.9 - PNEUMONIA, UNSPECIFIED ORGANISM Status: Acute Current Visit: Yes - Problem List Review Problem List Initiated/Reviewed/Updated: Yes - My Orders Last 24 Hours: My Active Orders 03/24/20 17:00 Insulin Aspart [NovoLOG] See Protocol SUBCUT TIDAC 03/24/20 21:00 Insulin Glarg,Human.Rec.Analog [LantUS Solostar] 10 units SUBCUT BEDTIME Simvastatin [Zocor] 20 mg PO BEDTIME 03/24/20 23:00 Vancomycin [Vancocin] 1 gm Sodium Chloride 0.9% [Normal Saline (AdvBag)] 250 ml IV Q24H 03/25/20 04:00 Cefepime [Maxipime in D5W 2 GM/50 ML] 2 gm Premix Bag 1 bag IV Q24H 03/25/20 12:08 LACTATE WITH REFLEX [BG] Stat 03/25/20 21:00 Insulin Glarg,Human.Rec.Analog [LantUS Solostar] 15 units SUBCUT BEDTIME Levofloxacin/Dextrose 5%-Water [Levaquin in D5W 500 MG/100 ML] 500 mg Premix Bag 1 bag IV Q48H - Plan Plan:: 80 yo female admitted for possible gram negative jamie respiratory infection,sepsis sepsis: Resolving white count is improving Pneumonia: Will continue broad spectrum antibiotics, cultures pending AMINAH: creatinine improved to 1.6 today trend creatinine New onset DM: treating with sc insulin, will increase lantus to 15, continue ssi, diabetic diet COPD: continue PO prednisone
[2020-03-25] MEDS ORDERED: Levofloxacin/Dextrose 5%-Water 100 ML IV ONE ×2 (20:36→20:41)
[2020-03-25] MEDS ORDERED: Insulin Glargine,Human Rec. Analog 100 Units/ML 3 ML Pen SUBCUT SCH (21:00)
[2020-03-25] MEDS ORDERED: Levofloxacin/Dextrose 5%-Water 500 MG in Premix Bag 1 BAG IV SCH (21:00)
[2020-03-25] MEDS: Simvastatin 20 MG Tab PO SCH (21:14)
[2020-03-26] MEDS: Cefepime 2 GM in Premix Bag 1 BAG IV SCH (05:00)
[2020-03-26] MEDS: Levothyroxine 125 MCG Tab PO SCH (06:30)
[2020-03-26 08:42] LABS: CARBON DIOXIDE,CO2 15.2 mmol/L (21.0-32.0); POTASSIUM,K 4.8 mmol/L (3.5-5.1)
[2020-03-26 09:20] VITALS: BP 149/67; PULSE 67
[2020-03-26] MEDS: predniSONE 20 MG Tab PO SCH (09:21)
[2020-03-26] MEDS: Memantine 10 MG Tab PO SCH (09:22)
[2020-03-26] MEDS: buPROPion 150 MG Tab.ER PO SCH (09:22)
[2020-03-26] MEDS: Metoprolol Tartrate 50 MG Tab PO SCH (09:22)
[2020-03-26] MEDS: Insulin Aspart 100 Units/ML 3 ML Pen SUBCUT SCH ×2 (09:23→11:31)
[2020-03-26] MEDS: Polyethylene Glycol 3350 Powder 17 GM Packet PO SCH (09:23)
--- NOTE | 2020-03-26 10:56 | PCM.DCSUM1 ---
<Kartik Mosley - Last Filed: 03/26/20 12:20> Discharge Summary - Hospital Course Free Text/Narrative:: Discharge summary Hospital course: 80 yo [place] resident with pmh of dementia , hypothyroidism, depression, UTIs, COPD, hypertension, hyperlipidemia and s/p COVID infection on Mar 02. She was brought to the ED due to complaints of lethargy. CT chest shows right pleural effusion with focal consolidation. Due to NH status and recent COVID diagnosis ; lactate was trended w. resolution post-fluid resucitation. Braod spectrum abx. started including Levaquin/Vancomycin and cefepime. o2 stats always greater than 95% AMINAH noted w. initial Cr. 1.6 ; trended downwards on following day w. gentle hydration. New onset DM: started w. SC insulin w. sliding scalewas provided prednisone in light of COPD history; discontinued thereafter since no increased respiratory effort; not requiring oxygen. Effusion postulated as possibly as a parapneumonic infection in light of recent COVID infection; however will complete coverage for CAP in COPD patient w. additonal 3 days of levauin q 48 hours; sent home with 3 additional tabs Discharge condition:Stable Disposition: Snf/[place] Follow-up: PCP - Discharge Data Discharge Date: 03/26/20 Discharge Disposition: DC/Tfer to Other Condition: Good - Referral to Home Health Primary Care Physician: Emir Muir MD - Patient Instructions Diet: Low Sodium - Discharge Plan *PRESCRIPTION DRUG MONITORING PROGRAM REVIEWED*: Not Applicable *COPY OF PRESCRIPTION DRUG MONITORING REPORT IN PATIENT MARIA FERNANDA: Not Applicable Prescriptions/Med Rec: Levofloxacin 750 mg PO Q4HR 3 Days #3 tablet Home Medications: Home Meds Acetaminophen [Tylenol] 650 mg PO Q4H PRN #7 tablet 03/07/16 [Rx] Multivitamin [Multi-Vitamin Daily] 1 tab PO DAILY 07/04/16 [History] Metoprolol Tartrate 50 mg PO BID 07/09/16 [History] Simvastatin [Zocor] 20 mg PO BEDTIME 07/09/16 [History] buPROPion HCL [Wellbutrin Xl] 150 mg PO DAILY 07/09/16 [History] traMADol [Ultram] 50 mg PO Q4H PRN #15 tablet 07/10/16 [Rx] Bisacodyl 10 mg RC Q24H PRN 09/27/17 [History] Calcium Citrate/Vitamin D3 [Calcium Citrate - Vit D Caplet] 2 each PO DAILY 09/27/17 [History] Levothyroxine 137 mcg PO ACBREAKFAST 09/27/17 [History] Magnesium Hydroxide [Milk of Magnesia] 30 ml PO DAILY PRN 09/27/17 [History] Memantine HCl 10 mg PO BID 09/27/17 [History] Furosemide [Lasix] 40 mg PO DAILY 06/14/19 [History] Methyl Salicylate/Menthol [Icy Hot] 1 ml TOP ASDIRECTED PRN 06/14/19 [History] guaiFENesin/Dextromethorphan [Tussin Dm Liquid] 5 ml PO ASDIRECTED PRN 06/14/19 [History] polyethylene glycoL 3350 [MiraLAX] 17 gm PO BID PRN 06/14/19 [History] Sulfamethoxazole/Trimethoprim [Bactrim Ds Tablet] 1 each PO BID 5 Days #10 tablet 06/17/19 [Rx] Mirtazapine 7.5 mg PO BEDTIME 03/24/20 [History] Levofloxacin 750 mg PO Q4HR 3 Days #3 tablet 03/26/20 [Rx] Patient Handouts: Pleural Effusion, Levofloxacin tablets, Community-Acquired Pneumonia, Adult, [id number] Referrals: Emir Muir MD [Primary Care Provider] - 04/05/20 10:15 am - Discharge Summary/Plan Comment DC Time >30 min.: No - Patient Data Vitals - Most Recent: Last Vital Signs Temp 97.3 F 03/26/20 09:19 Pulse 67 03/26/20 09:22 Resp 18 03/26/20 09:19 BP 149/67 H 03/26/20 09:22 Pulse Ox 93 L 03/26/20 09:19 Weight - Most Recent: 68.039 kg I&O - Last 24 hours: Intake & Output 03/25/20 03/26/20 03/26/20 22:59 06:59 14:59 Intake Total 1320 1650 Balance 1320 1650 Lab Results - Last 24 hrs: Laboratory Results - last 24 hr 03/25/20 03/25/20 03/25/20 Range/Units 11:58 12:12 12:27 WBC (4.0-11.0) K/uL RBC (4.30-5.90) M/uL Hgb (12.0-16.0) g/dL Hct (36.0-46.0) % MCV (80.0-98.0) fL MCH (27.0-32.0) pg MCHC (31.0-37.0) g/dL RDW Std Deviation (28.0-62.0) fl RDW Coeff of Cristiane (11.0-15.0) % Plt Count (150-400) K/uL MPV (7.40-12.00) fL Neut % (Auto) (48.0-80.0) % Lymph % (Auto) (16.0-40.0) % Colbert % (Auto) (0.0-15.0) % Eos % (Auto) (0.0-7.0) % Baso % (Auto) (0.0-1.5) % Neut # (Auto) (1.4-5.7) K/uL Lymph # (Auto) (0.6-2.4) K/uL Colbert # (Auto) (0.0-0.8) K/uL Eos # (Auto) (0.0-0.7) K/uL Baso # (Auto) (0.0-0.1) K/uL Nucleated RBC % /100WBC Nucleated RBCs # K/uL Lactate 1.4 (0.20-2.00) mmol/L Sodium (136-145) mmol/L Potassium (3.5-5.1) mmol/L Chloride (98-107) mmol/L Carbon Dioxide (21.0-32.0) mmol/L BUN (7.0-18.0) mg/dL Creatinine (0.6-1.0) mg/dL Est Cr Clr Drug Dosing mL/min Estimated GFR (MDRD) ml/min Glucose (74-106) mg/dL POC Glucose 282 H 289 H (60-110) mg/dL Calcium (8.5-10.1) mg/dL 03/25/20 03/25/20 03/26/20 Range/Units 16:26 20:52 06:30 WBC (4.0-11.0) K/uL RBC (4.30-5.90) M/uL Hgb (12.0-16.0) g/dL Hct (36.0-46.0) % MCV (80.0-98.0) fL MCH (27.0-32.0) pg MCHC (31.0-37.0) g/dL RDW Std Deviation (28.0-62.0) fl RDW Coeff of Cristiane (11.0-15.0) % Plt Count (150-400) K/uL MPV (7.40-12.00) fL Neut % (Auto) (48.0-80.0) % Lymph % (Auto) (16.0-40.0) % Colbert % (Auto) (0.0-15.0) % Eos % (Auto) (0.0-7.0) % Baso % (Auto) (0.0-1.5) % Neut # (Auto) (1.4-5.7) K/uL Lymph # (Auto) (0.6-2.4) K/uL Colbert # (Auto) (0.0-0.8) K/uL Eos # (Auto) (0.0-0.7) K/uL Baso # (Auto) (0.0-0.1) K/uL Nucleated RBC % /100WBC Nucleated RBCs # K/uL Lactate (0.20-2.00) mmol/L Sodium (136-145) mmol/L Potassium (3.5-5.1) mmol/L Chloride (98-107) mmol/L Carbon Dioxide (21.0-32.0) mmol/L BUN (7.0-18.0) mg/dL Creatinine (0.6-1.0) mg/dL Est Cr Clr Drug Dosing mL/min Estimated GFR (MDRD) ml/min Glucose (74-106) mg/dL POC Glucose 301 H 381 H 184 H (60-110) mg/dL Calcium (8.5-10.1) mg/dL 03/26/20 03/26/20 Range/Units 08:15 08:15 WBC 9.67 (4.0-11.0) K/uL RBC 3.28 L (4.30-5.90) M/uL Hgb 10.0 L (12.0-16.0) g/dL Hct 31.2 L (36.0-46.0) % MCV 95.1 (80.0-98.0) fL MCH 30.5 (27.0-32.0) pg MCHC 32.1 (31.0-37.0) g/dL RDW Std Deviation 51.2 (28.0-62.0) fl RDW Coeff of Cristiane 15 (11.0-15.0) % Plt Count 113 L (150-400) K/uL MPV 10.70 (7.40-12.00) fL Neut % (Auto) 68.6 (48.0-80.0) % Lymph % (Auto) 26.2 (16.0-40.0) % Colbert % (Auto) 4.3 (0.0-15.0) % Eos % (Auto) 0.8 (0.0-7.0) % Baso % (Auto) 0.1 (0.0-1.5) % Neut # (Auto) 6.6 H (1.4-5.7) K/uL Lymph # (Auto) 2.5 H (0.6-2.4) K/uL Colbert # (Auto) 0.4 (0.0-0.8) K/uL Eos # (Auto) 0.1 (0.0-0.7) K/uL Baso # (Auto) 0.0 (0.0-0.1) K/uL Nucleated RBC % 0.0 /100WBC Nucleated RBCs # 0 K/uL Lactate (0.20-2.00) mmol/L Sodium 137 (136-145) mmol/L Potassium 4.8 (3.5-5.1) mmol/L Chloride 110 H (98-107) mmol/L Carbon Dioxide 15.2 L (21.0-32.0) mmol/L BUN 45 H (7.0-18.0) mg/dL Creatinine 1.4 H (0.6-1.0) mg/dL Est Cr Clr Drug Dosing 24.99 mL/min Estimated GFR (MDRD) 36.4 ml/min Glucose 168 H (74-106) mg/dL POC Glucose (60-110) mg/dL Calcium 8.0 L (8.5-10.1) mg/dL KATIE Results - Last 24 hrs: Microbiology 03/23/20 17:20 Aerobic Blood Culture - Preliminary Blood - Venous - Lab Draw NO GROWTH AFTER 2 DAYS Anaerobic Blood Culture - Preliminary NO GROWTH AFTER 2 DAYS 03/23/20 16:25 Aerobic Blood Culture - Preliminary Blood - Venous NO GROWTH AFTER 2 DAYS Anaerobic Blood Culture - Preliminary NO GROWTH AFTER 2 DAYS Med Orders - Current: Current Medications Acetaminophen (Tylenol) 650 mg PO Q4H PRN PRN Reason: Pain Albuterol/Ipratropium (Duoneb 3.0-0.5 Mg/3 Ml) 3 ml NEB Q4HRRT PRN PRN Reason: Shortness Of Breath/wheezing Bisacodyl (Dulcolax) 10 mg RECTAL Q24H PRN PRN Reason: Constipation Bupropion HCl (Wellbutrin Xl) 150 mg PO DAILY [facility] Last Admin: 03/26/20 09:22 Dose: 150 mg Documented by: Dextrose/Water (Dextrose 50% In Water) 50 ml IV ASDIRECTED PRN PRN Reason: Hypoglycemia Glucagon (Glucagen) 1 mg IM ASDIRECTED PRN PRN Reason: Hypoglycemia Heparin Sodium (Porcine) (Heparin Sodium) 5,000 units SUBCUT Q12H [facility] Last Admin: 03/25/20 22:08 Dose: 5,000 units Documented by: Sodium Chloride (Normal Saline) 500 mls @ 1,000 mls/hr IV .BOLUS [facility] Last Admin: 03/23/20 23:15 Dose: 1,000 mls/hr Documented by: Levofloxacin/Dextrose 500 mg/ (Premix) 100 mls @ 100 mls/hr IV Q48H [facility] Last Admin: 03/25/20 21:09 Dose: 100 mls/hr Documented by: Sodium Chloride (Normal Saline) 1,000 mls @ 50 mls/hr IV ASDIRECTED [facility] Last Infusion: 03/25/20 14:24 Dose: 50 mls/hr Documented by: Insulin Aspart (Novolog) 0 unit SUBCUT TIDAC [facility]; Protocol Last Admin: 03/26/20 09:23 Dose: 1 unit Documented by: Insulin Glargine (Lantus Solostar) 15 units SUBCUT BEDTIME [facility] Last Admin: 03/25/20 21:05 Dose: 15 units Documented by: Levothyroxine Sodium (Levothyroxine) 125 mcg PO ACBREAKFAST [facility] Last Admin: 03/26/20 06:30 Dose: 125 mcg Documented by: Memantine (Namenda) 10 mg PO BID [facility] Last Admin: 03/26/20 09:22 Dose: 10 mg Documented by: Metoprolol Tartrate (Lopressor) 50 mg PO BID [facility] Last Admin: 03/26/20 09:22 Dose: 50 mg Documented by: Ondansetron HCl (Zofran) 4 mg IVPUSH Q4H PRN PRN Reason: Nausea Polyethylene Glycol (Miralax) 17 gm PO BID [facility] Last Admin: 03/26/20 09:23 Dose: Not Given Documented by: Prednisone (Prednisone) 40 mg PO WITHBREAKFAST [facility] Last Admin: 03/26/20 09:21 Dose: 40 mg Documented by: Simvastatin (Zocor) 20 mg PO BEDTIME [facility] Last Admin: 03/25/20 21:14 Dose: 20 mg Documented by: Sodium Chloride (Saline Flush) 10 ml FLUSH ASDIRECTED PRN PRN Reason: Keep Vein Open Last Admin: 03/23/20 16:38 Dose: 10 ml Documented by: Sodium Chloride (Saline Flush) 2.5 ml FLUSH ASDIRECTED PRN PRN Reason: Keep Vein Open Last Admin: 03/23/20 16:38 Dose: 2.5 ml Documented by: Tramadol HCl (Ultram) 50 mg PO Q4H PRN PRN Reason: Pain Discontinued Medications Sodium Chloride (Normal Saline) 1,000 mls @ 250 mls/hr IV .Bolus ONE Stop: 03/23/20 20:24 Last Admin: 03/23/20 16:37 Dose: 250 mls/hr Documented by: Cefepime HCl 2 gm/ Premix 50 mls @ 100 mls/hr IV ONETIME ONE Stop: 03/23/20 18:52 Last Admin: 03/23/20 20:43 Dose: 100 mls/hr Documented by: Sodium Chloride (Normal Saline) 1,000 mls @ 999 mls/hr IV .Bolus ONE Stop: 03/23/20 19:31 Last Admin: 03/23/20 21:55 Dose: Not Given Documented by: Sodium Chloride (Normal Saline) 1,000 mls @ 250 mls/hr IV ONETIME ONE Stop: 03/23/20 23:49 Last Admin: 03/23/20 21:55 Dose: Not Given Documented by: Vancomycin HCl 1 gm/ Sodium (Chloride) 250 mls @ 166 mls/hr IV ONETIME ONE Stop: 03/23/20 21:10 Last Admin: 03/23/20 20:43 Dose: 166 mls/hr Documented by: Cefepime HCl 2 gm/ Premix 50 mls @ 100 mls/hr IV Q8H [facility] Last Admin: 03/24/20 02:56 Dose: 100 mls/hr Documented by: Levofloxacin/Dextrose 750 mg/ (Premix) 150 mls @ 100 mls/hr IV Q24H [facility] Stop: 03/24/20 00:29 Last Admin: 03/24/20 00:13 Dose: 100 mls/hr Documented by: Cefepime HCl 2 gm/ Premix 50 mls @ 100 mls/hr IV Q24H [facility] Last Admin: 03/26/20 05:00 Dose: 100 mls/hr Documented by: Vancomycin HCl 1 gm/ Sodium (Chloride) 250 mls @ 166 mls/hr IV Q24H [facility] Last Admin: 03/25/20 22:33 Dose: 166 mls/hr Documented by: Levofloxacin/Dextrose (Levaquin In D5w 500 Mg/100 Ml) Confirm Administered Dose 100 mls @ as directed IV .STK-MED ONE Stop: 03/25/20 20:37 Last Admin: 03/25/20 21:15 Dose: Not Given Documented by: Levofloxacin/Dextrose (Levaquin In D5w 500 Mg/100 Ml) Confirm Administered Dose 100 mls @ as directed IV .STK-MED ONE Stop: 03/25/20 20:42 Last Admin: 03/25/20 21:15 Dose: Not Given Documented by: Insulin Aspart (Novolog) 0 unit SUBCUT Q4H [facility]; Protocol Last Admin: 03/24/20 11:34 Dose: 3 units Documented by: Insulin Aspart (Novolog) 5 unit SUBCUT NOW STA Stop: 03/24/20 04:34 Last Admin: 03/24/20 04:55 Dose: 5 units Documented by: Insulin Aspart (Novolog) 7 unit SUBCUT NOW STA Stop: 03/24/20 06:10 Last Admin: 03/24/20 06:25 Dose: 7 units Documented by: Insulin Glargine (Lantus Solostar) 10 units SUBCUT BEDTIME [facility] Last Admin: 03/24/20 22:00 Dose: 10 units Documented by: Insulin Human Regular (Novolin R) 10 unit IVPUSH ONETIME ONE; Protocol Stop: 03/23/20 18:32 Last Admin: 03/23/20 19:52 Dose: 10 units Documented by: Methylprednisolone Sodium Succinate (Solu-Medrol) 125 mg IVPUSH ONETIME ONE Stop: 03/23/20 19:47 Last Admin: 03/23/20 20:43 Dose: 125 mg Documented by: Vancomycin HCl (Pharmacy To Dose - Vancomycin) 1 dose .XX ASDIRECTED [facility] <JigneshGeovany - Last Filed: 03/27/20 20:56> Discharge Summary - Hospital Course Free Text/Narrative:: I have seen and evaluated the patient. I have discussed findings and treatment plan with resident. I agree with the assessment and plan in the following note. - Referral to Home Health Primary Care Physician: Emir Muir MD - Patient Data Vitals - Most Recent: Last Vital Signs Temp 36.3 C 03/26/20 09:19 Pulse 67 03/26/20 09:22 Resp 18 03/26/20 09:19 BP 149/67 H 03/26/20 09:22 Pulse Ox 93 L 03/26/20 09:19 KATIE Results - Last 24 hrs: Microbiology 03/23/20 17:20 Aerobic Blood Culture - Preliminary Blood - Venous - Lab Draw NO GROWTH AFTER 4 DAYS Anaerobic Blood Culture - Preliminary NO GROWTH AFTER 4 DAYS 03/23/20 16:25 Aerobic Blood Culture - Preliminary Blood - Venous NO GROWTH AFTER 4 DAYS Anaerobic Blood Culture - Preliminary NO GROWTH AFTER 4 DAYS Med Orders - Current: Current Medications Discontinued Medications Acetaminophen (Tylenol) 650 mg PO Q4H PRN PRN Reason: Pain Albuterol/Ipratropium (Duoneb 3.0-0.5 Mg/3 Ml) 3 ml NEB Q4HRRT PRN PRN Reason: Shortness Of Breath/wheezing Bisacodyl (Dulcolax) 10 mg RECTAL Q24H PRN PRN Reason: Constipation Bupropion HCl (Wellbutrin Xl) 150 mg PO DAILY [facility] Last Admin: 03/26/20 09:22 Dose: 150 mg Documented by: Dextrose/Water (Dextrose 50% In Water) 50 ml IV ASDIRECTED PRN PRN Reason: Hypoglycemia Glucagon (Glucagen) 1 mg IM ASDIRECTED PRN PRN Reason: Hypoglycemia Heparin Sodium (Porcine) (Heparin Sodium) 5,000 units SUBCUT Q12H [facility] Last Admin: 03/26/20 11:31 Dose: 5,000 units Documented by: Sodium Chloride (Normal Saline) 1,000 mls @ 250 mls/hr IV .Bolus ONE Stop: 03/23/20 20:24 Last Admin: 03/23/20 16:37 Dose: 250 mls/hr Documented by: Cefepime HCl 2 gm/ Premix 50 mls @ 100 mls/hr IV ONETIME ONE Stop: 03/23/20 18:52 Last Admin: 03/23/20 20:43 Dose: 100 mls/hr Documented by: Sodium Chloride (Normal Saline) 1,000 mls @ 999 mls/hr IV .Bolus ONE Stop: 03/23/20 19:31 Last Admin: 03/23/20 21:55 Dose: Not Given Documented by: Sodium Chloride (Normal Saline) 1,000 mls @ 250 mls/hr IV ONETIME ONE Stop: 03/23/20 23:49 Last Admin: 03/23/20 21:55 Dose: Not Given Documented by: Vancomycin HCl 1 gm/ Sodium (Chloride) 250 mls @ 166 mls/hr IV ONETIME ONE Stop: 03/23/20 21:10 Last Admin: 03/23/20 20:43 Dose: 166 mls/hr Documented by: Cefepime HCl 2 gm/ Premix 50 mls @ 100 mls/hr IV Q8H [facility] Last Admin: 03/24/20 02:56 Dose: 100 mls/hr Documented by: Levofloxacin/Dextrose 750 mg/ (Premix) 150 mls @ 100 mls/hr IV Q24H [facility] Stop: 03/24/20 00:29 Last Admin: 03/24/20 00:13 Dose: 100 mls/hr Documented by: Sodium Chloride (Normal Saline) 500 mls @ 1,000 mls/hr IV .BOLUS [facility] Last Admin: 03/23/20 23:15 Dose: 1,000 mls/hr Documented by: Levofloxacin/Dextrose 500 mg/ (Premix) 100 mls @ 100 mls/hr IV Q48H [facility] Last Admin: 03/25/20 21:09 Dose: 100 mls/hr Documented by: Sodium Chloride (Normal Saline) 1,000 mls @ 50 mls/hr IV ASDIRECTED [facility] Last Infusion: 03/25/20 14:24 Dose: 50 mls/hr Documented by: Cefepime HCl 2 gm/ Premix 50 mls @ 100 mls/hr IV Q24H [facility] Last Admin: 03/26/20 05:00 Dose: 100 mls/hr Documented by: Vancomycin HCl 1 gm/ Sodium (Chloride) 250 mls @ 166 mls/hr IV Q24H [facility] Last Admin: 03/25/20 22:33 Dose: 166 mls/hr Documented by: Levofloxacin/Dextrose (Levaquin In D5w 500 Mg/100 Ml) Confirm Administered Dose 100 mls @ as directed IV .STK-MED ONE Stop: 03/25/20 20:37 Last Admin: 03/25/20 21:15 Dose: Not Given Documented by: Levofloxacin/Dextrose (Levaquin In D5w 500 Mg/100 Ml) Confirm Administered Dose 100 mls @ as directed IV .STK-MED ONE Stop: 03/25/20 20:42 Last Admin: 03/25/20 21:15 Dose: Not Given Documented by: Insulin Aspart (Novolog) 0 unit SUBCUT Q4H [facility]; Protocol Last Admin: 03/24/20 11:34 Dose: 3 units Documented by: Insulin Aspart (Novolog) 5 unit SUBCUT NOW STA Stop: 03/24/20 04:34 Last Admin: 03/24/20 04:55 Dose: 5 units Documented by: Insulin Aspart (Novolog) 7 unit SUBCUT NOW STA Stop: 03/24/20 06:10 Last Admin: 03/24/20 06:25 Dose: 7 units Documented by: Insulin Aspart (Novolog) 0 unit SUBCUT TIDAC [facility]; Protocol Last Admin: 03/26/20 11:31 Dose: 1 unit Documented by: Insulin Glargine (Lantus Solostar) 10 units SUBCUT BEDTIME [facility] Last Admin: 03/24/20 22:00 Dose: 10 units Documented by: Insulin Glargine (Lantus Solostar) 15 units SUBCUT BEDTIME [facility] Last Admin: 03/25/20 21:05 Dose: 15 units Documented by: Insulin Human Regular (Novolin R) 10 unit IVPUSH ONETIME ONE; Protocol Stop: 03/23/20 18:32 Last Admin: 03/23/20 19:52 Dose: 10 units Documented by: Levothyroxine Sodium (Levothyroxine) 125 mcg PO ACBREAKFAST [facility] Last Admin: 03/26/20 06:30 Dose: 125 mcg Documented by: Memantine (Namenda) 10 mg PO BID [facility] Last Admin: 03/26/20 09:22 Dose: 10 mg Documented by: Methylprednisolone Sodium Succinate (Solu-Medrol) 125 mg IVPUSH ONETIME ONE Stop: 03/23/20 19:47 Last Admin: 03/23/20 20:43 Dose: 125 mg Documented by: Metoprolol Tartrate (Lopressor) 50 mg PO BID [facility] Last Admin: 03/26/20 09:22 Dose: 50 mg Documented by: Ondansetron HCl (Zofran) 4 mg IVPUSH Q4H PRN PRN Reason: Nausea Polyethylene Glycol (Miralax) 17 gm PO BID [facility] Last Admin: 03/26/20 09:23 Dose: Not Given Documented by: Prednisone (Prednisone) 40 mg PO WITHBREAKFAST [facility] Last Admin: 03/26/20 09:21 Dose: 40 mg Documented by: Simvastatin (Zocor) 20 mg PO BEDTIME [facility] Last Admin: 03/25/20 21:14 Dose: 20 mg Documented by: Sodium Chloride (Saline Flush) 10 ml FLUSH ASDIRECTED PRN PRN Reason: Keep Vein Open Last Admin: 03/23/20 16:38 Dose: 10 ml Documented by: Sodium Chloride (Saline Flush) 2.5 ml FLUSH ASDIRECTED PRN PRN Reason: Keep Vein Open Last Admin: 03/23/20 16:38 Dose: 2.5 ml Documented by: Tramadol HCl (Ultram) 50 mg PO Q4H PRN PRN Reason: Pain Vancomycin HCl (Pharmacy To Dose - Vancomycin) 1 dose .XX ASDIRECTED [facility]
[2020-03-26] MEDS: Heparin Sodium 5,000 Units/ML Vial SUBCUT SCH (11:31)
== END 2020-03-26 12:40 | disposition other institution (70) | DRG 871 ==
LOC: MW.ED 16:21 → MW.MS 21:31
PROVIDERS: ADMIT Internal Medicine; ATTEND Internal Medicine
DX: A41.9 Sepsis, unspecified organism (principal); A41.59 Other Gram-negative sepsis; R09.02 Hypoxemia; J96.01 Acute respiratory failure with hypoxia; J18.9 Pneumonia, unspecified organism; N17.9 Acute kidney failure, unspecified; J90 Pleural effusion, not elsewhere classified; I10 Essential (primary) hypertension; E11.22 Type 2 diabetes mellitus with diabetic chronic kidney disease; I12.9 Hypertensive chronic kidney disease with stage 1 through stage 4 chronic kidney disease, or unspecified chronic kidney disease; R65.20 Severe sepsis without septic shock; J44.9 Chronic obstructive pulmonary disease, unspecified; E03.9 Hypothyroidism, unspecified; F03.90 Unspecified dementia, unspecified severity, without behavioral disturbance, psychotic disturbance, mood disturbance, and anxiety; E78.00 Pure hypercholesterolemia, unspecified; N18.9 Chronic kidney disease, unspecified; M19.90 Unspecified osteoarthritis, unspecified site; F41.9 Anxiety disorder, unspecified; F32.9 Major depressive disorder, single episode, unspecified; E11.65 Type 2 diabetes mellitus with hyperglycemia; E66.9 Obesity, unspecified; Z90.710 Acquired absence of both cervix and uterus; Z99.81 Dependence on supplemental oxygen; Z87.440 Personal history of urinary (tract) infections; Z98.890 Other specified postprocedural states; Z79.890 Hormone replacement therapy; Z79.899 Other long term (current) drug therapy; Z68.28 Body mass index [BMI] 28.0-28.9, adult; Z20.828 Contact with and (suspected) exposure to other viral communicable diseases
CPT/HCPCS: 36415; 36600; 71045; 71250; 74176; 80053; 81003; 82803; 83036; 83605; 83735; 83880; 84484; 85025; 85379; 85610; 85730; 86140; 87040 ×2; 93005; 96365; 96368; 99285; J0692; J2930; J3370; J7030; J7050; U0002; 80048; 80202; 82962; 93010; 96375; 99284; A9270-GY; J1644; J1815-GY; J1956; J7040